=== PATIENT | female | born 1975 | race Two or more races ===

== ENCOUNTER 2016-07-29 14:28 | Emergency (ER) | payer OTHER ==
--- NOTE | 2016-07-29 20:07 | ED ---
yair Mederos Timothy, scribed for Rodger Starr MD on 07/29/16 at 1919 . Upper Extremity Pain - HPI Summary HPI Summary: Sally Torres is a 40 yo female presenting to [facility] with left hand numbness and 10/10 pain radiating up her left arm since 07/26/16. She states she also has right great toe pain from a fall a few weeks ago. She states she is very cold, and per triage has good cap refill and strong pulses. Her MHx includes heart murmur, palpitations, migraine, COPD, asthma, tuberculosis, GERD , irritable bowel, tubal ligation, kidney stones, RA, depression, anxiety, suicide attempt, tobacco use. - History of Current Complaint Chief Complaint: EDGeneral Stated Complaint: LT ARM & RT FOOT PAIN Time Seen by Provider: 07/29/16 19:23 Hx Obtained From: Patient Hx Last Menstrual Period: 10/12/14 Mechanism Of Injury: Unknown Onset/Duration: Started Days Ago, Still Present Timing: Constant Severity Initially: Moderate Severity Currently: Moderate Pain Location: Arm, Hand Associated Signs & Symptoms: Positive: Numbness/Tingling - Allergies/Home Medications Allergies/Adverse Reactions: Allergies Allergy/AdvReac Type Severity Reaction Status Date / Time Latex Allergy Mild Rash Verified 02/13/16 07:49 Dust Mite Extract Allergy Runny Nose Verified 02/13/16 07:49 Molds & Smuts Allergy Runny Nose Verified 02/13/16 07:49 MILK Allergy VOMIT Uncoded 02/13/16 07:49 NUTS Allergy VOMIT Uncoded 02/13/16 07:49 PMH/Surg Hx/FS Hx/Imm Hx Endocrine/Hematology History: Denies: Hx Anticoagulant Therapy, Other Endocrine/Hematological Disorders Cardiovascular History: Reports: Other Cardiovascular Problems/Disorders - MURMUR Respiratory History: Reports: Hx Asthma - CONTROL WITH INHALER, Hx Chronic Obstructive Pulmonary Disease (COPD), Other Respiratory Problems/Disorders - STATES SHE IS AN EXCESSIVE SMOKER Denies: Hx Cystic Fibrosis, Hx Lung Cancer, Hx Pleural Effusion, Hx Pneumonia , Hx Pulmonary Edema, Hx Pulmonary Embolism, Hx Seasonal Allergies, Hx Sleep Apnea GI History: Reports: Hx Gastroesophageal Reflux Disease, Hx Irritable Bowel, Other GI Disorders - OCCASIONAL NAUSEA AND VOMITING History: Reports: Hx Kidney Stones - PRESENT OCT 2014 Denies: Other Problems/Disorders Musculoskeletal History: Reports: Hx Arthritis - Arthritis/Osteoarthritis, Hx Rheumatoid Arthritis, Hx Tendonitis - BILATERAL FEET AND HANDS Denies: Other Musculoskeletal History Sensory History: Reports: Hx Contacts or Glasses - GLASSES Denies: Hx Hearing Aid, Other Sensory Impairments Opthamlomology History: Reports: Hx Contacts or Glasses - GLASSES Denies: Other Sensory Impairments Neurological History: Reports: Hx Headaches, Hx Migraine - OCCASIONAL Denies: Other Neuro Impairments/Disorders Psychiatric History: Reports: Hx Anxiety - CONTROL WITH MEDS, Hx Depression - CONTROL WITH MEDS, Hx Inpatient Treatment, Hx Community Mental Health Tx, Hx Suicide Attempt Denies: Hx Attention Deficit Hyperactivity Disorder, Hx Eating Disorder, Hx Panic Disorder, Hx Post Traumatic Stress Disorder, Hx Schizophrenia, Hx Bipolar Disorder, Hx of Violent Episodes Against Others, Other Psychiatric Issues/ Disorders - Surgical History Surgery Procedure, Year, and Place: 2001 WISDOM TEETH EXTRACTION, [facility] [place]. 2008 LAPAROSCOPIC BILATERAL TUBAL LIGATION, [facility] [place] Hx Anesthesia Reactions: No Infectious Disease History: Reports: Hx Tuberculosis - per previous records Denies: Hx Clostridium Difficile, Hx Hepatitis, Hx Human Immunodeficiency Virus (HIV), Hx of Known/Suspected MRSA, Hx Shingles, Hx Known/Suspected VRE, Hx Known/Suspected VRSA, History Other Infectious Disease, Traveled Outside the [place] in Last 30 Days - Family History Known Family History: Positive: Other - psychotic disorder, alcohol abuse Family History: Depression and EtOH Dependence - Social History Alcohol Use: None Substance Use Type: Reports: Marijuana Substance Use Comment - Amount & Last Used: LAST TIME 02/06/2016 Hx Tobacco Use: Yes Smoking Status (MU): Heavy Every Day Tobacco Smoker Type: Cigarettes Amount Used/How Often: 2 1/2 PPD Length of Time of Smoking/Using Tobacco: 26 YEARS Have You Smoked in the Last Year: Yes Review of Systems Constitutional: Negative Eyes: Negative ENT: Negative Cardiovascular: Negative Respiratory: Negative Gastrointestinal: Negative Genitourinary: Negative Musculoskeletal: Other - left hand pain radiating up left arm, right great toe pain Skin: Negative Positive: Numbness - left hand Psychological: Normal All Other Systems Reviewed And Are Negative: Yes Physical Exam Triage Information Reviewed: Yes Vital Signs On Initial Exam: Initial Vitals Temp Pulse BP Pulse Ox 99.1 F 127 118/76 100 07/29/16 14:30 07/29/16 14:30 07/29/16 14:30 07/29/16 14:30 Vital Signs Reviewed: Yes Appearance: Positive: Well-Appearing, No Pain Distress - anxious Skin: Positive: Warm, Skin Color Reflects Adequate Perfusion Head/Face: Positive: Normal Head/Face Inspection Eyes: Positive: RYAN ENT: Positive: Hearing grossly normal Neck: Positive: Supple Respiratory/Lung Sounds: Positive: Breath Sounds Present Cardiovascular: Positive: RRR Abdomen Description: Positive: Nontender, Soft Bowel Sounds: Positive: Present Musculoskeletal: Positive: Strength/ROM Intact Neurological: Positive: Sensory/Motor Intact, Alert, Oriented to Person Place, Time, Normal Gait Psychiatric: Positive: Anxious Diagnostics - Vital Signs Vital Signs Temp Pulse BP Pulse Ox 07/29/16 18:33 98.2 F 127 127/68 95 07/29/16 17:18 126 140/75 96 07/29/16 14:30 99.1 F 127 118/76 100 - Laboratory Result Diagrams: 07/29/16 20:10 07/29/16 20:10 Lab Statement: Any lab studies that have been ordered have been reviewed, and results considered in the medical decision making process. Re-Evaluation - Re-Evaluation First Eval Change: Improved - pt reassured, results d/w pt Course/Dx - Course Assessment/Plan: Sally Torres is a 40 yo female presenting to [facility] with left hand numbness and 10/10 pain radiating up her left arm. After clinical examination and review of her lab studies, she will be discharged home with paresthesia with appropriate instructions. - Diagnoses Provider Diagnoses: Arm paresthesia, left Discharge - Discharge Plan Condition: Stable Disposition: HOME Patient Education Materials: Paresthesia (ED) Referrals: Ron Cotton MD [Primary Care Provider] - 2 Days Additional Instructions: Please follow up with your primary care physician regarding your visit to the emergency department today. Return to the emergency department with any new or recurring symptoms. The documentation as recorded by the yair galo Timothy accurately reflects the service I personally performed and the decisions made by , Rodger Starr MD.
[2016-07-29 20:24] LABS: Hematocrit 39 % (35-47); Hemoglobin 12.9 g/dl (12.0-16.0); Mean Corpuscular HGB Conc 33 g/dl (31-36); Mean Corpuscular Hemoglobin 31 pg (27-31); Mean Corpuscular Volume 93 fL (80-97); Mean Platelet Volume 8 um3 (7.4-10.4); Red Blood Count 4.15 10^6/ul (4.0-5.4); Red Cell Distribution Width 15 % (10.5-15); White Blood Count 10.4 10^3/ul (3.5-10.8)
[2016-07-29 20:39] LABS: Albumin 3.8 g/dL (3.2-5.2); BUN/Creatinine Ratio 8.3 (8-20); Calcium 8.9 mg/dL (8.6-10.3); EGFR Non-African American 63.7 (>60); Globulin 2.6 g/dL (2-4); Magnesium 2.1 mg/dL (1.9-2.7); Potassium 3.8 mmol/L (3.5-5.0); Total Bilirubin 0.3 mg/dL (0.2-1.0); Total Protein 6.4 g/dL (6.4-8.9)
[2016-07-29 21:14] VITALS: BP 110/73
== END 2016-07-29 21:12 | disposition home or self-care (01) ==
LOC: ED 14:28
DX: R20.9 Unspecified disturbances of skin sensation (principal); F32.9 Major depressive disorder, single episode, unspecified; F41.9 Anxiety disorder, unspecified; J45.909 Unspecified asthma, uncomplicated; F17.210 Nicotine dependence, cigarettes, uncomplicated; J44.9 Chronic obstructive pulmonary disease, unspecified
CPT/HCPCS: 36415; 80053; 83735; 85025; 99283

== ENCOUNTER 2016-08-22 14:39 | Emergency (ER) | payer OTHER ==
[2016-08-22 14:52] VITALS: BP 117/75
--- NOTE | 2016-08-22 15:15 | UC ---
Ear Complaint HPI - History of Current Complaint Chief Complaint: UCEar Stated Complaint: EAR PAIN Time Seen by Provider: 08/22/16 14:54 Hx Obtained From: Patient Hx Last Menstrual Period: NOW (STATES NOT HAVING A "NORMAL" PERIOD NOW) Onset/Duration: Sudden Onset - started 3 days ago after touching ear with cigarette ashes on her finger. Severity Initially: Mild Severity Currently: Moderate Alleviating Factors: Nothing Related History: Seasonal Allergies - Allergies/Home Medications Allergies/Adverse Reactions: Allergies Allergy/AdvReac Type Severity Reaction Status Date / Time Latex Allergy Mild Rash Verified 08/22/16 14:56 Dust Mite Extract Allergy Runny Nose Verified 08/22/16 14:56 Eggs or Egg-derived Products Allergy Nausea And Verified 08/22/16 14:56 Vomiting Molds & Smuts Allergy Runny Nose Verified 08/22/16 14:56 MILK Allergy VOMIT Uncoded 08/22/16 14:56 NUTS Allergy VOMIT Uncoded 08/22/16 14:56 Home Medications: Home Medications Bisacodyl [Ducodyl] 1 tab PO DAILY 08/22/16 [History Confirmed 08/22/16] Mometasone/Formoter 100/5 MDI* [Dulera 100/5 MDI*] 1 puff INH BID 08/22/16 [ History Confirmed 08/22/16] PMH/Surg Hx/FS Hx/Imm Hx Previously Healthy: Yes Psychological History: Schizophrenia Other History Of: Negative For: Anticoagulant Therapy - Surgical History Surgical History: Yes Surgery Procedure, Year, and Place: 2001 WISDOM TEETH EXTRACTION, [facility] [place]. 2009 LAPAROSCOPIC BILATERAL TUBAL LIGATION, [facility] [place]. HERNIA REPAIR - Family History Known Family History: Positive: Other - psychotic disorder, alcohol abuse Family History: Depression and EtOH Dependence - Social History Occupation: Disabled Lives: With Family Alcohol Use: None Substance Use Type: Marijuana Substance Use Comment - Amount & Last Used: LAST TIME 02/06/2016 Smoking Status (MU): Current Every Day Smoker Type: Cigarettes Amount Used/How Often: 2 1/2 PPD Length of Time of Smoking/Using Tobacco: 26 YEARS Have You Smoked in the Last Year: Yes Household Exposure Type: Cigarettes Cessation Counseling: Patient Advised to Stop - Immunization History Most Recent Influenza Vaccination: 02/03/2013 Most Recent Tetanus Shot: 2007 Most Recent Pneumonia Vaccination: none Review of Systems Constitutional: Negative ENT: Ear Ache Respiratory: Negative Cardiovascular: Negative Neurological: Negative Psychological: Negative All Other Systems Reviewed And Are Negative: Yes Physical Exam Triage Information Reviewed: Yes Appearance: Well-Appearing, No Pain Distress, Well-Nourished Vital Signs: Initial Vital Signs Temp 98.2 F 08/22/16 14:45 Pulse 132 08/22/16 14:45 Resp 18 08/22/16 14:45 BP 117/75 08/22/16 14:45 Pulse Ox 96 08/22/16 14:45 Vital Signs Reviewed: Yes ENT: Positive: Hearing grossly normal, Pharynx normal, TM dull - R side, canal clear, no redness or swelling, C/O pain when speculum touches canal. Negative: Nasal drainage Respiratory Exam: Normal Cardiovascular Exam: Normal Neurological: Positive: Alert Psychological Exam: Normal Skin Exam: Normal Ear Complaint Course/Dx - Differential Dx/Diagnosis Differential Diagnosis/HQI/PQRI: Cerumen Impaction, Foreign Body, Otitis Externa , Otitis Media, URI Provider Diagnoses: otalgia Discharge - Discharge Plan Condition: Good Disposition: HOME Prescriptions: Neomyc/Polym/HC 1% OTIC SUSP* [Cortisporin Otic Susp 1%*] 4 drop RIGHT EAR TID # 1 btl Patient Education Materials: Earache (ED) Referrals: Ron Cotton MD [Primary Care Provider] - 2 Days (if no better) Additional Instructions: keep ears clean and dry use drops as prescribed and report worsening
== END 2016-08-22 15:24 | disposition home or self-care (01) ==
LOC: UCEAST 14:39
DX: H92.01 Otalgia, right ear (principal); F20.9 Schizophrenia, unspecified; F17.210 Nicotine dependence, cigarettes, uncomplicated
CPT/HCPCS: 99212; G0463

== ENCOUNTER 2016-10-16 08:27 | Day surgery (SDC) | payer OTHER ==
--- NOTE | 2016-10-08 19:55 | HP ---
PREOPERATIVE HISTORY AND PHYSICAL: DATE OF ADMISSION/SURGERY: 10/16/16 [facility] DATE OF OFFICE VISIT/ENCOUNTER: 10/08/16 ATTENDING SURGEON: Magdalena Dominguez MD * (DICTATED BY RADAMES CANNON) PROCEDURE: Left elbow ulnar nerve decompression. CHIEF COMPLAINT: Left arm ulnar nerve distribution numbness and tingling. HISTORY OF PRESENT ILLNESS: This is a 40-year-old female with schizoaffective disorder and chronic pain. She has had symptoms of numbness and tingling in the ulnar nerve distribution of her left upper extremity for several months now. A nerve conduction study revealed that she does have an ulnar neuropathy at the elbow. She is interested in pursuing surgical intervention for this problem and has consented to proceed with the left ulnar nerve decompression at the elbow. She is followed for chronic pain for Dr. Buckley. She takes approximately four 5 mg oxycodone tablets per day and is also on cyclobenzaprine along with several other medications. PAST MEDICAL HISTORY: 1. Schizoaffective disorder. 2. Mild asthma. 3. Chronic pain syndrome for which she is followed by Dr. Buckley. 4. Genital herpes. PAST SURGICAL HISTORY: 1. Tubal ligation. 2. [place] teeth extraction. 3. Umbilical hernia repair. CURRENT MEDICATIONS: 1. Advair HFA 230/21 mcg/ACT 2 puffs b.i.d. 2. Bisacodyl EC 5 mg 1 to 2 tablets twice a day p.r.n. 3. Calcium carbonate, vitamin D 600-400 mg b.i.d. 4. Colace 100 mg 1 tab daily. 5. Cyclobenzaprine HCl 10 mg three times a day p.r.n. spasm. 6. Dulera 100/5 mcg/ACT 2 puffs b.i.d. 7. Effexor 150 mg 1 tab daily. 8. Fleet Enema p.r.n. 9. Fluticasone propionate 50 mg/ACT 2 sprays each nostril daily. 10. Gabapentin 400 mg 1 tab t.i.d. 11. Ibuprofen 200 mg 2 tabs q.4 hours p.r.n. 12. Lysine 500 mg 1.5 tabs daily. 13. Magnesium citrate 1.745 g/30 mL p.r.n. 14. Metamucil 1 tablespoon daily. 15. Montelukast sodium 10 mg daily. 16. Mucinex 20 mL up to 4 times a day p.r.n. 17. Nicotine Polacrilex 4 mg chew 1 piece every 2 to 3 hours p.r.n. 18. Oxybutynin chloride ER 15 mg daily. 19. Oxycodone HCl 5 mg 4 tabs daily as needed. 20. ProAir HFA 108 (90 base) mcg/ACT 2 puffs q.4 hours p.r.n. 21. Promethazine HCl 12.5 mg 1 tablet q.8 hours p.r.n. nausea. 22. Risperidone 3 mg 2 tabs t.i.d. 23. Saphris 5 mg 1 daily. 24. Spiriva HandiHaler 18 mcg inhaled 1 inhalation q. evening. 25. Tab-A-Shasta daily. 26. Valtrex 500 mg daily. 25. Vitamin C 500 mg daily. ALLERGIES: No known drug allergies. FAMILY MEDICAL HISTORY: Noncontributory. SOCIAL HISTORY: The patient is not currently working, she lives at home with her . She does have 5 children, but informs my she is not in custody of them. She is a current smoker, she smokes up to 2-1/2 packs per day and has done so since age 14. She smokes marijuana on a regular basis. She drinks alcohol on rare occasions. REVIEW OF SYSTEMS: General: Negative for fevers, chills, or night sweats. No known anesthesia problems. HEENT: Negative for headache, lightheadedness, or syncopal episodes. Integumentary: Negative for abrasions, lesions, or open wounds. Cardiothoracic: Negative for hypertension, chest pain, palpitations, or edema. Pulmonary: Positive for shortness of breath on exertion. Negative for chronic cough or COPD. GI: Positive for occasional nausea and occasional constipation. Negative for GERD. : Negative for nocturia, urinary frequency , urgency, history of UTIs, or kidney problems. Musculoskeletal: Positive for current complaint. Neurological: Negative for history of seizure, stroke, or epilepsy. Endocrine: Negative for diabetes or thyroid issues. Hematologic: Negative for easy bruising, anemia, excessive bleeding, or history of DVT. Infectious Disease: Negative for history of MRSA, hepatitis C, or HIV. PHYSICAL EXAMINATION GENERAL: Well-developed, well-nourished, 40-year-old female, in no acute distress. VITAL SIGNS: Height 5 feet 5 inches, weight 152 pounds, blood pressure 108/72, pulse rate 66. HEENT: Normocephalic, atraumatic. Pupils are equal, round, and reactive to light and accommodation. Extraocular movements are intact. NECK: Supple. No palpable lymph nodes. Throat is clear. PULMONARY: Lungs are clear to auscultation bilaterally. No wheezes, rales, or rhonchi. CARDIOVASCULAR: Regular rate and rhythm. S1, S2. No murmurs, rubs, or gallops. No edema. ABDOMEN: Positive bowel sounds, soft, nontender. NEUROLOGICAL: Alert and oriented x3. Cranial nerves II through XII are intact. MUSCULOSKELETAL: On exam of her left upper extremity, there is no visible swelling or deformity. She has tenderness to palpation over the cubital tunnel and a positive Tinel's sign over the ulnar nerve. She has decreased sensation in the pinky of her left hand and weakness with finger abduction and adduction. Otherwise, sensation is intact to her hand. IMAGING STUDIES: EMG/nerve conduction study shows left ulnar neuropathy at the elbow. IMPRESSION: Left ulnar neuropathy at the elbow. PLAN: The patient is scheduled to undergo a left elbow ulnar nerve decompression with Dr. Dominguez on 10/16/16. She will return to the office 10 to 14 days postop for followup and suture removal. Currently, she has pain medications as prescribed by Dr. Buckley. Dr. Buckley was contacted and should Sally need additional pain medications perioperatively, those will be prescribed at that time by Dr. Dominguez or RADAMES Cannon. RADAMES CANNON [id number]/[facility] #: [id number] [facility] CENTERKevan
[~2016-10-16 08:27] MED LIST: Buffered Lidocaine 0.9% SYRIN* 5 ML/SYR SYRINGE INTRADERM ONE
[2016-10-16] MEDS ORDERED: fentaNYL* 50 MCG/ML 2 ML VIAL (100 MCG VIAL) IV PRN (09:15)
[2016-10-16] MEDS ORDERED: Ondansetron INJ* 2 MG/ML VIAL IV PRN (09:15)
[2016-10-16] MEDS ORDERED: Acetaminophen TAB* 325 MG PO PRN (09:15)
[2016-10-16] MEDS ORDERED: DiMENhydriNATE IV* 50 MG/ML VIAL IV PUSH PRN (09:15)
[2016-10-16] MEDS ORDERED: ceFAZolin 2 GM PREMIX (*) 50 ML IVPB ONE (09:20)
[2016-10-16] MEDS ORDERED: Midazolam* 1 MG/ML 2 ML VIAL (2 MG) ONE (10:00)
[2016-10-16] MEDS ORDERED: fentaNYL* 50 MCG/ML 2 ML VIAL (100 MCG VIAL) ONE (10:00)
[2016-10-16] MEDS ORDERED: Lidocaine 1% INJ* 10 MG/ML 30 ML SDV ONE (10:09)
[2016-10-16] MEDS ORDERED: Bupivacaine 0.5% SDV PF* 30 ML VIAL ONE (10:20)
[2016-10-16] MEDS ORDERED: Dexamethasone IV* 4 MG/ML 1 ML (4 MG) ONE (10:32)
[2016-10-16] MEDS ORDERED: Ketorolac INJ* 30 MG/ML 1 ML VIAL ONE (10:32)
[2016-10-16] MEDS ORDERED: Ondansetron INJ* 2 MG/ML VIAL ONE (10:32)
[2016-10-16] MEDS ORDERED: Lidocaine 2% PF * 5 ML VIAL ONE (10:32)
[2016-10-16] MEDS ORDERED: Propofol* 10 MG/ML 20 ML BTL IV PUSH ONE (10:32)
[2016-10-16] MEDS ORDERED: oxyCODONE ORAL.SOLN* 5 MG/5 ML UDC ONE (11:53)
[2016-10-16 11:59] VITALS: BP 109/77
--- NOTE | 2016-10-17 01:48 | OP ---
DATE OF OPERATION: 10/16/16 [facility] DATE OF : 71 SURGEON: Magdalena Dominguez MD [employer] REPAIRER: RADAMES Cannon ANESTHESIOLOGIST: Dr. Nicole ANESTHESIA: General. PRE-OP DIAGNOSIS: Ulnar nerve compression at the left elbow. POST-OP DIAGNOSIS: Ulnar nerve compression at the left elbow. OPERATIVE PROCEDURE: Ulnar nerve decompression at the left elbow. INDICATIONS: Sally is a 40-year-old female with numbness and tingling in the ulnar nerve distribution of her left hand. Nerve conduction study shows an ulnar nerve compression at the left elbow. She presents for ulnar nerve decompression. ESTIMATED BLOOD LOSS: Zero. TOURNIQUET TIME: 25 minutes. DESCRIPTION OF PROCEDURE: The patient was brought to the operating room, was given a general anesthetic and placed in the supine position on the operating room table with a tourniquet around her left upper arm. The skin of her left upper extremity was prepped and draped in the usual sterile fashion. The upper extremity was exsanguinated and the tourniquet elevated to 250 mmHg. A curvilinear incision was made, centered between the medial epicondyle and the tip of the olecranon process, dissected sharply and bluntly down to the ulnar nerve proximal to the elbow. There was a crossing sensory branch and this was preserved. The ulnar nerve was carefully dissected out proximally and distally for several centimeters from the elbow joint. There was an anconeus epitrochlearis muscle that was divided that was compressing the nerve. The medial intermuscular septum was then divided as the edge of it was very sharp. The wound was irrigated. Subcutaneous tissue was closed with 3-0 Polysorb and the skin with skin dale. The wound was dressed with Xeroform, 4x4's, Webril , and an Haresh wrap. The patient tolerated the procedure well and was brought to the recovery room in good condition. [id number]/[place] #: [id number] [facility] HOSPITALKevan
== END 2016-10-16 12:24 | disposition home or self-care (01) ==
LOC: OREAST 08:27
PROVIDERS: ATTEND Orthopaedic Surgery
DX: G56.22 Lesion of ulnar nerve, left upper limb (principal); J45.909 Unspecified asthma, uncomplicated; A60.00 Herpesviral infection of urogenital system, unspecified; G89.4 Chronic pain syndrome; F25.9 Schizoaffective disorder, unspecified; F17.210 Nicotine dependence, cigarettes, uncomplicated
CPT/HCPCS: A9270-GY; J0690; J1100; J1885; J2001; J2250; J2405; J2704; J3010

== ENCOUNTER 2016-11-28 08:33 | Emergency (ER) | payer OTHER ==
[2016-11-28] MEDS ORDERED: guaiFENesin LIQ* 100 MG/5 ML UDC PO ONE (08:47)
[2016-11-28 09:20] LABS: Hematocrit 37 % (35-47); Hemoglobin 12.8 g/dl (12.0-16.0); Mean Corpuscular HGB Conc 35 g/dl (31-36); Mean Corpuscular Hemoglobin 32 pg (27-31); Mean Corpuscular Volume 93 fL (80-97); Mean Platelet Volume 8 um3 (7.4-10.4); Red Cell Distribution Width 14 % (10.5-15); White Blood Count 7.3 10^3/ul (3.5-10.8)
--- NOTE | 2016-11-28 09:24 | RAD ---
INDICATION: Cough. Short of breath COMPARISON: August 01, 2014 TECHNIQUE: PA and lateral dual-energy views were obtained. FINDINGS: Bones/Soft Tissues: There are no acute bony findings. Cardiomediastinal: The cardiomediastinal silhouette is normal. Lungs: There is a small left basilar infiltrate.. Pleura: There are no pleural effusions. Other: None IMPRESSION: SMALL LEFT BASILAR INFILTRATE.
[2016-11-28] MEDS ORDERED: Levofloxacin 750 MG IVPREMIX(* 750 MG/150 ML BAG IVPB ONE (09:30)
[2016-11-28 09:31] LABS: BUN/Creatinine Ratio 7.7 (8-20); C Reactive Protein 4.07 mg/L (< 5.00); Calcium 9.1 mg/dL (8.6-10.3); EGFR African American 104.2 (>60); Globulin 2.6 g/dL (2-4); Potassium 4.2 mmol/L (3.5-5.0); Total Bilirubin 0.3 mg/dL (0.2-1.0); Total Protein 6.6 g/dL (6.4-8.9)
[2016-11-28 11:41] VITALS: BP 128/70
--- NOTE | 2016-12-09 07:40 | ED ---
Domitila Mederos Edward, scribed for Ron Cuellar MD on 11/28/16 at 0849 . Respiratory - HPI Summary HPI Summary: 40 y/o female presents to the ED c/o chest pressure and a cough lasting 2 days. The cough is productive. The symptoms are aggravated when the pt talks too much. Pt states she thinks she has "PNA after kissing her in the ICU". Associated sx: CP and SOB. LNMP couple of days ago. - History of Current Complaint Chief Complaint: EDUpperRespComplaint Stated Complaint: CHEST CONGESTION/LT LUNG PRESSURE Time Seen by Provider: 11/28/16 08:44 Hx Obtained From: Patient Onset/Duration: Lasting Days, Still Present Pain Intensity: 8 Character: Cough (Productive) Aggravating Factor(s): Other - Talking Associated Signs and Symptoms: SOB, Chest Pain - Allergy/Home Medications Allergies/Adverse Reactions: Allergies Allergy/AdvReac Type Severity Reaction Status Date / Time Latex Allergy Mild Rash Verified 11/28/16 08:41 Dust Mite Extract Allergy Runny Nose Verified 11/28/16 08:41 Eggs or Egg-derived Products Allergy Nausea And Verified 11/28/16 08:41 Vomiting Molds & Smuts Allergy Runny Nose Verified 11/28/16 08:41 MILK Allergy VOMIT Uncoded 11/28/16 08:41 NUTS Allergy VOMIT Uncoded 11/28/16 08:41 PMH/Surg Hx/FS Hx/Imm Hx Previously Healthy: No Endocrine/Hematology History: Reports: Hx Anemia - past Denies: Hx Anticoagulant Therapy, Other Endocrine/Hematological Disorders Cardiovascular History: Reports: Other Cardiovascular Problems/Disorders - MURMUR Denies: Hx Valvular Heart Disease Respiratory History: Reports: Hx Asthma - CONTROL WITH INHALER, Hx Chronic Obstructive Pulmonary Disease (COPD), Hx Sleep Apnea - possible, Other Respiratory Problems/Disorders - STATES SHE IS AN EXCESSIVE SMOKER Denies: Hx Cystic Fibrosis, Hx Lung Cancer, Hx Pleural Effusion, Hx Pneumonia , Hx Pulmonary Edema, Hx Pulmonary Embolism, Hx Seasonal Allergies GI History: Reports: Hx Gastroesophageal Reflux Disease, Hx Irritable Bowel, Hx Ulcer - in the past Denies: Other GI Disorders History: Reports: Hx Kidney Stones - PRESENT OCT 2014 Denies: Other Problems/Disorders Musculoskeletal History: Reports: Hx Arthritis - Arthritis/Osteoarthritis, Hx Rheumatoid Arthritis, Hx Bursitis, Hx Tendonitis - BILATERAL FEET AND HANDS Denies: Other Musculoskeletal History Sensory History: Reports: Hx Contacts or Glasses - GLASSES Denies: Hx Hearing Aid, Other Sensory Impairments Opthamlomology History: Reports: Hx Contacts or Glasses - GLASSES Denies: Other Sensory Impairments Neurological History: Reports: Hx Headaches, Hx Migraine - OCCASIONAL, Other Neuro Impairments/Disorders - genital herpes Psychiatric History: Reports: Hx Anxiety - CONTROL WITH MEDS, Hx Depression - CONTROL WITH MEDS, Hx Inpatient Treatment, Hx Community Mental Health Tx, Hx Suicide Attempt Denies: Hx Attention Deficit Hyperactivity Disorder, Hx Eating Disorder, Hx Panic Disorder, Hx Post Traumatic Stress Disorder, Hx Schizophrenia, Hx Bipolar Disorder, Hx of Violent Episodes Against Others, Other Psychiatric Issues/ Disorders - Surgical History Surgery Procedure, Year, and Place: [place] [facility] [place] LAPAROSCOPIC TUBAL LIGATION. HERNIA REPAIR Hx Anesthesia Reactions: No Infectious Disease History: No Infectious Disease History: Reports: Hx Tuberculosis - per previous records, History Other Infectious Disease - GENITAL HERPES Denies: Hx Clostridium Difficile, Hx Hepatitis, Hx Human Immunodeficiency Virus (HIV), Hx of Known/Suspected MRSA, Hx Shingles, Hx Known/Suspected VRE, Hx Known/Suspected VRSA, Traveled Outside the [place] in Last 30 Days - Family History Known Family History: Positive: Other - psychotic disorder, alcohol abuse Family History: Depression and EtOH Dependence - Social History Alcohol Use: None Hx Substance Use: Yes Substance Use Type: Reports: Marijuana Substance Use Comment - Amount & Last Used: LAST TIME 10/08/16 Hx Tobacco Use: Yes Smoking Status (MU): Current Every Day Smoker Type: Cigarettes Amount Used/How Often: 2 1/2 PPD Length of Time of Smoking/Using Tobacco: 26 YEARS Have You Smoked in the Last Year: Yes Review of Systems Constitutional: Negative Eyes: Negative ENT: Negative Positive: Chest Pain Positive: Shortness Of Breath, Cough, Other - chest pressure Gastrointestinal: Negative Genitourinary: Negative Musculoskeletal: Negative Skin: Negative Neurological: Negative Psychological: Normal All Other Systems Reviewed And Are Negative: Yes Physical Exam - Summary Physical Exam Summary: VITAL SIGNS: Reviewed. GENERAL: Patient is a well-developed and nourished (MALE OR FEMALE) who is lying comfortable in the stretcher. Patient is not in any acute respiratory distress. HEAD AND FACE: No signs of trauma. No ecchymosis, hematomas or skull depressions. No sinus tenderness. EYES: PERRLA, EOMI x 2, No injected conjunctiva, no nystagmus. EARS: Hearing grossly intact. Ear canals and tympanic membranes are within normal limits. MOUTH: Oropharynx within normal limits. NECK: Supple, trachea is midline, no adenopathy, no JVD, no carotid bruit, no c- spine tenderness, neck with full ROM. CHEST: Symmetric, no tenderness at palpation LUNGS: Crackles in the left lower lung. CVS: Regular rate and rhythm, S1 and S2 present, no murmurs or gallops appreciated. ABDOMEN: Soft, non-tender. No signs of distention. No rebound no guarding, and no masses palpated. Bowel sounds are normal. EXTREMITIES: FROM in all major joints, no edema, no cyanosis or clubbing. NEURO: Alert and oriented x 3. No acute neurological deficits. Speech is normal and follows commands. SKIN: Dry and warm Triage Information Reviewed: Yes Vital Signs On Initial Exam: Initial Vitals Temp Pulse Resp BP Pulse Ox 97.2 F 101 16 131/79 96 11/28/16 08:37 11/28/16 08:37 11/28/16 08:37 11/28/16 08:37 11/28/16 08:37 Vital Signs Reviewed: Yes Diagnostics - Vital Signs Vital Signs Temp Pulse Resp BP Pulse Ox 11/28/16 08:37 97.2 F 101 16 131/79 96 - Laboratory Lab Results: Lab Results 11/28/16 11/28/16 11/28/16 Range/Units 09:05 09:05 09:05 WBC 7.3 (3.5-10.8) 10^3/ul RBC 4.00 (4.0-5.4) 10^6/ul Hgb 12.8 (12.0-16.0) g/dl Hct 37 (35-47) % MCV 93 (80-97) fL MCH 32 H (27-31) pg MCHC 35 (31-36) g/dl RDW 14 (10.5-15) % Plt Count 239 (150-450) 10^3/ul MPV 8 (7.4-10.4) um3 Neut % (Auto) 67.0 (38-83) % Lymph % (Auto) 25.3 (25-47) % Iroquois % (Auto) 5.8 (1-9) % Eos % (Auto) 1.4 (0-6) % Baso % (Auto) 0.5 (0-2) % Absolute Neuts (auto) 4.9 (1.5-7.7) 10^3/ul Absolute Lymphs (auto) 1.8 (1.0-4.8) 10^3/ul Absolute Monos (auto) 0.4 (0-0.8) 10^3/ul Absolute Eos (auto) 0.1 (0-0.6) 10^3/ul Absolute Basos (auto) 0 (0-0.2) 10^3/ul Absolute Nucleated RBC 0 10^3/ul Nucleated RBC % 0 Sodium 137 (133-145) mmol/L Potassium 4.2 (3.5-5.0) mmol/L Chloride 107 (101-111) mmol/L Carbon Dioxide 24 (22-32) mmol/L Anion Gap 6 (2-11) mmol/L BUN 6 (6-24) mg/dL Creatinine 0.78 (0.51-0.95) mg/dL Est GFR ( Amer) 104.2 (>60) Est GFR (Non-Af Amer) 81.0 (>60) BUN/Creatinine Ratio 7.7 L (8-20) Glucose 78 (70-100) mg/dL Calcium 9.1 (8.6-10.3) mg/dL Total Bilirubin 0.30 (0.2-1.0) mg/dL AST 24 (13-39) U/L ALT 19 (7-52) U/L Alkaline Phosphatase 48 (34-104) U/L C-Reactive Protein 4.07 (< 5.00) mg/L B-Natriuretic Peptide 14 ( - 100) pg/mL Total Protein 6.6 (6.4-8.9) g/dL Albumin 4.0 (3.2-5.2) g/dL Globulin 2.6 (2-4) g/dL Albumin/Globulin Ratio 1.5 (1-3) Influenza A (Rapid) (Negative) Influenza B (Rapid) (Negative) 11/28/16 Range/Units 09:12 WBC (3.5-10.8) 10^3/ul RBC (4.0-5.4) 10^6/ul Hgb (12.0-16.0) g/dl Hct (35-47) % MCV (80-97) fL MCH (27-31) pg MCHC (31-36) g/dl RDW (10.5-15) % Plt Count (150-450) 10^3/ul MPV (7.4-10.4) um3 Neut % (Auto) (38-83) % Lymph % (Auto) (25-47) % [place]roquois % (Auto) (1-9) % Eos % (Auto) (0-6) % Baso % (Auto) (0-2) % Absolute Neuts (auto) (1.5-7.7) 10^3/ul Absolute Lymphs (auto) (1.0-4.8) 10^3/ul Absolute Monos (auto) (0-0.8) 10^3/ul Absolute Eos (auto) (0-0.6) 10^3/ul Absolute Basos (auto) (0-0.2) 10^3/ul Absolute Nucleated RBC 10^3/ul Nucleated RBC % Sodium (133-145) mmol/L Potassium (3.5-5.0) mmol/L Chloride (101-111) mmol/L Carbon Dioxide (22-32) mmol/L Anion Gap (2-11) mmol/L BUN (6-24) mg/dL Creatinine (0.51-0.95) mg/dL Est GFR ( Amer) (>60) Est GFR (Non-Af Amer) (>60) BUN/Creatinine Ratio (8-20) Glucose (70-100) mg/dL Calcium (8.6-10.3) mg/dL Total Bilirubin (0.2-1.0) mg/dL AST (13-39) U/L ALT (7-52) U/L Alkaline Phosphatase (34-104) U/L C-Reactive Protein (< 5.00) mg/L B-Natriuretic Peptide ( - 100) pg/mL Total Protein (6.4-8.9) g/dL Albumin (3.2-5.2) g/dL Globulin (2-4) g/dL Albumin/Globulin Ratio (1-3) Influenza A (Rapid) Negative (Negative) Influenza B (Rapid) Negative (Negative) Result Diagrams: 11/28/16 09:05 11/28/16 09:05 Lab Statement: Any lab studies that have been ordered have been reviewed, and results considered in the medical decision making process. - Radiology CXR Xray Interpretation: Positive (See Comments) Radiology Interpretation Completed By: Radiologist - EKG 1 EKG Rhythm: Sinus Rhythm - 91 BPM EKG Interpretation: 08:52 - No ST elevation. Normal axis Disposition - Course Assessment/Plan: 40 y/o female presents to the ED c/o chest pressure and a cough lasting 2 days. The cough is productive. The symptoms are aggravated when the pt talks too much. Pt states she thinks she has "PNA after kissing her in the ICU". Associated sx: CP and SOB. LNMP couple of days ago. EKG shows 08:52 - Sinus rhythm @ [address] elevation. Normal axis. CXR SHOWS SMALL LEFT BASILAR INFILTRATE. Test results w/o significant abnormalities, influenza A and B negative. CXR shows small L basilar infiltrate. In the ED course the pt was given IV fluids and Levaquin for the PNA. After the medications the pt is feeling better. The pt will be d/c home with f/u with PCP. The pt is hemodynamically stable and A&Ox3. - Differential Dx - Cardiopulmonary Differential Diagnoses - Cardiopulmonary: Bronchitis, Chest Wall Pain, Laryngitis - Diagnoses Provider Diagnoses: Pneumonia Discharge - Discharge Plan Condition: Stable Disposition: HOME Prescriptions: Levofloxacin TAB* [Levaquin TAB*] 750 mg PO DAILY #6 tab Patient Education Materials: Pneumonia (ED) Referrals: Ron Cotton MD [Primary Care Provider] - 3 Days (PLEASE f/u in 2-3 days) The documentation as recorded by the Domitila galo Edward accurately reflects the service I personally performed and the decisions made by , Ron Cuellar MD.
== END 2016-11-28 11:39 | disposition home or self-care (01) ==
LOC: ED 08:33
DX: J18.9 Pneumonia, unspecified organism (principal)
CPT/HCPCS: 36415; 71020; 80053; 83880; 85025; 86140; 87502; 93005; 99282; A9270-GY

== ENCOUNTER 2016-12-12 13:58 | Emergency (ER) | payer OTHER ==
[2016-12-12 15:07] VITALS: BP 129/81
--- NOTE | 2016-12-12 15:30 | UC ---
FLU HPI - HPI Summary HPI Summary: 40 Y/O female presents with flu like symptoms for approximately one week. C/O fever, chills, nausea, and sore throat that have improved over the last week. Denies vomiting, cough, nasal congestion, or dyspnea. PMH and medications reviewed at this visit. - History of Current Complaint Chief Complaint: UCRespiratory Stated Complaint: FLU SYMPTOMS Time Seen by Provider: 12/12/16 15:18 Hx Obtained From: Patient Hx Last Menstrual Period: 11/18/16 ?: No Onset/Duration: Gradual Onset, Lasting Days Severity Currently: Moderate Severity Initially: Mild Pain Intensity: 2 Pain Scale Used: 0-10 Numeric Associated Signs & Symptoms: Positive: Fever, Myalgia Related Hx: Smoking - Allergy/Home Medications Allergies/Adverse Reactions: Allergies Allergy/AdvReac Type Severity Reaction Status Date / Time Latex Allergy Mild Rash Verified 12/12/16 15:07 Dust Mite Extract Allergy Runny Nose Verified 12/12/16 15:07 Eggs or Egg-derived Products Allergy Nausea And Verified 12/12/16 15:07 Vomiting Molds & Smuts Allergy Runny Nose Verified 12/12/16 15:07 MILK Allergy VOMIT Uncoded 12/12/16 15:07 NUTS Allergy VOMIT Uncoded 12/12/16 15:07 PMH/Surg Hx/FS Hx/Imm Hx Previously Healthy: Yes Respiratory History: Asthma Psychological History: Bipolar Disorder Other History Of: Negative For: Anticoagulant Therapy - Surgical History Surgical History: Yes Surgery Procedure, Year, and Place: 2001 WISDOM TEETH EXTRACTION, [facility]. 2009 LAPAROSCOPIC TUBAL LIGATION. HERNIA REPAIR - Family History Known Family History: Positive: Other - psychotic disorder, alcohol abuse Family History: Depression and EtOH Dependence - Social History Alcohol Use: None Substance Use Type: Marijuana Substance Use Comment - Amount & Last Used: LAST TIME 10/08/16 Smoking Status (MU): Current Every Day Smoker Type: Cigarettes Amount Used/How Often: 2 1/2 PPD Length of Time of Smoking/Using Tobacco: 26 YEARS Have You Smoked in the Last Year: Yes Household Exposure Type: Cigarettes - Immunization History Most Recent Influenza Vaccination: 02/03/2013 Most Recent Tetanus Shot: 2007 Most Recent Pneumonia Vaccination: none Review of Systems Constitutional: Fever, Chills Skin: Negative Eyes: Negative ENT: Negative Respiratory: Negative Cardiovascular: Negative Gastrointestinal: Negative Genitourinary: Negative Motor: Negative Neurovascular: Negative Musculoskeletal: Negative Neurological: Negative Psychological: Negative Is Patient Immunocompromised?: No All Other Systems Reviewed And Are Negative: Yes Physical Exam Triage Information Reviewed: Yes Appearance: Well-Appearing Vital Signs: Initial Vital Signs Temp 98.6 F 12/12/16 15:03 Pulse 117 12/12/16 15:03 Resp 20 12/12/16 15:03 BP 129/81 12/12/16 15:03 Pulse Ox 100 12/12/16 15:03 Vital Signs Reviewed: Yes Eye Exam: Normal ENT: Positive: Pharyngeal erythema Dental Exam: Normal Neck exam: Normal Neck: Positive: Supple, Nontender, No Lymphadenopathy Respiratory Exam: Normal Respiratory: Positive: Normal breath sounds Cardiovascular Exam: Normal Cardiovascular: Positive: RRR Abdominal Exam: Normal Abdomen Description: Positive: Nontender Bowel Sounds: Positive: Present Musculoskeletal Exam: Normal Musculoskeletal: Positive: Strength Intact Neurological Exam: Normal Neurological: Positive: Alert Psychological Exam: Normal Skin Exam: Normal Flu Course/Dx - Differential Dx/Diagnosis Differential Diagnosis/HQI/PQRI: Influenza, Upper Respiratory Infection Provider Diagnoses: Viral illness Discharge - Discharge Plan Condition: Stable Disposition: HOME Patient Education Materials: Viral Syndrome (ED) Additional Instructions: Your flu and strep tests were negative. You most likely have a viral illness that will improve over the next week. Drink plenty of fluids, avoid smoking. Follow up with your primary medical provider or return to Urgent Care if symptoms do not improve.
== END 2016-12-12 15:50 | disposition home or self-care (01) ==
LOC: UCEAST 13:58
DX: B34.9 Viral infection, unspecified (principal); F17.210 Nicotine dependence, cigarettes, uncomplicated; Z91.012 Allergy to eggs; Z91.040 Latex allergy status; Z91.011 Allergy to milk products; Z91.018 Allergy to other foods; Z91.048 Other nonmedicinal substance allergy status
CPT/HCPCS: 87502; 87651; 99212; G0463

== ENCOUNTER 2017-03-22 09:45 | Day surgery (SDC) | payer OTHER ==
[~2017-03-22 09:45] MED LIST changes: +DiMENhydriNATE IV* 50 MG/ML VIAL IV PUSH PRN; +Famotidine IV* 10 MG/ML 2 ML (20 mg) IV ONE; +Morphine INJ* 2 MG/ML 1 ML CARPUJECT IV PRN; +Naloxone* 0.4 MG/ML 1 ML VIAL IV PRN; +PROCHLORPERAZINE INJ 5 MG/ML 2 ML VIAL IV PRN; +Scopolamine 1.5 mg* PATCH TRANSDERM PRN; +fentaNYL* 50 MCG/ML 2 ML VIAL (100 MCG VIAL) IV PRN; +oxyCODONE/Acetamin 5/325 MG* TAB PO PRN
[2017-03-22] MEDS ORDERED: Clindamycin 900 MG IVPREMIX(* 900 MG/50 ML SDV IV ONE (09:55)
[2017-03-22] MEDS ORDERED: Famotidine IV* 10 MG/ML 2 ML (20 mg) ONE (09:55)
[2017-03-22] MEDS ORDERED: Buffered Lidocaine 0.9% SYRIN* 5 ML/SYR SYRINGE ONE (09:55)
[2017-03-22] MEDS ORDERED: Dexamethasone IV* 4 MG/ML 1 ML (4 MG) ONE ×2 (10:51)
[2017-03-22] MEDS ORDERED: fentaNYL* 50 MCG/ML 2 ML VIAL (100 MCG VIAL) ONE (11:10)
[2017-03-22] MEDS ORDERED: Midazolam* 1 MG/ML 10 ML VIAL (10 MG) ONE (11:11)
[2017-03-22] MEDS ORDERED: KETAMINE HCL* 50 MG/ML 10 ML VIAL ONE (11:11)
[2017-03-22] MEDS ORDERED: Bupivacaine 0.5% SDV PF* 10-30ML VIAL ONE (12:12)
[2017-03-22] MEDS ORDERED: Lidocaine 2% PF* 10 ML AMP ONE (12:30)
[2017-03-22] MEDS ORDERED: Ketorolac INJ* 30 MG/ML 1 ML VIAL ONE (13:01)
[2017-03-22] MEDS ORDERED: Lidocaine 2% PF * 5 ML VIAL ONE (13:01)
[2017-03-22] MEDS ORDERED: Propofol* 10 MG/ML 20 ML BTL IV PUSH ONE (13:01)
[2017-03-22] MEDS ORDERED: oxyCODONE TAB* 5 MG TAB ONE (14:43)
[2017-03-22 14:56] VITALS: BP 109/78
--- NOTE | 2017-03-22 20:37 | RAD ---
CPT II Codes: 6045F INDICATION: left foot bunion repair. Fluoroscopic services provided for referring physician. There is fusion of the first metatarsophalangeal joint. 4 spot images were obtained. IMPRESSION: Fusion of the first metatarsophalangeal joint. Fluoroscopic services provided for referring physician.
--- NOTE | 2017-03-23 11:32 | OP ---
DATE OF OPERATION: 01/20/18 - [facility] DATE OF : 71 ATTENDING SURGEON: Kwasi Del Rosario MD REGRINDER OPERATOR: Malathi Garsia PA-C. ANESTHESIOLOGIST: Rodger Morse MD ANESTHESIA: Monitored anesthesia care. PRE-OP DIAGNOSIS: Left hallus valgus. POST-OP DIAGNOSIS: Left hallus valgus. OPERATIVE PROCEDURE: Modified Valerio bunion repair, left forefoot. DESCRIPTION OF PROCEDURE: The patient was taken to the operating room where a longitudinal incision was made in the dorsal 1st webspace. We incised down through the subcutaneous tissue to allow visualization of the adductor tendon, which was reflected away from the lateral border of the lateral sesamoid. We also performed a capsulotomy longitudinally between the metatarsal and the sesamoid. We then made a straight medial incision over the medial eminence. Dorsal plantar flap was raised to allow protection of the dorsal medial cutaneous nerve. Transverse capsulotomy was made at the level of the joint and extended in an L- shape fashion over the dorsum. We used a microsagittal saw to remove the medial eminence. We then removed redundant capsule from the medial side, repaired the capsulotomy with interrupted 0-Vicryl sutures, which held the toe in a nicely corrected position, was verified with a C-arm. We then closed the subcu tissue with 3-0 Vicryl, 4-0 nylon, and a compression dressing applied. [id number]/CPS #: [id number] MTDD
[2017-03-25] MEDS ORDERED: Scopolamine PATCH Remove* 1 NOTE MISC PATCH OFF ONE (05:58)
== END 2017-03-22 15:05 | disposition home or self-care (01) ==
LOC: OR 09:45
PROVIDERS: ATTEND Orthopaedic Surgery
DX: M20.12 Hallux valgus (acquired), left foot (principal); F17.210 Nicotine dependence, cigarettes, uncomplicated; K58.9 Irritable bowel syndrome, unspecified; F25.9 Schizoaffective disorder, unspecified
CPT/HCPCS: 76000; A9270-GY; J1100; J1885; J2001; J2250; J2704; J3010

== ENCOUNTER → 2017-11-17 19:23 | Emergency (ER) | payer OTHER ==
[~2017-11-17 19:23] MED LIST changes: -Buffered Lidocaine 0.9% SYRIN* 5 ML/SYR SYRINGE INTRADERM ONE; -DiMENhydriNATE IV* 50 MG/ML VIAL IV PUSH PRN; -Famotidine IV* 10 MG/ML 2 ML (20 mg) IV ONE; +Ketorolac INJ* 60 MG/2 ML VIAL IM ONE; -Morphine INJ* 2 MG/ML 1 ML CARPUJECT IV PRN; -Naloxone* 0.4 MG/ML 1 ML VIAL IV PRN; -PROCHLORPERAZINE INJ 5 MG/ML 2 ML VIAL IV PRN; -Scopolamine 1.5 mg* PATCH TRANSDERM PRN; -fentaNYL* 50 MCG/ML 2 ML VIAL (100 MCG VIAL) IV PRN; -oxyCODONE/Acetamin 5/325 MG* TAB PO PRN
[2017-11-17 22:11] VITALS: BP 100/60
--- NOTE | 2017-11-18 00:17 | ED ---
Complex/Multi-Sys Presentation - HPI Summary HPI Summary: The pt is a 41 y.o female presenting to [facility] accompanied by with a chief compalint of ear pressure in her both ears. She reports no foreign obtrusion in her ears. The pt also reports coughing, and congestion. Pt denies fever. Pt also denies any allergies. Her period is reported to be irregular and she infrequently urinates. Symptoms aggravated by nothing and alleviated by nothing. She denies PMHx of DM and hypertension. She states she was diagnosed with Schizoaffective disorder. Pain was described to be in the lower abd to pelvic region where she reports contractions. - History Of Current Complaint Chief Complaint: EDGeneral Time Seen by Provider: 11/17/17 21:36 Hx Obtained From: Patient Onset/Duration: Still Present Timing: Constant Aggravating Factor(s): nothing Alleviating Factor(s): nothing Associated Signs And Symptoms: Positive: Other - Coughing, ear pressure, congestion, infrequent urination, cramping and contractions at the lower abd/ pelvic region.. Negative: Fever - Allergies/Home Medications Allergies/Adverse Reactions: Allergies Allergy/AdvReac Type Severity Reaction Status Date / Time Egg Derived Allergy Nausea And Verified 11/17/17 19:30 Vomiting latex Allergy Rash Verified 11/17/17 19:30 mold Allergy Runny Nose Verified 11/17/17 19:30 dust Allergy Runny Nose Uncoded 11/17/17 19:30 MILK Allergy VOMIT Uncoded 11/17/17 19:30 NUTS Allergy VOMIT Uncoded 11/17/17 19:30 PMH/Surg Hx/FS Hx/Imm Hx Endocrine/Hematology History: Reports: Hx Anemia - past Denies: Hx Anticoagulant Therapy, Other Endocrine/Hematological Disorders Cardiovascular History: Reports: Other Cardiovascular Problems/Disorders - MURMUR Denies: Hx Valvular Heart Disease Respiratory History: Reports: Hx Asthma - CONTROL WITH INHALER, Hx Chronic Obstructive Pulmonary Disease (COPD), Hx Sleep Apnea - possible, Other Respiratory Problems/Disorders - STATES SHE IS AN EXCESSIVE SMOKER Denies: Hx Cystic Fibrosis, Hx Lung Cancer, Hx Pleural Effusion, Hx Pneumonia , Hx Pulmonary Edema, Hx Pulmonary Embolism, Hx Seasonal Allergies GI History: Reports: Hx Gastroesophageal Reflux Disease, Hx Irritable Bowel, Hx Ulcer - in the past Denies: Other GI Disorders History: Reports: Hx Kidney Stones - OCT 2014 Denies: Other Problems/Disorders Musculoskeletal History: Reports: Hx Arthritis - Arthritis/Osteoarthritis, Hx Rheumatoid Arthritis, Hx Bursitis, Hx Tendonitis - BILATERAL FEET AND HANDS, Other Musculoskeletal History - fibromyalgia Sensory History: Reports: Hx Contacts or Glasses - GLASSES Denies: Hx Hearing Aid, Other Sensory Impairments Opthamlomology History: Reports: Hx Contacts or Glasses - GLASSES Denies: Other Sensory Impairments Neurological History: Reports: Hx Headaches, Hx Migraine - OCCASIONAL, Hx Nerve Disease - fibromyalgia, Other Neuro Impairments/Disorders - genital herpes, schizaffective disorder in remission, bipolar Psychiatric History: Reports: Hx Anxiety - CONTROL WITH MEDS, Hx Depression - CONTROL WITH MEDS, Hx Inpatient Treatment, Hx Community Mental Health Tx, Hx Suicide Attempt Denies: Hx Attention Deficit Hyperactivity Disorder, Hx Eating Disorder, Hx Panic Disorder, Hx Post Traumatic Stress Disorder, Hx Schizophrenia, Hx Bipolar Disorder, Hx of Violent Episodes Against Others, Other Psychiatric Issues/ Disorders - Surgical History Surgery Procedure, Year, and Place: 2001 WISDOM TEETH EXTRACTION, [facility] 2008 LAPAROSCOPIC TUBAL LIGATION. HERNIA REPAIR. LEFT ARM SURGERY [facility] Hx Anesthesia Reactions: No Infectious Disease History: No Infectious Disease History: Reports: Hx Tuberculosis - per previous records, History Other Infectious Disease - GENITAL HERPES Denies: Hx Clostridium Difficile, Hx Hepatitis, Hx Human Immunodeficiency Virus (HIV), Hx of Known/Suspected MRSA, Hx Shingles, Hx Known/Suspected VRE, Hx Known/Suspected VRSA, Traveled Outside the [place] in Last 30 Days - Family History Known Family History: Positive: Other - psychotic disorder, alcohol abuse Family History: Depression and EtOH Dependence - Social History Alcohol Use: None Hx Substance Use: Yes Substance Use Type: Reports: Marijuana, Prescribed Substance Use Comment - Amount & Last Used: infrequent Hx Tobacco Use: Yes Smoking Status (MU): Heavy Every Day Tobacco Smoker Type: Cigarettes Amount Used/How Often: 2 PPD Length of Time of Smoking/Using Tobacco: 26 YEARS Have You Smoked in the Last Year: Yes Review of Systems Negative: Fever ENT: Other - Pressure in ears (bilateral) Respiratory: Other - coughing and congestion Positive: Abdominal Pain - lower abd pain (Cramping and contractions) Genitourinary: Other - infrequent urination Positive: other - pelvic region pain (cramping and contraction) Musculoskeletal: Other Skin: Negative Neurological: Negative Psychological: Normal All Other Systems Reviewed And Are Negative: Yes Physical Exam - Summary Physical Exam Summary: Appearance: Bizarre Affect, Smells of marijuana smoke Skin: warm, dry, reflects adequate perfusion Head/face: normal Eyes: EOMI, RYAN ENT: mucous membranes moist, Both ears are normal, Mild nasal discharge Neck: supple, non-tender Respiratory: CTA, diminished breath sounds Cardiovascular: RRR, pulses symmetrical Abdomen: non-tender, soft Bowel Sounds: present Musculoskeletal: normal, strength/ROM intact Neuro: normal, sensory motor intact, A&Ox3 Triage Information Reviewed: Yes Vital Signs On Initial Exam: Initial Vitals Temp Pulse Resp BP Pulse Ox 99.5 F 97 18 108/55 97 11/17/17 19:25 11/17/17 19:25 11/17/17 19:25 11/17/17 19:25 11/17/17 19:25 Vital Signs Reviewed: Yes Diagnostics - Vital Signs Vital Signs Temp Pulse Resp BP Pulse Ox 11/17/17 22:10 98 F 85 16 100/60 95 11/17/17 19:25 99.5 F 97 18 108/55 97 - Laboratory Lab Statement: Any lab studies that have been ordered have been reviewed, and results considered in the medical decision making process. Complex Multi-Symp Course/Dx Course Of Treatment: Patient with history of schizoaffective disorder and multiple vague complaints. She has minor URI symptoms which we'll treat. She also is a heavy smoker and likely some aspect of COPD. As such will place on antibiotic as well. Follow up primary care physician. - Diagnoses Differential Diagnoses/HQI/PQRI: Other - URI, bronchitis, COPD, exacerbation of irritable bowel Provider Diagnoses: COPD exacerbation, Schizoaffective disorder, Upper respiratory infection, Irritable bowel syndrome Discharge - Sign-Out/Discharge Documenting (check all that apply): Patient Departure - Discharged home - Discharge Plan Condition: Stable Disposition: HOME Prescriptions: Albuterol 2.5MG/3ML (0.083%)* [Ventolin 2.5 MG/3 ML NEB.LUIS CARLOS*] 2.5 mg INH Q4H PRN #1 box PRN Reason: Shortness Of Breath Albuterol HFA INHALER* [Ventolin HFA Inhaler*] 1 puff INH Q4H PRN #1 mdi PRN Reason: Shortness Of Breath Azithromycin TAB* [Zithromax TAB (Z-FRANKLIN) 250 mg #6 tabs] 2 tab PO .TODAY, THEN 1 DAILY #1 franklin guaiFENesin [Guaifenesin ER] 600 mg PO BID #10 tab.er.12h predniSONE TAB* [Deltasone TAB*] 50 mg PO DAILY #2 tab Patient Education Materials: Upper Respiratory Infection (ED), COPD (Chronic Obstructive Pulmonary Disease) (ED) Referrals: Ron Cotton MD [Primary Care Provider] - Additional Instructions: Return with fever, difficulty breathing, worse, new symptoms or other concerns. Follow up with her family doctor tomorrow. - Billing Disposition and Condition Condition: STABLE Disposition: Home - Attestation Statements Document Initiated by Scribe: Yes Documenting Scribe: Lionel Reese Provider For Whom Katia is Documenting (Include Credential): Dr. Cast Scribe Attestation: Lionel Mederos, scribed for Dr. Cast on 11/18/17 at 0146. Scribe Documentation Reviewed: Yes Provider Attestation: The documentation as recorded by the Lionel galo accurately reflects the service I personally performed and the decisions made by Dr. Serene vanegas
== END | disposition home or self-care (01) ==
LOC: ED 19:23
DX: J44.1 Chronic obstructive pulmonary disease with (acute) exacerbation (principal); J06.9 Acute upper respiratory infection, unspecified; K58.9 Irritable bowel syndrome, unspecified; E11.9 Type 2 diabetes mellitus without complications; I10 Essential (primary) hypertension; F25.9 Schizoaffective disorder, unspecified; F17.210 Nicotine dependence, cigarettes, uncomplicated; Z79.899 Other long term (current) drug therapy
CPT/HCPCS: 96372; 99282; J1885

== ENCOUNTER 2018-01-14 18:09 | Emergency (ER) | payer OTHER ==
[2018-01-14] MEDS ORDERED: Acetaminophen TAB* 325 MG PO ONE (19:45)
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
[2018-01-14 21:58] VITALS: BP 142/87
== END 2018-01-14 21:57 | disposition home or self-care (01) ==
LOC: ED 18:09
DX: S40.011A Contusion of right shoulder, initial encounter (principal); Y04.2XXA Assault by strike against or bumped into by another person, initial encounter; Y07.9 Unspecified perpetrator of maltreatment and neglect; Y92.019 Unspecified place in single-family (private) house as the place of occurrence of the external cause; R51 Headache; F17.210 Nicotine dependence, cigarettes, uncomplicated
CPT/HCPCS: 70450; 99282; A9270-GY

== ENCOUNTER 2018-02-10 13:49 | Emergency (ER) | payer OTHER ==
[2018-02-10 14:02] VITALS: BP 121/72
--- NOTE | 2018-02-10 14:06 | UC ---
Throat Pain/Nasal Krystian HPI - HPI Summary HPI Summary: Started w/ tightening of throat for the past week. swallowing food makes it worse. denies pain. nothing makes it better. +smoker. - History of Current Complaint Chief Complaint: UCRespiratory Stated Complaint: SORE THROAT Time Seen by Provider: 02/10/18 13:54 Hx Obtained From: Patient Hx Last Menstrual Period: current ?: No Onset/Duration: Gradual Onset Severity: Mild Pain Intensity: 0 Associated Signs & Symptoms: Positive: Dysphagia. Negative: Drooling, Hoarseness, Fever - Allergies/Home Medications Allergies/Adverse Reactions: Allergies Allergy/AdvReac Type Severity Reaction Status Date / Time Egg Derived Allergy Nausea And Verified 02/10/18 14:02 Vomiting latex Allergy Rash Verified 02/10/18 14:02 mold Allergy Runny Nose Verified 02/10/18 14:02 dust Allergy Runny Nose Uncoded 02/10/18 14:02 MILK Allergy VOMIT Uncoded 02/10/18 14:02 NUTS Allergy VOMIT Uncoded 02/10/18 14:02 Home Medications: Home Medications Lysine 1,500 mg PO DAILY 02/10/18 [History Confirmed 02/10/18] PMH/Surg Hx/FS Hx/Imm Hx Respiratory History: Asthma Psychological History: Other Other History Of: Negative For: Anticoagulant Therapy - Surgical History Surgical History: Yes Surgery Procedure, Year, and Place: [place] [facility] [place] LAPAROSCOPIC TUBAL LIGATION. HERNIA REPAIR. [place] [facility] [place] - Family History Known Family History: Positive: Other - psychotic disorder, alcohol abuse Family History: Depression and EtOH Dependence - Social History Alcohol Use: Rare Substance Use Type: Marijuana Substance Use Comment - Amount & Last Used: infrequent Smoking Status (MU): Heavy Every Day Tobacco Smoker Type: Cigarettes Amount Used/How Often: 2-3 PPD Length of Time of Smoking/Using Tobacco: 26 YEARS Have You Smoked in the Last Year: Yes Household Exposure Type: Cigarettes - Immunization History Most Recent Influenza Vaccination: 02/03/2013 Most Recent Tetanus Shot: 2007 Most Recent Pneumonia Vaccination: none Review of Systems All Other Systems Reviewed And Are Negative: Yes Constitutional: Positive: Negative ENT: Positive: Other - swelling of face/lips. Negative: Dental Pain Respiratory: Positive: Negative Gastrointestinal: Positive: Negative Neurological: Positive: Negative Physical Exam Triage Information Reviewed: Yes Appearance: Well-Appearing Vital Signs: Initial Vital Signs Temp 99.3 F 02/10/18 13:54 Pulse 95 02/10/18 13:54 Resp 14 02/10/18 13:54 BP 121/72 02/10/18 13:54 Pulse Ox 98 02/10/18 13:54 Vital Signs Reviewed: Yes ENT: Positive: Pharyngeal erythema Dental Exam: Other - No swelling of face/mouth Neck: Positive: Supple, Nontender, No Lymphadenopathy. Negative: Nuchal Rigidity Respiratory Exam: Normal Cardiovascular Exam: Normal Psychological: Positive: Other: - Strange behavior Throat Pain/Nasal Course/Dx - Course Assessment/Plan: Ongoing dysphagia for the past week, not assoc. w/ pain. Difficulty swallowing; no signs of anaphylaxis. Afebrile, good vitals. Rapid strep neg. Recommended further outpt. eval as pt may need imaging/scope at some point. ? globus. - Differential Dx/Diagnosis Differential Diagnosis/HQI/PQRI: Pharyngitis, Other Provider Diagnosis: Dysphagia Discharge - Sign-Out/Discharge Documenting (check all that apply): Patient Departure All imaging exams completed and their final reports reviewed: No Studies - Discharge Plan Condition: Good Disposition: HOME Patient Education Materials: Dysphagia (ED) Referrals: No Primary Care Phys,NOPCP [Primary Care Provider] - [facility] [Outside] Additional Instructions: Please follow up with a primary care provider for further evaluation. - Billing Disposition and Condition Condition: GOOD Disposition: Home
== END 2018-02-10 14:50 | disposition home or self-care (01) ==
LOC: UCEAST 13:49
DX: R13.10 Dysphagia, unspecified (principal); F17.210 Nicotine dependence, cigarettes, uncomplicated
CPT/HCPCS: 87651; 99212; G0463

== ENCOUNTER 2018-02-21 11:31 | Inpatient (IN) | payer OTHER ==
[2018-02-21] MEDS ORDERED: Nicotine Inhaler* 10 MG AMP INH PRN (12:03)
[2018-02-21] MEDS ORDERED: OLANzapine TAB*ODT* 5 MG PO ONE (12:05)
[2018-02-21] MEDS ORDERED: Mouth Piece, Nicotine* 1 EACH CARTRIDGE INH PRN (12:15)
[2018-02-21 12:30] LABS: ABS Basophils 0 10^3/ul (0-0.2); ABS Eosinophils 0.1 10^3/ul (0-0.6); ABS Lymphocytes 2.5 10^3/ul (1.0-4.8); ABS Monocytes 0.5 10^3/ul (0-0.8); ABS Neutrophils 3.5 10^3/ul (1.5-7.7); ABS Nucleated RBC 0 10^3/ul; Hematocrit 37 % (35-47); Hemoglobin 12.4 g/dl (12.0-16.0); Lymphocyte % 37.9 %; Mean Corpuscular HGB Conc 33 g/dl (31-36); Mean Corpuscular Hemoglobin 29 pg (27-31); Mean Corpuscular Volume 88 fL (80-97); Mean Platelet Volume 8.1 fL (7.4-10.4); Nucleated Red Blood Cells % 0.1; Platelet Count 295 10^3/ul (150-450); Red Blood Count 4.24 10^6/ul (4.00-5.40); Red Cell Distribution Width 15 % (10.5-15); White Blood Count 6.7 10^3/ul (3.5-10.8)
[2018-02-21 12:48] LABS: ALT 10 U/L (7-52); AST 15 U/L (13-39); Albumin/Globulin Ratio 1.6 (1-3); Alkaline Phosphatase 55 U/L (34-104); Anion Gap 8 mmol/L (2-11); BUN/Creatinine Ratio 6.9 (8-20); Blood Urea Nitrogen 5 mg/dL (6-24); CO2 Carbon Dioxide 23 mmol/L (22-32); Calcium 9.4 mg/dL (8.6-10.3); Chloride 105 mmol/L (101-111); Globulin 2.5 g/dL (2-4); Glucose 115 mg/dL (70-100); Potassium 3.7 mmol/L (3.5-5.0); Sodium 136 mmol/L (135-145); Total Protein 6.5 g/dL (6.4-8.9)
[2018-02-21 12:56] LABS: HCG Pregnancy < 0.60 mIU/mL
[2018-02-21 12:59] LABS: Acetaminophen < 15 mcg/mL; Alcohol < 10 mg/dL (<10); Salicylate < 2.50 mg/dL (<30)
[2018-02-21 13:14] LABS: TSH (Thyroid Stimulating Horm) 1.58 mcIU/mL (0.34-5.60)
[2018-02-21 14:57] LABS: Urine Appearance Cloudy; Urine Bacteria Absent (Absent); Urine Bilirubin Negative (Negative); Urine Blood Negative (Negative); Urine Color Straw; Urine Glucose Negative (Negative); Urine Ketones Negative (Negative); Urine Nitrite Negative (Negative); Urine Protein Negative (Negative); Urine Red Blood Cell Trace(0-2/hpf) (Absent); Urine Specific Gravity 1.003 (1.010-1.030); Urine Urobilinogen Negative (Negative); Urine White Blood Cell 1+(6-10/hpf) (Absent)
[2018-02-21 15:08] LABS: Barbiturates Urine Screen None Detected (None Detect); Benzodiazepine Urine Screen None Detected (None Detect); Urine Cannabinoids Screen None Detected (None Detect)
--- NOTE | 2018-02-21 15:31 | ED ---
Psychiatric Complaint - HPI Summary HPI Summary: The patient is a 42 y/o F presenting to [facility] with a chief complaint of ovarian pain in the suprapubic region for the last twelve days. She states she has been having visual and auditory hallucinations of her turning into the devil. She has been from her for a few months, but sees him at the alf occasionally. She also has SI with a plan of "stabbing her heart out" because she doesn't want to be here anymore. She currently lives in a alf, and she does not take any medications. Current smoker and user of marijuana and LSD. - History Of Current Complaint Chief Complaint: [facility]ental[facility] Time Seen by Provider: 02/21/18 11:54 Hx Obtained From: Patient Hx Last Menstrual Period: current Onset/Duration: Lasting Days - twelve, Still Present Timing: Days Severity Initially: Moderate Severity Currently: Moderate Character: Manic Aggravating Factor(s): Other - seeing her Alleviating Factor(s): Nothing Associated Signs And Symptoms: Positive: Hallucinating - visual and auditory hallucinations of as elisa Has Suicidal: Reports: Thoughts, With A Plan - "stabbing her heart out" - Allergies/Home Medications Allergies/Adverse Reactions: Allergies Allergy/AdvReac Type Severity Reaction Status Date / Time Egg Derived Allergy Nausea And Verified 02/10/18 14:02 Vomiting latex Allergy Rash Verified 02/10/18 14:02 mold Allergy Runny Nose Verified 02/10/18 14:02 dust Allergy Runny Nose Uncoded 02/10/18 14:02 MILK Allergy VOMIT Uncoded 02/10/18 14:02 NUTS Allergy VOMIT Uncoded 02/10/18 14:02 PMH/Surg Hx/FS Hx/Imm Hx Endocrine/Hematology History: Reports: Hx Anemia - past Denies: Hx Anticoagulant Therapy, Other Endocrine/Hematological Disorders Cardiovascular History: Reports: Other Cardiovascular Problems/Disorders - MURMUR Denies: Hx Valvular Heart Disease Respiratory History: Reports: Hx Asthma - CONTROL WITH INHALER, Hx Chronic Obstructive Pulmonary Disease (COPD), Hx Sleep Apnea - possible, Other Respiratory Problems/Disorders - STATES SHE IS AN EXCESSIVE SMOKER Denies: Hx Cystic Fibrosis, Hx Lung Cancer, Hx Pleural Effusion, Hx Pneumonia , Hx Pulmonary Edema, Hx Pulmonary Embolism, Hx Seasonal Allergies GI History: Reports: Hx Gastroesophageal Reflux Disease, Hx Irritable Bowel, Hx Ulcer - in the past Denies: Other GI Disorders History: Reports: Hx Kidney Stones - OCT 2014 Denies: Other Problems/Disorders Musculoskeletal History: Reports: Hx Arthritis - Arthritis/Osteoarthritis, Hx Rheumatoid Arthritis, Hx Bursitis, Hx Tendonitis - BILATERAL FEET AND HANDS, Other Musculoskeletal History - fibromyalgia Sensory History: Reports: Hx Contacts or Glasses - GLASSES Denies: Hx Hearing Aid, Other Sensory Impairments Opthamlomology History: Reports: Hx Contacts or Glasses - GLASSES Denies: Other Sensory Impairments Neurological History: Reports: Hx Headaches, Hx Migraine - OCCASIONAL, Hx Nerve Disease - fibromyalgia, Other Neuro Impairments/Disorders - genital herpes, schizaffective disorder in remission, bipolar Psychiatric History: Reports: Hx Anxiety - CONTROL WITH MEDS, Hx Depression - CONTROL WITH MEDS, Hx Inpatient Treatment, Hx [facility], Hx Suicide Attempt Denies: Hx Attention Deficit Hyperactivity Disorder, Hx Eating Disorder, Hx Panic Disorder, Hx Post Traumatic Stress Disorder, Hx Schizophrenia, Hx Bipolar Disorder, Hx of Violent Episodes Against Others, Other Psychiatric Issues/ Disorders - Surgical History Surgery Procedure, Year, and Place: 2001 WISDOM TEETH EXTRACTION, [facility]. 2008 LAPAROSCOPIC TUBAL LIGATION. HERNIA REPAIR. LEFT ARM SURGERY [facility]. L foot surgery Hx Anesthesia Reactions: No Infectious Disease History: No Infectious Disease History: Reports: Hx Tuberculosis - per previous records, History Other Infectious Disease - GENITAL HERPES Denies: Hx Clostridium Difficile, Hx Hepatitis, Hx Human Immunodeficiency Virus (HIV), Hx of Known/Suspected MRSA, Hx Shingles, Hx Known/Suspected VRE, Hx Known/Suspected VRSA, Traveled Outside the [place] in Last 30 Days - Family History Known Family History: Positive: Other - psychotic disorder, alcohol abuse Family History: Depression and EtOH Dependence - Social History Alcohol Use: Rare Hx Substance Use: Yes Substance Use Type: Reports: Marijuana Substance Use Comment - Amount & Last Used: LSD also Hx Tobacco Use: Yes Smoking Status (MU): Heavy Every Day Tobacco Smoker Type: Cigarettes Amount Used/How Often: 2-3 PPD Length of Time of Smoking/Using Tobacco: 26 YEARS Have You Smoked in the Last Year: Yes Review of Systems Positive: other - pain in ovarian region Positive: Other - visual and auditory hallucinations, SI All Other Systems Reviewed And Are Negative: Yes Physical Exam - Summary Physical Exam Summary: Appearance: Well-appearing, Well-nourished, lying in bed comfortable Skin: Warm, dry, no obvious rash Eyes: sclera anicteric, no conjunctival pallor ENT: mucous membranes moist Neck: deferred Respiratory: No signs of respiratory distress Cardiovascular: Appears well perfused, pulses are nml Abdomen: deferred Musculoskeletal: Moving all 4 extremities without obvious discomfort Neurological: Awake and alert, mentation is normal, speech is fluent and appropriate Psychiatric: tangential thinking, preoccupied with ovaries, paranoid in respect to her and complains of auditory and visual turning into devil Triage Information Reviewed: Yes Vital Signs On Initial Exam: Initial Vitals Temp Pulse Resp BP Pulse Ox 98.6 F 114 20 118/73 98 02/21/18 11:42 02/21/18 11:42 02/21/18 11:42 02/21/18 11:42 02/21/18 11:42 Vital Signs Reviewed: Yes Diagnostics - Vital Signs Vital Signs Temp Pulse Resp BP Pulse Ox 02/21/18 11:42 98.6 F 114 20 118/73 98 - Laboratory Lab Results: Lab Results 02/21/18 02/21/18 02/21/18 Range/Units 12:19 12:19 14:37 WBC 6.7 (3.5-10.8) 10^3/ul RBC 4.24 (4.00-5.40) 10^6/ul Hgb 12.4 (12.0-16.0) g/dl Hct 37 (35-47) % MCV 88 (80-97) fL MCH 29 (27-31) pg MCHC 33 (31-36) g/dl RDW 15 (10.5-15) % Plt Count 295 (150-450) 10^3/ul MPV 8.1 (7.4-10.4) fL Neut % (Auto) 52.4 % Lymph % (Auto) 37.9 % Eddy % (Auto) 8.1 % Eos % (Auto) 1.0 % Baso % (Auto) 0.6 % Absolute Neuts (auto) 3.5 (1.5-7.7) 10^3/ul Absolute Lymphs (auto) 2.5 (1.0-4.8) 10^3/ul Absolute Monos (auto) 0.5 (0-0.8) 10^3/ul Absolute Eos (auto) 0.1 (0-0.6) 10^3/ul Absolute Basos (auto) 0 (0-0.2) 10^3/ul Absolute Nucleated RBC 0 10^3/ul Nucleated RBC % 0.1 Sodium 136 (135-145) mmol/L Potassium 3.7 (3.5-5.0) mmol/L Chloride 105 (101-111) mmol/L Carbon Dioxide 23 (22-32) mmol/L Anion Gap 8 (2-11) mmol/L BUN 5 L (6-24) mg/dL Creatinine 0.72 (0.51-0.95) mg/dL Est GFR ( Amer) 106.5 (>60) Est GFR (Non-Af Amer) 88.0 (>60) BUN/Creatinine Ratio 6.9 L (8-20) Glucose 115 H (70-100) mg/dL Calcium 9.4 (8.6-10.3) mg/dL Total Bilirubin 0.30 (0.2-1.0) mg/dL AST 15 (13-39) U/L ALT 10 (7-52) U/L Alkaline Phosphatase 55 (34-104) U/L Total Protein 6.5 (6.4-8.9) g/dL Albumin 4.0 (3.2-5.2) g/dL Globulin 2.5 (2-4) g/dL Albumin/Globulin Ratio 1.6 (1-3) TSH 1.58 (0.34-5.60) mcIU/mL Beta HCG, Quant < 0.60 mIU/mL Urine Color Straw Urine Appearance Cloudy Urine pH 6.0 (5-9) Ur Specific [place] 1.003 L (1.010-1.030) Urine Protein Negative (Negative) Urine Ketones Negative (Negative) Urine Blood Negative (Negative) Urine Nitrate Negative (Negative) Urine Bilirubin Negative (Negative) Urine Urobilinogen Negative (Negative) Ur Leukocyte Esterase 3+ A (Negative) Urine WBC (Auto) 1+(6-10/hpf) A (Absent) Urine RBC (Auto) Trace(0-2/hpf) (Absent) Ur Squamous Epith Cells Present A (Absent) Urine Bacteria Absent (Absent) Urine Glucose Negative (Negative) Salicylates < 2.50 (<30) mg/dL Urine Opiates Screen (None Detect) Acetaminophen < 15 mcg/mL Ur Barbiturates Screen (None Detect) Ur Phencyclidine Scrn (None Detect) Ur Amphetamines Screen (None Detect) U Benzodiazepines Scrn (None Detect) Urine Cocaine Screen (None Detect) U Cannabinoids Screen (None Detect) Serum Alcohol < 10 (<10) mg/dL 02/21/18 Range/Units 14:37 WBC (3.5-10.8) 10^3/ul RBC (4.00-5.40) 10^6/ul Hgb (12.0-16.0) g/dl Hct (35-47) % MCV (80-97) fL MCH (27-31) pg MCHC (31-36) g/dl RDW (10.5-15) % Plt Count (150-450) 10^3/ul MPV (7.4-10.4) fL Neut % (Auto) % Lymph % (Auto) % Eddy % (Auto) % Eos % (Auto) % Baso % (Auto) % Absolute Neuts (auto) (1.5-7.7) 10^3/ul Absolute Lymphs (auto) (1.0-4.8) 10^3/ul Absolute Monos (auto) (0-0.8) 10^3/ul Absolute Eos (auto) (0-0.6) 10^3/ul Absolute Basos (auto) (0-0.2) 10^3/ul Absolute Nucleated RBC 10^3/ul Nucleated RBC % Sodium (135-145) mmol/L Potassium (3.5-5.0) mmol/L Chloride (101-111) mmol/L Carbon Dioxide (22-32) mmol/L Anion Gap (2-11) mmol/L BUN (6-24) mg/dL Creatinine (0.51-0.95) mg/dL Est GFR ( Amer) (>60) Est GFR (Non-Af Amer) (>60) BUN/Creatinine Ratio (8-20) Glucose (70-100) mg/dL Calcium (8.6-10.3) mg/dL Total Bilirubin (0.2-1.0) mg/dL AST (13-39) U/L ALT (7-52) U/L Alkaline Phosphatase (34-104) U/L Total Protein (6.4-8.9) g/dL Albumin (3.2-5.2) g/dL Globulin (2-4) g/dL Albumin/Globulin Ratio (1-3) TSH (0.34-5.60) mcIU/mL Beta HCG, Quant mIU/mL Urine Color Urine Appearance Urine pH (5-9) Ur Specific [place] (1.010-1.030) Urine Protein (Negative) Urine Ketones (Negative) Urine Blood (Negative) Urine Nitrate (Negative) Urine Bilirubin (Negative) Urine Urobilinogen (Negative) Ur Leukocyte Esterase (Negative) Urine WBC (Auto) (Absent) Urine RBC (Auto) (Absent) Ur Squamous Epith Cells (Absent) Urine Bacteria (Absent) Urine Glucose (Negative) Salicylates (<30) mg/dL Urine Opiates Screen None detected (None Detect) Acetaminophen mcg/mL Ur Barbiturates Screen None detected (None Detect) Ur Phencyclidine Scrn None detected (None Detect) Ur Amphetamines Screen None detected (None Detect) U Benzodiazepines Scrn None detected (None Detect) Urine Cocaine Screen None detected (None Detect) U Cannabinoids Screen None detected (None Detect) Serum Alcohol (<10) mg/dL Result Diagrams: 02/21/18 12:19 02/21/18 12:19 Lab Statement: Any lab studies that have been ordered have been reviewed, and results considered in the medical decision making process. Course/Dx - Course Course Of Treatment: he patient is a 42 y/o F presenting to [facility] with a chief complaint of ovarian pain in the suprapubic region for the last twelve days. She states she has been having visual and auditory hallucinations of her turning into the devil. She also has SI with a plan of "stabbing her heart out" because she doesn't want to be here anymore. She currently lives in a alf, and she does not take any medications. Current smoker and user of marijuana and LSD. Upon physical exam, the patient has tangential thinking, preoccupied with ovaries, paranoid in respect to her and complains of auditory and visual turning into devil. Blood work and UA are negative. Per Micheline Solis, mental health quiller operator, the patient is admitted to [facility] for further care by Dr. Malone with dx of psychosis. She voluntarily agrees with this plan and understands the need for admission. - Differential Dx/Clinical Impression Provider Diagnosis: Psychosis - Physician Notifications Discussed Care Of Patient With: Micheline Solis - mental health quiller operator Time Discussed With Above Provider: 15:15 Instructed by Provider To: Other - Mental health evaluation by Micheline Solis reveals that the patient may be accepted for admission under the care of Dr. Malone. Discharge - Sign-Out/Discharge Documenting (check all that apply): Patient Departure - Patient will be admitted to [facility] for futher care by Dr. Malone. - Discharge Plan Condition: Stable Disposition: ADMITTED TO [facility] Referrals: No Primary Care Phys,NOPCP [Primary Care Provider] - - Billing Disposition and Condition Condition: STABLE Disposition: Admitted to [facility] - Attestation Statements Document Initiated by Katia: Yes Documenting Scribe: Damaris Vivas Provider For Whom Katia is Documenting (Include Credential): Dr. Diaz Sanchez MD Scribe Attestation: Damaris Mederos scribed for Dr. Diaz Sanchez MD on 02/21/18 at 1540. Scribe Documentation Reviewed: Yes Provider Attestation: The documentation as recorded by the Damaris galo accurately reflects the service I personally performed and the decisions made by me, Dr. Diaz Sanchez MD Status of [place] Document: Viewed
[2018-02-21] MEDS ORDERED: Al Hydrox/Mg Hydrox/Simet LIQ* 30 ML UDC PO PRN (16:10)
[2018-02-21] MEDS: risperiDONE TAB* 1 MG PO SCH (20:46)
[2018-02-22] MEDS ORDERED: Vitamin THERAPEUTIC TAB ONE (06:35)
[2018-02-22 07:12] LABS: HDL Cholesterol 51.7 mg/dL
[2018-02-22] MEDS: risperiDONE TAB* 1 MG PO SCH ×2 (09:05→20:46)
[2018-02-22] MEDS: Acetaminophen TAB* 325 MG PO PRN ×3 (09:05→19:41)
[2018-02-22] MEDS: Vitamin THERAPEUTIC TAB PO SCH (09:05)
[2018-02-22] MEDS: Nicotine Inhaler* 10 MG AMP INH PRN ×3 (09:07→19:45)
[2018-02-22] MEDS: Nicotine GUM* 2 MG PO PRN ×3 (09:07→22:45)
[2018-02-22] MEDS: Mouth Piece, Nicotine* 1 EACH CARTRIDGE INH SCH ×3 (17:43→22:00)
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
[2018-02-23] MEDS: risperiDONE TAB* 1 MG PO SCH ×2 (08:27→20:59)
[2018-02-23] MEDS: Vitamin THERAPEUTIC TAB PO SCH (08:27)
[2018-02-23] MEDS: Nicotine GUM* 2 MG PO PRN ×4 (08:29→23:05)
[2018-02-23] MEDS: Nicotine Inhaler* 10 MG AMP INH PRN ×5 (08:29→23:05)
[2018-02-23] MEDS: Acetaminophen TAB* 325 MG PO PRN (09:09)
[2018-02-23] MEDS ORDERED: risperiDONE TAB* 1 MG PO ONE (10:34)
[2018-02-23] MEDS ORDERED: oxyCODONE/Acetamin 5/325 MG* TAB PO ONE (10:34)
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
[2018-02-23] MEDS: Cetirizine* 10 MG TAB PO SCH (10:54)
[2018-02-23] MEDS ORDERED: Benzocaine/Menthol LOZ* 1 LOZENGE MT PRN (12:30)
[2018-02-23] MEDS: GuaiFENesin DM* 5 ML UDC PO PRN (18:05)
[2018-02-23] MEDS: Mouth Piece, Nicotine* 1 EACH CARTRIDGE INH SCH (21:03)
[2018-02-24] MEDS: Vitamin THERAPEUTIC TAB PO SCH (08:06)
[2018-02-24] MEDS: risperiDONE TAB* 1 MG PO SCH (08:06)
[2018-02-24] MEDS: Cetirizine* 10 MG TAB PO SCH (08:06)
[2018-02-24] MEDS: Nicotine GUM* 2 MG PO PRN ×3 (09:03→17:54)
[2018-02-24] MEDS ORDERED: Ibuprofen TAB* 600 MG PO PRN (10:06)
[2018-02-24] MEDS ORDERED: Paliperidone SUSTENNA* 234 MG/1.5 ML IM ONE (10:15)
[2018-02-24] MEDS: Nicotine Inhaler* 10 MG AMP INH PRN ×3 (10:40→17:54)
[2018-02-24] MEDS: oxyCODONE/Acetamin 5/325 MG* TAB PO PRN ×2 (10:40→20:52)
[2018-02-24] MEDS: GuaiFENesin DM* 5 ML UDC PO PRN (10:43)
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
[2018-02-24] MEDS: Ondansetron TAB* 4 MG PO PRN (16:49)
[2018-02-24] MEDS: Docusate CAP* 100 MG PO SCH (20:52)
[2018-02-25] MEDS: oxyCODONE/Acetamin 5/325 MG* TAB PO PRN ×2 (07:15→16:55)
[2018-02-25] MEDS: Vitamin THERAPEUTIC TAB PO SCH (08:37)
[2018-02-25] MEDS: Cetirizine* 10 MG TAB PO SCH (08:37)
[2018-02-25] MEDS: Docusate CAP* 100 MG PO SCH ×2 (08:37→23:00)
[2018-02-25] MEDS: Nicotine Inhaler* 10 MG AMP INH PRN ×2 (08:41→13:02)
[2018-02-25] MEDS: Nicotine GUM* 2 MG PO PRN ×5 (08:41→23:09)
--- NOTE | 2018-02-25 12:07 | PN ---
Subjective - Subjective Date of Service: 02/25/18 Service Type: 22150 Hosp care 25 min moderate complexity Subjective: patient submitted 72-hour notice yesterday afternoon. Today, patient reports feeling "alright" with the exception of Left side and abdominal pain. She has been vomiting post meals. She agreed to x-ray which noted non-obstructive gas and large amount of stool in colon. Patient agrees to remain in hospital for stabilization and rescinded 72-hour notice. She continues to voice hallucinations. Objective - Appearance Appearance: Well Developed/Nourished Dysmorphic Features: No Hygiene: Normal Grooming: Disheveled - Behavior Psychomotor Activities: Normal Exhibits Abnormal Movement: No - Attitude and Relatedness Attitude and Relatedness: Psychotically Related Eye Contact: Good - Speech Quality: Unpressured Latencies: Short Quantity: Copious - Mood Patient's Decription of Mood: "alright" - Affect Observed Affect: Expansive Affect Consistent with: Euphoria - Thought Process Patient's Thought Process: Loose Associations, Circumstantial, Over Inclusive Thought Content: Yes Paranoid Ideation, No Passive Wish, No Suicidal Planning, No Homicidal Ideation - Sensorium Experiencing Hallucinations: Yes Type of Hallucinations: Visual: Yes, Auditory: Yes, Command: No - Level of Consciousness Level of Consciousness: Alert Orientation: Yes Intact, Yes Orientated to Time, Yes Orientated to Place, Yes Orientated to Person - Impulse Control Impulse Control: Poor - Insight and Judgement Insight and Judgement: Impaired - Group Participation Particating in Group Activities: No - Medication Management Medication Management Adherence: Yes Assessment - Assessment Merits Inpatient Hospitalization: For Immediate Safety, For Stabilization, Consolidate Improvements Inpatient DSM-V Dx: F25.9 Clinical Impression: 42yo female with known history of schizoaffective d/o and multiple psychiatric hospitalizations who [facility] ED from homeless senior living with c/o visual hallucinations and paranoid ideation. She merits hospitalization for immediate safety and stabilization. MHU: Problem List - Patient Problems (1) Psychosis Current Visit: Yes Status: Acute Priority: High Comment: start MELENDEZ invega sustenna- first booster given 02/24; second booster ordered for 02/28 Plan - Plan Treatment Plan: Name: RANDOLPH SON Birthdate: 1975 [id number] continue acute intensive psychiatric treatment. abd xray obtained. increase stool regimen, utilize prn zofran for nausea. give second booster of invega on 02/28/18. Continued Medication Management: Start Medication Medications: Current Medications Acetaminophen (Tylenol Tab*) 650 mg PO Q4H PRN PRN Reason: PAIN or TEMP > 101 F Last Admin: 02/23/18 09:09 Dose: 650 mg Al Hydrox/Mg Hydrox/Simethicone (Maalox Plus*) 30 ml PO Q4H PRN PRN Reason: INDIGESTION Last Admin: 02/23/18 18:07 Dose: 30 ml Albuterol (Ventolin Hfa Inhaler*) 2 puff INH Q6H PRN PRN Reason: SOB/WHEEZING Cetirizine HCl (Zyrtec*) 10 mg PO DAILY [facility]; Protocol Last Admin: 02/25/18 08:37 Dose: 10 mg Device (Nicotine Mouth Piece*) 1 each INH .CARTRIDGE [facility] Last Admin: 02/23/18 21:03 Dose: 1 each Docusate Sodium (Colace Cap*) 100 mg PO BID [facility] Last Admin: 02/25/18 08:37 Dose: 100 mg Guaifenesin/Dextromethorphan (Robitussin Dm*) 10 ml PO Q6H PRN PRN Reason: COUGH Last Admin: 02/24/18 10:43 Dose: 10 ml Ibuprofen (Motrin Tab*) 600 mg PO Q6H PRN PRN Reason: PAIN Mometasone Furoate/Formoterol Fumar (Dulera 100/5 Mdi*) 1 puff INH DAILY [facility] Montelukast Sodium (Singulair Tab*) 10 mg PO DAILY [facility] Multivitamins (Theragran Tab*) 1 tab PO DAILY [facility] Last Admin: 02/25/18 08:37 Dose: 1 tab Nicotine (Nicotine Inhaler*) 10 mg INH Q2H PRN PRN Reason: CRAVING Last Admin: 02/25/18 08:41 Dose: 10 mg Nicotine Polacrilex (Nicotine Gum*) 2 mg PO Q2H PRN PRN Reason: CRAVING Last Admin: 02/25/18 08:41 Dose: 2 mg Ondansetron HCl (Zofran Tab*) 4 mg PO Q6H PRN PRN Reason: NAUSEA Last Admin: 02/24/18 16:49 Dose: 4 mg Oxybutynin Chloride (Ditropan Xl Tab*) 15 mg PO DAILY [facility] Oxycodone/Acetaminophen (Percocet 5/325 Tab*) 1 tab PO Q8H PRN PRN Reason: PAIN Last Admin: 02/25/18 07:15 Dose: 1 tab Throat Lozenges (Chloraseptic Mona*) 1 mona MT Q2H PRN PRN Reason: SORE THROAT Valacyclovir HCl (Valtrex 1 Gm(*)) 1 gm PO DAILY [facility]; Protocol - Discharge Plan Discharge Plan: Inpatient Hospitalization Outpatient Program: [facility]
[2018-02-25] MEDS: Polyethylene Glycol 3350* 17 GM PACKET PO SCH (12:56)
[2018-02-25] MEDS: ValACYclovir (*) 1 GM TAB PO SCH (12:57)
[2018-02-25] MEDS: Mometasone/Formoter 100/5 MDI INH SCH (12:58)
[2018-02-25] MEDS: Montelukast Sodium TAB* 10 MG PO SCH (12:59)
[2018-02-25] MEDS: Oxybutynin XL TAB* 5 MG PO SCH (12:59)
[2018-02-25] MEDS ORDERED: Mouth Piece, Nicotine* 1 EACH CARTRIDGE ONE (13:03)
[2018-02-25] MEDS: Ondansetron TAB* 4 MG PO PRN ×2 (16:59→22:58)
[2018-02-25] MEDS: Albuterol HFA INHALER* 8 gm MDI INH PRN (21:29)
[2018-02-26] MEDS: GuaiFENesin DM* 5 ML UDC PO PRN ×3 (00:51→16:57)
[2018-02-26] MEDS: Montelukast Sodium TAB* 10 MG PO SCH (08:10)
[2018-02-26] MEDS: Docusate CAP* 100 MG PO SCH ×2 (08:10→21:34)
[2018-02-26] MEDS: Cetirizine* 10 MG TAB PO SCH (08:11)
[2018-02-26] MEDS: ValACYclovir (*) 1 GM TAB PO SCH (08:11)
[2018-02-26] MEDS: Oxybutynin XL TAB* 5 MG PO SCH (08:11)
[2018-02-26] MEDS: Vitamin THERAPEUTIC TAB PO SCH (08:12)
[2018-02-26] MEDS: oxyCODONE/Acetamin 5/325 MG* TAB PO PRN ×2 (08:13→16:58)
[2018-02-26] MEDS: Mometasone/Formoter 100/5 MDI INH SCH (08:17)
[2018-02-26] MEDS: Albuterol HFA INHALER* 8 gm MDI INH PRN (08:18)
[2018-02-26] MEDS: Polyethylene Glycol 3350* 17 GM PACKET PO SCH (08:19)
[2018-02-26] MEDS: Ondansetron TAB* 4 MG PO PRN ×2 (08:20→15:02)
[2018-02-26] MEDS: Nicotine GUM* 2 MG PO PRN ×3 (08:59→18:16)
[2018-02-26] MEDS: Nicotine Inhaler* 10 MG AMP INH PRN ×2 (14:36→18:16)
--- NOTE | 2018-02-26 18:04 | PN ---
Subjective - Subjective Date of Service: 02/26/18 Service Type: [id number] Hosp care 15 min low complexity Subjective: Sally appears to be calmer today but still mildly somatic with her OBGYM complaints. Thoughts are better organized and denies hallucinations, SI or HI. Objective - Appearance Appearance: Thin Framed Dysmorphic Features: No Hygiene: Normal Grooming: Fairly Well Kept - Behavior Psychomotor Activities: Normal Exhibits Abnormal Movement: No - Attitude and Relatedness Attitude and Relatedness: Appropriate Eye Contact: Fair - Speech Quality: Unpressured Latencies: Normal Quantity: Appropriate - Mood Patient's Decription of Mood: "Fine" - Affect Observed Affect: Constricted Affect Consistent with: Dysphoria - Thought Process Patient's Thought Process: Coherent, Goal Directed Thought Content: No Passive Wish, No Suicidal Planning, No Homicidal Ideation, No Paranoid Ideation - Sensorium Experiencing Hallucinations: No, Sensorium is Clear Type of Hallucinations: Visual: No, Auditory: No, Command: No - Level of Consciousness Level of Consciousness: Alert Orientation: Yes Intact, Yes Orientated to Time, Yes Orientated to Place, Yes Orientated to Person - Impulse Control Impulse Control: Tenuous - Insight and Judgement Insight and Judgement: Poor - Group Participation Particating in Group Activities: No - Medication Management Medication Management Adherence: Yes Assessment - Assessment Merits Inpatient Hospitalization: For Stabilization, Consolidate Improvements, For Discharge Planning Inpatient DSM-V Dx: F25.9 Clinical Impression: 42yo female with known history of schizoaffective d/o and multiple psychiatric hospitalizations who [facility]/o visual hallucinations and paranoid ideation. She merits hospitalization for immediate safety and stabilization. Plan - Plan Treatment Plan: Name: SALLY SON Birthdate: 1975 [id number] continue acute intensive psychiatric treatment. abd xray obtained. increase stool regimen, utilize prn zofran for nausea. give second booster of invega on 02/28/18. Continued Medication Management: Continue Outpt Medication Medications: Current Medications Acetaminophen (Tylenol Tab*) 650 mg PO Q4H PRN PRN Reason: PAIN or TEMP > 101 F Last Admin: 02/23/18 09:09 Dose: 650 mg Al Hydrox/Mg Hydrox/Simethicone (Maalox Plus*) 30 ml PO Q4H PRN PRN Reason: INDIGESTION Last Admin: 02/23/18 18:07 Dose: 30 ml Albuterol (Ventolin Hfa Inhaler*) 2 puff INH Q6H PRN PRN Reason: SOB/WHEEZING Last Admin: 02/26/18 08:18 Dose: 2 puff Cetirizine HCl (Zyrtec*) 10 mg PO DAILY [facility]; Protocol Last Admin: 02/26/18 08:11 Dose: 10 mg Device (Nicotine Mouth Piece*) 1 each INH .CARTRIDGE [facility] Last Admin: 02/23/18 21:03 Dose: 1 each Docusate Sodium (Colace Cap*) 100 mg PO BID [facility] Last Admin: 02/26/18 08:10 Dose: 100 mg Guaifenesin/Dextromethorphan (Robitussin Dm*) 10 ml PO Q6H PRN PRN Reason: COUGH Last Admin: 02/26/18 16:57 Dose: 10 ml Ibuprofen (Motrin Tab*) 600 mg PO Q6H PRN PRN Reason: PAIN Mometasone Furoate/Formoterol Fumar (Dulera 100/5 Mdi*) 1 puff INH DAILY [facility] Last Admin: 02/26/18 08:17 Dose: 1 puff Montelukast Sodium (Singulair Tab*) 10 mg PO DAILY [facility] Last Admin: 02/26/18 08:10 Dose: 10 mg Multivitamins (Theragran Tab*) 1 tab PO DAILY [facility] Last Admin: 02/26/18 08:12 Dose: 1 tab Nicotine (Nicotine Inhaler*) 10 mg INH Q2H PRN PRN Reason: CRAVING Last Admin: 02/26/18 14:36 Dose: 10 mg Nicotine Polacrilex (Nicotine Gum*) 2 mg PO Q2H PRN PRN Reason: CRAVING Last Admin: 02/26/18 14:37 Dose: 2 mg Ondansetron HCl (Zofran Tab*) 4 mg PO Q6H PRN PRN Reason: NAUSEA Last Admin: 02/26/18 15:02 Dose: 4 mg Oxybutynin Chloride (Ditropan Xl Tab*) 15 mg PO DAILY [facility] Last Admin: 02/26/18 08:11 Dose: 15 mg Oxycodone/Acetaminophen (Percocet 5/325 Tab*) 1 tab PO Q8H PRN PRN Reason: PAIN Last Admin: 02/26/18 16:58 Dose: 1 tab Paliperidone Palmitate (Invega Sustenna*) 156 mg IM ONCE ONE Stop: 02/28/18 09:01 Polyethylene Glycol/Electrolytes (Miralax*) 17 gm PO DAILY [facility] Last Admin: 02/26/18 08:19 Dose: 17 gm Throat Lozenges (Chloraseptic Mona*) 1 mona MT Q2H PRN PRN Reason: SORE THROAT Last Admin: 02/26/18 00:32 Dose: 1 mona Valacyclovir HCl (Valtrex 1 Gm(*)) 1 gm PO DAILY [facility]; Protocol Last Admin: 02/26/18 08:11 Dose: 1 gm - Discharge Plan Discharge Plan: Outpatient Follow Up Outpatient Program: [facility]
[2018-02-27] MEDS: oxyCODONE/Acetamin 5/325 MG* TAB PO PRN ×2 (08:37→16:55)
[2018-02-27] MEDS: Nicotine Inhaler* 10 MG AMP INH PRN ×4 (08:38→21:20)
[2018-02-27] MEDS: ValACYclovir (*) 1 GM TAB PO SCH (08:39)
[2018-02-27] MEDS: Docusate CAP* 100 MG PO SCH ×2 (08:39→21:20)
[2018-02-27] MEDS: Cetirizine* 10 MG TAB PO SCH (08:39)
[2018-02-27] MEDS: Vitamin THERAPEUTIC TAB PO SCH (08:40)
[2018-02-27] MEDS: Montelukast Sodium TAB* 10 MG PO SCH (08:40)
[2018-02-27] MEDS: Oxybutynin XL TAB* 5 MG PO SCH (08:40)
[2018-02-27] MEDS: Mometasone/Formoter 100/5 MDI INH SCH (08:42)
[2018-02-27] MEDS: Albuterol HFA INHALER* 8 gm MDI INH PRN (08:43)
[2018-02-27] MEDS: GuaiFENesin DM* 5 ML UDC PO PRN ×2 (08:44→18:57)
[2018-02-27] MEDS: Polyethylene Glycol 3350* 17 GM PACKET PO SCH (08:46)
[2018-02-27] MEDS: Ondansetron TAB* 4 MG PO PRN (11:20)
[2018-02-27] MEDS: Nicotine GUM* 2 MG PO PRN ×3 (12:38→21:20)
[2018-02-28] MEDS: oxyCODONE/Acetamin 5/325 MG* TAB PO PRN ×2 (07:30→15:46)
[2018-02-28] MEDS: Mometasone/Formoter 100/5 MDI INH SCH (08:32)
[2018-02-28] MEDS: Docusate CAP* 100 MG PO SCH ×3 (08:32→21:35)
[2018-02-28] MEDS: Cetirizine* 10 MG TAB PO SCH (08:32)
[2018-02-28] MEDS: Montelukast Sodium TAB* 10 MG PO SCH (08:33)
[2018-02-28] MEDS: Oxybutynin XL TAB* 5 MG PO SCH (08:33)
[2018-02-28] MEDS: Polyethylene Glycol 3350* 17 GM PACKET PO SCH (08:33)
[2018-02-28] MEDS: Vitamin THERAPEUTIC TAB PO SCH (08:34)
[2018-02-28] MEDS: ValACYclovir (*) 1 GM TAB PO SCH (08:35)
[2018-02-28] MEDS: Ondansetron TAB* 4 MG PO PRN (08:39)
[2018-02-28] MEDS ORDERED: Paliperidone SUSTENNA* 156 MG/1 ML IM ONE (09:00)
[2018-02-28] MEDS: Nicotine GUM* 2 MG PO PRN ×4 (09:40→18:09)
[2018-02-28] MEDS: Acetaminophen TAB* 325 MG PO PRN ×2 (10:24→14:31)
--- NOTE | 2018-02-28 12:43 | PN ---
Subjective - Subjective Date of Service: 02/28/18 Service Type: 42110 Hosp care 15 min low complexity Subjective: The patient is seen in Holiday coverage for NPP, Nereida Haskisn. Sally is improved and requesting discharge. She is taking medications as directed and denies untoward effects. Today she is somewhat perseverative on the topic of pelvic pain, saying repeatedly "It's in the deepest recesses of my reproductive areas...the percocet is too far apart at 8 hours!" She denies SI or HI. Objective - Appearance Appearance: Well Developed/Nourished Dysmorphic Features: No Hygiene: Normal Grooming: Fairly Well Kept - Behavior Psychomotor Activities: Normal Exhibits Abnormal Movement: No - Attitude and Relatedness Attitude and Relatedness: Cooperative Eye Contact: Fair - Speech Quality: Unpressured Latencies: Normal Quantity: Appropriate - Mood Patient's Decription of Mood: "Okay" - Affect Observed Affect: Fair Affect Consistent with: Euthymia - Thought Process Patient's Thought Process: Impoverished Thought Content: No Passive Wish, No Suicidal Planning, No Homicidal Ideation, No Paranoid Ideation - Sensorium Experiencing Hallucinations: No, Sensorium is Clear Type of Hallucinations: Visual: No, Auditory: No, Command: No - Level of Consciousness Level of Consciousness: Alert Orientation: Yes Intact, Yes Orientated to Time, Yes Orientated to Place, Yes Orientated to Person - Impulse Control Impulse Control: Tenuous - Insight and Judgement Insight and Judgement: Fair - Group Participation Particating in Group Activities: Yes - Medication Management Medication Management Adherence: Yes Assessment - Assessment Merits Inpatient Hospitalization: Consolidate Improvements, Pending Safe DC Plan Inpatient DSM-V Dx: F25.9 Clinical Impression: 42yo female with known history of schizoaffective d/o and multiple psychiatric hospitalizations who presented to ED from homeless group home with c/o visual hallucinations and paranoid ideation. She merits hospitalization for immediate safety and stabilization. Plan - Plan Treatment Plan: Name: SALLY SON Birthdate: 1975 [id number] continue acute intensive psychiatric treatment. abd xray obtained. increase stool regimen, utilize prn zofran for nausea. give second booster of invega on 02/28/18. Continued Medication Management: Different Medication Medications: Current Medications Acetaminophen (Tylenol Tab*) 650 mg PO Q4H PRN PRN Reason: PAIN or TEMP > 101 F Last Admin: 02/28/18 10:24 Dose: 650 mg Al Hydrox/Mg Hydrox/Simethicone (Maalox Plus*) 30 ml PO Q4H PRN PRN Reason: INDIGESTION Last Admin: 02/23/18 18:07 Dose: 30 ml Albuterol (Ventolin Hfa Inhaler*) 2 puff INH Q6H PRN PRN Reason: SOB/WHEEZING Last Admin: 02/27/18 08:43 Dose: 2 puff Cetirizine HCl (Zyrtec*) 10 mg PO DAILY [facility]; Protocol Last Admin: 02/28/18 08:32 Dose: 10 mg Device (Nicotine Mouth Piece*) 1 each INH .CARTRIDGE [facility] Last Admin: 02/23/18 21:03 Dose: 1 each Docusate Sodium (Colace Cap*) 100 mg PO BID [facility] Last Admin: 02/28/18 08:32 Dose: 100 mg Guaifenesin/Dextromethorphan (Robitussin Dm*) 10 ml PO Q6H PRN PRN Reason: COUGH Last Admin: 02/27/18 18:57 Dose: 10 ml Ibuprofen (Motrin Tab*) 600 mg PO Q6H PRN PRN Reason: PAIN Mometasone Furoate/Formoterol Fumar (Dulera 100/5 Mdi*) 1 puff INH DAILY [facility] Last Admin: 02/28/18 08:32 Dose: 1 puff Montelukast Sodium (Singulair Tab*) 10 mg PO DAILY [facility] Last Admin: 02/28/18 08:33 Dose: 10 mg Multivitamins (Theragran Tab*) 1 tab PO DAILY [facility] Last Admin: 02/28/18 08:34 Dose: 1 tab Nicotine (Nicotine Inhaler*) 10 mg INH Q2H PRN PRN Reason: CRAVING Last Admin: 02/27/18 21:20 Dose: 10 mg Nicotine Polacrilex (Nicotine Gum*) 2 mg PO Q2H PRN PRN Reason: CRAVING Last Admin: 02/28/18 09:40 Dose: 2 mg Ondansetron HCl (Zofran Tab*) 4 mg PO Q6H PRN PRN Reason: NAUSEA Last Admin: 02/28/18 08:39 Dose: 4 mg Oxybutynin Chloride (Ditropan Xl Tab*) 15 mg PO DAILY [facility] Last Admin: 02/28/18 08:33 Dose: 15 mg Oxycodone/Acetaminophen (Percocet 5/325 Tab*) 1 tab PO Q8H PRN PRN Reason: PAIN Last Admin: 02/28/18 07:30 Dose: 1 tab Polyethylene Glycol/Electrolytes (Miralax*) 17 gm PO DAILY [facility] Last Admin: 02/28/18 08:33 Dose: 17 gm Throat Lozenges (Chloraseptic Mona*) 1 mona MT Q2H PRN PRN Reason: SORE THROAT Last Admin: 02/26/18 00:32 Dose: 1 mona Valacyclovir HCl (Valtrex 1 Gm(*)) 1 gm PO DAILY [facility]; Protocol Last Admin: 02/28/18 08:35 Dose: 1 gm - Discharge Plan Discharge Plan: Inpatient Hospitalization
[2018-02-28] MEDS: Nicotine Inhaler* 10 MG AMP INH PRN ×3 (13:35→18:08)
[2018-02-28] MEDS: Albuterol HFA INHALER* 8 gm MDI INH PRN (13:36)
[2018-02-28] MEDS: GuaiFENesin DM* 5 ML UDC PO PRN (13:36)
[2018-02-28] MEDS ORDERED: Magnesium CITRATE* 300 ML BTL PO PRN (18:56)
[2018-02-28] MEDS ORDERED: Sodium Phosphate ADULT ENEMA* 118 ml bottle PR PRN (18:57)
[2018-03-01] MEDS: Montelukast Sodium TAB* 10 MG PO SCH (07:50)
[2018-03-01] MEDS: ValACYclovir (*) 1 GM TAB PO SCH (07:50)
[2018-03-01] MEDS: Vitamin THERAPEUTIC TAB PO SCH (07:51)
[2018-03-01] MEDS: Cetirizine* 10 MG TAB PO SCH (07:51)
[2018-03-01] MEDS: Oxybutynin XL TAB* 5 MG PO SCH (07:52)
[2018-03-01] MEDS: GuaiFENesin DM* 5 ML UDC PO PRN (07:52)
[2018-03-01] MEDS: Docusate CAP* 100 MG PO SCH (07:52)
[2018-03-01] MEDS: Polyethylene Glycol 3350* 17 GM PACKET PO SCH (07:53)
[2018-03-01] MEDS: Albuterol HFA INHALER* 8 gm MDI INH PRN (07:53)
[2018-03-01] MEDS: Mometasone/Formoter 100/5 MDI INH SCH (07:53)
[2018-03-01] MEDS: oxyCODONE/Acetamin 5/325 MG* TAB PO PRN (08:53)
[2018-03-01] MEDS: Nicotine Inhaler* 10 MG AMP INH PRN (08:54)
[2018-03-01] MEDS: Nicotine GUM* 2 MG PO PRN (08:55)
[2018-03-01 10:01] VITALS: BP 114/66
--- NOTE | 2018-03-02 21:11 | DS ---
CC: [facility] * DISCHARGE SUMMARY: DATE OF ADMISSION: 02/21/18 DATE OF DISCHARGE: 03/01/18 SUPERVISING PSYCHIATRIST: Dr. Demarco Kerr.* (DICTATED BY MURALI HUERTAS NP) DISCHARGE DIAGNOSIS: 1. Schizoaffective disorder. CONDITION AT THE TIME OF DISCHARGE: Improved. The patient is euthymic and in behavioral control. She does not have pressured speech. She is forward thinking and expresses desire to be discharged. She states she wants to return the skilled nursing. Social Work has verified that this is an available option. The patient denies auditory or visual hallucinations. She has a fixed delusion in regards to fear of her ovaries exploding. She is less verbal about this at this time. She has been medication compliant and received two booster injections of Invega Sustenna, last one being on 02/28/18. She is due for monthly Invega Sustenna on 03/28/18. She has been safe on all checks and slept well at night. MENTAL STATUS EXAM: Sally is a 42-year-old female, petite, thinly framed with a large abdomen. She is adequately groomed and wearing multiple layers of clothing including gifted winter hat and gloves. She is alert and oriented x3. Eye contact is good. Speech is regular rate and rhythm, loud volume at times , but redirectable. Concentration is good. Thought process is coherent and goal directed. Thought content is negative for suicidal ideations or urges for self- harm or passive wish. She denies auditory or visual hallucinations. Insight and judgement are fair. Fund of knowledge is adequate. INSTRUCTIONS GIVEN TO PATIENT: A. Medications: As stated above, the patient received Invega Sustenna second booster on 02/28/19. She was given a prescription for Dulcolax 1 tab p.o. q.a.m. due to chronic constipation. She can resume the following medications: 1. Albuterol inhaler two puffs inhaled q.6 hours p.r.n. 2. Cetirizine 10 mg p.o. daily. 3. Dulera 1 puff inhaled daily. 4. Singulair 10 mg p.o. daily. 5. Oxybutynin XL 15 mg p.o. daily. 6. Valacyclovir 1 g p.o. daily. B. Diet: Regular. C. Activity: Ambulation as tolerated. Tobacco cessation was declined by the patient. There are no pending labs or diagnostic studies. D. Followup care: The patient was given information regarding [facility] physician referral to establish primary care. She will follow up at [facility] on 03/03/[address] Ordonez and Jaime Garcia E. Substance use followup is not applicable. HOSPITAL COURSE - PART A: Reason for admission: The patient presented to the Emergency Department due to pain in lower abdomen. She was noted to be agitated , restless, and psychotically related. Due to known history of schizophrenia and likely nonadherence to medications, she was admitted to Behavioral Services Unit on voluntary status. HOSPITAL COURSE - PART B: Psychiatric treatment rendered: The patient was admitted to the Adult Behavioral Services on voluntary status. She was started on risperidone and this was titrated. She tolerated this well. The patient reported she had been adherent to medications. This senior underwriter phoned her outpatient pharmacy and identified current medications. She had not been picking up risperidone consistently and had refills for asthma medications waiting to be picked up. The patient agreed to paliperidone MELENDEZ. She was given the first initial injection on February 24 and the second booster on February 28. Over the course of the admission, she was circumstantial about pain in her reproductive system. She was noted to eat very quickly and vomit afterwards. She reported constipation. We obtained an abdominal x-ray which showed nonobstructive gas pattern and large amount of stool. We resumed bowel regimen of Colace and MiraLAX. The patient stated that she started to have small bowel movements. She asked for Dulcolax and this was given as requested. Despite loud and agitated presentation, she was safe on all checks. The patient was noted to stabilize quickly after Invega Sustenna injection. She is noted to speak with improved volume and less pressured speech. She was less circumstantial about pain and interactions with her estranged . Given the patient's history of chronic psychotic disorder and poor adherence to outpatient treatment, she remains at chronic risk for harm to self and others. At this time, however, the acute risk seems lessened. Due to legal status, she was deemed appropriate for outpatient care. MURALI HUERTAS, BARREL RIFLER HOOK [id number]/[facility] #: [id number] [place]
== END 2018-03-01 11:07 | disposition home or self-care (01) | DRG 750 ==
LOC: ED 11:31 → BSU 14:43
PROVIDERS: ADMIT Psychiatry & Neurology Psychiatry; ATTEND Psychiatry & Neurology Psychiatry
DX: F25.9 Schizoaffective disorder, unspecified (principal); J45.909 Unspecified asthma, uncomplicated; M19.90 Unspecified osteoarthritis, unspecified site; F12.11 Cannabis abuse, in remission; F16.11 Hallucinogen abuse, in remission; Z86.11 Personal history of tuberculosis; Z79.899 Other long term (current) drug therapy
CPT/HCPCS: 36415; 74018; 80053; 80061; 80307; 80320; 80329; 81003; 81015; 83036; 84443; 84702; 85025; 86703; 87086; 99222; 99231; 99232; 99238; 99284; A9270-GY; G0480; J2426

== ENCOUNTER 2018-03-07 13:11 | Inpatient (IN) | payer OTHER ==
[2018-03-07] MEDS ORDERED: Nicotine Inhaler* 10 MG AMP INH PRN (13:20)
[2018-03-07] MEDS ORDERED: Haloperidol INJ IV/IM* 5 MG/ML AMP IM ONE (13:20)
[2018-03-07] MEDS ORDERED: ALPRAZolam TAB* 0.5 MG PO ONE (13:21)
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
[2018-03-07] MEDS ORDERED: Mouth Piece, Nicotine* 1 EACH CARTRIDGE ONE (13:34)
[2018-03-07 13:49] LABS: ABS Basophils 0 10^3/ul (0-0.2); ABS Eosinophils 0.1 10^3/ul (0-0.6); ABS Monocytes 0.4 10^3/ul (0-0.8); ABS Neutrophils 7.1 10^3/ul (1.5-7.7); ABS Nucleated RBC 0 10^3/ul; Eosinophil % 0.6 %; Hematocrit 37 % (35-47); Lymphocyte % 20.5 %; Mean Corpuscular HGB Conc 33 g/dl (31-36); Mean Corpuscular Hemoglobin 29 pg (27-31); Mean Corpuscular Volume 88 fL (80-97); Mean Platelet Volume 7.6 fL (7.4-10.4); Nucleated Red Blood Cells % 0; Platelet Count 349 10^3/ul (150-450); Red Blood Count 4.16 10^6/ul (4.00-5.40); Red Cell Distribution Width 16 % (10.5-15); White Blood Count 9.6 10^3/ul (3.5-10.8)
[2018-03-07 14:16] LABS: ALT 14 U/L (7-52); AST 18 U/L (13-39); Albumin 3.9 g/dL (3.2-5.2); Albumin/Globulin Ratio 1.3 (1-3); Alkaline Phosphatase 59 U/L (34-104); Anion Gap 7 mmol/L (2-11); BUN/Creatinine Ratio 9.4 (8-20); Blood Urea Nitrogen 6 mg/dL (6-24); CO2 Carbon Dioxide 26 mmol/L (22-32); Calcium 8.6 mg/dL (8.6-10.3); Chloride 106 mmol/L (101-111); EGFR Non-African American 100.8 (>60); Glucose 87 mg/dL (70-100); Potassium 3.7 mmol/L (3.5-5.0); Sodium 139 mmol/L (135-145); Total Protein 6.9 g/dL (6.4-8.9)
[2018-03-07 14:36] LABS: TSH (Thyroid Stimulating Horm) 1.11 mcIU/mL (0.34-5.60)
[2018-03-07 14:37] LABS: Acetaminophen < 15 mcg/mL; Alcohol < 10 mg/dL (<10); Salicylate < 2.50 mg/dL (<30)
[2018-03-08] MEDS: Vitamin THERAPEUTIC TAB PO SCH (10:51)
[2018-03-08] MEDS ORDERED: LoraTADine TAB(NF) 10 MG TAB (AUTOSUB to CETIRIZINE) PO SCH (12:00)
[2018-03-08] MEDS: Mometasone/Formoter 200/5 MDI INH SCH ×2 (13:03→20:32)
[2018-03-08] MEDS: Cetirizine* 10 MG TAB PO SCH (13:03)
[2018-03-08] MEDS: ValACYclovir (*) 1 GM TAB PO SCH ×2 (13:03→20:32)
[2018-03-08] MEDS: Nicotine PATCH 21 MG/24 HR* PATCH TRANSDERM SCH (13:04)
[2018-03-08] MEDS: Bisacodyl EC TAB* 5 MG PO PRN (13:04)
[2018-03-08] MEDS: Oxybutynin XL TAB* 5 MG PO SCH (13:04)
--- NOTE | 2018-03-08 13:59 | HP ---
HISTORY AND PHYSICAL: DATE OF ADMISSION: 03/07/18 SUPERVISING PSYCHIATRIST: Dr. Demarco Kerr.* (DICTATED BY MURALI HUERTAS NP) JUSTIFICATION FOR ADMISSION: The patient presented to the emergency department from the homeless halfway via 9.45. She continues to voice paranoid delusions of her stalking her, chasing her, and being Satan. She is circumstantial about abdominal pain and "reproductive parts." The patient merits hospitalization for immediate safety and stabilization and she is unable to care for herself. CHIEF COMPLAINT: "My is chasing me and he is Satan, not the real Satan , but you know." HISTORY OF PRESENT ILLNESS: Sally is a 42-year-old mixed-race female with a history of numerous psychiatric hospitalizations. She was last hospitalized from 02/21/18 to 03/01/18. During that hospitalization, she was given 2 initial boosters of Invega Sustenna. The patient has extensive history of schizophrenia and multiple psychiatric hospitalizations including [facility]. Due to the patient's voluntary status during last hospitalization, she submitted a 72-hour notice and we did not have justifiable reason to hospitalize her against her will. We discharged her to the local halfway where she has been staying for the past few months since from her . Today, the patient is circumstantial about her reproductive system. She reports she is currently menstruating. She is hypersexual in topic, loud, with pressured speech. She continues to endorse delusions of seeing her as Satan wherever she is. PAST PSYCHIATRIC HISTORY: As stated earlier, the patient has had multiple psychiatric hospitalizations here beginning in 2011. At one point, she was transferred to [facility] for longer term care. She has been a client of [facility] for many years and is a patient of Dr. Ordonez and Jaime Canela, I believe. SUBSTANCE USE HISTORY: She has a history of chronic marijuana use. There is a history that she may have abused opioids and LSD in the past. The patient denies current substance use. We are awaiting a urine drug screen. PAST MEDICAL HISTORY: Significant for diagnoses of asthma, tuberculosis, and arthritis. MEDICATIONS: In the past, she has been treated with: 1. Depakote. 2. Olanzapine. 3. Saphris. 4. Risperidone. She is currently being treated with Invega Sustenna. ALLERGIES: No known drug allergies. FAMILY PSYCHIATRIC HISTORY: Not well known. There is an indication that her mother had a mental health disorder and her father had substance use disorder. PERSONAL AND SOCIAL HISTORY: Sally is tenuously housed in the halfway for the past 2 to 3 months. She left her after living with him almost 20 years. She was born and raised in [place], [place], by her mother. She has multiple siblings, but is estranged. The patient is , but . She has 5 children all of whom have been removed by CPS mostly due to her residing with her who is a level 3 sex offender. The patient is on disability. She smokes at least 1 pack cigarettes per day. Denies current substance use. REVIEW OF SYSTEMS: Constitutional: Negative. No fevers, chills, or fatigue. ENT: Negative. Cardiovascular: Negative. Denies chest pain or palpitations. Respiratory: Positive for cough. Denies shortness of breath. Genitourinary: Positive for pain and menses. Musculoskeletal: Negative. Neurological: Negative. PHYSICAL EXAMINATION GENERAL APPEARANCE: Well appearing and well nourished. VITAL SIGNS: T 98.2, P 68, respiration rate 16, O2 saturation 100%, BP 134/79. HEENT: Head and Face: Normal head and face, on inspection. Eyes: Positive EOMI. PERRL. Conjunctivae clear. NECK: Supple. Full ROM. Trachea midline. RESPIRATORY: Breath sounds present. Expiratory wheezes noted. CARDIOVASCULAR: Heart RRR. Pulses are symmetrical in both upper and lower extremities. ABDOMEN: Inspection reveals obese, soft, nontender abdomen. No masses, organomegaly, or rebound tenderness. Active bowel sounds in all 4 quadrants. No pulsation, bruit, or flank pain noted. MUSCULOSKELETAL: Normal strength. ROM intact. NEUROLOGICAL: Normal sensory and motor intact. Alert and oriented x3, with normal gait. Cranial nerves II through XII grossly intact. Cerebellar function intact. SKIN: Warm and dry and color reflects adequate perfusion. LABORATORY DATA: CBC is grossly unremarkable. CMP within normal limits. TSH normal at 1.11. Toxicology negative for salicylates, acetaminophen, or alcohol. We are awaiting urinalysis and urine drug screen. MENTAL STATUS EXAM: Sally is a short-statured, thin-framed, but healthy- appearing female, wearing multiple layers of clothing including paper scrubs. She is alert and oriented x3. The patient's mood is expansive. Speech is loud and pressured. She is illogical, circumstantial, and tangential at this time. She reports of hearing voices and seeing her and Satan all over the place. She endorses paranoid ideation. The patient has expressed passive wish and suicidal statements. She denies HI or . Insight and judgment are impaired. DIAGNOSES: 1. Schizophrenia. 2. Tobacco use disorder. ASSESSMENT: Sally is a 42-year-old mentally disabled female with a history of multiple psychiatric hospitalizations here and in [facility] facilities. She was readmitted yesterday after being discharged 1 week prior due to disorganized, bizarre behavior in the community and statements of suicidal ideation. PLAN: The patient is admitted to adult behavioral services on involuntary status. Her code status is full. She is placed on 15-minute checks for her safety. We will resume known outpatient medications. I will consider a hospitalist consult due to asthma and complaints of constipation. We started the conversation with the patient regarding ACT team and she is considering this at this time, although she is likely too disorganized to make a competent decision. The patient will be encouraged to participate in supportive milieu, individual sessions with staff, and psychoeducational groups. We may consider referral to [facility] for longer term stabilization. MURALI HUERTAS NP [id number]/[facility] #: [id number] NE
[2018-03-08] MEDS: Nicotine Inhaler* 10 MG AMP INH PRN ×2 (18:36→21:55)
[2018-03-08] MEDS: Mouth Piece, Nicotine* 1 EACH CARTRIDGE INH SCH (18:36)
[2018-03-08] MEDS: Nicotine GUM* 2 MG PO PRN ×3 (18:38→22:48)
[2018-03-08] MEDS: Albuterol HFA INHALER* 8 gm MDI INH PRN (19:14)
[2018-03-08] MEDS: Nicotine Patch Removal NOTE FOLLOW UP SCH (20:39)
[2018-03-08] MEDS: guaiFENesin LIQ* 100 MG/5 ML UDC PO PRN (21:13)
--- NOTE | 2018-03-09 00:50 | CONS ---
HOSPITAL MEDICINE CONSULTATION REPORT: DATE OF CONSULT: 03/08/18 PROVIDER: Janna Johnson NP ATTENDING PHYSICIAN: Nereida Haskins NP CONSULTING PHYSICIAN: Dr. Estephania Presley (dictated by Janna Johnson NP) REASON FOR CONSULT: Wheezing. HISTORY OF PRESENT ILLNESS: Ms. Maurisio Torres is a 42-year-old female who presented initially to the emergency room from the homeless half-way at 9:45 due to continued voice paranoia and delusions of her stalking, chasing her, and being Satan. She is circumstantial about abdominal pain and reproductive parts. The patient required hospitalization for immediate safety and stabilization as she is unable to care for herself. Patient had a recent admission from 02/21/18 to 03/01/18. Patient has psychiatric past medical history significant for schizophrenia. The patient reports that she also has asthma, arthritis, chronic back, ankle and leg pain, fibromyalgia. Today, we were asked to consult on the patient due to wheezing. The patient currently denies any wheezing. She does report a cough. She denies any other complaints, but continues to have complaints of reproductive pain and abnormal bleeding. She denies any shortness of breath, fever, chills, nausea, vomiting, or diarrhea. Denies any chest pain, fever, or chills. Due to the report of wheezing, we were asked to see and evaluate the patient in consultation. PAST MEDICAL HISTORY: Significant for asthma, history of tuberculosis and arthritis, and schizophrenia and multiple psychiatric admissions. PAST SURGICAL HISTORY: 1. Tubal ligation. 2. Appendectomy. MEDICATIONS: Home medications: 1. Valtrex 1 g p.o. daily. 2. Ditropan 15 mg p.o. daily. 3. Singular 10 mg p.o. daily. 4. Dulera 100/5 one puff daily. 5. Zyrtec 10 mg p.o. daily. 6. Dulcolax 5 mg p.o. q.a.m. 7. Albuterol inhaler 2 puffs q.6 hours as needed for shortness of breath. 8. Acetaminophen 1000 mg p.o. q.6 hours as needed for pain. ALLERGIES: To EGGS, LATEX, MILK-CONTAINING PRODUCTS, MOLD, and NUTS. FAMILY HISTORY: Mother had a history of stroke, father with a history of pacemaker. Mother with a history of diabetes and grandmother with a history of unknown type cancer. SOCIAL HISTORY: She is a smoker of half a pack a day. She denies any alcohol use. She does report occasional marijuana use. Code status: She is a full code. REVIEW OF SYSTEMS: The patient denies any fever, chills, unintended weight loss. She denies any complaints of chest pain or edema. She does report a cough. She denies any shortness of breath. She denies any nausea, vomiting, or abdominal pain. Denies any urinary frequency or urgency. She denies any focal weakness or sensory loss. Denies any visual complaints. She does report bilateral lower leg, ankle, feet, and knee pain, it is chronic, unchanged. Skin : She denies any rashes, lesions, or open sores. PHYSICAL EXAM: Vital Signs: Temperature was 98.2, heart rate 108, respirations 16, O2 saturation 96%, blood pressure 107/76. General: Ms. Maurisio Torres is alert, talkative, stated-aged female sitting on the bed in her room. She does not appear to be in any acute distress. HEENT: Head is atraumatic, normocephalic. Eyes: EOMs are intact. Sclerae are anicteric, not pale. Oral mucosa appears to be moist. She does have some rhinorrhea. Neck is supple. Lungs are clear to auscultation bilaterally. There are no wheezes, rales, or rhonchi. Cardiac: S1, S2. Regular rate and rhythm. Abdomen is soft and nontender. Bowel sounds are present x4. Extremities: She is able to move all 4 extremities with 5/5 strength. Neurologic: She is awake, alert, and oriented x3. She does have flight of ideas and loses train of thought easily. She does seem to be paranoid about her reproductive parts. Skin is intact. DIAGNOSTIC STUDIES/LAB DATA: WBCs on 03/07/18 were 19.6, RBCs 4.16, hemoglobin 12.0, hematocrit was 37, platelet count was 349. Chemistries: Sodium 139, potassium 3.7, chloride 106, carbon dioxide was 26, anion gap was 7, BUN was 6, creatinine 0.64, TSH was 1.11, salicylates were less than 2.50, acetaminophen less than 15, serum alcohol was less than 10. IMPRESSION AND PLAN: Ms. Maurisio Torres is a 42-year-old female that was admitted to the mental health unit for safety and stabilization of her current psychiatric illnesses. At this time, the patient does have a moist cough, but she does not have any fever or wheezing. Our recommendations are as follows: 1. Asthma: I would continue on Dulera and albuterol inhalers as previously prescribed. She can have Robitussin cough medicine as needed for her cough. She does not appear to be acutely ill with any bacterial infection. I do not feel she needs antibiotics at this time. Her lungs are clear to auscultation bilaterally. I would not change her current treatment for her asthma. 2. Psychiatric problems: I would continue medications as prescribed by Psychiatry with no changes. 3. DVT prophylaxis per Psychiatry. 4. Code status: She is a full code. Thank you for this consultation and allowing us to help co-manage her care during her hospitalization. At this time , I would continue with current inhaler treatment and she does not need any further medications adjustments from medical standpoint. We will sign off on this case. If you should need us for further assistance and management of her asthma, please do not hesitate to contact us. TIME SPENT: Time spent on this consultation was 45 minutes, more than half that time was spent with the patient at the bedside reviewing events of today, performing physical exam, and reviewing my plan of care. I have discussed this with my attending, Dr. Estephania Presley, and she is in agreement with my plan. JANNA JOHNSON, ELLE [id number]/[facility] #: [id number] NE
[2018-03-09 08:15] LABS: HDL Cholesterol 46.6 mg/dL
[2018-03-09] MEDS: ValACYclovir (*) 1 GM TAB PO SCH ×2 (08:38→21:36)
[2018-03-09] MEDS: Nicotine Inhaler* 10 MG AMP INH PRN ×7 (08:38→22:08)
[2018-03-09] MEDS: Nicotine GUM* 2 MG PO PRN ×6 (08:38→19:49)
[2018-03-09] MEDS: Cetirizine* 10 MG TAB PO SCH (08:38)
[2018-03-09] MEDS: Vitamin THERAPEUTIC TAB PO SCH (08:38)
[2018-03-09] MEDS: Mometasone/Formoter 200/5 MDI INH SCH ×2 (08:39→20:51)
[2018-03-09] MEDS: guaiFENesin LIQ* 100 MG/5 ML UDC PO PRN ×2 (08:39→17:33)
[2018-03-09] MEDS: Oxybutynin XL TAB* 5 MG PO SCH (08:40)
[2018-03-09] MEDS: Albuterol HFA INHALER* 8 gm MDI INH PRN ×2 (08:43→17:33)
[2018-03-09] MEDS: Nicotine PATCH 21 MG/24 HR* PATCH TRANSDERM SCH (08:43)
[2018-03-09] MEDS: Mouth Piece, Nicotine* 1 EACH CARTRIDGE INH SCH (08:47)
[2018-03-09] MEDS: Bisacodyl EC TAB* 5 MG PO PRN (08:47)
--- NOTE | 2018-03-09 11:38 | PN ---
Subjective - Subjective Date of Service: 03/09/18 Service Type: 56281 Hosp care 15 min low complexity Objective - Appearance Appearance: Well Developed/Nourished Dysmorphic Features: No Hygiene: Normal Grooming: Disheveled - Behavior Psychomotor Activities: Normal Exhibits Abnormal Movement: No - Attitude and Relatedness Attitude and Relatedness: Psychotically Related Eye Contact: Good - Speech Quality: Pressured Quantity: Copious - loud - Mood Patient's Decription of Mood: "i'm in pain" - Affect Observed Affect: Expansive Affect Consistent with: Euphoria - Thought Process Patient's Thought Process: Disorganized, Loose Associations Thought Content: Yes Paranoid Ideation, No Passive Wish, No Suicidal Planning, No Homicidal Ideation - Sensorium Experiencing Hallucinations: No, Sensorium is Clear - Level of Consciousness Level of Consciousness: Alert Orientation: Yes Intact, Yes Orientated to Time, Yes Orientated to Place, Yes Orientated to Person - Impulse Control Impulse Control: Poor - Insight and Judgement Insight and Judgement: Impaired - Group Participation Particating in Group Activities: No - Medication Management Medication Management Adherence: Yes Assessment - Assessment Merits Inpatient Hospitalization: For Immediate Safety, For Stabilization Inpatient DSM-V Dx: F20.0 Clinical Impression: 42yo female with known history of schizophrenia who presented to ED via 9.45 from [facility]. She was discharged from [facility] on 03/01/18 after being given second booster dose of invega sustenna IM. She continues to present as paranoid and delusional. She is unable to care for herself and merits hospitalization for immediate safety and stabilization. Plan - Plan Treatment Plan: Name: RANDOLPH SON Birthdate: 1975 [id number] continue acute intensive psychiatric treatment. may decrease to q30min observation. add oral coverage of paliperidone. consider adjunct with mood stabilizer if patient consents. add tramadol prn for pain. utilize warm packs, as well. refer to ACT team Continued Medication Management: Start Medication Medications: Current Medications Acetaminophen (Tylenol Tab*) 650 mg PO Q4H PRN PRN Reason: PAIN or TEMP > 101 F Al Hydrox/Mg Hydrox/Simethicone (Maalox Plus*) 30 ml PO Q4H PRN PRN Reason: INDIGESTION Albuterol (Ventolin Hfa Inhaler*) 2 puff INH Q6H PRN PRN Reason: SOB/WHEEZING Last Admin: 03/09/18 08:43 Dose: 2 puff Bisacodyl (Dulcolax Ec Tab*) 10 mg PO DAILY PRN PRN Reason: CONSTIPATION Last Admin: 03/09/18 08:47 Dose: 10 mg Cetirizine HCl (Zyrtec*) 10 mg PO DAILY [facility]; Protocol Last Admin: 03/09/18 08:38 Dose: 10 mg Device (Nicotine Mouth Piece*) 1 each INH .CARTRIDGE [facility] Last Admin: 03/09/18 08:47 Dose: 1 each Guaifenesin (Robitussin*) 10 ml PO Q6H PRN PRN Reason: COUGH Last Admin: 03/09/18 08:39 Dose: 10 ml Ibuprofen (Motrin Tab*) 600 mg PO Q6H PRN PRN Reason: PAIN Mometasone Furoate/Formoterol Fumar (Dulera 200/5 Mdi*) 2 puff INH BID [facility] Last Admin: 03/09/18 08:39 Dose: 2 puff Multivitamins (Theragran Tab*) 1 tab PO DAILY [facility] Last Admin: 03/09/18 08:38 Dose: 1 tab Nicotine (Nicotine Inhaler*) 10 mg INH Q2H PRN PRN Reason: CRAVING Last Admin: 03/09/18 08:38 Dose: 10 mg Nicotine (Nicotine Patch 21 Mg/24 Hr*) 1 patch TRANSDERM DAILY [facility] Last Admin: 03/09/18 08:43 Dose: Not Given Nicotine Polacrilex (Nicotine Gum*) 2 mg PO Q2H PRN PRN Reason: CRAVING Last Admin: 03/09/18 11:24 Dose: 2 mg Oxybutynin Chloride (Ditropan Xl Tab*) 15 mg PO DAILY [facility] Last Admin: 03/09/18 08:40 Dose: 15 mg Pharmacy Profile Note (Nicotine Patch Removal Note*) 1 note FOLLOW UP 2100 [facility] Last Admin: 03/08/18 20:39 Dose: Not Given Valacyclovir HCl (Valtrex 1 Gm(*)) 1 gm PO BID [facility]; Protocol Last Admin: 03/09/18 08:38 Dose: 1 gm - Discharge Plan Discharge Plan: Inpatient Hospitalization
[2018-03-09] MEDS: Acetaminophen TAB* 325 MG PO PRN ×2 (13:34→22:08)
[2018-03-09] MEDS: traMADol TAB* 50 MG PO PRN (17:38)
[2018-03-09] MEDS: Paliperidone ER TAB* 3 MG TAB.ER PO SCH (21:34)
[2018-03-09] MEDS: Benzocaine/Menthol LOZ* 1 LOZENGE MT PRN (21:43)
[2018-03-09] MEDS: Nicotine Patch Removal NOTE FOLLOW UP SCH (21:43)
[2018-03-10] MEDS: Vitamin THERAPEUTIC TAB PO SCH (09:26)
[2018-03-10] MEDS: Cetirizine* 10 MG TAB PO SCH (09:26)
[2018-03-10] MEDS: guaiFENesin LIQ* 100 MG/5 ML UDC PO PRN (09:27)
[2018-03-10] MEDS: Nicotine PATCH 21 MG/24 HR* PATCH TRANSDERM SCH (09:28)
[2018-03-10] MEDS: Mometasone/Formoter 200/5 MDI INH SCH ×2 (09:28→22:00)
[2018-03-10] MEDS: Albuterol HFA INHALER* 8 gm MDI INH PRN ×2 (09:28→15:00)
[2018-03-10] MEDS: ValACYclovir (*) 1 GM TAB PO SCH ×2 (09:30→21:58)
[2018-03-10] MEDS: Oxybutynin XL TAB* 5 MG PO SCH (09:30)
[2018-03-10] MEDS: Nicotine Inhaler* 10 MG AMP INH PRN ×4 (09:31→22:22)
[2018-03-10] MEDS: Nicotine GUM* 2 MG PO PRN ×2 (09:31→12:36)
[2018-03-10] MEDS: Bisacodyl EC TAB* 5 MG PO PRN (09:56)
[2018-03-10] MEDS: Mouth Piece, Nicotine* 1 EACH CARTRIDGE INH SCH (12:36)
--- NOTE | 2018-03-10 13:37 | PN ---
Subjective - Subjective Date of Service: 03/10/18 Service Type: 08962 Hosp care 15 min low complexity Subjective: Patient was loud and disruptive to milieu last evening while ranting about persistent delusions. She endorsed suicidal ideation and hallucinations, as well. She is compliant with medications and sleeping well at night. Today, she continues to reports various pains in hands and feet. She attributes this to a myriad of reasons and is her topic of conversation tangential from there. Objective - Appearance Appearance: Well Developed/Nourished Dysmorphic Features: Yes Hygiene: Normal Grooming: Disheveled - Behavior Psychomotor Activities: Normal Exhibits Abnormal Movement: No - Attitude and Relatedness Attitude and Relatedness: Psychotically Related Eye Contact: Good - Speech Quality: Pressured Latencies: Normal Quantity: Copious - Mood Patient's Decription of Mood: "Good" - Affect Observed Affect: Expansive Affect Consistent with: Euphoria - Thought Process Patient's Thought Process: Tangential Thought Content: Yes Passive Wish, Yes Paranoid Ideation, No Suicidal Planning, No Homicidal Ideation - Sensorium Experiencing Hallucinations: Yes Type of Hallucinations: Visual: Yes, Auditory: Yes, Command: No - Level of Consciousness Level of Consciousness: Alert Orientation: Yes Intact, Yes Orientated to Time, Yes Orientated to Place, Yes Orientated to Person - Impulse Control Impulse Control: Poor - Insight and Judgement Insight and Judgement: Impaired - Group Participation Particating in Group Activities: No - Medication Management Medication Management Adherence: Yes Assessment - Assessment Merits Inpatient Hospitalization: For Immediate Safety, For Stabilization Inpatient DSM-V Dx: F20.0 Clinical Impression: 42yo female with known history of schizophrenia who presented to ED via 9.45 from [facility]. She was discharged from [facility] on 03/01/18 after being given second booster dose of invega sustenna IM. She continues to present as paranoid and delusional. She is unable to care for herself and merits hospitalization for immediate safety and stabilization. Plan - Plan Treatment Plan: Name: RANDOLPH SON Birthdate: 1975 [id number] continue acute intensive psychiatric treatment. convert to 2PC status. continue oral coverage of paliperidone. consider adjunct with mood stabilizer if patient consents. add benztropine as patient may be experiencing akathesia refer to [facility]. Continued Medication Management: Start Medication Medications: Current Medications Acetaminophen (Tylenol Tab*) 650 mg PO Q4H PRN PRN Reason: PAIN or TEMP > 101 F Last Admin: 03/09/18 22:08 Dose: 650 mg Al Hydrox/Mg Hydrox/Simethicone (Maalox Plus*) 30 ml PO Q4H PRN PRN Reason: INDIGESTION Albuterol (Ventolin Hfa Inhaler*) 2 puff INH Q6H PRN PRN Reason: SOB/WHEEZING Last Admin: 03/10/18 09:28 Dose: 2 puff Albuterol (Ventolin 2.5 Mg/3 Ml Neb.Alicia*) 2.5 mg INH Q4H PRN PRN Reason: SOB/WHEEZING Bisacodyl (Dulcolax Ec Tab*) 10 mg PO DAILY PRN PRN Reason: CONSTIPATION Last Admin: 03/10/18 09:56 Dose: 10 mg Cetirizine HCl (Zyrtec*) 10 mg PO DAILY [facility]; Protocol Last Admin: 03/10/18 09:26 Dose: 10 mg Device (Nicotine Mouth Piece*) 1 each INH .CARTRIDGE [facility] Last Admin: 03/10/18 12:36 Dose: 1 each Guaifenesin (Robitussin*) 10 ml PO Q6H PRN PRN Reason: COUGH Last Admin: 03/10/18 09:27 Dose: 10 ml Ibuprofen (Motrin Tab*) 600 mg PO Q6H PRN PRN Reason: PAIN Mometasone Furoate/Formoterol Fumar (Dulera 200/5 Mdi*) 2 puff INH BID [facility] Last Admin: 03/10/18 09:28 Dose: 2 puff Multi-Ingredient Mouthwash/Gargle (Magic Mouth Was-Eddi/Maal/Lido*) 5 ml SWISH SPIT Q6H PRN PRN Reason: MOUTH SORES Multivitamins (Theragran Tab*) 1 tab PO DAILY [facility] Last Admin: 03/10/18 09:26 Dose: 1 tab Nicotine (Nicotine Inhaler*) 10 mg INH Q2H PRN PRN Reason: CRAVING Last Admin: 03/10/18 12:36 Dose: 10 mg Nicotine (Nicotine Patch 21 Mg/24 Hr*) 1 patch TRANSDERM DAILY [facility] Last Admin: 03/10/18 09:28 Dose: Not Given Nicotine Polacrilex (Nicotine Gum*) 2 mg PO Q2H PRN PRN Reason: CRAVING Last Admin: 03/10/18 12:36 Dose: 2 mg Oxybutynin Chloride (Ditropan Xl Tab*) 15 mg PO DAILY [facility] Last Admin: 03/10/18 09:30 Dose: 15 mg Paliperidone (Invega Er Tab*) 3 mg PO BEDTIME [facility] Last Admin: 03/09/18 21:34 Dose: 3 mg Pharmacy Profile Note (Nicotine Patch Removal Note*) 1 note FOLLOW UP 2100 [facility] Last Admin: 03/09/18 21:43 Dose: Not Given Throat Lozenges (Chloraseptic Mona*) 1 mona MT Q6H PRN PRN Reason: COUGH Last Admin: 03/09/18 21:43 Dose: 1 mona Tramadol HCl (Ultram*) 50 mg PO Q12H PRN PRN Reason: PAIN Last Admin: 03/09/18 17:38 Dose: 50 mg Valacyclovir HCl (Valtrex 1 Gm(*)) 1 gm PO BID [facility]; Protocol Last Admin: 03/10/18 09:30 Dose: 1 gm - Discharge Plan Discharge Plan: Consider Longer Term Tx
[2018-03-10] MEDS: Benztropine TAB* 1 MG PO SCH ×2 (14:28→21:56)
[2018-03-10] MEDS: Benzocaine/Menthol LOZ* 1 LOZENGE MT PRN ×2 (15:29→22:22)
[2018-03-10] MEDS: Paliperidone ER TAB* 3 MG TAB.ER PO SCH (21:58)
[2018-03-10] MEDS: Nicotine Patch Removal NOTE FOLLOW UP SCH (22:06)
[2018-03-10] MEDS: traMADol TAB* 50 MG PO PRN (23:58)
[2018-03-11] MEDS: Albuterol HFA INHALER* 8 gm MDI INH PRN ×3 (00:52→21:03)
[2018-03-11] MEDS: Nicotine Inhaler* 10 MG AMP INH PRN ×5 (00:58→21:43)
[2018-03-11] MEDS: Acetaminophen TAB* 325 MG PO PRN (08:03)
[2018-03-11] MEDS: Ibuprofen TAB* 600 MG PO PRN (08:03)
[2018-03-11] MEDS: ValACYclovir (*) 1 GM TAB PO SCH ×2 (08:03→20:55)
[2018-03-11] MEDS: Cetirizine* 10 MG TAB PO SCH (08:04)
[2018-03-11] MEDS: Benztropine TAB* 1 MG PO SCH ×2 (08:04→20:54)
[2018-03-11] MEDS: Oxybutynin XL TAB* 5 MG PO SCH (08:05)
[2018-03-11] MEDS: Vitamin THERAPEUTIC TAB PO SCH (08:05)
[2018-03-11] MEDS: Mometasone/Formoter 200/5 MDI INH SCH ×2 (08:06→20:58)
[2018-03-11] MEDS: guaiFENesin LIQ* 100 MG/5 ML UDC PO PRN ×2 (08:07→21:03)
[2018-03-11] MEDS: Nicotine PATCH 21 MG/24 HR* PATCH TRANSDERM SCH (08:10)
[2018-03-11] MEDS: Nicotine GUM* 2 MG PO PRN ×5 (09:38→21:44)
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
[2018-03-11] MEDS: oxyCODONE/Acetamin 5/325 MG* TAB PO PRN (16:26)
[2018-03-11] MEDS: Paliperidone ER TAB* 3 MG TAB.ER PO SCH (20:55)
[2018-03-11] MEDS: Benzocaine/Menthol LOZ* 1 LOZENGE MT PRN (21:06)
[2018-03-11] MEDS: Nicotine Patch Removal NOTE FOLLOW UP SCH (21:46)
[2018-03-12] MEDS: Albuterol HFA INHALER* 8 gm MDI INH PRN ×2 (02:10→12:57)
[2018-03-12] MEDS: diPHENhydraMINE PO* 50 MG PO PRN (02:20)
[2018-03-12] MEDS: LORazepam TAB(*) 1 MG PO PRN ×2 (02:20→23:56)
[2018-03-12] MEDS: Nicotine GUM* 2 MG PO PRN ×4 (02:55→22:49)
[2018-03-12] MEDS: Nicotine Inhaler* 10 MG AMP INH PRN ×5 (02:55→22:49)
[2018-03-12] MEDS: Mometasone/Formoter 200/5 MDI INH SCH ×2 (12:57→21:09)
[2018-03-12] MEDS: Benztropine TAB* 1 MG PO SCH ×2 (12:58→21:09)
[2018-03-12] MEDS: ValACYclovir (*) 1 GM TAB PO SCH ×2 (12:58→21:09)
[2018-03-12] MEDS: Cetirizine* 10 MG TAB PO SCH (12:59)
[2018-03-12] MEDS: Vitamin THERAPEUTIC TAB PO SCH (12:59)
[2018-03-12] MEDS: Oxybutynin XL TAB* 5 MG PO SCH (12:59)
[2018-03-12] MEDS: guaiFENesin LIQ* 100 MG/5 ML UDC PO PRN ×2 (13:00→18:40)
[2018-03-12] MEDS: Bisacodyl EC TAB* 5 MG PO PRN (13:04)
[2018-03-12] MEDS: Nicotine PATCH 21 MG/24 HR* PATCH TRANSDERM SCH (13:08)
[2018-03-12] MEDS: oxyCODONE/Acetamin 5/325 MG* TAB PO PRN ×3 (14:07→22:43)
[2018-03-12] MEDS: Benzocaine/Menthol LOZ* 1 LOZENGE MT PRN (14:07)
--- NOTE | 2018-03-12 14:28 | PN ---
Subjective - Subjective Date of Service: 03/12/18 Service Type: [id number] Hosp care 15 min low complexity Subjective: Sally is seen in weekend coverage for NPP, Nereida Haskins. The patient is reporting to me that the reason for her rapid rehospitalization this month was due to visual hallucinations of "seeing all sorts of shit." She denies VH at this time and uses this as a justification for [facility]. "I want to fill out my SPOE packet and get an apartment. On second thought, I'm very social. I'd rather be around people, like at the [facility]." She denies SI or HI. Objective - Appearance Appearance: Obese Dysmorphic Features: No Hygiene: Normal Grooming: Disheveled - Behavior Psychomotor Activities: Normal Exhibits Abnormal Movement: No - Attitude and Relatedness Attitude and Relatedness: Child Like Eye Contact: Fair - Speech Quality: Unpressured Latencies: Normal Quantity: Appropriate - Mood Patient's Decription of Mood: "Fine" - Affect Observed Affect: Unvariable Affect Consistent with: Euthymia - Thought Process Patient's Thought Process: Disorganized Thought Content: Yes Paranoid Ideation, No Passive Wish, No Suicidal Planning, No Homicidal Ideation - Sensorium Experiencing Hallucinations: Yes Type of Hallucinations: Visual: Yes, Auditory: Yes, Command: No - Level of Consciousness Level of Consciousness: Alert Orientation: Yes Intact, Yes Orientated to Time, Yes Orientated to Place, Yes Orientated to Person - Impulse Control Impulse Control: Poor - Insight and Judgement Insight and Judgement: Impaired - Group Participation Particating in Group Activities: No - Medication Management Medication Management Adherence: Yes Assessment - Assessment Merits Inpatient Hospitalization: For Immediate Safety, For Stabilization Inpatient DSM-V Dx: F20.0 Clinical Impression: 42yo female with known history of schizophrenia who presented to ED via 9.45 from [facility]. She was discharged from [facility] on 03/01/18 after being given second booster dose of invega sustenna IM. She continues to present as paranoid and delusional. She is unable to care for herself and merits hospitalization for immediate safety and stabilization. Plan - Plan Treatment Plan: Name: SALLY SON Birthdate: 1975 [id number] continue acute intensive psychiatric treatment. convert to 2PC status. continue oral coverage of paliperidone. add benztropine as patient may be experiencing akathesia pending referral to [facility]. Continued Medication Management: Continue Outpt Medication Medications: Current Medications Acetaminophen (Tylenol Tab*) 650 mg PO Q4H PRN PRN Reason: PAIN or TEMP > 101 F Last Admin: 03/11/18 08:03 Dose: 650 mg Al Hydrox/Mg Hydrox/Simethicone (Maalox Plus*) 30 ml PO Q4H PRN PRN Reason: INDIGESTION Albuterol (Ventolin Hfa Inhaler*) 2 puff INH Q6H PRN PRN Reason: SOB/WHEEZING Last Admin: 03/12/18 12:57 Dose: 2 puff Albuterol (Ventolin 2.5 Mg/3 Ml Neb.Alicia*) 2.5 mg INH Q4H PRN PRN Reason: SOB/WHEEZING Benztropine Mesylate (Cogentin Tab*) 0.5 mg PO BID [facility] Last Admin: 03/12/18 12:58 Dose: 0.5 mg Bisacodyl (Dulcolax Ec Tab*) 10 mg PO DAILY PRN PRN Reason: CONSTIPATION Last Admin: 03/12/18 13:04 Dose: 10 mg Cetirizine HCl (Zyrtec*) 10 mg PO DAILY [facility]; Protocol Last Admin: 03/12/18 12:59 Dose: 10 mg Device (Nicotine Mouth Piece*) 1 each INH .CARTRIDGE [facility] Last Admin: 03/10/18 12:36 Dose: 1 each Diphenhydramine HCl (Benadryl Po*) 50 mg PO Q6H PRN PRN Reason: ANXIETY Last Admin: 03/12/18 02:20 Dose: 50 mg Guaifenesin (Robitussin*) 10 ml PO Q6H PRN PRN Reason: COUGH Last Admin: 03/12/18 13:00 Dose: 10 ml Ibuprofen (Motrin Tab*) 600 mg PO Q6H PRN PRN Reason: PAIN Last Admin: 03/11/18 08:03 Dose: 600 mg Lorazepam (Ativan Tab(*)) 1 mg PO Q6H PRN PRN Reason: Anxiety/agitation Last Admin: 03/12/18 02:20 Dose: 1 mg Mometasone Furoate/Formoterol Fumar (Dulera 200/5 Mdi*) 2 puff INH BID [facility] Last Admin: 03/12/18 12:57 Dose: 2 puff Multi-Ingredient Mouthwash/Gargle (Magic Mouth Was-Eddi/Maal/Lido*) 5 ml SWISH SPIT Q6H PRN PRN Reason: MOUTH SORES Multivitamins (Theragran Tab*) 1 tab PO DAILY [facility] Last Admin: 03/12/18 12:59 Dose: 1 tab Nicotine (Nicotine Inhaler*) 10 mg INH Q2H PRN PRN Reason: CRAVING Last Admin: 03/12/18 13:03 Dose: 10 mg Nicotine (Nicotine Patch 21 Mg/24 Hr*) 1 patch TRANSDERM DAILY [facility] Last Admin: 03/12/18 13:08 Dose: Not Given Nicotine Polacrilex (Nicotine Gum*) 2 mg PO Q2H PRN PRN Reason: CRAVING Last Admin: 03/12/18 13:03 Dose: 2 mg Oxybutynin Chloride (Ditropan Xl Tab*) 15 mg PO DAILY [facility] Last Admin: 03/12/18 12:59 Dose: 15 mg Oxycodone/Acetaminophen (Percocet 5/325 Tab*) 2 tab PO Q8H PRN PRN Reason: PAIN Last Admin: 03/12/18 14:07 Dose: 2 tab Paliperidone (Invega Er Tab*) 3 mg PO BEDTIME [facility] Last Admin: 03/11/18 20:55 Dose: 3 mg Pharmacy Profile Note (Nicotine Patch Removal Note*) 1 note FOLLOW UP 2100 [facility] Last Admin: 03/11/18 21:46 Dose: Not Given Throat Lozenges (Chloraseptic Dwight*) 1 dwight MT Q6H PRN PRN Reason: COUGH Last Admin: 03/12/18 14:07 Dose: 1 dwight Valacyclovir HCl (Valtrex 1 Gm(*)) 1 gm PO BID [facility]; Protocol Last Admin: 03/12/18 12:58 Dose: 1 gm - Discharge Plan Discharge Plan: Consider Longer Term Tx
[2018-03-12] MEDS: Magic Mouth Was-BEN/MAAL/LIDO SWISH SPIT PRN (18:42)
[2018-03-12] MEDS: Paliperidone ER TAB* 3 MG TAB.ER PO SCH (21:09)
[2018-03-12] MEDS: Nicotine Patch Removal NOTE FOLLOW UP SCH (21:11)
[2018-03-13] MEDS: Nicotine GUM* 2 MG PO PRN ×5 (02:00→20:41)
[2018-03-13] MEDS: Nicotine Inhaler* 10 MG AMP INH PRN ×5 (02:00→20:16)
[2018-03-13] MEDS: Benztropine TAB* 1 MG PO SCH ×2 (08:49→20:14)
[2018-03-13] MEDS: Cetirizine* 10 MG TAB PO SCH (08:49)
[2018-03-13] MEDS: Vitamin THERAPEUTIC TAB PO SCH (08:49)
[2018-03-13] MEDS: Nicotine PATCH 21 MG/24 HR* PATCH TRANSDERM SCH (08:50)
[2018-03-13] MEDS: Mometasone/Formoter 200/5 MDI INH SCH ×2 (08:50→20:51)
[2018-03-13] MEDS: ValACYclovir (*) 1 GM TAB PO SCH ×2 (08:51→20:14)
[2018-03-13] MEDS: Oxybutynin XL TAB* 5 MG PO SCH (08:51)
[2018-03-13] MEDS: Albuterol HFA INHALER* 8 gm MDI INH PRN ×2 (08:52→14:08)
[2018-03-13] MEDS: guaiFENesin LIQ* 100 MG/5 ML UDC PO PRN (08:52)
[2018-03-13] MEDS: Bisacodyl EC TAB* 5 MG PO PRN (08:58)
[2018-03-13] MEDS: oxyCODONE/Acetamin 5/325 MG* TAB PO PRN ×2 (08:59→17:34)
[2018-03-13] MEDS: Benzocaine/Menthol LOZ* 1 LOZENGE MT PRN (14:10)
[2018-03-13] MEDS: LORazepam TAB(*) 1 MG PO PRN (18:41)
[2018-03-13] MEDS: Paliperidone ER TAB* 3 MG TAB.ER PO SCH (20:14)
[2018-03-14] MEDS: Nicotine Patch Removal NOTE FOLLOW UP SCH (00:45)
[2018-03-14] MEDS: Mometasone/Formoter 200/5 MDI INH SCH ×2 (09:26→20:25)
[2018-03-14] MEDS: Nicotine PATCH 21 MG/24 HR* PATCH TRANSDERM SCH (09:26)
[2018-03-14] MEDS: guaiFENesin LIQ* 100 MG/5 ML UDC PO PRN ×2 (09:27→19:08)
[2018-03-14] MEDS: Albuterol HFA INHALER* 8 gm MDI INH PRN ×3 (09:28→20:38)
[2018-03-14] MEDS: Nicotine Inhaler* 10 MG AMP INH PRN ×5 (09:32→22:02)
[2018-03-14] MEDS: oxyCODONE/Acetamin 5/325 MG* TAB PO PRN ×2 (09:33→22:00)
[2018-03-14] MEDS: Vitamin THERAPEUTIC TAB PO SCH (09:34)
[2018-03-14] MEDS: Cetirizine* 10 MG TAB PO SCH (09:36)
[2018-03-14] MEDS: ValACYclovir (*) 1 GM TAB PO SCH ×2 (09:36→20:25)
[2018-03-14] MEDS: Benztropine TAB* 1 MG PO SCH ×2 (09:38→20:25)
[2018-03-14] MEDS: Oxybutynin XL TAB* 5 MG PO SCH (09:38)
[2018-03-14] MEDS: Mouth Piece, Nicotine* 1 EACH CARTRIDGE INH SCH ×2 (10:01→19:09)
[2018-03-14] MEDS ORDERED: Mouth Piece, Nicotine* 1 EACH CARTRIDGE ONE (10:01)
[2018-03-14] MEDS: Nicotine GUM* 2 MG PO PRN ×6 (10:02→22:34)
[2018-03-14] MEDS: LORazepam TAB(*) 1 MG PO PRN (11:02)
[2018-03-14] MEDS: Acetaminophen TAB* 325 MG PO PRN (13:25)
--- NOTE | 2018-03-14 13:47 | PN ---
Subjective - Subjective Date of Service: 03/14/18 Service Type: 05539 Hosp care 25 min moderate complexity Subjective: Sally is present in milieu but does not initiate conversation with others. She is noted to talk to herself and respond to internal stimuli. She inconsistently denies hallucinations. She is sexually preoccupied and reports needing to masturbate with vibrator in order to treat menopause symptoms. She continues to ask for more pain medication. Objective - Appearance Appearance: Well Developed/Nourished Dysmorphic Features: Yes Hygiene: Normal Grooming: Disheveled - Behavior Psychomotor Activities: Normal Exhibits Abnormal Movement: No - Attitude and Relatedness Attitude and Relatedness: Psychotically Related Eye Contact: Good - Speech Quality: Pressured Latencies: Normal Quantity: Copious - Mood Patient's Decription of Mood: "Fine" - Affect Observed Affect: Expansive Affect Consistent with: Euphoria - Thought Process Patient's Thought Process: Disorganized, Over Inclusive Thought Content: Yes Paranoid Ideation, No Passive Wish, No Suicidal Planning, No Homicidal Ideation - Sensorium Experiencing Hallucinations: Yes Type of Hallucinations: Visual: Yes, Auditory: Yes, Command: No - Level of Consciousness Level of Consciousness: Alert Orientation: Yes Intact, Yes Orientated to Time, Yes Orientated to Place, Yes Orientated to Person - Impulse Control Impulse Control: Impaired - Insight and Judgement Insight and Judgement: Impaired - Group Participation Particating in Group Activities: No - Medication Management Medication Management Adherence: Yes Assessment - Assessment Merits Inpatient Hospitalization: For Immediate Safety, For Stabilization Inpatient DSM-V Dx: F20.0 Clinical Impression: 42yo female with known history of schizophrenia who presented to ED via 9.45 from [facility]. She was discharged from [facility] on 03/01/18 after being given second booster dose of invega sustenna IM. She continues to present as paranoid and delusional. She is unable to care for herself and merits hospitalization for immediate safety and stabilization. Plan - Plan Treatment Plan: Name: SALLY SON Birthdate: 1975 [id number] continue acute intensive psychiatric treatment. convert to 2PC status. continue oral coverage of paliperidone. add ensure with meals per pt request. pending referral to [facility]. Continued Medication Management: Continue Outpt Medication Medications: Current Medications Acetaminophen (Tylenol Tab*) 650 mg PO Q4H PRN PRN Reason: PAIN or TEMP > 101 F Last Admin: 03/14/18 13:25 Dose: 650 mg Al Hydrox/Mg Hydrox/Simethicone (Maalox Plus*) 30 ml PO Q4H PRN PRN Reason: INDIGESTION Albuterol (Ventolin Hfa Inhaler*) 2 puff INH Q6H PRN PRN Reason: SOB/WHEEZING Last Admin: 03/14/18 09:28 Dose: 2 puff Albuterol (Ventolin 2.5 Mg/3 Ml Neb.Alicia*) 2.5 mg INH Q4H PRN PRN Reason: SOB/WHEEZING Benztropine Mesylate (Cogentin Tab*) 0.5 mg PO BID [facility]CLUDE 234 BEDS AT [facility] Last Admin: 03/14/18 09:38 Dose: 0.5 mg Bisacodyl (Dulcolax Ec Tab*) 10 mg PO DAILY PRN PRN Reason: CONSTIPATION Last Admin: 03/13/18 08:58 Dose: 10 mg Cetirizine HCl (Zyrtec*) 10 mg PO DAILY [facility]CLUDE 234 BEDS AT [facility]; Protocol Last Admin: 03/14/18 09:36 Dose: 10 mg Device (Nicotine Mouth Piece*) 1 each INH .CARTRIDGE COUNTS INCLUDE 234 BEDS AT THE [facility] Last Admin: 03/14/18 10:01 Dose: 1 each Diphenhydramine HCl (Benadryl Po*) 50 mg PO Q6H PRN PRN Reason: ANXIETY Last Admin: 03/12/18 02:20 Dose: 50 mg Guaifenesin (Robitussin*) 10 ml PO Q6H PRN PRN Reason: COUGH Last Admin: 03/14/18 09:27 Dose: 10 ml Ibuprofen (Motrin Tab*) 600 mg PO Q6H PRN PRN Reason: PAIN Last Admin: 03/11/18 08:03 Dose: 600 mg Lorazepam (Ativan Tab(*)) 1 mg PO Q6H PRN PRN Reason: Anxiety/agitation Last Admin: 03/14/18 11:02 Dose: 1 mg Mometasone Furoate/Formoterol Fumar (Dulera 200/5 Mdi*) 2 puff INH BID [facility] Last Admin: 03/14/18 09:26 Dose: 2 puff Multi-Ingredient Mouthwash/Gargle (Magic Mouth Was-Eddi/Maal/Lido*) 5 ml SWISH SPIT Q6H PRN PRN Reason: MOUTH SORES Last Admin: 03/12/18 18:42 Dose: 5 ml Multivitamins (Theragran Tab*) 1 tab PO DAILY [facility] INCLUDE 234 BEDS AT [facility] Last Admin: 03/14/18 09:34 Dose: 1 tab Nicotine (Nicotine Inhaler*) 10 mg INH Q2H PRN PRN Reason: CRAVING Last Admin: 03/14/18 13:23 Dose: 10 mg Nicotine Polacrilex (Nicotine Gum*) 2 mg PO Q2H PRN PRN Reason: CRAVING Last Admin: 03/14/18 13:24 Dose: 2 mg Ondansetron HCl (Zofran Tab*) 4 mg PO Q6H PRN PRN Reason: NAUSEA/VOMITING Oxybutynin Chloride (Ditropan Xl Tab*) 15 mg PO DAILY [facility] INCLUDE 234 BEDS AT [facility] Last Admin: 03/14/18 09:38 Dose: 15 mg Oxycodone/Acetaminophen (Percocet 5/325 Tab*) 2 tab PO Q8H PRN PRN Reason: PAIN Last Admin: 03/14/18 09:33 Dose: 2 tab Paliperidone (Invega Er Tab*) 3 mg PO BEDTIME [facility]S INCLUDE 234 BEDS AT [facility] Last Admin: 03/13/18 20:14 Dose: 3 mg Throat Lozenges (Chloraseptic Dwight*) 1 dwight MT Q6H PRN PRN Reason: COUGH Last Admin: 03/13/18 14:10 Dose: 1 dwight Valacyclovir HCl (Valtrex 1 Gm(*)) 1 gm PO BID [facility] INCLUDE 234 BEDS AT [facility]; Protocol Last Admin: 03/14/18 09:36 Dose: 1 gm - Discharge Plan Discharge Plan: Consider Longer Term Tx
[2018-03-14] MEDS: Benzocaine/Menthol LOZ* 1 LOZENGE MT PRN ×2 (15:29→21:17)
[2018-03-14] MEDS: Montelukast Sodium TAB* 5 MG PO SCH (17:51)
[2018-03-14] MEDS: Paliperidone ER TAB* 3 MG TAB.ER PO SCH (20:25)
[2018-03-14] MEDS: Ondansetron TAB* 4 MG PO PRN (21:47)
[2018-03-15] MEDS: Nicotine Inhaler* 10 MG AMP INH PRN ×6 (00:27→22:20)
[2018-03-15] MEDS: Nicotine GUM* 2 MG PO PRN ×5 (00:28→18:37)
[2018-03-15] MEDS: Mometasone/Formoter 200/5 MDI INH SCH ×2 (09:08→20:23)
[2018-03-15] MEDS: Albuterol HFA INHALER* 8 gm MDI INH PRN ×2 (09:08→19:36)
[2018-03-15] MEDS: oxyCODONE/Acetamin 5/325 MG* TAB PO PRN ×2 (09:11→19:32)
[2018-03-15] MEDS: Vitamin THERAPEUTIC TAB PO SCH (09:12)
[2018-03-15] MEDS: Oxybutynin XL TAB* 5 MG PO SCH (09:12)
[2018-03-15] MEDS: Cetirizine* 10 MG TAB PO SCH (09:12)
[2018-03-15] MEDS: ValACYclovir (*) 1 GM TAB PO SCH ×2 (09:12→20:21)
[2018-03-15] MEDS: Bisacodyl EC TAB* 5 MG PO PRN (09:12)
[2018-03-15] MEDS: Montelukast Sodium TAB* 5 MG PO SCH (09:13)
[2018-03-15] MEDS: Benztropine TAB* 1 MG PO SCH ×2 (09:13→20:19)
[2018-03-15] MEDS: Benzocaine/Menthol LOZ* 1 LOZENGE MT PRN ×2 (09:18→15:54)
[2018-03-15] MEDS: guaiFENesin LIQ* 100 MG/5 ML UDC PO PRN ×2 (12:54→19:34)
[2018-03-15] MEDS: Acetaminophen TAB* 325 MG PO PRN (13:31)
[2018-03-15] MEDS: Paliperidone ER TAB* 3 MG TAB.ER PO SCH (20:20)
[2018-03-16] MEDS: Cetirizine* 10 MG TAB PO SCH (08:51)
[2018-03-16] MEDS: Vitamin THERAPEUTIC TAB PO SCH (08:51)
[2018-03-16] MEDS: Benztropine TAB* 1 MG PO SCH ×2 (08:52→20:45)
[2018-03-16] MEDS: Albuterol HFA INHALER* 8 gm MDI INH PRN ×2 (08:53→20:50)
[2018-03-16] MEDS: Mometasone/Formoter 200/5 MDI INH SCH ×2 (08:53→20:49)
[2018-03-16] MEDS: ValACYclovir (*) 1 GM TAB PO SCH ×2 (08:53→20:49)
[2018-03-16] MEDS: Oxybutynin XL TAB* 5 MG PO SCH (08:54)
[2018-03-16] MEDS: Bisacodyl EC TAB* 5 MG PO PRN (08:54)
[2018-03-16] MEDS: Montelukast Sodium TAB* 5 MG PO SCH (08:55)
[2018-03-16] MEDS: guaiFENesin LIQ* 100 MG/5 ML UDC PO PRN ×2 (08:56→20:47)
[2018-03-16] MEDS: Mouth Piece, Nicotine* 1 EACH CARTRIDGE INH SCH ×2 (08:59→20:53)
[2018-03-16] MEDS: Nicotine Inhaler* 10 MG AMP INH PRN ×4 (08:59→20:53)
[2018-03-16] MEDS: Nicotine GUM* 2 MG PO PRN ×3 (08:59→20:53)
[2018-03-16] MEDS: oxyCODONE/Acetamin 5/325 MG* TAB PO PRN ×2 (11:07→20:48)
[2018-03-16] MEDS: Acetaminophen TAB* 325 MG PO PRN ×2 (14:25→21:49)
[2018-03-16] MEDS: LORazepam TAB(*) 1 MG PO PRN (15:50)
[2018-03-16] MEDS: Benzocaine/Menthol LOZ* 1 LOZENGE MT PRN (18:08)
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
[2018-03-16] MEDS: Paliperidone ER TAB* 3 MG TAB.ER PO SCH (20:44)
[2018-03-16] MEDS ORDERED: Mouth Piece, Nicotine* 1 EACH CARTRIDGE ONE (20:53)
[2018-03-17] MEDS: Montelukast Sodium TAB* 5 MG PO SCH (08:05)
[2018-03-17] MEDS: Benztropine TAB* 1 MG PO SCH ×2 (08:06→20:32)
[2018-03-17] MEDS: ValACYclovir (*) 1 GM TAB PO SCH ×2 (08:07→20:34)
[2018-03-17] MEDS: Oxybutynin XL TAB* 5 MG PO SCH (08:07)
[2018-03-17] MEDS: Vitamin THERAPEUTIC TAB PO SCH (08:08)
[2018-03-17] MEDS: Bisacodyl EC TAB* 5 MG PO PRN (08:08)
[2018-03-17] MEDS: Cetirizine* 10 MG TAB PO SCH (08:08)
[2018-03-17] MEDS: Mometasone/Formoter 200/5 MDI INH SCH ×2 (08:09→20:39)
[2018-03-17] MEDS: oxyCODONE/Acetamin 5/325 MG* TAB PO PRN ×2 (08:10→15:41)
[2018-03-17] MEDS: Albuterol HFA INHALER* 8 gm MDI INH PRN ×2 (08:10→20:36)
[2018-03-17] MEDS: Nicotine GUM* 2 MG PO PRN ×3 (09:06→20:39)
[2018-03-17] MEDS: Nicotine Inhaler* 10 MG AMP INH PRN ×5 (09:06→20:38)
[2018-03-17] MEDS: LORazepam TAB(*) 1 MG PO PRN (10:58)
[2018-03-17] MEDS: guaiFENesin LIQ* 100 MG/5 ML UDC PO PRN ×2 (10:58→20:31)
[2018-03-17] MEDS: Benzocaine/Menthol LOZ* 1 LOZENGE MT PRN ×2 (13:05→22:37)
[2018-03-17] MEDS: Acetaminophen TAB* 325 MG PO PRN ×2 (13:06→21:38)
[2018-03-17] MEDS: Paliperidone ER TAB* 3 MG TAB.ER PO SCH (20:33)
[2018-03-18] MEDS ORDERED: Mouth Piece, Nicotine* 1 EACH CARTRIDGE ONE (09:32)
[2018-03-18] MEDS: Mometasone/Formoter 200/5 MDI INH SCH ×2 (09:34→20:00)
[2018-03-18] MEDS: Albuterol HFA INHALER* 8 gm MDI INH PRN ×2 (09:34→16:18)
[2018-03-18] MEDS: guaiFENesin LIQ* 100 MG/5 ML UDC PO PRN ×2 (09:35→20:02)
[2018-03-18] MEDS: Cetirizine* 10 MG TAB PO SCH (09:36)
[2018-03-18] MEDS: Vitamin THERAPEUTIC TAB PO SCH (09:36)
[2018-03-18] MEDS: Oxybutynin XL TAB* 5 MG PO SCH (09:38)
[2018-03-18] MEDS: Montelukast Sodium TAB* 5 MG PO SCH (09:38)
[2018-03-18] MEDS: ValACYclovir (*) 1 GM TAB PO SCH ×2 (09:39→20:00)
[2018-03-18] MEDS: Nicotine Inhaler* 10 MG AMP INH PRN ×2 (09:40→18:16)
[2018-03-18] MEDS: Mouth Piece, Nicotine* 1 EACH CARTRIDGE INH SCH (09:40)
[2018-03-18] MEDS: Nicotine GUM* 2 MG PO PRN ×3 (09:41→18:16)
[2018-03-18] MEDS: Benztropine TAB* 1 MG PO SCH ×2 (09:44→20:00)
[2018-03-18] MEDS: oxyCODONE/Acetamin 5/325 MG* TAB PO PRN (11:26)
[2018-03-18 11:41] LABS: ABS Basophils 0 10^3/ul (0-0.2); ABS Eosinophils 0 10^3/ul (0-0.6); ABS Lymphocytes 1.2 10^3/ul (1.0-4.8); ABS Monocytes 0.5 10^3/ul (0-0.8); ABS Neutrophils 4.8 10^3/ul (1.5-7.7); ABS Nucleated RBC 0 10^3/ul; Eosinophil % 0.3 %; Hematocrit 34 % (35-47); Hemoglobin 10.9 g/dl (12.0-16.0); Lymphocyte % 18.8 %; Mean Corpuscular HGB Conc 32 g/dl (31-36); Mean Corpuscular Hemoglobin 29 pg (27-31); Mean Corpuscular Volume 88 fL (80-97); Mean Platelet Volume 7.8 fL (7.4-10.4); Nucleated Red Blood Cells % 0; Platelet Count 322 10^3/ul (150-450); Red Blood Count 3.81 10^6/ul (4.00-5.40); Red Cell Distribution Width 16 % (10.5-15); White Blood Count 6.6 10^3/ul (3.5-10.8)
[2018-03-18 11:58] LABS: BUN/Creatinine Ratio 24.3 (8-20); Calcium 9.2 mg/dL (8.6-10.3); EGFR African American 103.2 (>60); EGFR Non-African American 85.3 (>60); Potassium 3.8 mmol/L (3.5-5.0)
--- NOTE | 2018-03-18 12:04 | PN ---
Subjective - Subjective Date of Service: 03/18/18 Service Type: [id number] Hosp care 15 min low complexity Subjective: Patient is present in milieu, speaking loudly to no one in particular. patient states "I am not schizophrenic or delusional. my is and he should be here, not me!" She is tangential in topic of conversation. She denies abdominal pain or constipation. Objective - Appearance Appearance: Well Developed/Nourished Dysmorphic Features: No Hygiene: Normal Grooming: Disheveled - Behavior Psychomotor Activities: Normal Exhibits Abnormal Movement: No - Attitude and Relatedness Attitude and Relatedness: Psychotically Related Eye Contact: Good - Speech Quality: Pressured Latencies: Normal Quantity: Copious - Mood Patient's Decription of Mood: "Anxious" - Affect Observed Affect: Expansive Affect Consistent with: Euphoria - Thought Process Patient's Thought Process: Tangential, Filght of Ideas, Over Inclusive Thought Content: Yes Paranoid Ideation, No Passive Wish, No Suicidal Planning, No Homicidal Ideation - Sensorium Experiencing Hallucinations: Yes Type of Hallucinations: Visual: No, Auditory: No, Command: No - Level of Consciousness Level of Consciousness: Alert Orientation: Yes Intact, Yes Orientated to Time, Yes Orientated to Place, Yes Orientated to Person - Impulse Control Impulse Control: Impaired - Insight and Judgement Insight and Judgement: Impaired - Group Participation Particating in Group Activities: No - Medication Management Medication Management Adherence: Yes Assessment - Assessment Merits Inpatient Hospitalization: For Immediate Safety, For Stabilization Inpatient DSM-V Dx: F20.0 Clinical Impression: 42yo female with known history of schizophrenia who presented to ED via 9.45 from [facility]. She was discharged from [facility] on 03/01/18 after being given second booster dose of invega sustenna IM. She continues to present as paranoid and delusional. She is unable to care for herself and merits hospitalization for immediate safety and stabilization. She is accepted to [facility] and is awaiting bed availability. Plan - Plan Treatment Plan: Name: RANDOLPH SON Birthdate: 1975 [id number] continue acute intensive psychiatric treatment. convert to 2PC status. continue oral coverage of paliperidone. add folate vitamin. pending bed assignment to [facility]. Continued Medication Management: Different Medication Medications: Current Medications Acetaminophen (Tylenol Tab*) 650 mg PO Q4H PRN PRN Reason: PAIN or TEMP > 101 F Last Admin: 03/17/18 21:38 Dose: 650 mg Al Hydrox/Mg Hydrox/Simethicone (Maalox Plus*) 30 ml PO Q4H PRN PRN Reason: INDIGESTION Albuterol (Ventolin Hfa Inhaler*) 2 puff INH Q6H PRN PRN Reason: SOB/WHEEZING Last Admin: 03/18/18 09:34 Dose: 2 puff Albuterol (Ventolin 2.5 Mg/3 Ml Neb.Alicia*) 2.5 mg INH Q4H PRN PRN Reason: SOB/WHEEZING Benztropine Mesylate (Cogentin Tab*) 0.5 mg PO BID [facility] Last Admin: 03/18/18 09:44 Dose: 0.5 mg Bisacodyl (Dulcolax Ec Tab*) 10 mg PO DAILY PRN PRN Reason: CONSTIPATION Last Admin: 03/17/18 08:08 Dose: 10 mg Cetirizine HCl (Zyrtec*) 10 mg PO DAILY [facility]; Protocol Last Admin: 03/18/18 09:36 Dose: 10 mg Device (Nicotine Mouth Piece*) 1 each INH .CARTRIDGE [facility] Last Admin: 03/18/18 09:40 Dose: 1 each Diphenhydramine HCl (Benadryl Po*) 50 mg PO Q6H PRN PRN Reason: ANXIETY Last Admin: 03/12/18 02:20 Dose: 50 mg Guaifenesin (Robitussin*) 10 ml PO Q6H PRN PRN Reason: COUGH Last Admin: 03/18/18 09:35 Dose: 10 ml Ibuprofen (Motrin Tab*) 600 mg PO Q6H PRN PRN Reason: PAIN Last Admin: 03/11/18 08:03 Dose: 600 mg Lorazepam (Ativan Tab(*)) 1 mg PO Q6H PRN PRN Reason: Anxiety/agitation Last Admin: 03/17/18 10:58 Dose: 1 mg Mometasone Furoate/Formoterol Fumar (Dulera 200/5 Mdi*) 2 puff INH BID [facility] Last Admin: 03/18/18 09:34 Dose: 2 puff Montelukast Sodium (Singulair Tab*) 5 mg PO DAILY [facility] Last Admin: 03/18/18 09:38 Dose: 5 mg Multi-Ingredient Mouthwash/Gargle (Magic Mouth Was-Eddi/Maal/Lido*) 5 ml SWISH SPIT Q6H PRN PRN Reason: MOUTH SORES Last Admin: 03/12/18 18:42 Dose: 5 ml Multivitamins (Theragran Tab*) 1 tab PO DAILY [facility] Last Admin: 03/18/18 09:36 Dose: 1 tab Nicotine (Nicotine Inhaler*) 10 mg INH Q2H PRN PRN Reason: CRAVING Last Admin: 03/18/18 09:40 Dose: 10 mg Nicotine Polacrilex (Nicotine Gum*) 2 mg PO Q2H PRN PRN Reason: CRAVING Last Admin: 03/18/18 09:41 Dose: 2 mg Ondansetron HCl (Zofran Tab*) 4 mg PO Q6H PRN PRN Reason: NAUSEA/VOMITING Last Admin: 03/14/18 21:47 Dose: 4 mg Oxybutynin Chloride (Ditropan Xl Tab*) 15 mg PO DAILY [facility] Last Admin: 03/18/18 09:38 Dose: 15 mg Oxycodone/Acetaminophen (Percocet 5/325 Tab*) 2 tab PO Q8H PRN PRN Reason: PAIN Last Admin: 03/18/18 11:26 Dose: 2 tab Paliperidone (Invega Er Tab*) 3 mg PO BEDTIME [facility] Last Admin: 03/17/18 20:33 Dose: 3 mg Throat Lozenges (Chloraseptic Mona*) 1 mona MT Q6H PRN PRN Reason: COUGH Last Admin: 03/17/18 22:37 Dose: 1 mona Valacyclovir HCl (Valtrex 1 Gm(*)) 1 gm PO BID [facility]; Protocol Last Admin: 03/18/18 09:39 Dose: 1 gm - Discharge Plan Discharge Plan: Consider Longer Term Tx
[2018-03-18] MEDS: Acetaminophen TAB* 325 MG PO PRN (13:07)
[2018-03-18] MEDS: Folic Acid TAB* 1 MG PO SCH (13:07)
[2018-03-18] MEDS: LORazepam TAB(*) 1 MG PO PRN (13:09)
[2018-03-18] MEDS: Benzocaine/Menthol LOZ* 1 LOZENGE MT PRN (16:19)
[2018-03-18] MEDS: Paliperidone ER TAB* 3 MG TAB.ER PO SCH (20:00)
[2018-03-19] MEDS: Benztropine TAB* 1 MG PO SCH ×2 (09:08→21:23)
[2018-03-19] MEDS: Folic Acid TAB* 1 MG PO SCH (09:11)
[2018-03-19] MEDS: Cetirizine* 10 MG TAB PO SCH (09:11)
[2018-03-19] MEDS: Vitamin THERAPEUTIC TAB PO SCH (09:11)
[2018-03-19] MEDS: oxyCODONE/Acetamin 5/325 MG* TAB PO PRN ×2 (09:12→18:17)
[2018-03-19] MEDS: Albuterol HFA INHALER* 8 gm MDI INH PRN ×2 (09:12→16:30)
[2018-03-19] MEDS: Mometasone/Formoter 200/5 MDI INH SCH ×2 (09:12→21:24)
[2018-03-19] MEDS: Oxybutynin XL TAB* 5 MG PO SCH (09:13)
[2018-03-19] MEDS: ValACYclovir (*) 1 GM TAB PO SCH ×2 (09:14→21:24)
[2018-03-19] MEDS: Montelukast Sodium TAB* 5 MG PO SCH (09:14)
[2018-03-19] MEDS: guaiFENesin LIQ* 100 MG/5 ML UDC PO PRN ×2 (09:15→16:30)
[2018-03-19] MEDS: Bisacodyl EC TAB* 5 MG PO PRN (09:15)
[2018-03-19] MEDS: Nicotine GUM* 2 MG PO PRN ×5 (09:17→23:30)
[2018-03-19] MEDS: Nicotine Inhaler* 10 MG AMP INH PRN ×5 (09:17→23:30)
[2018-03-19] MEDS: Benzocaine/Menthol LOZ* 1 LOZENGE MT PRN ×3 (09:17→22:54)
[2018-03-19] MEDS: Magic Mouth Was-BEN/MAAL/LIDO SWISH SPIT PRN (09:17)
[2018-03-19] MEDS: LORazepam TAB(*) 1 MG PO PRN (16:35)
[2018-03-19] MEDS: Paliperidone ER TAB* 3 MG TAB.ER PO SCH (21:24)
[2018-03-20] MEDS: Cetirizine* 10 MG TAB PO SCH (09:34)
[2018-03-20] MEDS: Folic Acid TAB* 1 MG PO SCH (09:34)
[2018-03-20] MEDS: Benztropine TAB* 1 MG PO SCH ×2 (09:34→19:55)
[2018-03-20] MEDS: oxyCODONE/Acetamin 5/325 MG* TAB PO PRN ×2 (09:34→23:33)
[2018-03-20] MEDS: ValACYclovir (*) 1 GM TAB PO SCH ×2 (09:35→19:55)
[2018-03-20] MEDS: Oxybutynin XL TAB* 5 MG PO SCH (09:35)
[2018-03-20] MEDS: Montelukast Sodium TAB* 5 MG PO SCH (09:35)
[2018-03-20] MEDS: Vitamin THERAPEUTIC TAB PO SCH (09:35)
[2018-03-20] MEDS: Albuterol HFA INHALER* 8 gm MDI INH PRN ×2 (09:37→19:53)
[2018-03-20] MEDS: Nicotine Inhaler* 10 MG AMP INH PRN ×4 (09:37→22:12)
[2018-03-20] MEDS: Mometasone/Formoter 200/5 MDI INH SCH ×2 (09:37→19:51)
[2018-03-20] MEDS: Nicotine GUM* 2 MG PO PRN ×4 (09:37→22:14)
[2018-03-20] MEDS: Benzocaine/Menthol LOZ* 1 LOZENGE MT PRN ×2 (09:37→22:14)
[2018-03-20] MEDS: guaiFENesin LIQ* 100 MG/5 ML UDC PO PRN ×2 (13:02→19:52)
[2018-03-20] MEDS: Ibuprofen TAB* 600 MG PO PRN (13:39)
[2018-03-20] MEDS: LORazepam TAB(*) 1 MG PO PRN (13:53)
[2018-03-20] MEDS: Paliperidone ER TAB* 3 MG TAB.ER PO SCH (19:55)
[2018-03-20] MEDS: Mouth Piece, Nicotine* 1 EACH CARTRIDGE INH SCH (22:12)
[2018-03-21] MEDS: oxyCODONE/Acetamin 5/325 MG* TAB PO PRN ×2 (08:58→18:27)
[2018-03-21] MEDS: Montelukast Sodium TAB* 5 MG PO SCH (08:59)
[2018-03-21] MEDS: ValACYclovir (*) 1 GM TAB PO SCH ×2 (09:00→21:12)
[2018-03-21] MEDS: Oxybutynin XL TAB* 5 MG PO SCH (09:00)
[2018-03-21] MEDS: Bisacodyl EC TAB* 5 MG PO PRN (09:01)
[2018-03-21] MEDS: Folic Acid TAB* 1 MG PO SCH (09:01)
[2018-03-21] MEDS: Vitamin THERAPEUTIC TAB PO SCH (09:01)
[2018-03-21] MEDS: Cetirizine* 10 MG TAB PO SCH (09:01)
[2018-03-21] MEDS: Benztropine TAB* 1 MG PO SCH ×2 (09:02→21:12)
[2018-03-21] MEDS: guaiFENesin LIQ* 100 MG/5 ML UDC PO PRN ×2 (09:03→21:18)
[2018-03-21] MEDS: Mometasone/Formoter 200/5 MDI INH SCH ×2 (09:03→21:14)
[2018-03-21] MEDS: Albuterol HFA INHALER* 8 gm MDI INH PRN ×2 (09:04→21:18)
[2018-03-21] MEDS: Benzocaine/Menthol LOZ* 1 LOZENGE MT PRN ×2 (09:13→21:18)
[2018-03-21] MEDS: Nicotine Inhaler* 10 MG AMP INH PRN ×5 (09:13→23:55)
[2018-03-21] MEDS: Nicotine GUM* 2 MG PO PRN ×3 (09:13→23:55)
[2018-03-21] MEDS: Acetaminophen TAB* 325 MG PO PRN (12:09)
--- NOTE | 2018-03-21 14:09 | PN ---
Subjective - Subjective Date of Service: 03/21/18 Service Type: 11412 Hosp care 15 min low complexity Subjective: Patient was seen for Nereida Haskins NP. Patient was seen eating in the common room with peers. She reported that she has pain in her uterus and that she has 15 points in her body to feel pain. Patient changes subject and begins talking about how her will not believe her about not taking pain medications. She denied side effect to medications. She reported that this place is worse than long-term because "in long-term at least they give you a vibrator." She denied suicidal ideation intent or plan. She denied homicidal ideation intent or plan. Objective - Appearance Appearance: Well Developed/Nourished Dysmorphic Features: No Hygiene: Mal-odorous Grooming: Disheveled - Behavior Psychomotor Activities: Normal Exhibits Abnormal Movement: No - Attitude and Relatedness Attitude and Relatedness: Superficially Cooperative Eye Contact: Fair - Speech Quality: Pressured Latencies: Short Quantity: Copious - Mood Patient's Decription of Mood: "Fine" - Affect Observed Affect: Labile Affect Consistent with: Dysphoria - Thought Process Patient's Thought Process: Disorganized Thought Content: No Passive Wish, No Suicidal Planning, No Homicidal Ideation, No Paranoid Ideation - Sensorium Experiencing Hallucinations: No, Sensorium is Clear Type of Hallucinations: Visual: No, Auditory: No, Command: No - Level of Consciousness Level of Consciousness: Alert Orientation: Yes Intact, Yes Orientated to Time, Yes Orientated to Place, Yes Orientated to Person - Impulse Control Impulse Control: Impaired - Insight and Judgement Insight and Judgement: Poor - Group Participation Particating in Group Activities: No - Medication Management Medication Management Adherence: Yes Assessment - Assessment Merits Inpatient Hospitalization: For Immediate Safety Inpatient DSM-V Dx: F20.0 Clinical Impression: 42yo female with known history of schizophrenia who presented to ED via 9[facility]45 from [facility]. She was discharged from [facility] on 03/01/18 after being given second booster dose of invega sustenna IM. She continues to present as paranoid and delusional. She is unable to care for herself and merits hospitalization for immediate safety and stabilization. Disposition includes being transferred to [facility] once a bed is made available. Plan - Plan Treatment Plan: Name: RANDOLPH SON Birthdate: 1975 [id number] Continue inpatient psychiatric treatment for immediate safety. Continue current scheduled medications of cogentin, zyrtec, montelukast , oxybutynin, oxycodone, paliperidone and valacyclovir Disposition to [facility] once bed is made available. Continued Medication Management: Continue Outpt Medication Medications: Current Medications Acetaminophen (Tylenol Tab*) 650 mg PO Q4H PRN PRN Reason: PAIN or TEMP > 101 F Last Admin: 03/21/18 12:09 Dose: 650 mg Al Hydrox/Mg Hydrox/Simethicone (Maalox Plus*) 30 ml PO Q4H PRN PRN Reason: INDIGESTION Albuterol (Ventolin Hfa Inhaler*) 2 puff INH Q6H PRN PRN Reason: SOB/WHEEZING Last Admin: 03/21/18 09:04 Dose: 2 puff Albuterol (Ventolin 2.5 Mg/3 Ml Neb.Alicia*) 2.5 mg INH Q4H PRN PRN Reason: SOB/WHEEZING Benztropine Mesylate (Cogentin Tab*) 0.5 mg PO BID [facility] Last Admin: 03/21/18 09:02 Dose: 0.5 mg Bisacodyl (Dulcolax Ec Tab*) 10 mg PO DAILY PRN PRN Reason: CONSTIPATION Last Admin: 03/21/18 09:01 Dose: 10 mg Cetirizine HCl (Zyrtec*) 10 mg PO DAILY [facility]; Protocol Last Admin: 03/21/18 09:01 Dose: 10 mg Device (Nicotine Mouth Piece*) 1 each INH .CARTRIDGE [facility] Last Admin: 03/20/18 22:12 Dose: 1 each Diphenhydramine HCl (Benadryl Po*) 50 mg PO Q6H PRN PRN Reason: ANXIETY Last Admin: 03/12/18 02:20 Dose: 50 mg Folic Acid (Folvite Tab*) 1 mg PO DAILY [facility] Last Admin: 03/21/18 09:01 Dose: 1 mg Guaifenesin (Robitussin*) 10 ml PO Q6H PRN PRN Reason: COUGH Last Admin: 03/21/18 09:03 Dose: 10 ml Ibuprofen (Motrin Tab*) 600 mg PO Q6H PRN PRN Reason: PAIN Last Admin: 03/20/18 13:39 Dose: 600 mg Lorazepam (Ativan Tab(*)) 1 mg PO Q6H PRN PRN Reason: Anxiety/agitation Last Admin: 03/20/18 13:53 Dose: 1 mg Mometasone Furoate/Formoterol Fumar (Dulera 200/5 Mdi*) 2 puff INH BID [facility] Last Admin: 03/21/18 09:03 Dose: 2 puff Montelukast Sodium (Singulair Tab*) 5 mg PO DAILY [facility] Last Admin: 03/21/18 08:59 Dose: 5 mg Multi-Ingredient Mouthwash/Gargle (Magic Mouth Was-Eddi/Maal/Lido*) 5 ml SWISH SPIT Q6H PRN PRN Reason: MOUTH SORES Last Admin: 03/19/18 09:17 Dose: 5 ml Multivitamins (Theragran Tab*) 1 tab PO DAILY [facility] Last Admin: 03/21/18 09:01 Dose: 1 tab Nicotine (Nicotine Inhaler*) 10 mg INH Q2H PRN PRN Reason: CRAVING Last Admin: 03/21/18 09:13 Dose: 10 mg Nicotine Polacrilex (Nicotine Gum*) 2 mg PO Q2H PRN PRN Reason: CRAVING Last Admin: 03/21/18 09:13 Dose: 2 mg Ondansetron HCl (Zofran Tab*) 4 mg PO Q6H PRN PRN Reason: NAUSEA/VOMITING Last Admin: 03/14/18 21:47 Dose: 4 mg Oxybutynin Chloride (Ditropan Xl Tab*) 15 mg PO DAILY [facility] Last Admin: 03/21/18 09:00 Dose: 15 mg Oxycodone/Acetaminophen (Percocet 5/325 Tab*) 2 tab PO Q8H PRN PRN Reason: PAIN Last Admin: 03/21/18 08:58 Dose: 2 tab Paliperidone (Invega Er Tab*) 3 mg PO BEDTIME [facility] Last Admin: 03/20/18 19:55 Dose: 3 mg Throat Lozenges (Chloraseptic Dwight*) 1 dwight MT Q6H PRN PRN Reason: COUGH Last Admin: 03/21/18 09:13 Dose: 1 dwight Valacyclovir HCl (Valtrex 1 Gm(*)) 1 gm PO BID [facility]; Protocol Last Admin: 03/21/18 09:00 Dose: 1 gm - Discharge Plan Discharge Plan: Inpatient Hospitalization
[2018-03-21] MEDS: Al Hydrox/Mg Hydrox/Simet LIQ* 30 ML UDC PO PRN (14:28)
[2018-03-21] MEDS: Paliperidone ER TAB* 3 MG TAB.ER PO SCH (21:12)
[2018-03-21] MEDS: LORazepam TAB(*) 1 MG PO PRN (23:55)
[2018-03-22] MEDS: Ibuprofen TAB* 600 MG PO PRN ×2 (00:29→18:00)
[2018-03-22] MEDS: oxyCODONE/Acetamin 5/325 MG* TAB PO PRN ×3 (01:22→23:36)
[2018-03-22] MEDS: Vitamin THERAPEUTIC TAB PO SCH (10:25)
[2018-03-22] MEDS: Benztropine TAB* 1 MG PO SCH ×2 (10:25→20:30)
[2018-03-22] MEDS: Nicotine GUM* 2 MG PO PRN ×6 (10:26→22:36)
[2018-03-22] MEDS: Cetirizine* 10 MG TAB PO SCH (10:26)
[2018-03-22] MEDS: Folic Acid TAB* 1 MG PO SCH (10:26)
[2018-03-22] MEDS: Nicotine Inhaler* 10 MG AMP INH PRN ×6 (10:27→22:36)
[2018-03-22] MEDS: Oxybutynin XL TAB* 5 MG PO SCH (10:27)
[2018-03-22] MEDS: Albuterol HFA INHALER* 8 gm MDI INH PRN ×2 (10:28→20:29)
[2018-03-22] MEDS: guaiFENesin LIQ* 100 MG/5 ML UDC PO PRN ×2 (10:28→18:05)
[2018-03-22] MEDS: Mometasone/Formoter 200/5 MDI INH SCH ×2 (10:28→20:29)
[2018-03-22] MEDS: Montelukast Sodium TAB* 5 MG PO SCH (10:28)
[2018-03-22] MEDS: ValACYclovir (*) 1 GM TAB PO SCH ×2 (10:29→20:28)
[2018-03-22] MEDS: LORazepam TAB(*) 1 MG PO PRN (11:38)
[2018-03-22] MEDS: Mouth Piece, Nicotine* 1 EACH CARTRIDGE INH SCH ×2 (11:51→15:31)
[2018-03-22] MEDS: Ondansetron TAB* 4 MG PO PRN (12:54)
[2018-03-22] MEDS: Benzocaine/Menthol LOZ* 1 LOZENGE MT PRN (18:05)
[2018-03-22] MEDS: Paliperidone ER TAB* 3 MG TAB.ER PO SCH (20:28)
[2018-03-22] MEDS: Al Hydrox/Mg Hydrox/Simet LIQ* 30 ML UDC PO PRN (20:33)
[2018-03-22] MEDS: Acetaminophen TAB* 325 MG PO PRN (22:39)
[2018-03-23] MEDS: Nicotine GUM* 2 MG PO PRN ×4 (00:48→20:56)
[2018-03-23] MEDS: Nicotine Inhaler* 10 MG AMP INH PRN ×4 (00:48→20:51)
[2018-03-23] MEDS: diPHENhydraMINE PO* 50 MG PO PRN (01:46)
[2018-03-23] MEDS: Oxybutynin XL TAB* 5 MG PO SCH (08:45)
[2018-03-23] MEDS: Mometasone/Formoter 200/5 MDI INH SCH ×2 (08:45→20:44)
[2018-03-23] MEDS: Albuterol HFA INHALER* 8 gm MDI INH PRN ×3 (08:46→20:47)
[2018-03-23] MEDS: Benztropine TAB* 1 MG PO SCH ×2 (08:48→20:45)
[2018-03-23] MEDS: Folic Acid TAB* 1 MG PO SCH (08:48)
[2018-03-23] MEDS: Cetirizine* 10 MG TAB PO SCH (08:49)
[2018-03-23] MEDS: ValACYclovir (*) 1 GM TAB PO SCH ×2 (08:49→20:45)
[2018-03-23] MEDS: Vitamin THERAPEUTIC TAB PO SCH (08:49)
[2018-03-23] MEDS: Montelukast Sodium TAB* 5 MG PO SCH (08:52)
[2018-03-23] MEDS: Albuterol 2.5 MG/3 ML NEB.SOL* (0.083%) INH PRN (08:54)
[2018-03-23] MEDS: Benzocaine/Menthol LOZ* 1 LOZENGE MT PRN ×2 (08:54→16:47)
[2018-03-23] MEDS: oxyCODONE/Acetamin 5/325 MG* TAB PO PRN ×2 (10:28→19:11)
--- NOTE | 2018-03-23 13:07 | PN ---
Subjective - Subjective Date of Service: 03/23/18 Service Type: [id number] Hosp care 25 min moderate complexity Subjective: patient reports seeing "eyes" on the floor then retracts and states she has not seen hallucinations since beginning of admission. She reports frustration about referral to [facility]. She state she is "starting to get ill" from being hospitalized. She denies being treated with clozapine in the past and is agreeable to trial. Topic of conversation is tangential from there. patient endorses AH and [facility]. She describes vague voices and seeing shadows of her under her pillow. Objective - Appearance Appearance: Well Developed/Nourished Dysmorphic Features: Yes Hygiene: Normal Grooming: Disheveled - Behavior Psychomotor Activities: Normal Exhibits Abnormal Movement: No - Attitude and Relatedness Attitude and Relatedness: Psychotically Related Eye Contact: Good - Speech Quality: Pressured Latencies: Normal Quantity: Copious - Mood Patient's Decription of Mood: "Sad" - Affect Observed Affect: Expansive Affect Consistent with: Euphoria - Thought Process Patient's Thought Process: Tangential, Over Inclusive Thought Content: Yes Passive Wish, Yes Paranoid Ideation, No Suicidal Planning, No Homicidal Ideation - Sensorium Experiencing Hallucinations: Yes Type of Hallucinations: Visual: Yes, Auditory: Yes, Command: No - Level of Consciousness Level of Consciousness: Alert Orientation: Yes Intact, Yes Orientated to Time, Yes Orientated to Place, Yes Orientated to Person - Impulse Control Impulse Control: Poor - Insight and Judgement Insight and Judgement: Impaired - Group Participation Particating in Group Activities: No - Medication Management Medication Management Adherence: Yes Assessment - Assessment Merits Inpatient Hospitalization: For Immediate Safety, For Stabilization Inpatient DSM-V Dx: F20.0 Clinical Impression: 42yo female with known history of schizophrenia who presented to ED via 9.45 from [facility]. She was discharged from [facility] on 03[facility]18 after being given second booster dose of invega sustenna IM. She continues to present as paranoid and delusional. She is unable to care for herself and merits hospitalization for immediate safety and stabilization. She is accepted to [facility] and is awaiting bed availability. Plan - Plan Treatment Plan: Name: RANDOLPH SON Birthdate: 1975 [id number] continue acute intensive psychiatric treatment. convert to C status. DC oral paliperidone. start clozapine 25mg qhs. pending bed assignment to [facility]. Continued Medication Management: Different Medication Medications: Current Medications Acetaminophen (Tylenol Tab*) 650 mg PO Q4H PRN PRN Reason: PAIN or TEMP > 101 F Last Admin: 03/22/18 22:39 Dose: 650 mg Al Hydrox/Mg Hydrox/Simethicone (Maalox Plus*) 30 ml PO Q4H PRN PRN Reason: INDIGESTION Last Admin: 03/22/18 20:33 Dose: 30 ml Albuterol (Ventolin Hfa Inhaler*) 2 puff INH Q6H PRN PRN Reason: SOB/WHEEZING Last Admin: 03/23/18 08:46 Dose: 2 puff Albuterol (Ventolin 2.5 Mg/3 Ml Neb.Alicia*) 2.5 mg INH Q4H PRN PRN Reason: SOB/WHEEZING Last Admin: 03/23/18 08:54 Dose: 2.5 mg Benztropine Mesylate (Cogentin Tab*) 0.5 mg PO BID [facility] Last Admin: 03/23/18 08:48 Dose: 0.5 mg Bisacodyl (Dulcolax Ec Tab*) 10 mg PO DAILY PRN PRN Reason: CONSTIPATION Last Admin: 03/21/18 09:01 Dose: 10 mg Cetirizine HCl (Zyrtec*) 10 mg PO DAILY [facility]; Protocol Last Admin: 03/23/18 08:49 Dose: 10 mg Device (Nicotine Mouth Piece*) 1 each INH .CARTRIDGE [facility] Last Admin: 03/22/18 15:31 Dose: 1 each Diphenhydramine HCl (Benadryl Po*) 50 mg PO Q6H PRN PRN Reason: ANXIETY Last Admin: 03/23/18 01:46 Dose: 50 mg Folic Acid (Folvite Tab*) 1 mg PO DAILY [facility] Last Admin: 03/23/18 08:48 Dose: 1 mg Guaifenesin (Robitussin*) 10 ml PO Q6H PRN PRN Reason: COUGH Last Admin: 03/22/18 18:05 Dose: 10 ml Ibuprofen (Motrin Tab*) 600 mg PO Q6H PRN PRN Reason: PAIN Last Admin: 03/22/18 18:00 Dose: 600 mg Lorazepam (Ativan Tab(*)) 1 mg PO Q6H PRN PRN Reason: Anxiety/agitation Last Admin: 03/22/18 11:38 Dose: 1 mg Mometasone Furoate/Formoterol Fumar (Dulera 200/5 Mdi*) 2 puff INH BID [facility] Last Admin: 03/23/18 08:45 Dose: 2 puff Montelukast Sodium (Singulair Tab*) 5 mg PO DAILY [facility] Last Admin: 03/23/18 08:52 Dose: 5 mg Multi-Ingredient Mouthwash/Gargle (Magic Mouth Was-Eddi/Maal/Lido*) 5 ml SWISH SPIT Q6H PRN PRN Reason: MOUTH SORES Last Admin: 03/19/18 09:17 Dose: 5 ml Multivitamins (Theragran Tab*) 1 tab PO DAILY [facility] Last Admin: 03/23/18 08:49 Dose: 1 tab Nicotine (Nicotine Inhaler*) 10 mg INH Q2H PRN PRN Reason: CRAVING Last Admin: 03/23/18 08:49 Dose: 10 mg Nicotine Polacrilex (Nicotine Gum*) 2 mg PO Q2H PRN PRN Reason: CRAVING Last Admin: 03/23/18 08:49 Dose: 2 mg Ondansetron HCl (Zofran Tab*) 4 mg PO Q6H PRN PRN Reason: NAUSEA/VOMITING Last Admin: 03/22/18 12:54 Dose: 4 mg Oxybutynin Chloride (Ditropan Xl Tab*) 15 mg PO DAILY [facility] Last Admin: 03/23/18 08:45 Dose: 15 mg Oxycodone/Acetaminophen (Percocet 5/325 Tab*) 2 tab PO Q8H PRN PRN Reason: PAIN Last Admin: 03/23/18 10:28 Dose: 2 tab Throat Lozenges (Chloraseptic Mona*) 1 mona MT Q6H PRN PRN Reason: COUGH Last Admin: 03/23/18 08:54 Dose: 1 mona Valacyclovir HCl (Valtrex 1 Gm(*)) 1 gm PO BID [facility]; Protocol Last Admin: 03/23/18 08:49 Dose: 1 gm clozapine 25mg qhs - Discharge Plan Discharge Plan: Consider Longer Term Tx
[2018-03-23] MEDS: Acetaminophen TAB* 325 MG PO PRN (14:07)
[2018-03-23] MEDS: guaiFENesin LIQ* 100 MG/5 ML UDC PO PRN (16:45)
[2018-03-23] MEDS: CloZAPine TAB* 25 MG TAB PO SCH (20:44)
[2018-03-23] MEDS: Paliperidone ER TAB* 3 MG TAB.ER PO SCH (20:45)
[2018-03-24] MEDS: Benztropine TAB* 1 MG PO SCH ×2 (10:32→20:13)
[2018-03-24] MEDS: Vitamin THERAPEUTIC TAB PO SCH (10:33)
[2018-03-24] MEDS: oxyCODONE/Acetamin 5/325 MG* TAB PO PRN (10:33)
[2018-03-24] MEDS: Folic Acid TAB* 1 MG PO SCH (10:33)
[2018-03-24] MEDS: Cetirizine* 10 MG TAB PO SCH (10:33)
[2018-03-24] MEDS: Bisacodyl EC TAB* 5 MG PO PRN ×2 (10:34→20:14)
[2018-03-24] MEDS: ValACYclovir (*) 1 GM TAB PO SCH ×2 (10:35→20:12)
[2018-03-24] MEDS: Nicotine GUM* 2 MG PO PRN ×3 (10:35→18:10)
[2018-03-24] MEDS: Nicotine Inhaler* 10 MG AMP INH PRN ×3 (10:35→18:09)
[2018-03-24] MEDS: Montelukast Sodium TAB* 5 MG PO SCH (10:36)
[2018-03-24] MEDS: Albuterol HFA INHALER* 8 gm MDI INH PRN ×2 (10:36→18:09)
[2018-03-24] MEDS: Mometasone/Formoter 200/5 MDI INH SCH ×2 (10:36→20:12)
[2018-03-24] MEDS: Benzocaine/Menthol LOZ* 1 LOZENGE MT PRN ×2 (10:42→18:10)
[2018-03-24] MEDS: Albuterol 2.5 MG/3 ML NEB.SOL* (0.083%) INH PRN (10:43)
[2018-03-24] MEDS: Oxybutynin XL TAB* 5 MG PO SCH (10:43)
[2018-03-24] MEDS: LORazepam TAB(*) 0.5 MG PO PRN (12:22)
[2018-03-24] MEDS: guaiFENesin LIQ* 100 MG/5 ML UDC PO PRN (18:10)
[2018-03-24] MEDS: Paliperidone ER TAB* 3 MG TAB.ER PO SCH (20:12)
[2018-03-24] MEDS: CloZAPine TAB* 25 MG TAB PO SCH (20:12)
[2018-03-25] MEDS: Folic Acid TAB* 1 MG PO SCH (08:57)
[2018-03-25] MEDS: Vitamin THERAPEUTIC TAB PO SCH (08:57)
[2018-03-25] MEDS: Benztropine TAB* 1 MG PO SCH ×2 (08:57→20:33)
[2018-03-25] MEDS: Cetirizine* 10 MG TAB PO SCH (08:58)
[2018-03-25] MEDS: Albuterol HFA INHALER* 8 gm MDI INH PRN ×2 (08:58→18:16)
[2018-03-25] MEDS: Montelukast Sodium TAB* 5 MG PO SCH (08:58)
[2018-03-25] MEDS: guaiFENesin LIQ* 100 MG/5 ML UDC PO PRN ×2 (08:59→20:35)
[2018-03-25] MEDS: Mometasone/Formoter 200/5 MDI INH SCH ×2 (08:59→20:33)
[2018-03-25] MEDS: ValACYclovir (*) 1 GM TAB PO SCH ×2 (09:00→20:34)
[2018-03-25] MEDS: Oxybutynin XL TAB* 5 MG PO SCH (09:00)
[2018-03-25] MEDS: Nicotine Inhaler* 10 MG AMP INH PRN ×6 (09:01→23:50)
[2018-03-25] MEDS: Nicotine GUM* 2 MG PO PRN ×5 (09:01→21:48)
[2018-03-25] MEDS: Mouth Piece, Nicotine* 1 EACH CARTRIDGE INH SCH (09:03)
[2018-03-25] MEDS: oxyCODONE/Acetamin 5/325 MG* TAB PO PRN ×2 (09:25→18:15)
[2018-03-25] MEDS: Benzocaine/Menthol LOZ* 1 LOZENGE MT PRN (13:21)
[2018-03-25] MEDS: Ibuprofen TAB* 600 MG PO PRN (13:23)
--- NOTE | 2018-03-25 15:40 | PN ---
Subjective - Subjective Date of Service: 03/25/18 Service Type: [id number] Hosp care 15 min low complexity Subjective: Patient is euthymic with bright affect. She interacts in a silly manner, at times. She inquires about transfer to [facility] and is agreeable. She states she does not want anyone to do a vaginal exam while there, as she had one through Dr Gibson in the last year. Objective - Appearance Appearance: Obese Dysmorphic Features: No Hygiene: Normal Grooming: Well Kept - Behavior Psychomotor Activities: Normal Exhibits Abnormal Movement: No - Attitude and Relatedness Attitude and Relatedness: Psychotically Related Eye Contact: Good - Speech Quality: Pressured Latencies: Normal Quantity: Copious - Mood Patient's Decription of Mood: "Good" - Affect Observed Affect: Expansive Affect Consistent with: Euphoria - Thought Process Patient's Thought Process: Disorganized Thought Content: Yes Paranoid Ideation, No Passive Wish, No Suicidal Planning, No Homicidal Ideation - Sensorium Experiencing Hallucinations: Yes Type of Hallucinations: Visual: Yes, Auditory: Yes, Command: No - Level of Consciousness Level of Consciousness: Alert Orientation: Yes Intact, Yes Orientated to Time, Yes Orientated to Place, Yes Orientated to Person - Impulse Control Impulse Control: Impaired - Insight and Judgement Insight and Judgement: Impaired - Group Participation Particating in Group Activities: No - Medication Management Medication Management Adherence: Yes Assessment - Assessment Merits Inpatient Hospitalization: For Immediate Safety, For Stabilization Inpatient DSM-V Dx: F20.0 Clinical Impression: 42yo female with known history of schizophrenia who presented to ED via 9.45 from [facility]. She was discharged from [facility] on 03/01/18 after being given second booster dose of invega sustenna IM. She continues to present as paranoid and delusional. She is unable to care for herself and merits hospitalization for immediate safety and stabilization. She is accepted to [facility] and is awaiting bed availability. Plan - Plan Treatment Plan: Name: RANDOLPH SON Birthdate: 1975 [id number] continue acute intensive psychiatric treatment. convert to 2PC status. continue titration of clozapine. pending bed assignment to [facility]. Continued Medication Management: Different Medication Medications: Current Medications Acetaminophen (Tylenol Tab*) 650 mg PO Q4H PRN PRN Reason: PAIN or TEMP > 101 F Last Admin: 03/23/18 14:07 Dose: 650 mg Al Hydrox/Mg Hydrox/Simethicone (Maalox Plus*) 30 ml PO Q4H PRN PRN Reason: INDIGESTION Last Admin: 03/22/18 20:33 Dose: 30 ml Albuterol (Ventolin Hfa Inhaler*) 2 puff INH Q6H PRN PRN Reason: SOB/WHEEZING Last Admin: 03/25/18 08:58 Dose: 2 puff Albuterol (Ventolin 2.5 Mg/3 Ml Neb.Alicia*) 2.5 mg INH Q4H PRN PRN Reason: SOB/WHEEZING Last Admin: 03/24/18 10:43 Dose: 2.5 mg Benztropine Mesylate (Cogentin Tab*) 0.5 mg PO BID [facility] Last Admin: 03/25/18 08:57 Dose: 0.5 mg Bisacodyl (Dulcolax Ec Tab*) 10 mg PO DAILY PRN PRN Reason: CONSTIPATION Last Admin: 03/24/18 20:14 Dose: 10 mg Cetirizine HCl (Zyrtec*) 10 mg PO DAILY [facility]; Protocol Last Admin: 03/25/18 08:58 Dose: 10 mg Clozapine (Clozapine Tab*) 50 mg PO BEDTIME [facility] Stop: 03/26/18 23:00 Clozapine (Clozapine Tab*) 75 mg PO BEDTIME [facility] Device (Nicotine Mouth Piece*) 1 each INH .CARTRIDGE [facility] Last Admin: 03/25/18 09:03 Dose: 1 each Diphenhydramine HCl (Benadryl Po*) 50 mg PO Q6H PRN PRN Reason: ANXIETY Last Admin: 03/23/18 01:46 Dose: 50 mg Folic Acid (Folvite Tab*) 1 mg PO DAILY [facility] Last Admin: 03/25/18 08:57 Dose: 1 mg Guaifenesin (Robitussin*) 10 ml PO Q6H PRN PRN Reason: COUGH Last Admin: 03/25/18 08:59 Dose: 10 ml Ibuprofen (Motrin Tab*) 600 mg PO Q6H PRN PRN Reason: PAIN Last Admin: 03/25/18 13:23 Dose: 600 mg Lorazepam (Ativan Tab(*)) 1 mg PO Q6H PRN PRN Reason: Anxiety/agitation Last Admin: 03/24/18 12:22 Dose: 1 mg Mometasone Furoate/Formoterol Fumar (Dulera 200/5 Mdi*) 2 puff INH BID [facility] Last Admin: 03/25/18 08:59 Dose: 2 puff Montelukast Sodium (Singulair Tab*) 5 mg PO DAILY [facility] Last Admin: 03/25/18 08:58 Dose: 5 mg Multi-Ingredient Mouthwash/Gargle (Magic Mouth Was-Eddi/Maal/Lido*) 5 ml SWISH SPIT Q6H PRN PRN Reason: MOUTH SORES Last Admin: 03/19/18 09:17 Dose: 5 ml Multivitamins (Theragran Tab*) 1 tab PO DAILY [facility] Last Admin: 03/25/18 08:57 Dose: 1 tab Nicotine (Nicotine Inhaler*) 10 mg INH Q2H PRN PRN Reason: CRAVING Last Admin: 03/25/18 13:21 Dose: 10 mg Nicotine Polacrilex (Nicotine Gum*) 2 mg PO Q2H PRN PRN Reason: CRAVING Last Admin: 03/25/18 13:21 Dose: 2 mg Ondansetron HCl (Zofran Tab*) 4 mg PO Q6H PRN PRN Reason: NAUSEA/VOMITING Last Admin: 03/22/18 12:54 Dose: 4 mg Oxybutynin Chloride (Ditropan Xl Tab*) 15 mg PO DAILY [facility] Last Admin: 03/25/18 09:00 Dose: 15 mg Oxycodone/Acetaminophen (Percocet 5/325 Tab*) 2 tab PO Q8H PRN PRN Reason: PAIN Last Admin: 03/25/18 09:25 Dose: 2 tab Throat Lozenges (Chloraseptic Mona*) 1 mona MT Q6H PRN PRN Reason: COUGH Last Admin: 03/25/18 13:21 Dose: 1 mona Valacyclovir HCl (Valtrex 1 Gm(*)) 1 gm PO BID [facility]; Protocol Last Admin: 03/25/18 09:00 Dose: 1 gm - Discharge Plan Discharge Plan: Consider Longer Term Tx
[2018-03-25] MEDS: CloZAPine TAB* 25 MG TAB PO SCH (20:33)
[2018-03-25] MEDS ORDERED: CloZAPine TAB* 100 MG TAB PO SCH (21:00)
[2018-03-26 08:20] LABS: ABS Basophils 0 10^3/ul (0-0.2); ABS Eosinophils 0.1 10^3/ul (0-0.6); ABS Lymphocytes 2.2 10^3/ul (1.0-4.8); ABS Monocytes 0.6 10^3/ul (0-0.8); ABS Neutrophils 3.1 10^3/ul (1.5-7.7); ABS Nucleated RBC 0 10^3/ul; Eosinophil % 1.1 %; Hematocrit 33 % (35-47); Hemoglobin 10.9 g/dl (12.0-16.0); Lymphocyte % 36.3 %; Mean Corpuscular HGB Conc 33 g/dl (31-36); Mean Corpuscular Hemoglobin 29 pg (27-31); Mean Corpuscular Volume 87 fL (80-97); Mean Platelet Volume 7.4 fL (7.4-10.4); Nucleated Red Blood Cells % 0.1; Platelet Count 326 10^3/ul (150-450); Red Blood Count 3.79 10^6/ul (4.00-5.40); Red Cell Distribution Width 16 % (10.5-15); White Blood Count 6.1 10^3/ul (3.5-10.8)
[2018-03-26] MEDS: Benztropine TAB* 1 MG PO SCH ×2 (10:18→20:25)
[2018-03-26] MEDS: Oxybutynin XL TAB* 5 MG PO SCH (10:18)
[2018-03-26] MEDS: Cetirizine* 10 MG TAB PO SCH (10:19)
[2018-03-26] MEDS: Folic Acid TAB* 1 MG PO SCH (10:19)
[2018-03-26] MEDS: Vitamin THERAPEUTIC TAB PO SCH (10:19)
[2018-03-26] MEDS: ValACYclovir (*) 1 GM TAB PO SCH ×2 (10:20→20:24)
[2018-03-26] MEDS: Albuterol HFA INHALER* 8 gm MDI INH PRN (10:21)
[2018-03-26] MEDS: Mometasone/Formoter 200/5 MDI INH SCH ×2 (10:21→20:26)
[2018-03-26] MEDS: Montelukast Sodium TAB* 5 MG PO SCH (10:22)
[2018-03-26] MEDS: guaiFENesin LIQ* 100 MG/5 ML UDC PO PRN ×2 (10:23→16:44)
[2018-03-26] MEDS: Nicotine Inhaler* 10 MG AMP INH PRN ×5 (10:25→22:52)
[2018-03-26] MEDS: Nicotine GUM* 2 MG PO PRN ×5 (10:26→22:52)
[2018-03-26] MEDS: oxyCODONE/Acetamin 5/325 MG* TAB PO PRN ×2 (12:03→22:02)
[2018-03-26] MEDS: Al Hydrox/Mg Hydrox/Simet LIQ* 30 ML UDC PO PRN (12:44)
[2018-03-26] MEDS: Acetaminophen TAB* 325 MG PO PRN (14:42)
[2018-03-26] MEDS: Ibuprofen TAB* 600 MG PO PRN (15:48)
[2018-03-26] MEDS: Magic Mouth Was-BEN/MAAL/LIDO SWISH SPIT PRN (16:45)
[2018-03-26] MEDS: Benzocaine/Menthol LOZ* 1 LOZENGE MT PRN (18:33)
[2018-03-26] MEDS: CloZAPine TAB* 25 MG TAB PO SCH ×3 (20:24→20:33)
[2018-03-27] MEDS: Mometasone/Formoter 200/5 MDI INH SCH ×2 (11:01→20:39)
[2018-03-27] MEDS: Albuterol HFA INHALER* 8 gm MDI INH PRN ×2 (11:01→20:40)
[2018-03-27] MEDS: Oxybutynin XL TAB* 5 MG PO SCH (11:02)
[2018-03-27] MEDS: Ondansetron TAB* 4 MG PO PRN (11:03)
[2018-03-27] MEDS: Folic Acid TAB* 1 MG PO SCH (11:03)
[2018-03-27] MEDS: Benztropine TAB* 1 MG PO SCH ×2 (11:03→20:40)
[2018-03-27] MEDS: ValACYclovir (*) 1 GM TAB PO SCH ×2 (11:03→20:40)
[2018-03-27] MEDS: Vitamin THERAPEUTIC TAB PO SCH (11:03)
[2018-03-27] MEDS: Cetirizine* 10 MG TAB PO SCH (11:03)
[2018-03-27] MEDS: Montelukast Sodium TAB* 5 MG PO SCH (11:05)
[2018-03-27] MEDS: Nicotine Inhaler* 10 MG AMP INH PRN ×4 (11:06→23:18)
[2018-03-27] MEDS: Nicotine GUM* 2 MG PO PRN ×5 (11:06→23:18)
[2018-03-27] MEDS: oxyCODONE/Acetamin 5/325 MG* TAB PO PRN ×2 (11:24→23:17)
[2018-03-27] MEDS: Ibuprofen TAB* 600 MG PO PRN (13:43)
[2018-03-27] MEDS: guaiFENesin LIQ* 100 MG/5 ML UDC PO PRN ×2 (15:58→20:54)
[2018-03-27] MEDS: Benzocaine/Menthol LOZ* 1 LOZENGE MT PRN (15:58)
[2018-03-27] MEDS: Mouth Piece, Nicotine* 1 EACH CARTRIDGE INH SCH (16:06)
[2018-03-27] MEDS: CloZAPine TAB* 100 MG TAB PO SCH (20:40)
[2018-03-27] MEDS: Bisacodyl EC TAB* 5 MG PO PRN (20:45)
[2018-03-28] MEDS: Benztropine TAB* 1 MG PO SCH ×2 (11:39→20:21)
[2018-03-28] MEDS: Cetirizine* 10 MG TAB PO SCH (11:40)
[2018-03-28] MEDS: Folic Acid TAB* 1 MG PO SCH (11:41)
[2018-03-28] MEDS: Vitamin THERAPEUTIC TAB PO SCH (11:41)
[2018-03-28] MEDS: Oxybutynin XL TAB* 5 MG PO SCH (11:42)
[2018-03-28] MEDS: Montelukast Sodium TAB* 5 MG PO SCH (11:42)
[2018-03-28] MEDS: Mometasone/Formoter 200/5 MDI INH SCH ×2 (11:43→20:20)
[2018-03-28] MEDS: ValACYclovir (*) 1 GM TAB PO SCH ×2 (11:43→20:21)
[2018-03-28] MEDS: Nicotine GUM* 2 MG PO PRN ×5 (12:10→22:38)
[2018-03-28] MEDS: Nicotine Inhaler* 10 MG AMP INH PRN ×5 (12:10→22:38)
[2018-03-28] MEDS: LORazepam TAB(*) 0.5 MG PO PRN ×2 (12:50→20:25)
[2018-03-28] MEDS: oxyCODONE/Acetamin 5/325 MG* TAB PO PRN ×2 (13:09→21:17)
[2018-03-28] MEDS: Bisacodyl EC TAB* 5 MG PO PRN (15:06)
--- NOTE | 2018-03-28 15:12 | PN ---
Subjective - Subjective Date of Service: 03/28/18 Service Type: [id number] Hosp care 15 min low complexity Subjective: patient presents as irritable, quickly de-escalated by presence and therapeutic listening. Patient shows poor insight into mental illness diagnoses. She continues to be circumstantial about reproductive system and her estranged . She requests to be able to remain on nicotine replacement after transfer to [facility]. Objective - Appearance Appearance: Well Developed/Nourished Dysmorphic Features: No Hygiene: Normal Grooming: Fairly Well Kept - Behavior Psychomotor Activities: Normal Exhibits Abnormal Movement: No - Attitude and Relatedness Attitude and Relatedness: Irritable Eye Contact: Good - Speech Quality: Pressured Latencies: Normal Quantity: Copious - Mood Patient's Decription of Mood: "Upset" - Affect Observed Affect: Expansive Affect Consistent with: Euphoria - Thought Process Patient's Thought Process: Loose Associations, Circumstantial, Over Inclusive Thought Content: Yes Paranoid Ideation, No Passive Wish, No Suicidal Planning, No Homicidal Ideation - Sensorium Experiencing Hallucinations: Yes Type of Hallucinations: Visual: Yes, Auditory: Yes, Command: No - Level of Consciousness Level of Consciousness: Alert Orientation: Yes Intact, Yes Orientated to Time, Yes Orientated to Place, Yes Orientated to Person - Impulse Control Impulse Control: Poor - Insight and Judgement Insight and Judgement: Impaired - Group Participation Particating in Group Activities: No - Medication Management Medication Management Adherence: Yes Assessment - Assessment Merits Inpatient Hospitalization: For Immediate Safety, For Stabilization Inpatient DSM-V Dx: F20.0 Clinical Impression: 42yo female with known history of schizophrenia who presented to ED via 9.45 from [facility]. She was discharged from [facility] on 03/01/18 after being given second booster dose of invega sustenna IM. She continues to present as paranoid and delusional. She is unable to care for herself and merits hospitalization for immediate safety and stabilization. She is accepted to [facility] and is awaiting bed availability. Plan - Plan Treatment Plan: Name: RANDOLPH SON Birthdate: 1975 [id number] continue acute intensive psychiatric treatment. convert to 2PC status. continue titration of clozapine. pending bed assignment to [facility]. Continued Medication Management: Different Medication Medications: Current Medications Acetaminophen (Tylenol Tab*) 650 mg PO Q4H PRN PRN Reason: PAIN or TEMP > 101 F Last Admin: 03/26/18 14:42 Dose: 650 mg Al Hydrox/Mg Hydrox/Simethicone (Maalox Plus*) 30 ml PO Q4H PRN PRN Reason: INDIGESTION Last Admin: 03/26/18 12:44 Dose: 30 ml Albuterol (Ventolin Hfa Inhaler*) 2 puff INH Q6H PRN PRN Reason: SOB/WHEEZING Last Admin: 03/27/18 20:40 Dose: 2 puff Albuterol (Ventolin 2.5 Mg/3 Ml Neb.Alicia*) 2.5 mg INH Q4H PRN PRN Reason: SOB/WHEEZING Last Admin: 03/24/18 10:43 Dose: 2.5 mg Benztropine Mesylate (Cogentin Tab*) 0.5 mg PO BID [facility] Last Admin: 03/28/18 11:39 Dose: 0.5 mg Bisacodyl (Dulcolax Ec Tab*) 10 mg PO DAILY PRN PRN Reason: CONSTIPATION Last Admin: 03/28/18 15:06 Dose: 10 mg Cetirizine HCl (Zyrtec*) 10 mg PO DAILY [facility]; Protocol Last Admin: 03/28/18 11:40 Dose: 10 mg Clozapine (Clozapine Tab*) 75 mg PO BEDTIME [facility] Last Admin: 03/27/18 20:40 Dose: 75 mg Device (Nicotine Mouth Piece*) 1 each INH .CARTRIDGE [facility] Last Admin: 03/27/18 16:06 Dose: 1 each Diphenhydramine HCl (Benadryl Po*) 50 mg PO Q6H PRN PRN Reason: ANXIETY Last Admin: 03/23/18 01:46 Dose: 50 mg Folic Acid (Folvite Tab*) 1 mg PO DAILY [facility] Last Admin: 03/28/18 11:41 Dose: 1 mg Guaifenesin (Robitussin*) 10 ml PO Q6H PRN PRN Reason: COUGH Last Admin: 03/27/18 20:54 Dose: 10 ml Ibuprofen (Motrin Tab*) 600 mg PO Q6H PRN PRN Reason: PAIN Last Admin: 03/27/18 13:43 Dose: 600 mg Lorazepam (Ativan Tab(*)) 1 mg PO Q6H PRN PRN Reason: Anxiety/agitation Last Admin: 03/28/18 12:50 Dose: 1 mg Mometasone Furoate/Formoterol Fumar (Dulera 200/5 Mdi*) 2 puff INH BID [facility] Last Admin: 03/28/18 11:43 Dose: 2 puff Montelukast Sodium (Singulair Tab*) 5 mg PO DAILY [facility] Last Admin: 03/28/18 11:42 Dose: 5 mg Multi-Ingredient Mouthwash/Gargle (Magic Mouth Was-Eddi/Maal/Lido*) 5 ml SWISH SPIT Q6H PRN PRN Reason: MOUTH SORES Last Admin: 03/26/18 16:45 Dose: 5 ml Multivitamins (Theragran Tab*) 1 tab PO DAILY [facility] Last Admin: 03/28/18 11:41 Dose: 1 tab Nicotine (Nicotine Inhaler*) 10 mg INH Q2H PRN PRN Reason: CRAVING Last Admin: 03/28/18 15:08 Dose: 10 mg Nicotine Polacrilex (Nicotine Gum*) 2 mg PO Q2H PRN PRN Reason: CRAVING Last Admin: 03/28/18 15:08 Dose: 2 mg Ondansetron HCl (Zofran Tab*) 4 mg PO Q6H PRN PRN Reason: NAUSEA/VOMITING Last Admin: 03/27/18 11:03 Dose: 4 mg Oxybutynin Chloride (Ditropan Xl Tab*) 15 mg PO DAILY [facility] Last Admin: 03/28/18 11:42 Dose: 15 mg Oxycodone/Acetaminophen (Percocet 5/325 Tab*) 2 tab PO Q8H PRN PRN Reason: PAIN Last Admin: 03/28/18 13:09 Dose: 2 tab Throat Lozenges (Chloraseptic Mona*) 1 mona MT Q6H PRN PRN Reason: COUGH Last Admin: 03/27/18 15:58 Dose: 1 mona Valacyclovir HCl (Valtrex 1 Gm(*)) 1 gm PO BID [facility]; Protocol Last Admin: 03/28/18 11:43 Dose: 1 gm - Discharge Plan Discharge Plan: Consider Longer Term Tx
[2018-03-28] MEDS: Ondansetron TAB* 4 MG PO PRN (16:47)
[2018-03-28] MEDS: Ibuprofen TAB* 600 MG PO PRN ×2 (16:47→23:11)
[2018-03-28] MEDS: Docusate CAP* 100 MG PO PRN (16:47)
[2018-03-28] MEDS: Acetaminophen TAB* 325 MG PO PRN (18:34)
[2018-03-28] MEDS: Benzocaine/Menthol LOZ* 1 LOZENGE MT PRN (18:36)
[2018-03-28] MEDS: Albuterol HFA INHALER* 8 gm MDI INH PRN (18:36)
[2018-03-28] MEDS: guaiFENesin LIQ* 100 MG/5 ML UDC PO PRN (18:36)
[2018-03-28] MEDS: CloZAPine TAB* 100 MG TAB PO SCH (20:22)
[2018-03-29] MEDS: Oxybutynin XL TAB* 5 MG PO SCH (09:29)
[2018-03-29] MEDS: Vitamin THERAPEUTIC TAB PO SCH (09:29)
[2018-03-29] MEDS: Docusate CAP* 100 MG PO PRN ×2 (09:29→19:56)
[2018-03-29] MEDS: Benztropine TAB* 1 MG PO SCH ×2 (09:29→20:33)
[2018-03-29] MEDS: Folic Acid TAB* 1 MG PO SCH (09:30)
[2018-03-29] MEDS: Nicotine Inhaler* 10 MG AMP INH PRN ×6 (09:30→22:48)
[2018-03-29] MEDS: oxyCODONE/Acetamin 5/325 MG* TAB PO PRN ×2 (09:30→18:35)
[2018-03-29] MEDS: Nicotine GUM* 2 MG PO PRN ×6 (09:30→22:49)
[2018-03-29] MEDS: Cetirizine* 10 MG TAB PO SCH (09:30)
[2018-03-29] MEDS: Bisacodyl EC TAB* 5 MG PO PRN (09:30)
[2018-03-29] MEDS: ValACYclovir (*) 1 GM TAB PO SCH ×2 (09:31→20:35)
[2018-03-29] MEDS: Montelukast Sodium TAB* 5 MG PO SCH (09:31)
[2018-03-29] MEDS: Mometasone/Formoter 200/5 MDI INH SCH ×2 (09:31→20:43)
[2018-03-29] MEDS: guaiFENesin LIQ* 100 MG/5 ML UDC PO PRN ×2 (09:34→20:39)
[2018-03-29] MEDS: LORazepam TAB(*) 0.5 MG PO PRN (11:52)
[2018-03-29] MEDS: Ibuprofen TAB* 600 MG PO PRN ×2 (11:52→19:52)
[2018-03-29] MEDS: Acetaminophen TAB* 325 MG PO PRN ×2 (16:02→22:29)
[2018-03-29] MEDS: Benzocaine/Menthol LOZ* 1 LOZENGE MT PRN (16:03)
[2018-03-29] MEDS: Ondansetron TAB* 4 MG PO PRN (19:53)
[2018-03-29] MEDS: CloZAPine TAB* 100 MG TAB PO SCH (20:34)
[2018-03-29] MEDS: Albuterol HFA INHALER* 8 gm MDI INH PRN (20:40)
[2018-03-30] MEDS: Nicotine Inhaler* 10 MG AMP INH PRN ×3 (09:22→16:16)
[2018-03-30] MEDS: guaiFENesin LIQ* 100 MG/5 ML UDC PO PRN ×2 (09:23→20:47)
[2018-03-30] MEDS: Mometasone/Formoter 200/5 MDI INH SCH ×2 (09:23→20:45)
[2018-03-30] MEDS: Cetirizine* 10 MG TAB PO SCH (09:24)
[2018-03-30] MEDS: Folic Acid TAB* 1 MG PO SCH (09:24)
[2018-03-30] MEDS: Albuterol HFA INHALER* 8 gm MDI INH PRN ×2 (09:24→16:56)
[2018-03-30] MEDS: ValACYclovir (*) 1 GM TAB PO SCH ×2 (09:24→20:49)
[2018-03-30] MEDS: Nicotine GUM* 2 MG PO PRN ×3 (09:24→20:49)
[2018-03-30] MEDS: Oxybutynin XL TAB* 5 MG PO SCH (09:24)
[2018-03-30] MEDS: Vitamin THERAPEUTIC TAB PO SCH (09:25)
[2018-03-30] MEDS: oxyCODONE/Acetamin 5/325 MG* TAB PO PRN ×2 (09:25→21:16)
[2018-03-30] MEDS: Benztropine TAB* 1 MG PO SCH ×2 (09:25→20:48)
[2018-03-30] MEDS: Montelukast Sodium TAB* 5 MG PO SCH (09:25)
[2018-03-30] MEDS: Docusate CAP* 100 MG PO PRN (09:36)
[2018-03-30] MEDS: Benzocaine/Menthol LOZ* 1 LOZENGE MT PRN (09:36)
[2018-03-30] MEDS: Bisacodyl EC TAB* 5 MG PO PRN (09:36)
[2018-03-30] MEDS: Ibuprofen TAB* 600 MG PO PRN (14:08)
[2018-03-30] MEDS: CloZAPine TAB* 100 MG TAB PO SCH (20:48)
[2018-03-31] MEDS: guaiFENesin LIQ* 100 MG/5 ML UDC PO PRN (09:03)
[2018-03-31] MEDS: Mometasone/Formoter 200/5 MDI INH SCH ×2 (09:04→20:35)
[2018-03-31] MEDS: Albuterol HFA INHALER* 8 gm MDI INH PRN ×3 (09:04→20:38)
[2018-03-31] MEDS: Benztropine TAB* 1 MG PO SCH (09:05)
[2018-03-31] MEDS: Nicotine Inhaler* 10 MG AMP INH PRN ×4 (09:05→19:46)
[2018-03-31] MEDS: Nicotine GUM* 2 MG PO PRN ×4 (09:05→19:46)
[2018-03-31] MEDS: oxyCODONE/Acetamin 5/325 MG* TAB PO PRN ×2 (09:06→19:42)
[2018-03-31] MEDS: ValACYclovir (*) 1 GM TAB PO SCH ×2 (09:06→20:35)
[2018-03-31] MEDS: Vitamin THERAPEUTIC TAB PO SCH (09:07)
[2018-03-31] MEDS: Folic Acid TAB* 1 MG PO SCH (09:07)
[2018-03-31] MEDS: Oxybutynin XL TAB* 5 MG PO SCH (09:07)
[2018-03-31] MEDS: Cetirizine* 10 MG TAB PO SCH (09:07)
[2018-03-31] MEDS: Montelukast Sodium TAB* 5 MG PO SCH (09:08)
[2018-03-31] MEDS: Benzocaine/Menthol LOZ* 1 LOZENGE MT PRN (10:29)
[2018-03-31] MEDS: Ibuprofen TAB* 600 MG PO PRN (10:29)
[2018-03-31] MEDS: Acetaminophen TAB* 325 MG PO PRN (12:58)
[2018-03-31] MEDS ORDERED: clonazePAM TAB(*) 1 MG PO PRN (13:18)
--- NOTE | 2018-03-31 13:26 | PN ---
Subjective - Subjective Date of Service: 03/31/18 Service Type: [id number] Hosp care 15 min low complexity Subjective: Patient sits in milieu responding to internal stimuli. Speech is louder and more pressured. She is due for monthly Invega Sustenna; however resources are limited. Will continue coverage with oral paliperidone, along with titration of clozapine. Objective - Appearance Appearance: Obese Dysmorphic Features: No Hygiene: Normal Grooming: Fairly Well Kept - Behavior Psychomotor Activities: Normal Exhibits Abnormal Movement: No - Attitude and Relatedness Attitude and Relatedness: Psychotically Related Eye Contact: Good - Speech Quality: Pressured Latencies: Normal Quantity: Copious - Mood Patient's Decription of Mood: "Terrible" - Affect Observed Affect: Expansive Affect Consistent with: Euphoria - Thought Process Patient's Thought Process: Disorganized, Over Inclusive Thought Content: Yes Paranoid Ideation, No Passive Wish, No Suicidal Planning, No Homicidal Ideation - Sensorium Experiencing Hallucinations: Yes Type of Hallucinations: Visual: Yes, Auditory: Yes, Command: No - Level of Consciousness Level of Consciousness: Alert Orientation: Yes Intact, Yes Orientated to Time, Yes Orientated to Place, Yes Orientated to Person - Impulse Control Impulse Control: Poor - Insight and Judgement Insight and Judgement: Impaired - Group Participation Particating in Group Activities: No - Medication Management Medication Management Adherence: Yes Assessment - Assessment Merits Inpatient Hospitalization: For Immediate Safety, For Stabilization, For Ongoing Evaluation Inpatient DSM-V Dx: F20.0 Clinical Impression: 42yo female with known history of schizophrenia who presented to ED via 9.45 from [facility]. She was discharged from [facility] on 03/01/18 after being given second booster dose of invega sustenna IM. She continues to present as paranoid and delusional. She is unable to care for herself and merits hospitalization for immediate safety and stabilization. She is accepted to [facility] and is awaiting bed availability. Plan - Plan Treatment Plan: Name: RANDOLPH SON Birthdate: 1975 [id number] continue acute intensive psychiatric treatment. continue titration of clozapine. start oral coverage of paliperidone due to unavailability of sustenna. add clonazepam prn for anxiety/agitation. DC benztropine. pending bed assignment to [facility]. obtain weekly CBC due to clozapine treatment. Medications: Current Medications Acetaminophen (Tylenol Tab*) 650 mg PO Q4H PRN PRN Reason: PAIN or TEMP > 101 F Last Admin: 03/31/18 12:58 Dose: 650 mg Al Hydrox/Mg Hydrox/Simethicone (Maalox Plus*) 30 ml PO Q4H PRN PRN Reason: INDIGESTION Last Admin: 03/26/18 12:44 Dose: 30 ml Albuterol (Ventolin Hfa Inhaler*) 2 puff INH Q6H PRN PRN Reason: SOB/WHEEZING Last Admin: 03/31/18 09:04 Dose: 2 puff Albuterol (Ventolin 2.5 Mg/3 Ml Neb.Alicia*) 2.5 mg INH Q4H PRN PRN Reason: SOB/WHEEZING Last Admin: 03/24/18 10:43 Dose: 2.5 mg Benztropine Mesylate (Cogentin Tab*) 0.5 mg PO BID [facility] Last Admin: 03/31/18 09:05 Dose: 0.5 mg Bisacodyl (Dulcolax Ec Tab*) 10 mg PO DAILY PRN PRN Reason: CONSTIPATION Last Admin: 03/30/18 09:36 Dose: 10 mg Cetirizine HCl (Zyrtec*) 10 mg PO DAILY [facility]; Protocol Last Admin: 03/31/18 09:07 Dose: 10 mg Clozapine (Clozapine Tab*) 125 mg PO BEDTIME [facility] Device (Nicotine Mouth Piece*) 1 each INH .CARTRIDGE [facility] Last Admin: 03/27/18 16:06 Dose: 1 each Diphenhydramine HCl (Benadryl Po*) 50 mg PO Q6H PRN PRN Reason: ANXIETY Last Admin: 03/23/18 01:46 Dose: 50 mg Docusate Sodium (Colace Cap*) 100 mg PO BID PRN PRN Reason: CONSTIPATION Last Admin: 03/30/18 09:36 Dose: 100 mg Folic Acid (Folvite Tab*) 1 mg PO DAILY [facility] Last Admin: 03/31/18 09:07 Dose: 1 mg Guaifenesin (Robitussin*) 10 ml PO Q6H PRN PRN Reason: COUGH Last Admin: 03/31/18 09:03 Dose: 10 ml Ibuprofen (Motrin Tab*) 600 mg PO Q6H PRN PRN Reason: PAIN Last Admin: 03/31/18 10:29 Dose: 600 mg Lorazepam (Ativan Tab(*)) 1 mg PO Q6H PRN PRN Reason: Anxiety/agitation Last Admin: 03/29/18 11:52 Dose: 1 mg Mometasone Furoate/Formoterol Fumar (Dulera 200/5 Mdi*) 2 puff INH BID [facility] Last Admin: 03/31/18 09:04 Dose: 2 puff Montelukast Sodium (Singulair Tab*) 5 mg PO DAILY [facility] Last Admin: 03/31/18 09:08 Dose: 5 mg Multi-Ingredient Mouthwash/Gargle (Magic Mouth Was-Eddi/Maal/Lido*) 5 ml SWISH SPIT Q6H PRN PRN Reason: MOUTH SORES Last Admin: 03/26/18 16:45 Dose: 5 ml Multivitamins (Theragran Tab*) 1 tab PO DAILY [facility] Last Admin: 03/31/18 09:07 Dose: 1 tab Nicotine (Nicotine Inhaler*) 10 mg INH Q2H PRN PRN Reason: CRAVING Last Admin: 03/31/18 09:05 Dose: 10 mg Nicotine Polacrilex (Nicotine Gum*) 2 mg PO Q2H PRN PRN Reason: CRAVING Last Admin: 03/31/18 09:05 Dose: 2 mg Ondansetron HCl (Zofran Tab*) 4 mg PO Q6H PRN PRN Reason: NAUSEA/VOMITING Last Admin: 03/29/18 19:53 Dose: 4 mg Oxybutynin Chloride (Ditropan Xl Tab*) 15 mg PO DAILY [facility] Last Admin: 03/31/18 09:07 Dose: 15 mg Oxycodone/Acetaminophen (Percocet 5/325 Tab*) 2 tab PO Q8H PRN PRN Reason: PAIN Last Admin: 03/31/18 09:06 Dose: 2 tab Paliperidone (Invega Er Tab*) 9 mg PO BEDTIME [facility] Throat Lozenges (Chloraseptic Mona*) 1 mona MT Q6H PRN PRN Reason: COUGH Last Admin: 03/31/18 10:29 Dose: 1 mona Valacyclovir HCl (Valtrex 1 Gm(*)) 1 gm PO BID [facility]; Protocol Last Admin: 03/31/18 09:06 Dose: 1 gm - Discharge Plan Discharge Plan: Consider Longer Term Tx
[2018-03-31] MEDS: Magic Mouth Was-BEN/MAAL/LIDO SWISH SPIT PRN (19:43)
[2018-03-31] MEDS: CloZAPine TAB* 25 MG TAB PO SCH (20:34)
[2018-03-31] MEDS: Paliperidone ER TAB* 9 MG TAB.ER PO SCH (20:35)
[2018-03-31] MEDS: Bisacodyl EC TAB* 5 MG PO PRN (21:06)
[2018-03-31] MEDS: Docusate CAP* 100 MG PO PRN (21:07)
[2018-04-01 07:42] LABS: ABS Basophils 0 10^3/ul (0-0.2); ABS Eosinophils 0 10^3/ul (0-0.6); ABS Lymphocytes 2.1 10^3/ul (1.0-4.8); ABS Monocytes 0.6 10^3/ul (0-0.8); ABS Neutrophils 3.8 10^3/ul (1.5-7.7); ABS Nucleated RBC 0 10^3/ul; Eosinophil % 0.7 %; Hematocrit 34 % (35-47); Hemoglobin 11.2 g/dl (12.0-16.0); Lymphocyte % 32.2 %; Mean Corpuscular HGB Conc 33 g/dl (31-36); Mean Corpuscular Hemoglobin 29 pg (27-31); Mean Corpuscular Volume 88 fL (80-97); Mean Platelet Volume 7.5 fL (7.4-10.4); Nucleated Red Blood Cells % 0; Platelet Count 338 10^3/ul (150-450); Red Blood Count 3.86 10^6/ul (4.00-5.40); Red Cell Distribution Width 16 % (10.5-15); White Blood Count 6.6 10^3/ul (3.5-10.8)
[2018-04-01] MEDS: guaiFENesin LIQ* 100 MG/5 ML UDC PO PRN ×2 (10:18→18:34)
[2018-04-01] MEDS: Mometasone/Formoter 200/5 MDI INH SCH ×2 (10:19→20:14)
[2018-04-01] MEDS: Albuterol HFA INHALER* 8 gm MDI INH PRN ×2 (10:19→16:01)
[2018-04-01] MEDS: Vitamin THERAPEUTIC TAB PO SCH (10:20)
[2018-04-01] MEDS: Folic Acid TAB* 1 MG PO SCH (10:20)
[2018-04-01] MEDS: Cetirizine* 10 MG TAB PO SCH (10:20)
[2018-04-01] MEDS: ValACYclovir (*) 1 GM TAB PO SCH ×2 (10:20→20:11)
[2018-04-01] MEDS: Docusate CAP* 100 MG PO PRN (10:20)
[2018-04-01] MEDS: Oxybutynin XL TAB* 5 MG PO SCH (10:21)
[2018-04-01] MEDS: Nicotine GUM* 2 MG PO PRN ×4 (10:22→18:32)
[2018-04-01] MEDS: Montelukast Sodium TAB* 5 MG PO SCH (10:22)
[2018-04-01] MEDS: Nicotine Inhaler* 10 MG AMP INH PRN ×4 (10:22→18:32)
[2018-04-01] MEDS: oxyCODONE/Acetamin 5/325 MG* TAB PO PRN ×2 (10:25→17:57)
[2018-04-01] MEDS: Benzocaine/Menthol LOZ* 1 LOZENGE MT PRN ×2 (10:27→18:36)
[2018-04-01] MEDS: Ibuprofen TAB* 600 MG PO PRN ×2 (13:16→20:11)
[2018-04-01] MEDS: Mouth Piece, Nicotine* 1 EACH CARTRIDGE INH SCH (13:16)
[2018-04-01] MEDS: LORazepam TAB(*) 0.5 MG PO PRN (13:17)
--- NOTE | 2018-04-01 16:28 | PN ---
Subjective - Subjective Date of Service: 04/01/18 Service Type: [id number] Hosp care 15 min low complexity Subjective: Patient is irritable and reports frustration with not being told she is too loud. She is receptive to therapeutic suggestions. From there, the conversation is tangential with typical topics for Sally: pain in reproductive parts, persecutory delusions r/t being to a sex offender and fear of needing hysterectomy. She denies AH/VH and identifies this is an improvement since starting "new medicine" [clozapine]. Objective - Appearance Appearance: Well Developed/Nourished Dysmorphic Features: No Hygiene: Normal Grooming: Fairly Well Kept - Behavior Psychomotor Activities: Normal Exhibits Abnormal Movement: No - Attitude and Relatedness Attitude and Relatedness: Psychotically Related Eye Contact: Good - Speech Quality: Pressured Latencies: Normal Quantity: Copious - Mood Patient's Decription of Mood: "Terrible" - Affect Observed Affect: Expansive Affect Consistent with: Euphoria - Thought Process Patient's Thought Process: Disorganized, Circumstantial, Over Inclusive Thought Content: Yes Paranoid Ideation, No Passive Wish, No Suicidal Planning, No Homicidal Ideation - Sensorium Experiencing Hallucinations: No, Sensorium is Clear Type of Hallucinations: Visual: No, Auditory: No, Command: No - Level of Consciousness Level of Consciousness: Alert Orientation: Yes Intact, Yes Orientated to Time, Yes Orientated to Place, Yes Orientated to Person - Impulse Control Impulse Control: Poor - Insight and Judgement Insight and Judgement: Impaired - Group Participation Particating in Group Activities: No - Medication Management Medication Management Adherence: Yes Assessment - Assessment Inpatient DSM-V Dx: F20.0 Clinical Impression: 42yo female with known history of schizophrenia who presented to ED via 9.45 from [facility]. She was discharged from [facility] on 03/01/18 after being given second booster dose of invega sustenna IM. She continues to present as paranoid and delusional. She is unable to care for herself and merits hospitalization for immediate safety and stabilization. She is accepted to [facility] and is awaiting bed availability. Plan - Plan Treatment Plan: Name: SALLY SON Birthdate: 1975 [id number] continue acute intensive psychiatric treatment. continue titration of clozapine, oral coverage of paliperidone due to unavailability of sustenna. continue clonazepam prn for anxiety/agitation. pending bed assignment to [facility]. obtain weekly CBC due to clozapine treatment. Medications: Current Medications Al Hydrox/Mg Hydrox/Simethicone (Maalox Plus*) 30 ml PO Q4H PRN PRN Reason: INDIGESTION Last Admin: 03/26/18 12:44 Dose: 30 ml Albuterol (Ventolin Hfa Inhaler*) 2 puff INH Q6H PRN PRN Reason: SOB/WHEEZING Last Admin: 04/01/18 16:01 Dose: 2 puff Albuterol (Ventolin 2.5 Mg/3 Ml Neb.Alicia*) 2.5 mg INH Q4H PRN PRN Reason: SOB/WHEEZING Last Admin: 03/24/18 10:43 Dose: 2.5 mg Bisacodyl (Dulcolax Ec Tab*) 10 mg PO DAILY PRN PRN Reason: CONSTIPATION Last Admin: 03/31/18 21:06 Dose: 10 mg Cetirizine HCl (Zyrtec*) 10 mg PO DAILY [facility]; Protocol Last Admin: 04/01/18 10:20 Dose: 10 mg Clonazepam (Klonopin Tab(*)) 1 mg PO Q8H PRN PRN Reason: anxiety/agitation Clozapine (Clozapine Tab*) 125 mg PO BEDTIME [facility] Last Admin: 03/31/18 20:34 Dose: 125 mg Device (Nicotine Mouth Piece*) 1 each INH .CARTRIDGE [facility] Last Admin: 04/01/18 13:16 Dose: 1 each Diphenhydramine HCl (Benadryl Po*) 50 mg PO Q6H PRN PRN Reason: ANXIETY Last Admin: 03/23/18 01:46 Dose: 50 mg Docusate Sodium (Colace Cap*) 100 mg PO BID PRN PRN Reason: CONSTIPATION Last Admin: 04/01/18 10:20 Dose: 100 mg Folic Acid (Folvite Tab*) 1 mg PO DAILY [facility] Last Admin: 04/01/18 10:20 Dose: 1 mg Guaifenesin (Robitussin*) 10 ml PO Q6H PRN PRN Reason: COUGH Last Admin: 04/01/18 10:18 Dose: 10 ml Ibuprofen (Motrin Tab*) 600 mg PO Q6H PRN PRN Reason: PAIN Last Admin: 04/01/18 13:16 Dose: 600 mg Lorazepam (Ativan Tab(*)) 1 mg PO Q6H PRN PRN Reason: Anxiety/agitation Last Admin: 04/01/18 13:17 Dose: 1 mg Mometasone Furoate/Formoterol Fumar (Dulera 200/5 Mdi*) 2 puff INH BID [facility] Last Admin: 04/01/18 10:19 Dose: 2 puff Montelukast Sodium (Singulair Tab*) 5 mg PO DAILY [facility] Last Admin: 04/01/18 10:22 Dose: 5 mg Multi-Ingredient Mouthwash/Gargle (Magic Mouth Was-Eddi/Maal/Lido*) 5 ml SWISH SPIT Q6H PRN PRN Reason: MOUTH SORES Last Admin: 03/31/18 19:43 Dose: 5 ml Multivitamins (Theragran Tab*) 1 tab PO DAILY [facility] Last Admin: 04/01/18 10:20 Dose: 1 tab Nicotine (Nicotine Inhaler*) 10 mg INH Q2H PRN PRN Reason: CRAVING Last Admin: 04/01/18 16:04 Dose: 10 mg Nicotine Polacrilex (Nicotine Gum*) 2 mg PO Q2H PRN PRN Reason: CRAVING Last Admin: 04/01/18 16:04 Dose: 2 mg Ondansetron HCl (Zofran Tab*) 4 mg PO Q6H PRN PRN Reason: NAUSEA/VOMITING Last Admin: 03/29/18 19:53 Dose: 4 mg Oxybutynin Chloride (Ditropan Xl Tab*) 15 mg PO DAILY [facility] Last Admin: 04/01/18 10:21 Dose: 15 mg Oxycodone/Acetaminophen (Percocet 5/325 Tab*) 1 tab PO Q4H PRN PRN Reason: PAIN Paliperidone (Invega Er Tab*) 9 mg PO BEDTIME [facility] Last Admin: 03/31/18 20:35 Dose: 9 mg Throat Lozenges (Chloraseptic Dwight*) 1 dwight MT Q6H PRN PRN Reason: COUGH Last Admin: 04/01/18 10:27 Dose: 1 dwight Valacyclovir HCl (Valtrex 1 Gm(*)) 1 gm PO BID [facility]; Protocol Last Admin: 04/01/18 10:20 Dose: 1 gm - Discharge Plan Discharge Plan: Consider Longer Term Tx
[2018-04-01] MEDS: CloZAPine TAB* 25 MG TAB PO SCH (20:11)
[2018-04-01] MEDS: Paliperidone ER TAB* 9 MG TAB.ER PO SCH (20:12)
[2018-04-02] MEDS: ValACYclovir (*) 1 GM TAB PO SCH (08:39)
[2018-04-02] MEDS: Oxybutynin XL TAB* 5 MG PO SCH (08:39)
[2018-04-02] MEDS: Folic Acid TAB* 1 MG PO SCH (08:39)
[2018-04-02] MEDS: Docusate CAP* 100 MG PO PRN (08:39)
[2018-04-02] MEDS: Cetirizine* 10 MG TAB PO SCH (08:39)
[2018-04-02] MEDS: oxyCODONE/Acetamin 5/325 MG* TAB PO PRN ×2 (08:39→13:43)
[2018-04-02] MEDS: Vitamin THERAPEUTIC TAB PO SCH (08:39)
[2018-04-02] MEDS: Mometasone/Formoter 200/5 MDI INH SCH (08:40)
[2018-04-02] MEDS: Nicotine GUM* 2 MG PO PRN ×4 (08:40→16:10)
[2018-04-02] MEDS: guaiFENesin LIQ* 100 MG/5 ML UDC PO PRN ×2 (08:40→17:40)
[2018-04-02] MEDS: Benzocaine/Menthol LOZ* 1 LOZENGE MT PRN ×2 (08:40→17:40)
[2018-04-02] MEDS: Montelukast Sodium TAB* 5 MG PO SCH (08:40)
[2018-04-02] MEDS: Nicotine Inhaler* 10 MG AMP INH PRN ×4 (08:40→16:09)
[2018-04-02] MEDS: Bisacodyl EC TAB* 5 MG PO PRN (09:07)
[2018-04-02] MEDS: Albuterol HFA INHALER* 8 gm MDI INH PRN ×2 (09:07→17:37)
[2018-04-02] MEDS: Al Hydrox/Mg Hydrox/Simet LIQ* 30 ML UDC PO PRN (16:32)
[2018-04-02] MEDS: Ibuprofen TAB* 600 MG PO PRN (16:52)
[2018-04-03] MEDS: CloZAPine TAB* 25 MG TAB PO SCH ×2 (02:00→20:18)
[2018-04-03] MEDS: Mometasone/Formoter 200/5 MDI INH SCH ×3 (02:00→20:15)
[2018-04-03] MEDS: ValACYclovir (*) 1 GM TAB PO SCH ×3 (02:00→20:19)
[2018-04-03] MEDS: Paliperidone ER TAB* 9 MG TAB.ER PO SCH ×2 (02:00→20:19)
[2018-04-03] MEDS: oxyCODONE/Acetamin 5/325 MG* TAB PO PRN ×3 (08:04→19:30)
[2018-04-03] MEDS: Folic Acid TAB* 1 MG PO SCH (08:07)
[2018-04-03] MEDS: Vitamin THERAPEUTIC TAB PO SCH (08:07)
[2018-04-03] MEDS: Cetirizine* 10 MG TAB PO SCH (08:07)
[2018-04-03] MEDS: Docusate CAP* 100 MG PO PRN (08:07)
[2018-04-03] MEDS: Albuterol HFA INHALER* 8 gm MDI INH PRN ×2 (08:09→20:16)
[2018-04-03] MEDS: guaiFENesin LIQ* 100 MG/5 ML UDC PO PRN ×2 (08:10→20:17)
[2018-04-03] MEDS: Montelukast Sodium TAB* 5 MG PO SCH (08:11)
[2018-04-03] MEDS: Bisacodyl EC TAB* 5 MG PO PRN (08:11)
[2018-04-03] MEDS: Oxybutynin XL TAB* 5 MG PO SCH (08:13)
[2018-04-03] MEDS: Nicotine Inhaler* 10 MG AMP INH PRN ×6 (09:19→22:04)
[2018-04-03] MEDS: Nicotine GUM* 2 MG PO PRN ×6 (09:19→22:04)
[2018-04-03] MEDS: Ibuprofen TAB* 600 MG PO PRN ×2 (12:42→17:33)
[2018-04-03] MEDS: Benzocaine/Menthol LOZ* 1 LOZENGE MT PRN (22:05)
[2018-04-04] MEDS: Folic Acid TAB* 1 MG PO SCH (08:32)
[2018-04-04] MEDS: Vitamin THERAPEUTIC TAB PO SCH (08:32)
[2018-04-04] MEDS: Cetirizine* 10 MG TAB PO SCH (08:32)
[2018-04-04] MEDS: Bisacodyl EC TAB* 5 MG PO PRN (08:32)
[2018-04-04] MEDS: guaiFENesin LIQ* 100 MG/5 ML UDC PO PRN ×2 (08:33→15:45)
[2018-04-04] MEDS: Mometasone/Formoter 200/5 MDI INH SCH ×2 (08:33→20:12)
[2018-04-04] MEDS: Montelukast Sodium TAB* 5 MG PO SCH (08:34)
[2018-04-04] MEDS: Albuterol HFA INHALER* 8 gm MDI INH PRN ×2 (08:34→20:16)
[2018-04-04] MEDS: Oxybutynin XL TAB* 5 MG PO SCH (08:35)
[2018-04-04] MEDS: Nicotine Inhaler* 10 MG AMP INH PRN ×6 (08:36→21:11)
[2018-04-04] MEDS: ValACYclovir (*) 1 GM TAB PO SCH ×2 (08:36→20:12)
[2018-04-04] MEDS: Nicotine GUM* 2 MG PO PRN ×5 (08:36→21:11)
[2018-04-04] MEDS: Benzocaine/Menthol LOZ* 1 LOZENGE MT PRN ×2 (09:09→15:45)
[2018-04-04] MEDS: Ondansetron TAB* 4 MG PO PRN (09:50)
[2018-04-04] MEDS: Al Hydrox/Mg Hydrox/Simet LIQ* 30 ML UDC PO PRN ×2 (10:15→14:20)
[2018-04-04] MEDS: oxyCODONE/Acetamin 5/325 MG* TAB PO PRN ×3 (10:15→21:43)
--- NOTE | 2018-04-04 11:54 | PN ---
Subjective - Subjective Date of Service: 04/04/18 Service Type: 03376 Hosp care 15 min low complexity Subjective: Patient inquires about cancellation of state referral. She states that multiple staff and outpatient providers have told her she is better and does not need to go to [facility]. Patient states that every time she has been to [facility], they tell her that [facility] should not have referred her. We discuss need for continued hospitalization due to clozapine and weekly blood tests. Objective - Appearance Appearance: Well Developed/Nourished Dysmorphic Features: No Hygiene: Normal Grooming: Fairly Well Kept - Behavior Psychomotor Activities: Normal Exhibits Abnormal Movement: No - Attitude and Relatedness Attitude and Relatedness: Psychotically Related Eye Contact: Good - Speech Quality: Pressured Latencies: Normal Quantity: Appropriate - Mood Patient's Decription of Mood: "Good" - Affect Observed Affect: Expansive Affect Consistent with: Euphoria - Thought Process Patient's Thought Process: Disorganized, Over Inclusive Thought Content: Yes Paranoid Ideation, No Passive Wish, No Suicidal Planning, No Homicidal Ideation - Sensorium Experiencing Hallucinations: No, Sensorium is Clear - denies Type of Hallucinations: Visual: No, Auditory: No, Command: No - Level of Consciousness Level of Consciousness: Alert Orientation: Yes Intact, Yes Orientated to Time, Yes Orientated to Place, Yes Orientated to Person - Impulse Control Impulse Control: Poor - Insight and Judgement Insight and Judgement: Impaired - Group Participation Particating in Group Activities: No - Medication Management Medication Management Adherence: Yes Assessment - Assessment Merits Inpatient Hospitalization: For Immediate Safety, For Stabilization Inpatient DSM-V Dx: F20.0 Clinical Impression: 42yo female with known history of schizophrenia who presented to ED via 9.45 from [facility]. She was discharged from [facility] on 03/01/18 after being given second booster dose of invega sustenna IM. She continues to present as paranoid and delusional. She is unable to care for herself and merits hospitalization for immediate safety and stabilization. She is accepted to [facility] and is awaiting bed availability. Plan - Plan Treatment Plan: Name: RANDOLPH SON Birthdate: 1975 [id number] continue acute intensive psychiatric treatment. continue titration of clozapine, oral coverage of paliperidone due to unavailability of sustenna. continue clonazepam prn for anxiety/agitation. [facility]. obtain weekly CBC due to clozapine treatment. Continued Medication Management: Different Medication Medications: Current Medications Al Hydrox/Mg Hydrox/Simethicone (Maalox Plus*) 30 ml PO Q4H PRN PRN Reason: INDIGESTION Last Admin: 04/04/18 10:15 Dose: 30 ml Albuterol (Ventolin Hfa Inhaler*) 2 puff INH Q6H PRN PRN Reason: SOB/WHEEZING Last Admin: 04/04/18 08:34 Dose: 2 puff Albuterol (Ventolin 2.5 Mg/3 Ml Neb.Alicia*) 2.5 mg INH Q4H PRN PRN Reason: SOB/WHEEZING Last Admin: 03/24/18 10:43 Dose: 2.5 mg Bisacodyl (Dulcolax Ec Tab*) 10 mg PO DAILY PRN PRN Reason: CONSTIPATION Last Admin: 04/04/18 08:32 Dose: 10 mg Cetirizine HCl (Zyrtec*) 10 mg PO DAILY [facility]; Protocol Last Admin: 04/04/18 08:32 Dose: 10 mg Clonazepam (Klonopin Tab(*)) 1 mg PO Q8H PRN PRN Reason: anxiety/agitation Device (Nicotine Mouth Piece*) 1 each INH .CARTRIDGE [facility]ON Last Admin: 04/01/18 13:16 Dose: 1 each Diphenhydramine HCl (Benadryl Po*) 50 mg PO Q6H PRN PRN Reason: ANXIETY Last Admin: 03/23/18 01:46 Dose: 50 mg Docusate Sodium (Colace Cap*) 100 mg PO BID PRN PRN Reason: CONSTIPATION Last Admin: 04/03/18 08:07 Dose: 100 mg Folic Acid (Folvite Tab*) 1 mg PO DAILY [facility] Last Admin: 04/04/18 08:32 Dose: 1 mg Guaifenesin (Robitussin*) 10 ml PO Q6H PRN PRN Reason: COUGH Last Admin: 04/04/18 08:33 Dose: 10 ml Ibuprofen (Motrin Tab*) 600 mg PO Q6H PRN PRN Reason: PAIN Last Admin: 04/03/18 17:33 Dose: 600 mg Lorazepam (Ativan Tab(*)) 1 mg PO Q6H PRN PRN Reason: Anxiety/agitation Last Admin: 04/01/18 13:17 Dose: 1 mg Mometasone Furoate/Formoterol Fumar (Dulera 200/5 Mdi*) 2 puff INH BID [facility] Last Admin: 04/04/18 08:33 Dose: 2 puff Montelukast Sodium (Singulair Tab*) 5 mg PO DAILY [facility] Last Admin: 04/04/18 08:34 Dose: 5 mg Multi-Ingredient Mouthwash/Gargle (Magic Mouth Was-Eddi/Maal/Lido*) 5 ml SWISH SPIT Q6H PRN PRN Reason: MOUTH SORES Last Admin: 03/31/18 19:43 Dose: 5 ml Multivitamins (Theragran Tab*) 1 tab PO DAILY [facility] Last Admin: 04/04/18 08:32 Dose: 1 tab Nicotine (Nicotine Inhaler*) 10 mg INH Q2H PRN PRN Reason: CRAVING Last Admin: 04/04/18 11:14 Dose: 10 mg Nicotine Polacrilex (Nicotine Gum*) 2 mg PO Q2H PRN PRN Reason: CRAVING Last Admin: 04/04/18 11:14 Dose: 2 mg Ondansetron HCl (Zofran Tab*) 4 mg PO Q6H PRN PRN Reason: NAUSEA/VOMITING Last Admin: 04/04/18 09:50 Dose: 4 mg Oxybutynin Chloride (Ditropan Xl Tab*) 15 mg PO DAILY [facility] Last Admin: 04/04/18 08:35 Dose: 15 mg Oxycodone/Acetaminophen (Percocet 5/325 Tab*) 1 tab PO Q4H PRN PRN Reason: PAIN Last Admin: 04/04/18 10:15 Dose: 1 tab Paliperidone (Invega Er Tab*) 9 mg PO BEDTIME [facility] Last Admin: 04/03/18 20:19 Dose: 9 mg Throat Lozenges (Chloraseptic Mona*) 1 mona MT Q6H PRN PRN Reason: COUGH Last Admin: 04/04/18 09:09 Dose: 1 mona Valacyclovir HCl (Valtrex 1 Gm(*)) 1 gm PO BID [facility]; Protocol Last Admin: 04/04/18 08:36 Dose: 1 gm - Discharge Plan Discharge Plan: Consider Longer Term Tx
[2018-04-04] MEDS: Ibuprofen TAB* 600 MG PO PRN (20:11)
[2018-04-04] MEDS: Paliperidone ER TAB* 9 MG TAB.ER PO SCH (20:12)
[2018-04-04] MEDS ORDERED: CloZAPine TAB* 25 MG TAB PO SCH (21:00)
[2018-04-04] MEDS ORDERED: CloZAPine TAB* 100 MG TAB PO SCH (21:00)
[2018-04-05] MEDS: Nicotine GUM* 2 MG PO PRN ×5 (09:00→20:25)
[2018-04-05] MEDS: Nicotine Inhaler* 10 MG AMP INH PRN ×5 (09:01→20:25)
[2018-04-05] MEDS: guaiFENesin LIQ* 100 MG/5 ML UDC PO PRN ×3 (09:01→20:23)
[2018-04-05] MEDS: Albuterol HFA INHALER* 8 gm MDI INH PRN ×2 (09:02→15:20)
[2018-04-05] MEDS: Oxybutynin XL TAB* 5 MG PO SCH (09:02)
[2018-04-05] MEDS: Mometasone/Formoter 200/5 MDI INH SCH ×2 (09:02→20:06)
[2018-04-05] MEDS: ValACYclovir (*) 1 GM TAB PO SCH ×2 (09:03→20:06)
[2018-04-05] MEDS: Benzocaine/Menthol LOZ* 1 LOZENGE MT PRN ×3 (09:03→20:25)
[2018-04-05] MEDS: Folic Acid TAB* 1 MG PO SCH (09:03)
[2018-04-05] MEDS: Cetirizine* 10 MG TAB PO SCH (09:04)
[2018-04-05] MEDS: Montelukast Sodium TAB* 5 MG PO SCH (09:04)
[2018-04-05] MEDS: Bisacodyl EC TAB* 5 MG PO PRN (09:04)
[2018-04-05] MEDS: Vitamin THERAPEUTIC TAB PO SCH (09:04)
[2018-04-05] MEDS: oxyCODONE/Acetamin 5/325 MG* TAB PO PRN ×3 (09:06→20:09)
[2018-04-05] MEDS: Docusate CAP* 100 MG PO PRN (09:07)
[2018-04-05] MEDS: Ibuprofen TAB* 600 MG PO PRN (11:06)
[2018-04-05] MEDS: Paliperidone ER TAB* 9 MG TAB.ER PO SCH (20:06)
[2018-04-05] MEDS: CloZAPine TAB* 100 MG TAB PO SCH (20:07)
--- NOTE | 2018-04-06 09:58 | PN ---
Subjective - Subjective Date of Service: 04/06/18 Service Type: 90486 Hosp care 15 min low complexity Subjective: Patient c/o feeling sedated during the day. She participated in one group and apologized for being "graphic" after discussing her ovaries bursting. She attempts to minimize symptoms then later reports seeing "eyes all over, just like everyone else does." Objective - Appearance Appearance: Obese Dysmorphic Features: No Hygiene: Normal Grooming: Well Kept - Behavior Psychomotor Activities: Normal Exhibits Abnormal Movement: No - Attitude and Relatedness Attitude and Relatedness: Psychotically Related Eye Contact: Good - Speech Quality: Unpressured Latencies: Normal Quantity: Appropriate - Mood Patient's Decription of Mood: "Okay" - Affect Observed Affect: Unvariable Affect Consistent with: Euthymia - Thought Process Patient's Thought Process: Disorganized, Loose Associations Thought Content: Yes Paranoid Ideation, No Passive Wish, No Suicidal Planning, No Homicidal Ideation - Sensorium Experiencing Hallucinations: Yes Type of Hallucinations: Visual: Yes, Auditory: Yes, Command: No - Level of Consciousness Level of Consciousness: Alert Orientation: Yes Intact, Yes Orientated to Time, Yes Orientated to Place, Yes Orientated to Person - Impulse Control Impulse Control: Poor - Insight and Judgement Insight and Judgement: Impaired - Group Participation Particating in Group Activities: Yes - Medication Management Medication Management Adherence: Yes Assessment - Assessment Merits Inpatient Hospitalization: For Immediate Safety, For Stabilization Inpatient DSM-V Dx: F20.0 Clinical Impression: 42yo female with known history of schizophrenia who presented to ED via 9.45 from [facility]. She was discharged from [facility] on 03/01/18 after being given second booster dose of invega sustenna IM. She continues to present as paranoid and delusional. She is unable to care for herself and merits hospitalization for immediate safety and stabilization. She is accepted to [facility] and is awaiting bed availability. Plan - Plan Treatment Plan: Name: RANDOLPH SON Birthdate: 1975 [id number] continue acute intensive psychiatric treatment. continue titration of clozapine, oral coverage of paliperidone due to unavailability of sustenna. continue clonazepam prn for anxiety/agitation. pending bed assignment to [facility]. obtain weekly CBC due to clozapine treatment. Medications: Current Medications Al Hydrox/Mg Hydrox/Simethicone (Maalox Plus*) 30 ml PO Q4H PRN PRN Reason: INDIGESTION Last Admin: 04/04/18 14:20 Dose: 30 ml Albuterol (Ventolin Hfa Inhaler*) 2 puff INH Q6H PRN PRN Reason: SOB/WHEEZING Last Admin: 04/05/18 15:20 Dose: 2 puff Albuterol (Ventolin 2.5 Mg/3 Ml Neb.Alicia*) 2.5 mg INH Q4H PRN PRN Reason: SOB/WHEEZING Last Admin: 03/24/18 10:43 Dose: 2.5 mg Bisacodyl (Dulcolax Ec Tab*) 10 mg PO DAILY PRN PRN Reason: CONSTIPATION Last Admin: 04/05/18 09:04 Dose: 10 mg Cetirizine HCl (Zyrtec*) 10 mg PO DAILY [facility]; Protocol Last Admin: 04/05/18 09:04 Dose: 10 mg Clonazepam (Klonopin Tab(*)) 1 mg PO Q8H PRN PRN Reason: anxiety/agitation Last Admin: 04/05/18 11:40 Dose: 1 mg Clozapine (Clozapine Tab*) 200 mg PO BEDTIME [facility] Last Admin: 04/05/18 20:07 Dose: 200 mg Device (Nicotine Mouth Piece*) 1 each INH .CARTRIDGE SHANNON Last Admin: 04/01/18 13:16 Dose: 1 each Diphenhydramine HCl (Benadryl Po*) 50 mg PO Q6H PRN PRN Reason: ANXIETY Last Admin: 03/23/18 01:46 Dose: 50 mg Docusate Sodium (Colace Cap*) 100 mg PO BID PRN PRN Reason: CONSTIPATION Last Admin: 04/05/18 09:07 Dose: 100 mg Folic Acid (Folvite Tab*) 1 mg PO DAILY [facility] Last Admin: 04/05/18 09:03 Dose: 1 mg Guaifenesin (Robitussin*) 10 ml PO Q6H PRN PRN Reason: COUGH Last Admin: 04/05/18 20:23 Dose: 10 ml Ibuprofen (Motrin Tab*) 600 mg PO Q6H PRN PRN Reason: PAIN Last Admin: 04/05/18 11:06 Dose: 600 mg Lorazepam (Ativan Tab(*)) 1 mg PO Q6H PRN PRN Reason: Anxiety/agitation Last Admin: 04/01/18 13:17 Dose: 1 mg Mometasone Furoate/Formoterol Fumar (Dulera 200/5 Mdi*) 2 puff INH BID [facility] Last Admin: 04/05/18 20:06 Dose: 2 puff Montelukast Sodium (Singulair Tab*) 5 mg PO DAILY [facility] Last Admin: 04/05/18 09:04 Dose: 5 mg Multi-Ingredient Mouthwash/Gargle (Magic Mouth Was-Eddi/Maal/Lido*) 5 ml SWISH SPIT Q6H PRN PRN Reason: MOUTH SORES Last Admin: 03/31/18 19:43 Dose: 5 ml Multivitamins (Theragran Tab*) 1 tab PO DAILY [facility] Last Admin: 04/05/18 09:04 Dose: 1 tab Nicotine (Nicotine Inhaler*) 10 mg INH Q2H PRN PRN Reason: CRAVING Last Admin: 04/05/18 20:25 Dose: 10 mg Nicotine Polacrilex (Nicotine Gum*) 2 mg PO Q2H PRN PRN Reason: CRAVING Last Admin: 04/05/18 20:25 Dose: 2 mg Ondansetron HCl (Zofran Tab*) 4 mg PO Q6H PRN PRN Reason: NAUSEA/VOMITING Last Admin: 04/04/18 09:50 Dose: 4 mg Oxybutynin Chloride (Ditropan Xl Tab*) 15 mg PO DAILY [facility] Last Admin: 04/05/18 09:02 Dose: 15 mg Oxycodone/Acetaminophen (Percocet 5/325 Tab*) 1 tab PO Q4H PRN PRN Reason: PAIN Last Admin: 04/05/18 20:09 Dose: 1 tab Paliperidone (Invega Er Tab*) 9 mg PO BEDTIME [facility] Last Admin: 04/05/18 20:06 Dose: 9 mg Throat Lozenges (Chloraseptic Mona*) 1 mona MT Q6H PRN PRN Reason: COUGH Last Admin: 04/05/18 20:25 Dose: 1 mona Valacyclovir HCl (Valtrex 1 Gm(*)) 1 gm PO BID [facility]; Protocol Last Admin: 04/05/18 20:06 Dose: 1 gm - Discharge Plan Discharge Plan: Inpatient Hospitalization
[2018-04-06] MEDS: Nicotine Inhaler* 10 MG AMP INH PRN ×4 (11:39→18:58)
[2018-04-06] MEDS: Albuterol HFA INHALER* 8 gm MDI INH PRN ×2 (11:39→16:55)
[2018-04-06] MEDS: Mometasone/Formoter 200/5 MDI INH SCH ×2 (11:40→20:12)
[2018-04-06] MEDS: Montelukast Sodium TAB* 5 MG PO SCH (11:41)
[2018-04-06] MEDS: Vitamin THERAPEUTIC TAB PO SCH (11:41)
[2018-04-06] MEDS: Oxybutynin XL TAB* 5 MG PO SCH (11:42)
[2018-04-06] MEDS: Bisacodyl EC TAB* 5 MG PO PRN (11:42)
[2018-04-06] MEDS: ValACYclovir (*) 1 GM TAB PO SCH ×2 (11:43→20:12)
[2018-04-06] MEDS: Cetirizine* 10 MG TAB PO SCH (11:44)
[2018-04-06] MEDS: Folic Acid TAB* 1 MG PO SCH (11:44)
[2018-04-06] MEDS: guaiFENesin LIQ* 100 MG/5 ML UDC PO PRN (11:45)
[2018-04-06] MEDS: Benzocaine/Menthol LOZ* 1 LOZENGE MT PRN (11:46)
[2018-04-06] MEDS: Nicotine GUM* 2 MG PO PRN ×4 (11:46→18:58)
[2018-04-06] MEDS: oxyCODONE/Acetamin 5/325 MG* TAB PO PRN ×2 (12:42→16:57)
[2018-04-06] MEDS: Docusate CAP* 100 MG PO PRN (14:08)
[2018-04-06] MEDS: Ondansetron TAB* 4 MG PO PRN (14:34)
[2018-04-06] MEDS: Ibuprofen TAB* 600 MG PO PRN (15:18)
--- NOTE | 2018-04-06 16:03 | PN ---
MHU: Group Therapy Note - Service Type Service Type: [id number] Group Psychotherapy - Medication Education Group: Patient joined group late, remained in behavioral control. Patient noted to be circumstantial about substances that were not particularly on topic.
[2018-04-06] MEDS: CloZAPine TAB* 100 MG TAB PO SCH (20:11)
[2018-04-06] MEDS: Paliperidone ER TAB* 9 MG TAB.ER PO SCH (20:12)
[2018-04-07] MEDS: Al Hydrox/Mg Hydrox/Simet LIQ* 30 ML UDC PO PRN (05:03)
[2018-04-07] MEDS: Vitamin THERAPEUTIC TAB PO SCH (09:32)
[2018-04-07] MEDS: Oxybutynin XL TAB* 5 MG PO SCH (09:32)
[2018-04-07] MEDS: Folic Acid TAB* 1 MG PO SCH (09:32)
[2018-04-07] MEDS: Cetirizine* 10 MG TAB PO SCH (09:32)
[2018-04-07] MEDS: ValACYclovir (*) 1 GM TAB PO SCH ×2 (09:33→20:10)
[2018-04-07] MEDS: Mometasone/Formoter 200/5 MDI INH SCH ×2 (09:33→20:04)
[2018-04-07] MEDS: Albuterol HFA INHALER* 8 gm MDI INH PRN ×2 (09:33→20:03)
[2018-04-07] MEDS: Montelukast Sodium TAB* 5 MG PO SCH (09:33)
[2018-04-07] MEDS: Mouth Piece, Nicotine* 1 EACH CARTRIDGE INH SCH (09:36)
[2018-04-07] MEDS: Nicotine Inhaler* 10 MG AMP INH PRN ×5 (09:36→20:33)
[2018-04-07] MEDS: Benzocaine/Menthol LOZ* 1 LOZENGE MT PRN ×2 (10:06→20:33)
[2018-04-07] MEDS: oxyCODONE/Acetamin 5/325 MG* TAB PO PRN ×3 (10:06→21:06)
[2018-04-07] MEDS: Nicotine GUM* 2 MG PO PRN ×5 (10:06→20:33)
[2018-04-07] MEDS: Docusate CAP* 100 MG PO PRN (10:51)
[2018-04-07] MEDS: guaiFENesin LIQ* 100 MG/5 ML UDC PO PRN ×2 (11:11→20:02)
[2018-04-07] MEDS: Bisacodyl EC TAB* 5 MG PO PRN ×2 (11:58→20:08)
[2018-04-07] MEDS: Paliperidone ER TAB* 9 MG TAB.ER PO SCH (20:06)
[2018-04-07] MEDS ORDERED: CloZAPine TAB* 25 MG TAB PO SCH (21:00)
[2018-04-07] MEDS ORDERED: CloZAPine TAB* 100 MG TAB PO SCH (21:00)
[2018-04-08 07:17] LABS: ABS Basophils 0 10^3/ul (0-0.2); ABS Eosinophils 0 10^3/ul (0-0.6); ABS Lymphocytes 1.2 10^3/ul (1.0-4.8); ABS Monocytes 0.5 10^3/ul (0-0.8); ABS Neutrophils 1.8 10^3/ul (1.5-7.7); ABS Nucleated RBC 0 10^3/ul; Hematocrit 35 % (35-47); Hemoglobin 11.5 g/dl (12.0-16.0); Mean Corpuscular HGB Conc 33 g/dl (31-36); Mean Corpuscular Hemoglobin 29 pg (27-31); Mean Corpuscular Volume 88 fL (80-97); Mean Platelet Volume 7.9 fL (7.4-10.4); Nucleated Red Blood Cells % 0; Platelet Count 258 10^3/ul (150-450); Red Blood Count 3.97 10^6/ul (4.00-5.40); Red Cell Distribution Width 17 % (10.5-15); White Blood Count 3.6 10^3/ul (3.5-10.8)
[2018-04-08 08:34] VITALS: BP 114/80
[2018-04-08] MEDS: oxyCODONE/Acetamin 5/325 MG* TAB PO PRN (08:36)
[2018-04-08] MEDS: Vitamin THERAPEUTIC TAB PO SCH (08:37)
[2018-04-08] MEDS: Cetirizine* 10 MG TAB PO SCH (08:37)
[2018-04-08] MEDS: Folic Acid TAB* 1 MG PO SCH (08:37)
[2018-04-08] MEDS: Albuterol HFA INHALER* 8 gm MDI INH PRN (08:38)
[2018-04-08] MEDS: Oxybutynin XL TAB* 5 MG PO SCH (08:39)
[2018-04-08] MEDS: guaiFENesin LIQ* 100 MG/5 ML UDC PO PRN (08:39)
[2018-04-08] MEDS: Mometasone/Formoter 200/5 MDI INH SCH (08:39)
[2018-04-08] MEDS: Montelukast Sodium TAB* 5 MG PO SCH (08:40)
[2018-04-08] MEDS: ValACYclovir (*) 1 GM TAB PO SCH (08:40)
[2018-04-08] MEDS: Docusate CAP* 100 MG PO PRN (08:41)
[2018-04-08] MEDS: Nicotine GUM* 2 MG PO PRN (08:43)
--- NOTE | 2018-04-08 20:57 | DS ---
CC: [facility], Tra Norton and Dr. Ordonez; [facility], Dr. Milner * DISCHARGE SUMMARY: DATE OF ADMISSION: 03/07/18 DATE OF DISCHARGE: 04/08/18 SUPERVISING PSYCHIATRIST: Dr. Demarco Kerr.* (DICTATED BY MURALI HUERTAS NP) DIAGNOSES: 1. Schizophrenia. 2. Tobacco use disorder. CONDITION AT THE TIME OF DISCHARGE: Guarded. The patient continues to exhibit poor insight in regards to psychotic symptoms. She is attempting to mask symptoms and denies need for longer-term treatment; however, she has given clearance and agreed to referral to [facility] for longer- term stabilization. She is in the midst of her first clozapine trial and has been titrated to 225 mg daily. Her most recent CBC was completed this morning with an ANC of 1800. This is slightly lower than last week at 3800. The patient complains of pains in hands and feet and ovaries. She has a well- documented history of somatic delusions. MENTAL STATUS EXAM: Sally is a short-statured, female, who appears stated age. She is well-groomed and wears multiple layers of clothing. ADLs are completed. She has an obese abdomen, but is otherwise petite. The patient is alert and oriented x3. Mood is expansive. Speech is articulate, loud, and pressured at times. The patient is circumstantial with improved thought process since admission. She reports visual hallucinations of seeing eyes and endorses paranoid ideation. She has expressed passive wish and suicidal statement. She denies active SI. She denies HI or . Insight and judgment are impaired. INSTRUCTIONS GIVEN TO PATIENT: A. Medications: 1. Maalox 30 mL p.o. q.4 hours p.r.n. indigestion. 2. Albuterol nebulizer 2.5/3 mL inhaled q.4 hours p.r.n. wheezing. 3. Albuterol inhaler 2 puffs inhaled q.6 hours p.r.n. SOB, wheezing. 4. Benzocaine menthol lozenges 1 p.o. q.6 hours p.r.n. sore throat. 5. Dulcolax EC 10 mg p.o. daily. 6. Cetirizine 10 mg p.o. daily. 7. Clonazepam 1 mg p.o. q.8 hours p.r.n. anxiety. 8. Clozapine 225 mg at bedtime. 9. Diphenhydramine 50 mg p.o. q.6 hours p.r.n. insomnia. 10. Docusate 100 mg p.o. b.i.d. 11. Folic acid 1 mg p.o. daily. 12. Guaifenesin 10 mL p.o. q.6 hours p.r.n. cough. 13. Ibuprofen 600 mg p.o. q.6 hours p.r.n. pain. 14. Lorazepam 0.5 mg p.o. q.6 hours p.r.n. anxiety. 15. Dulera 200/5 two puffs inhaled b.i.d. 16. Singulair 5 mg p.o. daily. 17. Nicotine gum p.r.n. craving. 18. Nicotine inhaler p.r.n. craving. 19. Ondansetron 4 mg p.o. q.6 hours p.r.n. nausea. 20. Ditropan XL 15 mg p.o. daily. 21. Percocet 5/325 one p.o. q.4 hours p.r.n. pain. 22. Paliperidone 9 mg p.o. q.h.s. 23. Valacyclovir 1 g p.o. b.i.d. 24. Multivitamin daily. B. Diet: Regular. C. Activity: Ambulation as tolerated. Tobacco cessation information and nicotine replacement was provided to the patient. Pending labs: Weekly CBC. D. Followup care: The patient was referred to [facility] for longer-term stabilization. E. Substance use followup is not applicable at this time. HOSPITAL COURSE: Part-A: Reason for admission: The [facility] She continued to voice paranoid delusions of her stalking her, chasing her, and being Satan. She presented approximately 1 week after being discharged. HPI: Sally is a 42-year-old female with a history of numerous psychiatric hospitalizations. She was last hospitalized from 02/21/18 to . During the hospitalization, she was given 2 initial boosters of Invega Sustenna. The patient has an extensive history of schizophrenia and multiple psychiatric hospitalizations including state hospitalization. Due to the patient's voluntary status during previous admission, she submitted a 72-hour notice and we did not have justifiable reason to hospitalize her against her will. [facility] the past few months since from her . On presentation, she was hypersexual in topic, loud with pressured speech. She continued to endorse delusions of seeing her as Satan wherever she is. HOSPITAL COURSE: Part-B: Psychiatric treatment rendered: The patient was admitted to adult behavioral services unit on involuntary status. Her code status was full. She was placed on 15-minute checks for her safety. The patient did not participate in groups, she was present in milieu, and often responded to internal stimuli. She was medication compliant and also frequently seeking more medications especially for pain. As stated above, the patient has a well-documented history of somatic delusions. Due to poor adherence to outpatient psychiatric treatment and very much impaired insight and judgment, the patient was referred [facility] for [facility]. She was accepted by [facility] and while awaiting bed availability, she consented to start clozapine treatment. This was titrated up to 225 mg. When the patient was due for Invega Sustenna, the injection was not available at this facility, so we resumed oral coverage at 9 mg q.h.s. Over the past 2 weeks, the patient has shown some improvement in that she is less intrusive and redirectable. She continues to have impaired insight in regards to diagnosis of schizophrenia. The patient has been calm and in behavioral control. Social Work coordinated with outpatient care management and identified the patient has been enrolled in [facility]. The patient reports desire to return to [facility] in the hopes of being part of [facility] and in the other community agencies that are deemed appropriate. On day of transfer, there was question about her history of tuberculosis. We obtained a chest x-ray that was unremarkable. This com writer spoke with Dionna Cochran at [facility], who reviewed [facility] records and available hospital records. There is no record of any referrals or followup testing for tuberculosis. She looked at various aliases, as Sally has gone by many. MURALI HUERTAS, ASSISTANT GUEST SERVICES MANAGER [id number]/[facility] #: [id number] NE
== END 2018-04-08 09:35 | disposition short-term general hospital (02) | DRG 750 ==
LOC: ED 13:11 → BSU 21:05
PROVIDERS: ADMIT Psychiatry & Neurology Psychiatry; ATTEND Psychiatry & Neurology Psychiatry
PROC: GZHZZZZ Group Psychotherapy (ICD-10-PCS; principal; 2018-03-07)
DX: F20.0 Paranoid schizophrenia (principal); R45.851 Suicidal ideations; M79.642 Pain in left hand; M79.641 Pain in right hand; N94.89 Other specified conditions associated with female genital organs and menstrual cycle; M19.90 Unspecified osteoarthritis, unspecified site; F17.210 Nicotine dependence, cigarettes, uncomplicated; J44.9 Chronic obstructive pulmonary disease, unspecified; G47.30 Sleep apnea, unspecified; K21.9 Gastro-esophageal reflux disease without esophagitis; K58.9 Irritable bowel syndrome, unspecified; M06.9 Rheumatoid arthritis, unspecified; G43.909 Migraine, unspecified, not intractable, without status migrainosus; F32.9 Major depressive disorder, single episode, unspecified; F41.9 Anxiety disorder, unspecified; F43.10 Post-traumatic stress disorder, unspecified; E66.9 Obesity, unspecified; G89.29 Other chronic pain; M79.7 Fibromyalgia; Z90.89 Acquired absence of other organs; Z82.3 Family history of stroke; Z87.442 Personal history of urinary calculi; Z98.51 Tubal ligation status; Z86.11 Personal history of tuberculosis; Z59.0 Homelessness; Z81.8 Family history of other mental and behavioral disorders; Z91.012 Allergy to eggs; Z81.4 Family history of other substance abuse and dependence; Z83.3 Family history of diabetes mellitus; Z80.9 Family history of malignant neoplasm, unspecified; Z68.28 Body mass index [BMI] 28.0-28.9, adult
CPT/HCPCS: 36415; 71046; 80048; 80053; 80061; 80320; 80329; 83036; 84443; 85025; 90853; 99222; 99231; 99232; 99233; 99238; 99283; A9270-GY; G0480; J1630

== ENCOUNTER 2019-04-27 14:16 | Emergency (ER) | payer OTHER ==
[2019-04-27 15:29] LABS: ABS Lymphocytes 1.4 10^3/ul (1.0-4.8); ABS Monocytes 0.8 10^3/ul (0-0.8); Eosinophil % 0.2 %; Hematocrit 34 % (35-47); Hemoglobin 11.6 g/dL (12.0-16.0); Lymphocyte % 12.9 %; Mean Corpuscular HGB Conc 34 g/dL (31-36); Mean Corpuscular Hemoglobin 29 pg (27-31); Mean Corpuscular Volume 87 fL (80-97); Mean Platelet Volume 8.5 fL (7.4-10.4); Platelet Count 280 10^3/uL (150-450); Red Blood Count 3.97 10^6 /uL (3.70-4.87); Red Cell Distribution Width 16 % (10-15); White Blood Count 10.5 10^3/uL (3.5-10.8)
[2019-04-27 15:32] LABS: Urine Appearance Cloudy; Urine Bilirubin Negative (Negative); Urine Blood 3+ (Negative); Urine Color Yellow; Urine Glucose Negative (Negative); Urine Ketones Trace (Negative); Urine Nitrite Negative (Negative); Urine Protein Negative (Negative); Urine Urobilinogen Negative (Negative)
[2019-04-27 15:36] LABS: Urine Bacteria Absent (Absent); Urine Red Blood Cell 3+(>10/hpf) (Absent); Urine Squamous Epithelial Cell Present (Absent); Urine White Blood Cell 1+(6-10/hpf) (Absent)
[2019-04-27 15:46] LABS: Urine Benzodiazepine Screen None Detected (None Detect); Urine Opiates Screen None Detected (None Detect)
[2019-04-27 15:46] LABS: ALT 17 U/L (7-52); AST 21 U/L (13-39); Albumin 4.2 g/dL (3.2-5.2); Albumin/Globulin Ratio 1.5 (1-3); Alkaline Phosphatase 48 U/L (34-104); Anion Gap 11 mmol/L (2-11); BUN/Creatinine Ratio 9.4 (8-20); Blood Urea Nitrogen 6 mg/dL (6-24); CO2 Carbon Dioxide 25 mmol/L (22-32); Calcium 9.5 mg/dL (8.6-10.3); Chloride 102 mmol/L (101-111); EGFR African American 121.4 (>60); EGFR Non-African American 100.3 (>60); Globulin 2.8 g/dL (2-4); Glucose 119 mg/dL (70-100); Potassium 3.2 mmol/L (3.5-5.0); Sodium 138 mmol/L (135-145)
[2019-04-27 15:52] LABS: HCG Pregnancy < 0.60 mIU/mL
[2019-04-27 15:53] LABS: Acetaminophen < 15 mcg/mL; Alcohol, S < 10 mg/dL (<10); Salicylate < 2.50 mg/dL (<30)
[2019-04-27 16:07] LABS: TSH (Thyroid Stimulating Horm) 1.09 mcIU/mL (0.34-5.60)
[2019-04-27] MEDS ORDERED: clonazePAM 1 mg TAB(*) PO ONE ×2 (21:35)
[2019-04-27] MEDS ORDERED: Nicotine GUM 4MG FRUIT FLAVOR PO ONE (21:49)
[2019-04-27] MEDS ORDERED: Nicotine GUM 4MG FRUIT FLAVOR PO PRN (21:49)
[2019-05-17 15:57] VITALS: BP 122/67
== END 2019-04-28 06:11 | disposition home or self-care (01) ==
LOC: ED 14:16 → UNDOADMIN 05-17 15:51 → BSU 05-17 15:51

== ENCOUNTER 2019-05-17 12:21 | Inpatient (IN) | payer MEDICAID, OTHER ==
--- NOTE | 2019-05-17 12:29 | ED ---
Altered Mental Status - HPI Summary HPI Summary: 43 year old F with hx schizophrenia brought in voluntarily by ambulance from [facility] for [facility]. Upon arrival to [facility], patient is refusing to give her name and acting bizarrely. She states she has ear pain then abdominal pain then no pain. LEVEL 5 CAVEAT: HPI is limited d/t altered mental status. - History Of Current Complaint Stated Complaint: AMS Time Seen by Provider: 05/17/19 12:25 Hx Obtained From: Patient - Allergies/Home Medications Home Medications: Home Medications NK [No Home Medications Reported] 05/17/19 [History Confirmed 05/17/19] PMH/Surg Hx/FS Hx/Imm Hx Sensory History: Denies: Hx Deafness EENT History: Denies: Hx Deafness Psychiatric History: Reports: Hx Anxiety, Hx Eating Disorder, Hx Depression, Hx Post Traumatic Stress Disorder, Hx Schizophrenia, Hx Bipolar Disorder, Hx of Violent Episodes Against Others, Other Psychiatric Issues/Disorders - psychotic disorder, delusions, hallucinations Denies: Hx Suicide Attempt - Surgical History Surgery Procedure, Year, and Place: LEVEL 5 CAVEAT: Surgical hx is limited d/t altered mental status - Family History Family History: bipolar. depression. schizophrenia. psychosis. substance abuse - Social History Alcohol Use: None Hx Substance Use: Yes Substance Use Type: Reports: Excessive Caffeine, Marijuana Hx Tobacco Use: No Smoking Status (MU): Never Smoked Tobacco Review of Systems Negative: Fever Neurological/Mental Status: Other - altered mental status All Other Systems Reviewed And Are Negative: Yes Physical Exam - Summary Physical Exam Summary: Constitutional: Well-developed, Well-nourished, Alert. (-) Distressed Skin: Warm, Dry HENT: Normocephalic; Atraumatic Eyes: Conjunctiva normal Neck: Musculoskeletal ROM normal neck. (-) JVD, (-) Stridor, (-) Nuchal rigidity Cardio: Rhythm regular, rate normal, Heart sounds normal; Intact distal pulses; Radial pulses are 2+ and symmetric. Pulmonary/Chest wall: Effort normal. (-) Respiratory distress, (-) Wheezes, (-) Rales Abd: Soft, (-) tenderness, (-) Distension, (-) Guarding, (-) Rebound Musculoskeletal: (-) Edema Neuro: Alert, oriented to person, moving all extremities Psych: She has bizarre behavior and tangential speech Triage Information Reviewed: Yes Vital Signs Reviewed: Yes Procedures - Sedation Patient Received Moderate/Deep Sedation with Procedure: No Diagnostics - Laboratory Result Diagrams: 05/17/19 12:52 05/17/19 12:52 Lab Statement: Any lab studies that have been ordered have been reviewed, and results considered in the medical decision making process. Altered Mental Statu Course/Dx - Course Course Of Treatment: Patient presenting for mental health clearance. Patient has no active medical conditions warrantly further w/u, vital signs are stable. On exam abd soft, denies pain when asked again. Labs w/o e/o infection. Patient placed in mental health gown and placed on observation. We'll obtain mental health evaluation. - Diagnoses Provider Diagnoses: Schizophrenia - Provider Notifications Discussed Care Of Patient With: eDmarco Kerr Time Discussed With Above Provider: 14:56 Instructed by Provider To: Other - Psychiatric facilities maintenance manager reviewed case with Dr. Kerr. Patient will be admitted. Discharge ED - Sign-Out/Discharge Documenting (check all that apply): Patient Departure - Discharge Plan Condition: Stable Disposition: ADMITTED TO [facility] Referrals: No Primary Care Phys,NOPCP [Primary Care Provider] - - Billing Disposition and Condition Condition: STABLE Disposition: Admitted to [facility] - Attestation Statements Document Initiated by Scribe: Yes Documenting Scribe: Jenny Hooper Provider For Whom Katia is Documenting (Include Credential): Abhishek Echavarria MD Scribe Attestation: Jenny Mederos, scribed for Abhishek Echavarria MD on 05/17/19 at 1534. Scribe Documentation Reviewed: Yes Provider Attestation: The documentation as recorded by the scribJenny caballero accurately reflects the service I personally performed and the decisions made by me, Abhishek Echavarria MD Status of Scribe Document: Viewed
[2019-05-17 13:07] LABS: ABS Lymphocytes 1.5 10^3/ul (2.5-16.5); ABS Monocytes 0.5 10^3/ul (0-0.8); ABS Neutrophils 4.2 10^3/ul (1.0-9.0); Eosinophil % 0.3 %; Hematocrit 34 % (32-45); Hemoglobin 11.2 g/dL (9.4-13.0); Lymphocyte % 23.9 %; Mean Corpuscular HGB Conc 33 g/dL (28-36); Mean Corpuscular Hemoglobin 29 pg (27-34); Mean Corpuscular Volume 87 fL (84-106); Mean Platelet Volume 8.3 fL (7.4-10.4); Nucleated Red Blood Cells % 0.1; Platelet Count 264 10^3/uL (150-450); Red Blood Count 3.94 10^6 /uL (3.32-4.80); Red Cell Distribution Width 16 % (10-15); White Blood Count 6.3 10^3/uL (5.0-19.5)
[2019-05-17 13:24] LABS: ALT 10 U/L (7-52); AST 15 U/L (13-39); Albumin 3.9 g/dL (3.2-5.2); Albumin/Globulin Ratio 1.4 (1-3); Alkaline Phosphatase 40 U/L (34-104); Anion Gap 6 mmol/L (2-11); BUN/Creatinine Ratio 12.1 (8-20); Blood Urea Nitrogen 7 mg/dL (6-24); CO2 Carbon Dioxide 25 mmol/L (22-32); Calcium 9.2 mg/dL (8.6-10.3); Chloride 109 mmol/L (101-111); EGFR Non-African American 112.4 (>60); Globulin 2.7 g/dL (2-4); Glucose 86 mg/dL (70-100); Potassium 3.2 mmol/L (3.5-5.0); Sodium 140 mmol/L (135-145); Total Protein 6.6 g/dL (6.4-8.9)
[2019-05-17 13:32] LABS: HCG Pregnancy < 0.60 mIU/mL
[2019-05-17 13:58] LABS: Acetaminophen < 15 mcg/mL; Alcohol 41 mg/dL (<10); Salicylate < 2.50 mg/dL (<30)
[2019-05-17 14:12] LABS: TSH (Thyroid Stimulating Horm) 1.16 mcIU/mL (0.34-5.60)
[2019-05-17 15:10] LABS: Urine Appearance Clear; Urine Bilirubin Negative (Negative); Urine Blood Negative (Negative); Urine Color Straw; Urine Glucose Negative (Negative); Urine Ketones Negative (Negative); Urine Nitrite Negative (Negative); Urine Protein Negative (Negative); Urine Specific Gravity 1.004 (1.010-1.030); Urine Urobilinogen Negative (Negative)
[2019-05-17 15:21] LABS: Urine Benzodiazepine Screen None Detected (None Detect); Urine Opiates Screen None Detected (None Detect)
[2019-05-17] MEDS ORDERED: Al Hydrox/Mg Hydrox/Simet LIQ* 30 ML UDC PO PRN (15:52)
[2019-05-17] MEDS: Acetaminophen TAB* 325 MG PO PRN ×2 (17:37→23:17)
[2019-05-17] MEDS: Paliperidone ER TAB* 9 MG TAB.ER PO SCH (17:38)
[2019-05-17] MEDS: chlorproMAZINE TAB* 100 MG PO PRN (19:30)
[2019-05-17] MEDS: LORazepam TAB(*) 1 MG PO PRN (23:14)
[2019-05-18] MEDS: Paliperidone ER TAB* 9 MG TAB.ER PO SCH (10:20)
[2019-05-18] MEDS: Nicotine* 4MG (FRUIT FLAVOR) GUM PO PRN ×4 (10:20→21:59)
[2019-05-18] MEDS: Nicotine PATCH 21 MG/24 HR* PATCH TRANSDERM SCH (10:20)
[2019-05-18] MEDS: Acetaminophen TAB* 325 MG PO PRN ×2 (15:12→19:43)
--- NOTE | 2019-05-18 16:43 | HP ---
DATE OF ADMISSION: 05/17/2019. PROVIDER: Tanya Benjamin NP in Psychiatry. SUPERVISING PSYCHIATRIST: Dr. Demarco Kerr * (dictated by Tanya Benjamin NP ). JUSTIFICATION FOR ADMISSION: The patient is in need of 24 hour supervision and care secondary to gross disorganization. CHIEF COMPLAINT: "I've been seeing stuff and hearing stuff. Voices that...other people must be hearing stuff too." HISTORY OF PRESENT ILLNESS: The patient is a 43-year-old, tenuously , female with a history of schizophrenia who arrives brought in by ambulance and is here on a 9.39 status after decompensating for about two weeks at the [facility]. Sally is met in the milieu. She is drinking coffee and frequently spilling it on her papers and wiping it up with Kleenex that she has already used to wipe her mouth. She is disorganized. It is hard to get information out of her. What we can get together is a melange of information about her who she talks about being away from for 11 months and then jumps back in time to say that she was together with him again for two weeks, but that is not true. She has been apart from him for 11 months. She states that at some point in time she has had an order of protection against him. She states she has her own room at the [facility] which she enjoys. She does rattle off some complaints about people not cleaning her room for her. It is unclear to me what expectation a person can have at the [facility] for having her room cleaned. She states she thinks she has arthritis, a nerve condition, manic depression, some kind of delusional disorder, fibromyalgia, and Raynaud's disease. She states that she uses Percocet for pain. The pain is increasing. She states that people are only giving her Tylenol and ibuprofen. She states "I wouldn't have any kidney or liver left...but nothing's set in stone." She stopped taking medication about two weeks ago. She says the staff at [facility] recommended that she stop taking it because she did not need it anymore. This is clearly either bad advice or a delusion as she is very disorganized and very delusional already. Her historical delusions about her ovaries and her uterus are intact, stating that her ovaries hurt and she removed her uterus recently. She is experiencing the stressors of having a severe delusional disorder. She likes living by herself at the [facility] because she is surrounded by people, but struggles with the idea that her body is not responding properly ( she has many somatic delusions). She is also stressed out by her who she apparently does not have contact with but who is very alive in her memory. She is delusional. She is not appearing to have many manic symptoms. She is distractible, however, and she has flight of ideas. It is unclear whether she is sleeping well. She is talkative, but also shuts down the conversation after perhaps 15 minutes. PAST PSYCHIATRIC HISTORY: Sally has had many multiple psychiatric hospitalizations here at [facility] beginning in 2011. She has been transferred to [facility] for longer term care. There is a history of her going to [facility], but she is not enrolled there at this time. She states she had an appointment with Kwasi Cnaela RN for an intake, but she did not attend. Her most recent medications have included Invega 9 mg. In the past she was treated with Depakote, Zyprexa, Saphris, and Risperdal. PAST MEDICAL HISTORY: Significant for asthma, tuberculosis (two recent chest x- rays was negative), and arthritis. ALLERGIES: No known drug allergies. FAMILY PSYCHIATRIC HISTORY: Not clear. There is an indication that her mom may have had mental health problems and father had substance use problems. In the evaluation from the emergency department, she endorses many members of her family having psychiatric illness. SUBSTANCE USE HISTORY: She has a history of chronic marijuana use. There is a history that she may have abused opioids and LSD in the past. Her urine drug screen at this time was positive for alcohol at 41. She states she used alcohol as a way to dull the pain of her uterus. SOCIAL HISTORY: At this time, she lives in the [facility] on [address]. She does not live with her . Her apparently has been absent from her life for 11 months, but the timeline is hazy at best. She was born and raised in [place], [place], raised by her mother. She has many siblings, but she is not in touch with any of them at this time. She remains . She is currently from her . Her reliability is low about her marital history right now. She has five children. She does not have custody of any of them and does not have contact with them. According to her evaluation in the emergency department, she is educated through some high school. She is currently on disability due to mental illness. PHYSICAL EXAMINATION CONSTITUTIONAL: Well-developed, well-nourished, alert, no distress. SKIN: Warm and dry. VITAL SIGNS: On 05/17/2019 at 1243, temperature is 98.3, pulse 93, respirations 18, O2 sat on room air 98, blood pressure 150/90. HEENT: Normocephalic, atraumatic. Eyes: Conjunctiva normal. NECK: Musculoskeletal range of motion, normal neck. No JVD. No stridor. No nuchal rigidity. CARDIO: Rhythm regular, rate normal. Heart sounds normal. Intact distal pulses. Radial pulses are 2+ and symmetric. PULMONARY: Chest wall effort normal. No respiratory distress. No wheezes, no rales. ABDOMEN: Soft, nontender. No distention, no guarding, no rebound. MUSCULOSKELETAL: No edema. NEUROLOGIC: Alert, oriented to person. Moving all extremities. PSYCH: Bizarre behavior and tangential speech. LABORATORY DATA: Most data are within normal limits. Exceptions include RDW high at 16, absolute lymphocytes low at 1.5, potassium low at 3.2. Urine specific gravity is low at 1.004. Toxicology screen is free from drugs of abuse , with the exception of alcohol high at 41. MENTAL STATUS EXAM: Sally is a brown skinned woman who is 5 feet tall and 140 pounds. Her grooming is adequate. She sits appropriately still, calmly, and is cooperative. Her speech is a normal tone and volume. The rate is rapid and sometime garbled. She appears to be dysthymic. Her affect is restricted. Thought processes are bizarre and tangential. Thought content is positive for delusions, specifically of a somatic variety. She states she is not homicidal or suicidal, though this seems to change hour by hour. She is hearing voices. She does not indicate she is having visual hallucinations. Her insight is poor. Her judgement is poor. She is alert and oriented times four. DIAGNOSES: Schizophrenia. IMPRESSION: Sally is a 43-year-old woman who is diagnosed with schizophrenia , who comes to the hospital from [facility] half-way after deteriorating mentally for about two weeks and becoming so disorganized that she can no longer care for herself. PLAN: The patient is admitted to the Adult Behavioral Health Unit and placed on q.15 minute checks for her own safety. She is encouraged to participate in supportive milieu, individual and group therapy. Estimated length of stay is five to seven days. We will titrate medications, including Invega and monitor for mood and thought content. Discharge planning will include outpatient providers. TANYA BENJAMIN, ELLE [id number]/CPS #: [id number] NE
[2019-05-18] MEDS: LORazepam TAB(*) 1 MG PO PRN (18:43)
[2019-05-18] MEDS: chlorproMAZINE TAB* 100 MG PO PRN (18:43)
[2019-05-18] MEDS: Nicotine Patch Removal NOTE PATCH OFF SCH (22:23)
[2019-05-19] MEDS: Paliperidone ER TAB* 9 MG TAB.ER PO SCH (10:11)
[2019-05-19] MEDS: Nicotine* 4MG (FRUIT FLAVOR) GUM PO PRN ×2 (10:11→18:56)
[2019-05-19] MEDS: Nicotine PATCH 21 MG/24 HR* PATCH TRANSDERM SCH (10:11)
[2019-05-19] MEDS: Bisacodyl EC TAB* 5 MG PO SCH (10:11)
[2019-05-19] MEDS: chlorproMAZINE TAB* 100 MG PO PRN (10:13)
[2019-05-19] MEDS: traMADol TAB* 50 MG PO PRN ×2 (13:58→20:17)
[2019-05-19] MEDS: Oxybutynin XL TAB* 5 MG PO SCH (15:34)
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
[2019-05-19] MEDS: Ibuprofen TAB* 800 MG PO PRN (17:50)
[2019-05-19] MEDS: Nicotine Patch Removal NOTE PATCH OFF SCH (20:15)
[2019-05-20 08:14] LABS: HDL Cholesterol 57.5 mg/dL
[2019-05-20] MEDS: Bisacodyl EC TAB* 5 MG PO SCH (09:34)
[2019-05-20] MEDS: Paliperidone ER TAB* 9 MG TAB.ER PO SCH (09:34)
[2019-05-20] MEDS: Oxybutynin XL TAB* 5 MG PO SCH (09:34)
[2019-05-20] MEDS: traMADol TAB* 50 MG PO PRN ×2 (09:36→18:22)
[2019-05-20] MEDS: Nicotine PATCH 21 MG/24 HR* PATCH TRANSDERM SCH (09:37)
[2019-05-20] MEDS: Nicotine* 4MG (FRUIT FLAVOR) GUM PO PRN ×3 (09:55→21:56)
[2019-05-20] MEDS ORDERED: Ondansetron ODT TAB* 4 MG ONE (13:57)
--- NOTE | 2019-05-20 15:02 | PN ---
Subjective - Subjective Date of Service: 05/20/19 Subjective: Randolph complains of vague uro-genital pain that is not improved by prescribed prn analgesics. She remains grossly delusional and disorganized in her thinking , unable to hold a linear conversation, but she is calm. Staff reports earlier complaints of nausea and one witnessed episode of emesis, for which I prescribed Zofram. Objective - General Observations Appearance: Neat Appears Stated Age: Yes Stature: WNL Posture: Slumped Eye Contact: Average Behavior/Activity: WNL - Interaction Observations Attitude Towards Examiner: Confused Stated Mood: Dysphoric Affect: Restricted Speech Pattern/Tone: Clear Thought Process: Disorganized, Over Inclusive Thought Content: Preoccupation/Ruminations Hallucination Type: None Delusion Type: Somatic - Cognitive Function Orientation: A&O x 4 Level of Consciousness: Alert Cognition: WNL Estimated Intelligence: Normal Insight: Difficulty Acknowledging Presence of Psyciatric Problems Judgment Within Normal Limits: Yes Ability to Make Reasonable Decisions: Moderately Impaired - Medication Compliance Cooperative with Inpatient Medication Regimen: Yes - Group Participation Participates in Group Activities: Yes Assessment - Assessment Merits Inpatient Hospitalization: For Ongoing Evaluation, Consolidate Improvements Inpatient DSM-V Dx: F20.9 Clinical Impression: Randolph is a 43 year old woman who is diagnosed with schizophrenia who comes to the hospital after decompensating without medications for about two weeks at the [facility]. Remains psychotically-related, disorganized in her thinking but she is not suicidal or homicidal, denies A/VH or side effects from prescribed meds. Plan - Plan Treatment Plan: Name: RANDOLPH SON Birthdate: 1975 [id number] Start Invega 9 mg. Start Tylenol 975 mg, ibuprofen 800, and tramadol 50 mg. Medications: Current Medications Acetaminophen (Tylenol Tab*) 975 mg PO Q4H PRN PRN Reason: for pain; or Temp >101 F Al Hydrox/Mg Hydrox/Simethicone (Maalox Plus*) 30 ml PO Q4H PRN PRN Reason: INDIGESTION Albuterol (Ventolin Hfa Inhaler*) 2 puff INH Q2H PRN PRN Reason: SOB/WHEEZING Bisacodyl (Dulcolax Ec Tab*) 5 mg PO DAILY [facility] Last Admin: 05/20/19 09:34 Dose: 5 mg Chlorpromazine HCl (Thorazine Tab*) 100 mg PO Q6H PRN PRN Reason: AGITATION Last Admin: 05/19/19 10:13 Dose: 100 mg Ibuprofen (Motrin Tab*) 800 mg PO Q8H PRN PRN Reason: PAIN - MODERATE Last Admin: 05/19/19 17:50 Dose: 800 mg Lorazepam (Ativan Tab(*)) 1 mg PO Q6H PRN PRN Reason: ANXIETY Last Admin: 05/18/19 18:43 Dose: 1 mg Nicotine (Nicotine Patch 21 Mg/24 Hr*) 1 patch TRANSDERM DAILY [facility] Last Admin: 05/20/19 09:37 Dose: 1 patch Nicotine Polacrilex (Nicotine Gum*) 4 mg PO Q2H PRN 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
[2019-05-20] MEDS: Ibuprofen TAB* 800 MG PO PRN (16:47)
[2019-05-20] MEDS: Benzocaine/Menthol LOZ* 1 LOZENGE PO PRN (20:08)
[2019-05-20] MEDS: Nicotine Patch Removal NOTE PATCH OFF SCH (21:34)
[2019-05-21] MEDS: traMADol TAB* 50 MG PO PRN ×3 (08:56→23:50)
[2019-05-21] MEDS: Ondansetron ODT TAB* 4 MG PO PRN (08:56)
[2019-05-21] MEDS: Oxybutynin XL TAB* 5 MG PO SCH (08:57)
[2019-05-21] MEDS: Nicotine* 4MG (FRUIT FLAVOR) GUM PO PRN (08:57)
[2019-05-21] MEDS: Bisacodyl EC TAB* 5 MG PO SCH (08:57)
[2019-05-21] MEDS: Paliperidone ER TAB* 9 MG TAB.ER PO SCH (09:30)
[2019-05-21] MEDS: Nicotine PATCH 21 MG/24 HR* PATCH TRANSDERM SCH (10:35)
[2019-05-21] MEDS: chlorproMAZINE TAB* 100 MG PO PRN (13:11)
[2019-05-21] MEDS: Benzocaine/Menthol LOZ* 1 LOZENGE PO PRN (20:00)
[2019-05-21] MEDS: Ibuprofen TAB* 800 MG PO PRN (20:00)
[2019-05-21] MEDS: Nicotine Patch Removal NOTE PATCH OFF SCH (20:10)
[2019-05-21] MEDS: LORazepam TAB(*) 1 MG PO PRN (20:46)
[2019-05-21] MEDS: Acetaminophen TAB* 325 MG PO PRN (21:46)
[2019-05-22] MEDS: traMADol TAB* 50 MG PO PRN ×3 (08:05→20:28)
[2019-05-22] MEDS: Bisacodyl EC TAB* 5 MG PO SCH (08:06)
[2019-05-22] MEDS: Nicotine PATCH 21 MG/24 HR* PATCH TRANSDERM SCH (08:06)
[2019-05-22] MEDS: Oxybutynin XL TAB* 5 MG PO SCH (08:06)
[2019-05-22] MEDS: Paliperidone ER TAB* 9 MG TAB.ER PO SCH (08:06)
[2019-05-22] MEDS: Ondansetron ODT TAB* 4 MG PO PRN ×3 (08:07→20:29)
[2019-05-22] MEDS: Nicotine* 4MG (FRUIT FLAVOR) GUM PO PRN ×2 (09:15→20:32)
--- NOTE | 2019-05-22 13:36 | PN ---
Subjective - Subjective Date of Service: 05/22/19 Service Type: [id number] Hosp care 15 min low complexity Subjective: Randolph remains bizarre and talking to herself. She requested a bra that does not have underwire "because I smoke and it stabs into my lungs." (A new bra was provided.) Randolph is not interested in talking today, but her presence is easily noticed as she stands in the middle of the du or up at the nursing station with cups of tea that she tends to spill a bit. She does not seem to be improving over her admission. Objective - General Observations Appearance: Disheveled Appears Stated Age: No - older Stature: WNL Posture: WNL Eye Contact: Intermittent Behavior/Activity: Slowed, Peculiar - Interaction Observations Attitude Towards Examiner: Cooperative, Confused Stated Mood: Dysphoric Speech Pattern/Tone: Slurred, Garbled, Rambling, Quiet Volume Thought Process: Incoherent, Disorganized, Tangential, Flight of Ideas Perception: WNL Thought Content: Preoccupation/Ruminations, Paranoid Hallucination Type: Auditory Delusion Type: Denies - Cognitive Function Orientation: A&O x 4 Level of Consciousness: Awake, Alert, Appropriate Cognition: Impaired Cognition, Impaired Attention/Concentration Insight: Difficulty Acknowledging Presence of Psyciatric Problems Judgment Within Normal Limits: No Ability to Make Reasonable Decisions: Serverely Impaired - Medication Compliance Cooperative with Inpatient Medication Regimen: Yes - Group Participation Participates in Group Activities: Partial Assessment - Assessment Merits Inpatient Hospitalization: For Immediate Safety Inpatient DSM-V Dx: F20.9 Clinical Impression: Randolph is a 43 year old woman who is diagnosed with schizophrenia who comes to the hospital after decompensating without medications for about two weeks at the [facility]. Remains psychotically-related, disorganized in her thinking but she is not suicidal or homicidal, denies A/VH or side effects from prescribed meds. Plan - Plan Treatment Plan: Name: RANDOLPH SON Birthdate: 1975 [id number] Start Invega 9 mg. Start Tylenol 975 mg, ibuprofen 800, and tramadol 50 mg. Change Thorazine to Risperdal M-tabs to 1 mg. Consider increasing Invega. Continued Medication Management: Different Medication Medications: Current Medications Acetaminophen (Tylenol Tab*) 975 mg PO Q4H PRN PRN Reason: for pain; or Temp >101 F Last Admin: 05/21/19 21:46 Dose: 975 mg Al Hydrox/Mg Hydrox/Simethicone (Maalox Plus*) 30 ml PO Q4H PRN PRN Reason: INDIGESTION Albuterol (Ventolin Hfa Inhaler*) 2 puff INH Q2H PRN PRN Reason: SOB/WHEEZING Bisacodyl (Dulcolax Ec Tab*) 5 mg PO DAILY [facility] Last Admin: 05/22/19 08:06 Dose: 5 mg Ibuprofen (Motrin Tab*) 800 mg PO Q8H PRN PRN Reason: PAIN - MODERATE Last Admin: 05/21/19 20:00 Dose: 800 mg Lorazepam (Ativan Tab(*)) 1 mg PO Q6H PRN PRN Reason: ANXIETY Last Admin: 05/21/19 20:46 Dose: 1 mg Nicotine (Nicotine Patch 21 Mg/24 Hr*) 1 patch TRANSDERM DAILY [facility] Last Admin: 05/22/19 08:06 Dose: 1 patch Nicotine Polacrilex (Nicotine Gum*) 4 mg PO Q2H PRN 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 Last Admin: 05/22/19 09:15 Dose: 4 mg Ondansetron HCl (Zofran Odt Tab*) 8 mg PO Q6H PRN PRN Reason: NAUSEA Oxybutynin Chloride (Ditropan Xl Tab*) 5 mg PO DAILY [facility] Last Admin: 05/22/19 08:06 Dose: 5 mg Paliperidone (Invega Er Tab*) 9 mg PO DAILY [facility] Last Admin: 05/22/19 08:06 Dose: 9 mg Pharmacy Profile Note (Nicotine Patch Removal Note*) 1 note PATCH OFF 2099 [facility] Last Admin: 05/21/19 20:10 Dose: 1 note Risperidone (Risperdal-M Tab *) 1 mg PO Q6H PRN; Protocol PRN Reason: AGITATION Throat Lozenges (Chloraseptic Dwight*) 1 dwight PO Q2H PRN PRN Reason: SORE THROAT/COUGH Last Admin: 05/21/19 20:00 Dose: 1 dwight Tramadol HCl (Ultram*) 50 mg PO Q6H PRN PRN Reason: PAIN - MODERATE Last Admin: 05/22/19 08:05 Dose: 50 mg - Discharge Plan Discharge Plan: Outpatient Follow Up
[2019-05-22] MEDS: Ibuprofen TAB* 800 MG PO PRN (14:16)
[2019-05-22] MEDS: Acetaminophen TAB* 325 MG PO PRN (17:59)
[2019-05-22] MEDS: Albuterol HFA INHALER* 8 gm MDI INH PRN ×2 (18:18→22:56)
[2019-05-22] MEDS: Benzocaine/Menthol LOZ* 1 LOZENGE PO PRN ×2 (18:18→22:57)
[2019-05-23] MEDS: Nicotine Patch Removal NOTE PATCH OFF SCH ×2 (01:16→20:37)
[2019-05-23] MEDS: Nicotine* 4MG (FRUIT FLAVOR) GUM PO PRN ×6 (01:21→20:50)
[2019-05-23] MEDS: Acetaminophen TAB* 325 MG PO PRN ×3 (01:21→22:55)
[2019-05-23] MEDS: Benzocaine/Menthol LOZ* 1 LOZENGE PO PRN ×3 (02:31→18:03)
[2019-05-23] MEDS: traMADol TAB* 50 MG PO PRN ×3 (03:01→19:11)
[2019-05-23] MEDS: Ondansetron ODT TAB* 4 MG PO PRN ×3 (03:02→19:11)
[2019-05-23] MEDS: LORazepam TAB(*) 1 MG PO PRN ×2 (07:09→22:55)
[2019-05-23] MEDS: Nicotine PATCH 21 MG/24 HR* PATCH TRANSDERM SCH (11:25)
[2019-05-23] MEDS: Bisacodyl EC TAB* 5 MG PO SCH (11:25)
[2019-05-23] MEDS: Paliperidone ER TAB* 9 MG TAB.ER PO SCH (11:25)
[2019-05-23] MEDS: Oxybutynin XL TAB* 5 MG PO SCH (11:25)
--- NOTE | 2019-05-23 15:38 | PN ---
Subjective - Subjective Date of Service: 05/23/19 Service Type: [id number] Hosp care 15 min low complexity Subjective: Randolph makes room for me on the bench outside the nursing station. She says her pain is fine. She is drinking tea. She talks coherently for a very short time and then continues in conversation to talk about always being cold. She states that's why she can't take a shower, in addition to the showers "crawling with bacteria..." and then went on to tell me about her childhood allergy tests , catching her hand in the door, and her mother giving her silky nightgown. It was an odd interchange that ended with Randolph mumbling to herself. Objective - General Observations Appearance: Disheveled Appears Stated Age: No Stature: Thin Posture: Slumped Eye Contact: Avoidant Behavior/Activity: Slowed, Peculiar - Interaction Observations Attitude Towards Examiner: Cooperative, Confused, Mistrustful Stated Mood: Dysphoric Affect: Blunted Speech Pattern/Tone: Unclear, Slurred, Rambling Thought Process: Disorganized Perception: WNL Thought Content: Preoccupation/Ruminations Hallucination Type: Auditory Delusion Type: Persecution, Somatic - Cognitive Function Orientation: A&O x 4 Level of Consciousness: Awake, Alert Cognition: Impaired Cognition, Impaired Attention/Concentration, Impaired Ability to Abstract Estimated Intelligence: Normal Insight: Difficulty Acknowledging Presence of Psyciatric Problems Judgment Within Normal Limits: No Ability to Make Reasonable Decisions: Serverely Impaired - Medication Compliance Cooperative with Inpatient Medication Regimen: Yes - Group Participation Participates in Group Activities: No Assessment - Assessment Merits Inpatient Hospitalization: For Immediate Safety Inpatient DSM-V Dx: F20.9 Clinical Impression: Randolph is a 43 year old woman who is diagnosed with schizophrenia who comes to the hospital after decompensating without medications for about two weeks at the [facility]. Remains psychotically-related, disorganized in her thinking but she is not suicidal or homicidal, seen talking to herself in the milieu. Plan - Plan Treatment Plan: Name: RANDOLPH SON Birthdate: 1975 [id number] Start Invega 9 mg. Start Tylenol 975 mg, ibuprofen 800, and tramadol 50 mg. Change Thorazine to Risperdal M-tabs to 1 mg. Consider increasing Invega. Medications: Current Medications Acetaminophen (Tylenol Tab*) 975 mg PO Q4H PRN PRN Reason: for pain; or Temp >101 F Last Admin: 05/23/19 07:08 Dose: 975 mg Al Hydrox/Mg Hydrox/Simethicone (Maalox Plus*) 30 ml PO Q4H PRN PRN Reason: INDIGESTION Albuterol (Ventolin Hfa Inhaler*) 2 puff INH Q2H PRN PRN Reason: SOB/WHEEZING Last Admin: 05/22/19 22:56 Dose: 2 puff Bisacodyl (Dulcolax Ec Tab*) 5 mg PO DAILY [facility] Last Admin: 05/23/19 11:25 Dose: 5 mg Ibuprofen (Motrin Tab*) 800 mg PO Q8H PRN PRN Reason: PAIN - MODERATE Last Admin: 05/22/19 14:16 Dose: 800 mg Lorazepam (Ativan Tab(*)) 1 mg PO Q6H PRN PRN Reason: ANXIETY Last Admin: 05/23/19 07:09 Dose: 1 mg Nicotine (Nicotine Patch 21 Mg/24 Hr*) 1 patch TRANSDERM DAILY [facility] Last Admin: 05/23/19 11:25 Dose: 1 patch Nicotine Polacrilex (Nicotine Gum*) 4 mg PO Q2H PRN PRN Reason: [employer] Last Admin: 05/23/19 13:31 Dose: 4 mg Ondansetron HCl (Zofran Odt Tab*) 8 mg PO Q6H PRN PRN Reason: NAUSEA Last Admin: 05/23/19 13:58 Dose: 8 mg Oxybutynin Chloride (Ditropan Xl Tab*) 5 mg PO DAILY [facility] Last Admin: 05/23/19 11:25 Dose: 5 mg Paliperidone (Invega Er Tab*) 9 mg PO DAILY [facility] Last Admin: 05/23/19 11:25 Dose: 9 mg Pharmacy Profile Note (Nicotine Patch Removal Note*) 1 note PATCH OFF 2099 [facility] Last Admin: 05/23/19 01:16 Dose: 1 note Risperidone (Risperdal-M Tab *) 1 mg PO Q6H PRN; Protocol PRN Reason: AGITATION Throat Lozenges (Chloraseptic Dwight*) 1 dwight PO Q2H PRN PRN Reason: SORE THROAT/COUGH Last Admin: 05/23/19 05:21 Dose: 1 dwight Tramadol HCl (Ultram*) 50 mg PO Q6H PRN PRN Reason: PAIN - MODERATE Last Admin: 05/23/19 11:40 Dose: 50 mg
[2019-05-23] MEDS: Ibuprofen TAB* 800 MG PO PRN (17:31)
[2019-05-23] MEDS: Albuterol HFA INHALER* 8 gm MDI INH PRN (19:12)
[2019-05-23] MEDS: risperiDONE-M * 1 MG TAB.ORADIS PO PRN (19:14)
[2019-05-24] MEDS: traMADol TAB* 50 MG PO PRN ×4 (00:30→21:36)
[2019-05-24] MEDS: Nicotine PATCH 21 MG/24 HR* PATCH TRANSDERM SCH (07:27)
[2019-05-24] MEDS: Paliperidone ER TAB* 9 MG TAB.ER PO SCH (07:27)
[2019-05-24] MEDS: Bisacodyl EC TAB* 5 MG PO SCH (07:27)
[2019-05-24] MEDS: Oxybutynin XL TAB* 5 MG PO SCH (07:27)
[2019-05-24] MEDS: Nicotine* 4MG (FRUIT FLAVOR) GUM PO PRN ×3 (08:36→23:20)
[2019-05-24] MEDS: Ondansetron ODT TAB* 4 MG PO PRN (08:38)
[2019-05-24] MEDS: Ibuprofen TAB* 800 MG PO PRN ×2 (08:39→19:04)
[2019-05-24] MEDS: LORazepam TAB(*) 1 MG PO PRN ×2 (08:39→19:04)
--- NOTE | 2019-05-24 10:54 | PN ---
Subjective - Subjective Date of Service: 05/24/19 Service Type: [id number] Hosp care 15 min low complexity Subjective: Randolph has been found in the bathroom asserting that she cannot urinate, cannot talk, and that her ovaries are hurting her. She later is found in the milieu with her head down on the table. Later, she wants to make necklaces or bracelets out of beads, which was arranged for her. Randolph remains disorganized and bizarre, still seeming to be responding to internal stimuli. There may be some improvement as she is responding to other people more coherently than she was yesterday. Objective - General Observations Appearance: Disheveled, Unkempt Appears Stated Age: Yes Stature: WNL Posture: Slumped Eye Contact: Average Behavior/Activity: Peculiar - Interaction Observations Attitude Towards Examiner: Cooperative, Confused Stated Mood: Dysphoric Affect: Blunted Speech Pattern/Tone: Slurred, Rambling Thought Process: Incoherent, Disorganized Thought Content: Preoccupation/Ruminations, Obsessional Hallucination Type: Auditory, Visual Delusion Type: Erotic, Somatic - Cognitive Function Orientation: A&O x 4 Level of Consciousness: Awake, Drowsy Cognition: Impaired Cognition, Impaired Ability to Abstract Insight: Difficulty Acknowledging Presence of Psyciatric Problems Judgment Within Normal Limits: No Ability to Make Reasonable Decisions: Serverely Impaired - Medication Compliance Cooperative with Inpatient Medication Regimen: Yes - Group Participation Participates in Group Activities: No Assessment - Assessment Merits Inpatient Hospitalization: For Immediate Safety Inpatient DSM-V Dx: F20.9 Clinical Impression: Randolph is a 43 year old woman who is diagnosed with schizophrenia who comes to the hospital after decompensating without medications for about two weeks at the [facility]. Remains psychotically-related, disorganized in her thinking but she is not suicidal or homicidal, seen talking to herself in the milieu. Plan - Plan Treatment Plan: Name: RANDOLPH SON Birthdate: 1975 [id number] Start Invega 9 mg. Start Tylenol 975 mg, ibuprofen 800, and tramadol 50 mg. Change Thorazine to Risperdal M-tabs to 1 mg. Consider increasing Invega. Medications: Current Medications Acetaminophen (Tylenol Tab*) 975 mg PO Q6H PRN PRN Reason: for pain; or Temp >101 F Al Hydrox/Mg Hydrox/Simethicone (Maalox Plus*) 30 ml PO Q4H PRN PRN Reason: INDIGESTION Albuterol (Ventolin Hfa Inhaler*) 2 puff INH Q2H PRN PRN Reason: SOB/WHEEZING Last Admin: 05/23/19 19:12 Dose: 2 puff Bisacodyl (Dulcolax Ec Tab*) 5 mg PO DAILY [facility] Last Admin: 05/24/19 07:27 Dose: 5 mg Ibuprofen (Motrin Tab*) 800 mg PO Q8H PRN PRN Reason: PAIN - MODERATE Last Admin: 05/24/19 08:39 Dose: 800 mg Lorazepam (Ativan Tab(*)) 1 mg PO Q6H PRN PRN Reason: ANXIETY Last Admin: 05/24/19 08:39 Dose: 1 mg Nicotine (Nicotine Patch 21 Mg/24 Hr*) 1 patch TRANSDERM DAILY [facility] Last Admin: 05/24/19 07:27 Dose: 1 patch Nicotine Polacrilex (Nicotine Gum*) 4 mg PO 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 Last Admin: 05/24/19 08:36 Dose: 4 mg Ondansetron HCl (Zofran Odt Tab*) 8 mg PO Q6H PRN PRN Reason: NAUSEA Last Admin: 05/24/19 08:38 Dose: 8 mg Oxybutynin Chloride (Ditropan Xl Tab*) 5 mg PO DAILY [facility] Last Admin: 05/24/19 07:27 Dose: 5 mg Paliperidone (Invega Er Tab*) 9 mg PO DAILY [facility] Last Admin: 05/24/19 07:27 Dose: 9 mg Pharmacy Profile Note (Nicotine Patch Removal Note*) 1 note PATCH OFF 2099 [facility] Last Admin: 05/23/19 20:37 Dose: 1 note Risperidone (Risperdal-M Tab *) 1 mg PO Q6H PRN; Protocol PRN Reason: AGITATION Last Admin: 05/23/19 19:14 Dose: 1 mg Throat Lozenges (Chloraseptic Dwight*) 1 dwight PO Q2H PRN PRN Reason: SORE THROAT/COUGH Last Admin: 05/23/19 18:03 Dose: 1 dwight Tramadol HCl (Ultram*) 50 mg PO Q6H PRN PRN Reason: PAIN - MODERATE Last Admin: 05/24/19 07:26 Dose: 50 mg
[2019-05-24] MEDS: Benzocaine/Menthol LOZ* 1 LOZENGE PO PRN (13:24)
[2019-05-24] MEDS: Albuterol HFA INHALER* 8 gm MDI INH PRN (14:30)
[2019-05-24] MEDS: Nicotine Patch Removal NOTE PATCH OFF SCH (21:54)
[2019-05-24] MEDS: Acetaminophen TAB* 325 MG PO PRN (23:20)
[2019-05-25] MEDS: traMADol TAB* 50 MG PO PRN ×3 (04:42→21:04)
[2019-05-25] MEDS: Nicotine* 4MG (FRUIT FLAVOR) GUM PO PRN ×3 (04:44→22:15)
[2019-05-25] MEDS: Bisacodyl EC TAB* 5 MG PO SCH (09:02)
[2019-05-25] MEDS: Nicotine PATCH 21 MG/24 HR* PATCH TRANSDERM SCH (09:02)
[2019-05-25] MEDS: Oxybutynin XL TAB* 5 MG PO SCH (09:02)
[2019-05-25] MEDS: Paliperidone ER TAB* 9 MG TAB.ER PO SCH (09:02)
--- NOTE | 2019-05-25 10:36 | PN ---
Subjective - Subjective Date of Service: 05/25/19 Service Type: [id number] Hosp care 15 min low complexity Subjective: Sally is found in the milieu coughing into her collar of the fleece jacket. She states she's smoked too much. She talks for a few moments about a necklace she lost years ago and when asked if there was anything else I could do for her , she stated she would like multicolored blankets and smiled. Objective - General Observations Appearance: Disheveled Appears Stated Age: Yes Stature: WNL Posture: Slumped Eye Contact: Intense Behavior/Activity: Peculiar - Interaction Observations Attitude Towards Examiner: Cooperative, Confused Stated Mood: Dysphoric Affect: Blunted Speech Pattern/Tone: Normal Volume, Slurred, Rambling Thought Process: Incoherent, Disorganized Perception: WNL Thought Content: Preoccupation/Ruminations, Paranoid Hallucination Type: Auditory, Visual Delusion Type: Erotic, Somatic - Cognitive Function Orientation: A&O x 4 Level of Consciousness: Awake, Alert, Appropriate Cognition: Impaired Cognition, Impaired Attention/Concentration, Impaired Fund of Knowledge Insight: Difficulty Acknowledging Presence of Psyciatric Problems Judgment Within Normal Limits: No Ability to Make Reasonable Decisions: Serverely Impaired - Medication Compliance Cooperative with Inpatient Medication Regimen: Yes - Group Participation Participates in Group Activities: No Assessment - Assessment Merits Inpatient Hospitalization: For Immediate Safety Inpatient DSM-V Dx: F20.9 Clinical Impression: Sally is a 43 year old woman who is diagnosed with schizophrenia who comes to the hospital after decompensating without medications for about two weeks at the [facility]. Remains psychotically-related, disorganized in her thinking but she is not suicidal or homicidal, seen talking to herself in the milieu. Plan - Plan Treatment Plan: Name: SALLY SON Birthdate: 1975 [id number] Start Invega 9 mg. Start Tylenol 975 mg, ibuprofen 800, and tramadol 50 mg. Change Thorazine to Risperdal M-tabs to 1 mg. Consider increasing Invega. Begin Robitussin DM for cough. Encourage use of chloraseptic losenges for cough. Increase to Invega 12 mg. Medications: Current Medications Acetaminophen (Tylenol Tab*) 975 mg PO Q6H PRN PRN Reason: for pain; or Temp >101 F Last Admin: 05/24/19 23:20 Dose: 975 mg Al Hydrox/Mg Hydrox/Simethicone (Maalox Plus*) 30 ml PO Q4H PRN PRN Reason: INDIGESTION Albuterol (Ventolin Hfa Inhaler*) 2 puff INH Q2H PRN PRN Reason: SOB/WHEEZING Last Admin: 05/24/19 14:30 Dose: 2 puff Bisacodyl (Dulcolax Ec Tab*) 5 mg PO DAILY [facility] Last Admin: 05/25/19 09:02 Dose: 5 mg Guaifenesin/Dextromethorphan (Robitussin Dm 100 Mg/10 Mg In 5 Ml) 5 ml PO Q4H PRN PRN Reason: COUGH Ibuprofen (Motrin Tab*) 800 mg PO Q8H PRN PRN Reason: PAIN - MODERATE Last Admin: 05/24/19 19:04 Dose: 800 mg Lorazepam (Ativan Tab(*)) 1 mg PO Q6H PRN PRN Reason: ANXIETY Last Admin: 05/24/19 19:04 Dose: 1 mg Nicotine (Nicotine Patch 21 Mg/24 Hr*) 1 patch TRANSDERM DAILY [facility] Last Admin: 05/25/19 09:02 Dose: 1 patch Nicotine Polacrilex (Nicotine Gum*) 4 mg PO Q2H 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 Last Admin: 05/25/19 04:44 Dose: 4 mg Ondansetron HCl (Zofran Odt Tab*) 8 mg PO Q6H PRN PRN Reason: NAUSEA Last Admin: 05/24/19 08:38 Dose: 8 mg Oxybutynin Chloride (Ditropan Xl Tab*) 5 mg PO DAILY [facility] Last Admin: 05/25/19 09:02 Dose: 5 mg Paliperidone (Invega Er Tab*) 9 mg PO DAILY [facility] Last Admin: 05/25/19 09:02 Dose: 9 mg Pharmacy Profile Note (Nicotine Patch Removal Note*) 1 note PATCH OFF 2099 [facility] Last Admin: 05/24/19 21:54 Dose: Not Given Polyethylene Glycol/Electrolytes (Miralax (17 Gm Dose Jorge)) 17 gm PO 0800,2100 [facility] Risperidone (Risperdal-M Tab *) 1 mg PO Q6H PRN; Protocol PRN Reason: AGITATION Last Admin: 03/24/20 19:14 Dose: 1 mg Throat Lozenges (Chloraseptic Mona*) 1 mona PO Q2H PRN PRN Reason: SORE THROAT/COUGH Last Admin: 05/24/19 13:24 Dose: 1 mona Tramadol HCl (Ultram*) 50 mg PO Q6H PRN PRN Reason: PAIN - MODERATE Last Admin: 05/25/19 04:42 Dose: 50 mg
[2019-05-25] MEDS: GuaiFENesin DM 100 mg/10 mg in 5 ML UDC PO PRN ×2 (11:02→17:59)
[2019-05-25] MEDS: Benzocaine/Menthol LOZ* 1 LOZENGE PO PRN ×2 (11:02→21:04)
[2019-05-25] MEDS: LORazepam TAB(*) 1 MG PO PRN (13:51)
[2019-05-25] MEDS: Acetaminophen TAB* 325 MG PO PRN (17:57)
[2019-05-25] MEDS: Polyethylene Glycol 3350* 17 GM PACKET PO SCH (21:01)
[2019-05-25] MEDS: Nicotine Patch Removal NOTE PATCH OFF SCH (22:36)
[2019-05-26] MEDS: Acetaminophen TAB* 325 MG PO PRN (02:32)
[2019-05-26] MEDS: Nicotine* 4MG (FRUIT FLAVOR) GUM PO PRN ×3 (02:32→19:57)
[2019-05-26] MEDS: LORazepam TAB(*) 1 MG PO PRN (02:32)
[2019-05-26] MEDS: Nicotine PATCH 21 MG/24 HR* PATCH TRANSDERM SCH (09:10)
[2019-05-26] MEDS: traMADol TAB* 50 MG PO PRN ×2 (09:11→19:56)
[2019-05-26] MEDS: Paliperidone ER TAB* 6 MG TAB.ER PO SCH (09:11)
[2019-05-26] MEDS: Benzocaine/Menthol LOZ* 1 LOZENGE PO PRN ×3 (09:11→13:27)
[2019-05-26] MEDS: Albuterol HFA INHALER* 8 gm MDI INH PRN (09:11)
[2019-05-26] MEDS: Polyethylene Glycol 3350* 17 GM PACKET PO SCH (09:15)
[2019-05-26] MEDS: Oxybutynin XL TAB* 5 MG PO SCH (09:17)
[2019-05-26] MEDS: Bisacodyl EC TAB* 5 MG PO SCH (09:17)
[2019-05-26] MEDS: risperiDONE-M * 1 MG TAB.ORADIS PO PRN (13:27)
--- NOTE | 2019-05-26 13:34 | PN ---
Subjective - Subjective Date of Service: 05/26/19 Service Type: [id number] Hosp care 15 min low complexity Subjective: Sally remains bizarre. Her conversation is not linear and rarely returns to a topic that is linked to what the sentence started with. She discusses her ovaries, being , having laparoscopic surgery, being in pain, finding a dollar in her pocket, wondering why she can't enlarge a pocket, and something about being colorful. Sally has not improved over the days she has been here. Objective - General Observations Appearance: Disheveled Appears Stated Age: Yes Stature: WNL Posture: Slumped Eye Contact: Intermittent Behavior/Activity: Peculiar - Interaction Observations Attitude Towards Examiner: Cooperative, Confused Stated Mood: Dysphoric, Irritable Affect: Blunted Speech Pattern/Tone: Normal Volume, Slurred, Rambling Thought Process: Incoherent, Disorganized, Loose Associations Perception: WNL Thought Content: Obsessional, Paranoid Hallucination Type: Auditory Delusion Type: Denies, Erotic, Persecution, Somatic - Cognitive Function Orientation: A&O x 4 Level of Consciousness: Awake, Alert, Appropriate Cognition: Impaired Cognition, Impaired Attention/Concentration, Impaired Ability to Abstract, Impaired Fund of Knowledge Insight: Difficulty Acknowledging Presence of Psyciatric Problems Judgment Within Normal Limits: No Ability to Make Reasonable Decisions: Serverely Impaired - Medication Compliance Cooperative with Inpatient Medication Regimen: Yes - Group Participation Participates in Group Activities: Partial Assessment - Assessment Merits Inpatient Hospitalization: For Immediate Safety Inpatient DSM-V Dx: F20.9 Clinical Impression: Sally is a 43 year old woman who is diagnosed with schizophrenia who comes to the hospital after decompensating without medications for about two weeks at the [facility]. Remains psychotically-related, disorganized in her thinking but she is not suicidal or homicidal, seen talking to herself in the milieu. Plan - Plan Treatment Plan: Name: SALLY SON Birthdate: 1975 [id number] Start Invega 9 mg. Start Tylenol 975 mg, ibuprofen 800, and tramadol 50 mg. Change Thorazine to Risperdal M-tabs to 1 mg. Consider increasing Invega. Begin Robitussin DM for cough. Encourage use of chloraseptic losenges for cough. Increase to Invega 12 mg. Continue encouraging Robitussin DM and chloraseptic losenges. Encourage other PRN medications, including Risperdal M-tabs. Medications: Current Medications Acetaminophen (Tylenol Tab*) 975 mg PO Q6H PRN PRN Reason: for pain; or Temp >101 F Last Admin: 05/26/19 02:32 Dose: 975 mg Al Hydrox/Mg Hydrox/Simethicone (Maalox Plus*) 30 ml PO Q4H PRN PRN Reason: INDIGESTION Albuterol (Ventolin Hfa Inhaler*) 2 puff INH Q2H PRN PRN Reason: SOB/WHEEZING Last Admin: 05/26/19 09:11 Dose: 2 puff Bisacodyl (Dulcolax Ec Tab*) 5 mg PO DAILY [facility] Last Admin: 05/26/19 09:17 Dose: Not Given Guaifenesin/Dextromethorphan (Robitussin Dm 100 Mg/10 Mg In 5 Ml) 5 ml PO Q4H PRN PRN Reason: COUGH Last Admin: 05/25/19 17:59 Dose: 5 ml Ibuprofen (Motrin Tab*) 800 mg PO Q8H PRN PRN Reason: PAIN - MODERATE Last Admin: 05/24/19 19:04 Dose: 800 mg Lorazepam (Ativan Tab(*)) 1 mg PO Q6H PRN PRN Reason: ANXIETY Last Admin: 05/26/19 02:32 Dose: 1 mg Nicotine (Nicotine Patch 21 Mg/24 Hr*) 1 patch TRANSDERM DAILY [facility] Last Admin: 05/26/19 09:10 Dose: 1 patch Nicotine Polacrilex (Nicotine Gum*) 4 mg PO Q2H 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 Last Admin: 05/26/19 13:27 Dose: 4 mg Ondansetron HCl (Zofran Odt Tab*) 8 mg PO Q6H PRN PRN Reason: NAUSEA Last Admin: 05/24/19 08:38 Dose: 8 mg Oxybutynin Chloride (Ditropan Xl Tab*) 5 mg PO DAILY [facility] Last Admin: 05/26/19 09:17 Dose: Not Given Paliperidone (Invega Er Tab*) 12 mg PO DAILY [facility] Last Admin: 05/26/19 09:11 Dose: 12 mg Pharmacy Profile Note (Nicotine Patch Removal Note*) 1 note PATCH OFF 2100 [facility] Last Admin: 05/25/19 22:36 Dose: Not Given Polyethylene Glycol/Electrolytes (Miralax (17 Gm Dose Jorge)) 17 gm PO 0800,2100 [facility] Last Admin: 05/26/19 09:15 Dose: 17 gm Risperidone (Risperdal-M Tab *) 1 mg PO Q6H PRN; Protocol PRN Reason: AGITATION Last Admin: 05/26/19 13:27 Dose: 1 mg Throat Lozenges (Chloraseptic Mona*) 1 mona PO Q2H PRN PRN Reason: SORE THROAT/COUGH Last Admin: 05/26/19 13:27 Dose: 1 mona Tramadol HCl (Ultram*) 50 mg PO Q6H PRN PRN Reason: PAIN - MODERATE Last Admin: 05/26/19 09:11 Dose: 50 mg
[2019-05-26] MEDS: Ondansetron ODT TAB* 4 MG PO PRN (19:57)
[2019-05-27] MEDS: Polyethylene Glycol 3350* 17 GM PACKET PO SCH ×2 (00:08→08:42)
[2019-05-27] MEDS: Nicotine Patch Removal NOTE PATCH OFF SCH ×2 (00:10→22:30)
[2019-05-27] MEDS: Acetaminophen TAB* 325 MG PO PRN ×3 (00:11→22:34)
[2019-05-27] MEDS: LORazepam TAB(*) 1 MG PO PRN ×2 (03:31→18:23)
[2019-05-27] MEDS: Nicotine* 4MG (FRUIT FLAVOR) GUM PO PRN ×3 (05:25→22:34)
[2019-05-27] MEDS: traMADol TAB* 50 MG PO PRN ×3 (05:25→19:05)
[2019-05-27] MEDS: Paliperidone ER TAB* 6 MG TAB.ER PO SCH (08:42)
[2019-05-27] MEDS: Oxybutynin XL TAB* 5 MG PO SCH (08:42)
[2019-05-27] MEDS: Bisacodyl EC TAB* 5 MG PO SCH (08:43)
[2019-05-27] MEDS: Nicotine PATCH 21 MG/24 HR* PATCH TRANSDERM SCH (08:46)
[2019-05-27] MEDS: Albuterol HFA INHALER* 8 gm MDI INH PRN (10:45)
[2019-05-27] MEDS: risperiDONE-M * 1 MG TAB.ORADIS PO PRN (10:52)
[2019-05-27] MEDS: Ibuprofen TAB* 800 MG PO PRN ×2 (10:55→19:04)
--- NOTE | 2019-05-27 13:53 | PN ---
Subjective - Subjective Date of Service: 05/27/19 Service Type: [id number] Hosp care 15 min low complexity Subjective: Sally is seen in weekend coverage for NPP, Tanya Benjamin. The patient is adherent with treatment but remains disorganized with somatic delusions, bizarre , unrelatable speech and disorganized behavior. As I approach she is talking about her pain being undertreated and states something undecipherable about her ovaries. She denies side effects from her medications or suicidal ideations. Objective - General Observations Appearance: Disheveled Appears Stated Age: Yes Stature: WNL Posture: WNL Eye Contact: Average Behavior/Activity: Peculiar - Interaction Observations Attitude Towards Examiner: Cooperative Stated Mood: Dysphoric Affect: Blunted Speech Pattern/Tone: Garbled Thought Process: Disorganized Thought Content: Paranoid Thought Process: Lethality: Paranoid Ideation Hallucination Type: Auditory Delusion Type: Persecution, Somatic - Cognitive Function Orientation: A&O x 4 Level of Consciousness: Awake Cognition: WNL Estimated Intelligence: Normal Insight: WNL Judgment Within Normal Limits: No Ability to Make Reasonable Decisions: Moderately Impaired - Medication Compliance Cooperative with Inpatient Medication Regimen: Yes - Group Participation Participates in Group Activities: Partial Assessment - Assessment Merits Inpatient Hospitalization: For Immediate Safety, For Stabilization Inpatient DSM-V Dx: F20.9 Clinical Impression: Sally is a 43 year old woman who is diagnosed with schizophrenia who comes to the hospital after decompensating without medications for about two weeks at the [facility]. Remains psychotically-related, disorganized in her thinking but she is not suicidal or homicidal, seen talking to herself in the milieu. Plan - Plan Treatment Plan: Name: SALLY SON Birthdate: 1975 [id number] Start Invega 9 mg. Start Tylenol 975 mg, ibuprofen 800, and tramadol 50 mg. Change Thorazine to Risperdal M-tabs to 1 mg. Consider increasing Invega. Begin Robitussin DM for cough. Encourage use of chloraseptic losenges for cough. Increase to Invega 12 mg. Continue encouraging Robitussin DM and chloraseptic losenges. Encourage other PRN medications, including Risperdal M-tabs. Continued Medication Management: Start Medication Medications: Current Medications Acetaminophen (Tylenol Tab*) 975 mg PO Q6H PRN PRN Reason: for pain; or Temp >101 F Last Admin: 05/27/19 00:11 Dose: 975 mg Al Hydrox/Mg Hydrox/Simethicone (Maalox Plus*) 30 ml PO Q4H PRN PRN Reason: INDIGESTION Albuterol (Ventolin Hfa Inhaler*) 2 puff INH Q2H PRN PRN Reason: SOB/WHEEZING Last Admin: 05/27/19 10:45 Dose: 2 puff Bisacodyl (Dulcolax Ec Tab*) 5 mg PO DAILY [facility] Last Admin: 05/27/19 08:43 Dose: 5 mg Guaifenesin/Dextromethorphan (Robitussin Dm 100 Mg/10 Mg In 5 Ml) 5 ml PO Q4H PRN PRN Reason: COUGH Last Admin: 05/25/19 17:59 Dose: 5 ml Ibuprofen (Motrin Tab*) 800 mg PO Q8H PRN PRN Reason: PAIN - MODERATE Last Admin: 05/27/19 10:55 Dose: 800 mg Lorazepam (Ativan Tab(*)) 1 mg PO Q6H PRN PRN Reason: ANXIETY Last Admin: 05/27/19 03:31 Dose: 1 mg Nicotine (Nicotine Patch 21 Mg/24 Hr*) 1 patch TRANSDERM DAILY [facility] Last Admin: 05/27/19 08:46 Dose: 1 patch Nicotine Polacrilex (Nicotine Gum*) 4 mg PO 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 Last Admin: 05/27/19 13:01 Dose: 4 mg Ondansetron HCl (Zofran Odt Tab*) 8 mg PO Q6H PRN PRN Reason: NAUSEA Last Admin: 05/26/19 19:57 Dose: 8 mg Oxybutynin Chloride (Ditropan Xl Tab*) 5 mg PO DAILY [facility] Last Admin: 05/27/19 08:42 Dose: 5 mg Paliperidone (Invega Er Tab*) 12 mg PO DAILY [facility] Last Admin: 05/27/19 08:42 Dose: 12 mg Pharmacy Profile Note (Nicotine Patch Removal Note*) 1 note PATCH OFF 2099 [facility] Last Admin: 05/27/19 00:10 Dose: 1 note Polyethylene Glycol/Electrolytes (Miralax (17 Gm Dose Jorge)) 17 gm PO 0800,2100 [facility] Last Admin: 05/27/19 08:42 Dose: 17 gm Risperidone (Risperdal-M Tab *) 1 mg PO Q6H PRN; Protocol PRN Reason: AGITATION Last Admin: 05/27/19 10:52 Dose: 1 mg Throat Lozenges (Chloraseptic Mona*) 1 mona PO Q2H PRN PRN Reason: SORE THROAT/COUGH Last Admin: 05/26/19 13:27 Dose: 1 mona Tramadol HCl (Ultram*) 50 mg PO Q6H PRN PRN Reason: PAIN - MODERATE Last Admin: 05/27/19 13:05 Dose: 50 mg - Discharge Plan Discharge Plan: Inpatient Hospitalization
[2019-05-27] MEDS: GuaiFENesin DM 100 mg/10 mg in 5 ML UDC PO PRN (16:05)
[2019-05-27] MEDS: Benzocaine/Menthol LOZ* 1 LOZENGE PO PRN (19:02)
[2019-05-28] MEDS: Polyethylene Glycol 3350* 17 GM PACKET PO SCH ×2 (00:48→08:07)
[2019-05-28] MEDS: Bisacodyl EC TAB* 5 MG PO SCH (08:07)
[2019-05-28] MEDS: Nicotine PATCH 21 MG/24 HR* PATCH TRANSDERM SCH (08:07)
[2019-05-28] MEDS: GuaiFENesin DM 100 mg/10 mg in 5 ML UDC PO PRN (08:07)
[2019-05-28] MEDS: Paliperidone ER TAB* 6 MG TAB.ER PO SCH (08:07)
[2019-05-28] MEDS: Oxybutynin XL TAB* 5 MG PO SCH (08:07)
[2019-05-28] MEDS: Albuterol HFA INHALER* 8 gm MDI INH PRN (08:08)
[2019-05-28] MEDS: traMADol TAB* 50 MG PO PRN (09:40)
[2019-05-28] MEDS: Fluticasone NASAL SPRAY 50MCG* 16 gm SPRAY BTL BOTH NARES SCH (14:58)
--- NOTE | 2019-05-28 15:49 | HP ---
MEDICATION ADDENDUM NOW INCLUDED ON THIS REPORT HISTORY AND PHYSICAL: DATE OF ADMISSION: 05/17/19 DATE OF SERVICE: 05/28/19 ATTENDING PHYSICIAN WHILE IN THE HOSPITAL: Dr. Marisol Guo * (dictated by RADAMES Lora). INPATIENT PSYCHIATRIST: Dr. Kerr. CHIEF COMPLAINT: Cough. HISTORY OF PRESENT ILLNESS: Sally Torres is a 43-year-old female with past medical history significant for schizoaffective disorder, mild persistent asthma, and questionable history of prior TB infection versus TB exposure. The patient has been inpatient receiving therapy for delusions on the behavioral services unit since 05/18/19. During this period of time, she has been coughing the entire time per [facility] staff. On part of the patient's delusions is that she believes she has multiple various illnesses, so she does tell me that she has been coughing for months to years, but denied history of COPD or chronic bronchitis. Dr. Kerr of the psychiatry service had concerns due to her temperature being elevated to 99.9 degrees Fahrenheit today of possible need to rule out COVID-19. Due to hospital policy, she could not be in the milieu in B[facility] while awaiting results of the COVID-19 test and she is being transferred to medical service. At time of my evaluation, the patient overall has no complaints. She denies shortness of breath, chest pain, fevers, chills, or sore throat. She does mention her cough which is sometimes productive and tells me she has had nasal congestion. Additionally, she tells me that she has abdominal pain "when my ovaries come out of me when I cough." Dr. Kerr did inform the hospitalist medicine team that part of her delusion is that she believe she is and the patient did not mention this. PAST MEDICAL HISTORY: 1. Mild persistent asthma. 2. Osteoarthritis. 3. Schizoaffective disorder. 4. Questionable tuberculosis history. PAST SURGICAL HISTORY: Unobtainable. FAMILY HISTORY: Unobtainable as the patient is a poor historian. SOCIAL HISTORY: Per the psychiatry service H and P, the patient had been living in a homeless detention prior to this hospitalization. The patient denies alcohol use and drug use. She tells me she has been smoking frequent since age 14, so approximately almost 30 years. She has had brief periods of smoking cessation. She has 5 children and is from her . She is currently not employed as she is on disability due to mental illness. ALLERGIES: NAUSEA AND VOMITING TO EGGS; RASH TO LATEX; VOMITING TO MILK; RUNNY NOSE TO MOLD; VOMITING TO NUT, UNSPECIFIED. ACTIVE MEDICATIONS: 1. Tramadol 50 mg p.o. q.6 hours prn pain. 2. Chloraseptic lozenges one lozenge p.o. q.2 hours prn sore throat. 3. Risperdal 1 mg p.o. q.6 hours prn agitation. 4. MiraLax 17 gm p.o. b.i.d. 5. Invega 12 mg p.o. daily. 6. Oxybutynin 5 mg p.o. daily. 7. Zofran 8 mg p.o. q.6 hours prn nausea or vomiting. 8. Nicotine patch 21 mg per 24 hours one patch transdermally daily. 9. Ativan 1 mg p.o. q.6 hours prn agitation. 10. Ibuprofen 800 mg p.o. q.8 hours prn. 11. Robitussin DM 100 mg/10 mg in 5 ml p.o. q.4 hours prn cough. 12. Doculax 5 mg p.o. daily scheduled. 13. Maalox 30 ml p.o. q.4 hours prn indigestion. 14. Tylenol 975 mg p.o. q.6 hours prn. PHYSICAL EXAMINATION GENERAL: Middle-aged white female who appears somewhat older than stated age, lying in hospital bed, appearing comfortable, in no acute distress. VITAL SIGNS: Temperature 99.9 degrees Fahrenheit, heart rate 123, respiratory rate 18, oxygen saturation 99% on room air, blood pressure 129/76. HEENT: Eyes: PERRL. Sclerae anicteric. ENT: Mucous membranes moist. LUNGS: Clear to auscultation throughout. CARDIO: Regular rate and rhythm without murmurs, rubs, or gallops. ABDOMEN: Soft, nontender, nondistended EXTREMITIES: No clubbing, cyanosis, or edema. NEUROLOGIC: The patient is alert and oriented x3. Able to move all extremities. No tremors. PSYCH: The patient overall answers questions appropriately though is sometimes disorganized and tangential when she speaks. SKIN: Excoriations on her lower extremities, which the patient admits are self - inflicted. PERTINENT STUDIES/LAB DATA: Labs from admission on 05/17/19: White blood cell count 6.3, hemoglobin 11.2, hematocrit 34, platelet count 264, absolute lymphocytes 1.5. Sodium 140, potassium 3.2, chloride 109, carbon dioxide 25, anion gap 6, BUN 7, creatinine 0.58, glucose 86, hemoglobin A1c 5.7, calcium 9.2. LFTs unremarkable. LDL 75, HDL 57.5. Beta-HCG is negative. TSH is 1.16. Urine is unremarkable. Urine drug screen overall unremarkable, though serum alcohol was 41. Chest x-ray from today, impression: No active cardiopulmonary disease. ASSESSMENT AND PLAN: Sally Torres is a 43-year-old female with past medical history significant for prior history of either tuberculosis infection or exposure which is unclear, mild persistent asthma, schizoaffective disorder who has been inpatient on behavioral services unit for ongoing delusions. She has been treated on the [facility], but due to ongoing cough in the setting of COVID- 19 outbreak she is being ruled out for this and will be transferred to the medical floor for proper healthcare provider use of PPE while awaiting the test results. I will start Zyrtec and Flonase to see if this helps her cough as this may represent a viral upper respiratory infection. Her cough is questionably chronic and perhaps she has an underlying history of chronic obstructive pulmonary disease, which is not overtly evident on her chest x- ray and perhaps should have outpatient PFTs after discharge from [facility]. I will continue her psych medicines which include Risperdal, Invega, and p.r.n. Ativan. The patient takes tramadol for chronic pain, which I will continue. She will try a nicotine patch and she has been taking guaifenesin cough syrup, which I will continue as well. I appreciate the psychiatric team continuing to follow this patient while she is on the medical floor. At this point, I have low suspicion for COVID-19 as this cough has been going on for 10 days without any other symptoms and she has been afebrile, as a temperature of 99.9 is not a fever. If this is negative, she will return to behavioral services unit for continued psychiatric therapy. I will repeat a CBC and a BMP as she did have mild hypokalemia when she came into the hospital and should be followed to ensure resolution, though this was over 10 days ago. DVT prophylaxis: The patient will ambulate. I will order SCDs as well. Code status: The patient is full code. Regarding safety of this patient while she is on the medical floor, a one-to- one monitor is not needed, but a safety monitor will be in the hallway to ensure that she is isolated to her room while awaiting COVID results. This case has been reviewed by my attending, Dr. Marisol Guo, and she agrees with the plan of care. RADAMES LORA [id number]/[facility] #: [id number]/CPS #: [id number] [place]
[2019-05-28] MEDS: Acetaminophen TAB* 325 MG PO PRN (17:49)
[2019-05-28 19:04] LABS: Influenza A Molecular Negative (Negative); Influenza B Molecular Negative (Negative)
[2019-05-29] MEDS: Polyethylene Glycol 3350* 17 GM PACKET PO SCH ×3 (00:34→21:44)
[2019-05-29] MEDS: Nicotine Patch Removal NOTE PATCH OFF SCH ×2 (00:34→21:44)
[2019-05-29] MEDS: Acetaminophen TAB* 325 MG PO PRN ×2 (00:54→16:18)
[2019-05-29] MEDS: Nicotine* 4MG (FRUIT FLAVOR) GUM PO PRN ×3 (00:55→20:41)
[2019-05-29 07:47] LABS: ABS Lymphocytes 1.5 10^3/ul (1.0-4.8); ABS Monocytes 0.5 10^3/ul (0-0.8); ABS Neutrophils 3.2 10^3/ul (1.5-7.7); Eosinophil % 0.7 %; Hematocrit 31 % (35-47); Hemoglobin 10.8 g/dL (12.0-16.0); Lymphocyte % 28.7 %; Mean Corpuscular HGB Conc 34 g/dL (31-36); Mean Corpuscular Hemoglobin 30 pg (27-31); Mean Corpuscular Volume 86 fL (80-97); Mean Platelet Volume 8.3 fL (7.4-10.4); Platelet Count 344 10^3/uL (150-450); Red Blood Count 3.63 10^6 /uL (3.70-4.87); Red Cell Distribution Width 16 % (10-15); White Blood Count 5.3 10^3/uL (3.5-10.8)
[2019-05-29 08:07] LABS: BUN/Creatinine Ratio 22.6 (8-20); Calcium 9.4 mg/dL (8.6-10.3); EGFR Non-African American 104.1 (>60); Potassium 3.7 mmol/L (3.5-5.0)
[2019-05-29] MEDS: Paliperidone ER TAB* 6 MG TAB.ER PO SCH (08:58)
[2019-05-29] MEDS: Bisacodyl EC TAB* 5 MG PO SCH (08:58)
[2019-05-29] MEDS: Cetirizine* 10 MG TAB PO SCH (08:58)
[2019-05-29] MEDS: Nicotine PATCH 21 MG/24 HR* PATCH TRANSDERM SCH (08:59)
[2019-05-29] MEDS: Oxybutynin XL TAB* 5 MG PO SCH (08:59)
[2019-05-29] MEDS: Fluticasone NASAL SPRAY 50MCG* 16 gm SPRAY BTL BOTH NARES SCH (09:00)
--- NOTE | 2019-05-29 11:00 | PN ---
Subjective Date of Service: 05/29/19 Interval History: Patient has no new concerns, patient has unchanged cough, patient denies F/C, N/ V, abdominal pain, diarrhea, CP, SOB, dizziness, palpitations, or other pain. Patient is very tangential and is complaining of ovarian pain and that she can' t get them warm enough to stop the pain. Family History: Unchanged from Admission Social History: Unchanged from Admission Past Medical History: Unchanged from Admission Objective Active Medications: Acetaminophen (Tylenol Tab*) 975 mg PO Q6H PRN PRN Reason: for pain; or Temp >101 F Last Admin: 05/29/19 00:54 Dose: 975 mg Al Hydrox/Mg Hydrox/Simethicone (Maalox Plus*) 30 ml PO Q4H PRN PRN Reason: INDIGESTION Albuterol (Ventolin Hfa Inhaler*) 2 puff INH Q2H PRN PRN Reason: SOB/WHEEZING Last Admin: 05/28/19 08:08 Dose: 2 puff Bisacodyl (Dulcolax Ec Tab*) 5 mg PO DAILY [facility] Last Admin: 05/29/19 08:58 Dose: 5 mg Cetirizine HCl (Zyrtec*) 10 mg PO DAILY [facility] Last Admin: 05/29/19 08:58 Dose: 10 mg Fluticasone Propionate (Flonase Nasal [place] 50mcg*) 2 spray BOTH NARES DAILY [facility] Last Admin: 05/29/19 09:00 Dose: 2 spray Guaifenesin/Dextromethorphan (Robitussin Dm 100 Mg/10 Mg In 5 Ml) 5 ml PO Q4H PRN PRN Reason: COUGH Last Admin: 05/28/19 08:07 Dose: 5 ml Ibuprofen (Motrin Tab*) 800 mg PO Q8H PRN PRN Reason: PAIN - MODERATE Last Admin: 05/27/19 19:04 Dose: 800 mg Lorazepam (Ativan Tab(*)) 1 mg PO Q6H PRN PRN Reason: ANXIETY Last Admin: 05/27/19 18:23 Dose: 1 mg Nicotine (Nicotine Patch 21 Mg/24 Hr*) 1 patch TRANSDERM DAILY [facility] Last Admin: 05/29/19 08:59 Dose: 1 patch Nicotine Polacrilex (Nicotine Gum*) 4 mg PO Q2H PRN PRN Reason: RN LICENSED PRACTICAL Last Admin: 05/29/19 00:55 Dose: 4 mg Ondansetron HCl (Zofran Odt Tab*) 8 mg PO Q6H PRN PRN Reason: NAUSEA Last Admin: 05/26/19 19:57 Dose: 8 mg Oxybutynin Chloride (Ditropan Xl Tab*) 5 mg PO DAILY [facility] Last Admin: 05/29/19 08:59 Dose: 5 mg Paliperidone (Invega Er Tab*) 12 mg PO DAILY [facility] Last Admin: 05/29/19 08:58 Dose: 12 mg Pharmacy Profile Note (Nicotine Patch Removal Note*) 1 note PATCH OFF 2099 [facility] Last Admin: 05/29/19 00:34 Dose: Not Given Polyethylene Glycol/Electrolytes (Miralax (17 Gm Dose Jorge)) 17 gm PO 0800,2099 [facility] Last Admin: 05/29/19 08:58 Dose: 17 gm Risperidone (Risperdal-M Tab *) 1 mg PO Q6H PRN; Protocol PRN Reason: AGITATION Last Admin: 05/27/19 10:52 Dose: 1 mg Throat Lozenges (Chloraseptic Mona*) 1 mona PO Q2H PRN PRN Reason: SORE THROAT/COUGH Last Admin: 05/27/19 19:02 Dose: 1 mona Tramadol HCl (Ultram*) 50 mg PO Q6H PRN PRN Reason: PAIN - MODERATE Last Admin: 05/28/19 09:40 Dose: 50 mg Vital Signs - 8 hr 05/29/19 05/29/19 05/29/19 03:15 07:18 08:00 Temperature 97.8 F 97.3 F Pulse Rate 103 99 Respiratory 19 18 18 Rate Blood Pressure 124/79 132/70 (mmHg) O2 Sat by Pulse 96 98 Oximetry Oxygen Devices in Use Now: None Appearance: Patient is a 43yo female who appears stated age and is sitting in the bed in [facility]. Eyes: No Scleral Icterus, PERRLA Ears/Nose/Mouth/Throat: NL Teeth, Lips, Gums, Clear Oropharnyx, Mucous Membranes Moist Neck: NL Appearance and Movements; NL JVP, Trachea Midline Respiratory: Symmetrical Chest Expansion and Respiratory Effort, Clear to Auscultation Cardiovascular: NL Sounds; No Murmurs; No JVD, RRR, No Edema Abdominal: NL Sounds; No Tenderness; No Distention, No Hepatosplenomegaly Lymphatic: No Cervical Adenopathy Extremities: No Edema, No Clubbing, Cyanosis Skin: No Rash or Ulcers, No Nodules or Sclerosis Neurological: Alert and Oriented x 3, NL Sensation, NL Muscle Strength and Tone , - - CN II-XII intact. Result Diagrams: 05/29/19 07:04 05/29/19 07:04 Assess/Plan/Problems-Billing Assessment: Patient is a 43yo female with a PMH for Schizoaffective disorder, Asthma, admitted to to medical floor from the [facility] with concern for COVID currently being ruled out. - Patient Problems (1) Fever Current Visit: Yes Status: Acute Code(s): R50.9 - FEVER, UNSPECIFIED SNOMED Code(s): 011996195 Comment: - Minor Temperature Elevation, Concern for COVID with cough - Test sent on 05/27 - No recurrent Fevers (2) Asthma Current Visit: Yes Status: Acute Code(s): J45.909 - UNSPECIFIED ASTHMA, UNCOMPLICATED SNOMED Code(s): 367673708 Comment: - PRN Albuterol MDI - Likely cause of cough (3) Schizoaffective disorder Current Visit: No Status: Acute Code(s): F25.9 - SCHIZOAFFECTIVE DISORDER, UNSPECIFIED SNOMED Code(s): 43143200 Comment: - Continue Chronic Treatments, patient is still very delusional - Return to B[facility] after R/O COVID (4) DVT prophylaxis Current Visit: Yes Status: Acute Code(s): Z29.9 - ENCOUNTER FOR PROPHYLACTIC MEASURES, UNSPECIFIED SNOMED Code(s): 097550870 Comment: - Very Ambulatory - Low risk (5) Full code status Current Visit: Yes Status: Acute Code(s): Z78.9 - OTHER SPECIFIED HEALTH STATUS SNOMED Code(s): 385689925 Status and Disposition: Inpatient pending COVID test.
--- NOTE | 2019-05-29 13:43 | HP ---
ADDENDUM TO HISTORY AND PHYSICAL DATE OF ADMISSION: 05/17/2019. ACTIVE MEDICATIONS: 1. Tramadol 50 mg p.o. q.6 hours prn pain. 2. Chloraseptic lozenges one lozenge p.o. q.2 hours prn sore throat. 3. Risperdal 1 mg p.o. q.6 hours prn agitation. 4. MiraLax 17 gm p.o. b.i.d. 5. Invega 12 mg p.o. daily. 6. Oxybutynin 5 mg p.o. daily. 7. Zofran 8 mg p.o. q.6 hours prn nausea or vomiting. 8. Nicotine patch 21 mg per 24 hours one patch transdermally daily. 9. Ativan 1 mg p.o. q.6 hours prn agitation. 10. Ibuprofen 800 mg p.o. q.8 hours prn. 11. Robitussin DM 100 mg/10 mg in 5 ml p.o. q.4 hours prn cough. 12. Doculax 5 mg p.o. daily scheduled. 13. Maalox 30 ml p.o. q.4 hours prn indigestion. 14. Tylenol 975 mg p.o. q.6 hours prn. ALLERGIES: NAUSEA AND VOMITING TO EGGS; RASH TO LATEX; VOMITING TO MILK; RUNNY NOSE TO MOLD; VOMITING TO NUT, UNSPECIFIED. RADAMES DIXON [id number]/[facility] #: [id number] [facility]LAND HOSPITALKevan
--- NOTE | 2019-05-29 20:01 | PN ---
Subjective - Subjective Date of Service: 05/29/19 Service Type: 87153 Hosp care 15 min low complexity Subjective: Sally is currently on the fourth floor due to possible COVID-19 diagnosis. She was in an isolation room and reports about her behavior fell in the norms expected for Sally. She remains psychotic and delusional. We await results of the COVID-19 test. Assessment - Assessment Merits Inpatient Hospitalization: For Immediate Safety Inpatient DSM-V Dx: F20.9 Clinical Impression: Sally is a 43 year old woman who is diagnosed with schizophrenia who comes to the hospital after decompensating without medications for about two weeks at the [facility]. Remains psychotically-related, disorganized in her thinking but she is not suicidal or homicidal. Plan - Plan Treatment Plan: Name: SALLY SON Birthdate: 1975 [id number] Start Invega 9 mg. Start Tylenol 975 mg, ibuprofen 800, and tramadol 50 mg. Change Thorazine to Risperdal M-tabs to 1 mg. Consider increasing Invega. Begin Robitussin DM for cough. Encourage use of chloraseptic losenges for cough. Increase to Invega 12 mg. Continue encouraging Robitussin DM and chloraseptic losenges. Encourage other PRN medications, including Risperdal M-tabs. Medications: Current Medications Acetaminophen (Tylenol Tab*) 975 mg PO Q6H PRN PRN Reason: for pain; or Temp >101 F Last Admin: 05/29/19 16:18 Dose: 975 mg Al Hydrox/Mg Hydrox/Simethicone (Maalox Plus*) 30 ml PO Q4H PRN PRN Reason: INDIGESTION Albuterol (Ventolin Hfa Inhaler*) 2 puff INH Q2H PRN PRN Reason: SOB/WHEEZING Last Admin: 05/28/19 08:08 Dose: 2 puff Bisacodyl (Dulcolax Ec Tab*) 5 mg PO DAILY [facility] Last Admin: 05/29/19 08:58 Dose: 5 mg Cetirizine HCl (Zyrtec*) 10 mg PO DAILY [facility] Last Admin: 05/29/19 08:58 Dose: 10 mg Fluticasone Propionate (Flonase Nasal [place] 50mcg*) 2 spray BOTH NARES DAILY [facility] Last Admin: 05/29/19 09:00 Dose: 2 spray Guaifenesin/Dextromethorphan (Robitussin Dm 100 Mg/10 Mg In 5 Ml) 5 ml PO Q4H PRN PRN Reason: COUGH Last Admin: 05/28/19 08:07 Dose: 5 ml Ibuprofen (Motrin Tab*) 800 mg PO Q8H PRN PRN Reason: PAIN - MODERATE Last Admin: 05/27/19 19:04 Dose: 800 mg Lorazepam (Ativan Tab(*)) 1 mg PO Q6H PRN PRN Reason: ANXIETY Last Admin: 05/27/19 18:23 Dose: 1 mg Nicotine (Nicotine Patch 21 Mg/24 Hr*) 1 patch TRANSDERM DAILY [facility] Last Admin: 05/29/19 08:59 Dose: 1 patch Nicotine Polacrilex (Nicotine Gum*) 4 mg PO Q2H PRN PRN Reason: C[employer] C[facility] [employer] Last Admin: 05/29/19 16:37 Dose: 4 mg Ondansetron HCl (Zofran Odt Tab*) 8 mg PO Q6H PRN PRN Reason: NAUSEA Last Admin: 05/26/19 19:57 Dose: 8 mg Oxybutynin Chloride (Ditropan Xl Tab*) 5 mg PO DAILY [facility] Last Admin: 05/29/19 08:59 Dose: 5 mg Paliperidone (Invega Er Tab*) 12 mg PO DAILY [facility] Last Admin: 05/29/19 08:58 Dose: 12 mg Pharmacy Profile Note (Nicotine Patch Removal Note*) 1 note PATCH OFF 2099 [facility] Last Admin: 05/29/19 00:34 Dose: Not Given Polyethylene Glycol/Electrolytes (Miralax (17 Gm Dose Jorge)) 17 gm PO 08,2099 [facility] Last Admin: 05/29/19 08:58 Dose: 17 gm Risperidone (Risperdal-M Tab *) 1 mg PO Q6H PRN; Protocol PRN Reason: AGITATION Last Admin: 05/27/19 10:52 Dose: 1 mg Throat Lozenges (Chloraseptic Mona*) 1 mona PO Q2H PRN PRN Reason: SORE THROAT/COUGH Last Admin: 05/27/19 19:02 Dose: 1 mona Tramadol HCl (Ultram*) 50 mg PO Q6H PRN PRN Reason: PAIN - MODERATE Last Admin: 05/28/19 09:40 Dose: 50 mg
[2019-05-29] MEDS: risperiDONE-M * 1 MG TAB.ORADIS PO PRN (20:41)
[2019-05-30] MEDS: Acetaminophen TAB* 325 MG PO PRN ×2 (01:23→17:34)
[2019-05-30] MEDS: Ibuprofen TAB* 800 MG PO PRN (02:45)
[2019-05-30] MEDS: Nicotine* 4MG (FRUIT FLAVOR) GUM PO PRN ×5 (02:45→20:33)
[2019-05-30] MEDS: risperiDONE-M * 1 MG TAB.ORADIS PO PRN (04:58)
[2019-05-30] MEDS: LORazepam TAB(*) 1 MG PO PRN (04:58)
[2019-05-30] MEDS: Polyethylene Glycol 3350* 17 GM PACKET PO SCH ×2 (09:07→20:33)
[2019-05-30] MEDS: Fluticasone NASAL SPRAY 50MCG* 16 gm SPRAY BTL BOTH NARES SCH (09:08)
[2019-05-30] MEDS: Paliperidone ER TAB* 6 MG TAB.ER PO SCH (09:08)
[2019-05-30] MEDS: Cetirizine* 10 MG TAB PO SCH (09:08)
[2019-05-30] MEDS: Oxybutynin XL TAB* 5 MG PO SCH (09:08)
[2019-05-30] MEDS: Nicotine PATCH 21 MG/24 HR* PATCH TRANSDERM SCH ×2 (09:08→10:03)
[2019-05-30] MEDS: Bisacodyl EC TAB* 5 MG PO SCH (09:09)
[2019-05-30] MEDS: GuaiFENesin DM 100 mg/10 mg in 5 ML UDC PO PRN ×2 (11:27→17:34)
[2019-05-30] MEDS: traMADol TAB* 50 MG PO PRN ×2 (13:05→20:34)
[2019-05-30] MEDS ORDERED: Benzonatate CAP* 100 MG PO PRN (18:24)
--- NOTE | 2019-05-30 18:26 | PN ---
Subjective Date of Service: 05/30/19 Interval History: Patient is not very talkative today. Patient has an unchanged cough and right sided "ovarian pain" ROS not obtainable. Family History: Unchanged from Admission Social History: Unchanged from Admission Past Medical History: Unchanged from Admission Objective Active Medications: Acetaminophen (Tylenol Tab*) 975 mg PO Q6H PRN PRN Reason: for pain; or Temp >101 F Last Admin: 05/30/19 17:34 Dose: 975 mg Al Hydrox/Mg Hydrox/Simethicone (Maalox Plus*) 30 ml PO Q4H PRN PRN Reason: INDIGESTION Albuterol (Ventolin Hfa Inhaler*) 2 puff INH Q2H PRN PRN Reason: SOB/WHEEZING Last Admin: 05/28/19 08:08 Dose: 2 puff Benzonatate (Tessalon Cap*) 100 mg PO BID PRN PRN Reason: COUGH Bisacodyl (Dulcolax Ec Tab*) 5 mg PO DAILY [facility] Last Admin: 05/30/19 09:09 Dose: 5 mg Cetirizine HCl (Zyrtec*) 10 mg PO DAILY [facility] Last Admin: 05/30/19 09:08 Dose: 10 mg Fluticasone Propionate (Flonase Nasal [place] 50mcg*) 2 spray BOTH NARES DAILY [facility] Last Admin: 05/30/19 09:08 Dose: 2 spray Guaifenesin/Dextromethorphan (Robitussin Dm 100 Mg/10 Mg In 5 Ml) 5 ml PO Q4H PRN PRN Reason: COUGH Last Admin: 05/30/19 17:34 Dose: 5 ml Ibuprofen (Motrin Tab*) 800 mg PO Q8H PRN PRN Reason: PAIN - MODERATE Last Admin: 05/30/19 02:45 Dose: 800 mg Lorazepam (Ativan Tab(*)) 1 mg PO Q6H PRN PRN Reason: ANXIETY Last Admin: 05/30/19 04:58 Dose: 1 mg Nicotine (Nicotine Patch 21 Mg/24 Hr*) 1 patch TRANSDERM DAILY [facility] Last Admin: 05/30/19 10:03 Dose: Not Given Nicotine Polacrilex (Nicotine Gum*) 4 mg PO 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 Last Admin: 05/30/19 13:05 Dose: 4 mg Ondansetron HCl (Zofran Odt Tab*) 8 mg PO Q6H PRN PRN Reason: NAUSEA Last Admin: 05/26/19 19:57 Dose: 8 mg Oxybutynin Chloride (Ditropan Xl Tab*) 5 mg PO DAILY [facility] Last Admin: 05/30/19 09:08 Dose: 5 mg Paliperidone (Invega Er Tab*) 12 mg PO DAILY [facility] Last Admin: 05/30/19 09:08 Dose: 12 mg Pharmacy Profile Note (Nicotine Patch Removal Note*) 1 note PATCH OFF 2099 [facility] Last Admin: 05/29/19 21:44 Dose: Not Given Polyethylene Glycol/Electrolytes (Miralax (17 Gm Dose Jorge)) 17 gm PO 0800,2099 [facility] Last Admin: 05/30/19 09:07 Dose: Not Given Risperidone (Risperdal-M Tab *) 1 mg PO Q6H PRN; Protocol PRN Reason: AGITATION Last Admin: 05/30/19 04:58 Dose: 1 mg Throat Lozenges (Chloraseptic Mona*) 1 mona PO Q2H PRN PRN Reason: SORE THROAT/COUGH Last Admin: 05/27/19 19:02 Dose: 1 mona Tramadol HCl (Ultram*) 50 mg PO Q6H PRN PRN Reason: PAIN - MODERATE Last Admin: 05/30/19 13:05 Dose: 50 mg Vital Signs - 8 hr 05/30/19 05/30/19 05/30/19 11:15 13:05 15:15 Temperature 98.1 F 98.3 F Pulse Rate 110 114 Respiratory 24 16 20 Rate Blood Pressure 107/69 144/57 (mmHg) O2 Sat by Pulse 98 99 Oximetry 05/30/19 17:33 Temperature Pulse Rate Respiratory 18 Rate Blood Pressure (mmHg) O2 Sat by Pulse Oximetry Oxygen Devices in Use Now: None Appearance: Patient is a 43yo female who appears stated age and is sin the chair in [facility]. Eyes: No Scleral Icterus, PERRLA Ears/Nose/Mouth/Throat: NL Teeth, Lips, Gums, Clear Oropharnyx, Mucous Membranes Moist Neck: NL Appearance and Movements; NL JVP, Trachea Midline Respiratory: Symmetrical Chest Expansion and Respiratory Effort, Clear to Auscultation Cardiovascular: NL Sounds; No Murmurs; No JVD, RRR, No Edema Abdominal: NL Sounds; No Tenderness; No Distention, No Hepatosplenomegaly Neurological: Alert and Oriented x 3 Result Diagrams: 05/29/19 07:04 05/29/19 07:04 Assess/Plan/Problems-Billing Assessment: Patient is a 43yo female with a PMH for Schizoaffective disorder, Asthma, admitted to to medical floor from the [facility] with concern for COVID currently being ruled out. - Patient Problems (1) Fever Current Visit: Yes Status: Acute Code(s): R50.9 - FEVER, UNSPECIFIED SNOMED Code(s): 756792580 Comment: - Minor Temperature Elevation, Concern for COVID with cough - Test sent on 05/27 - No recurrent Fevers (2) Asthma Current Visit: Yes Status: Acute Code(s): J45.909 - UNSPECIFIED ASTHMA, UNCOMPLICATED SNOMED Code(s): 308338210 Comment: - PRN Albuterol MDI - Likely cause of cough - Cough suppression (3) Schizoaffective disorder Current Visit: No Status: Acute Code(s): F25.9 - SCHIZOAFFECTIVE DISORDER, UNSPECIFIED SNOMED Code(s): 38682025 Comment: - Continue Chronic Treatments, patient is still very delusional - Return to B[facility] after R/O COVID (4) DVT prophylaxis Current Visit: Yes Status: Acute Code(s): Z29.9 - ENCOUNTER FOR PROPHYLACTIC MEASURES, UNSPECIFIED SNOMED Code(s): 191980532 Comment: - Very Ambulatory - Low risk (5) Full code status Current Visit: Yes Status: Acute Code(s): Z78.9 - OTHER SPECIFIED HEALTH STATUS SNOMED Code(s): 740806548 Status and Disposition: Inpatient pending COVID test.
[2019-05-30] MEDS: Nicotine Patch Removal NOTE PATCH OFF SCH (20:34)
[2019-05-31] MEDS: traMADol TAB* 50 MG PO PRN ×2 (06:18→18:12)
[2019-05-31] MEDS: Nicotine* 4MG (FRUIT FLAVOR) GUM PO PRN (06:25)
[2019-05-31] MEDS: Bisacodyl EC TAB* 5 MG PO SCH (09:34)
[2019-05-31] MEDS: Oxybutynin XL TAB* 5 MG PO SCH (09:34)
[2019-05-31] MEDS: Cetirizine* 10 MG TAB PO SCH (09:35)
[2019-05-31] MEDS: Fluticasone NASAL SPRAY 50MCG* 16 gm SPRAY BTL BOTH NARES SCH (09:35)
[2019-05-31] MEDS: Paliperidone ER TAB* 6 MG TAB.ER PO SCH (09:36)
[2019-05-31] MEDS: Nicotine PATCH 21 MG/24 HR* PATCH TRANSDERM SCH (09:37)
[2019-05-31] MEDS: Polyethylene Glycol 3350* 17 GM PACKET PO SCH ×2 (09:37→21:01)
[2019-05-31] MEDS: Ibuprofen TAB* 800 MG PO PRN (11:11)
[2019-05-31] MEDS: Acetaminophen TAB* 325 MG PO PRN ×2 (12:45→20:59)
--- NOTE | 2019-05-31 16:08 | PN ---
Subjective - Subjective Date of Service: 05/31/19 Service Type: [id number] Hosp care 15 min low complexity Subjective: Sally is initially happy to be on the unit. She is smiling and has little to say. She remains disorganized, however. Later in the day, when masks are required to be worn, she simply grunts at me when I ask how she is. The stress of wearing a mask is clearly not to her liking. Objective - General Observations Appearance: Disheveled Appears Stated Age: Yes Stature: WNL Posture: WNL Eye Contact: Intermittent Behavior/Activity: Peculiar - Interaction Observations Attitude Towards Examiner: Cooperative Stated Mood: Irritable Affect: Blunted Speech Pattern/Tone: Normal Volume, Unclear, Slurred Thought Process: Disorganized Perception: WNL Thought Content: Preoccupation/Ruminations, Obsessional, Paranoid Hallucination Type: Auditory Delusion Type: Somatic - Cognitive Function Orientation: A&O x 4 Level of Consciousness: Awake, Alert Cognition: Impaired Cognition, Impaired Attention/Concentration, Impaired Ability to Abstract Insight: Difficulty Acknowledging Presence of Psyciatric Problems Judgment Within Normal Limits: No Ability to Make Reasonable Decisions: Serverely Impaired - Medication Compliance Cooperative with Inpatient Medication Regimen: Yes - Group Participation Participates in Group Activities: No Assessment - Assessment Merits Inpatient Hospitalization: For Immediate Safety Inpatient DSM-V Dx: F20.9 Clinical Impression: Sally is a 43 year old woman who is diagnosed with schizophrenia who comes to the hospital after decompensating without medications for about two weeks at the [facility]. Remains psychotically-related, disorganized in her thinking but she is not suicidal or homicidal. Sally left the unit for a COVID-19 quarantine until results came back. She has an undetected (negative) result. She has returned to the unit with the same disorganized thinking. Plan - Plan Treatment Plan: Name: SALLY SON Birthdate: 1975 [id number] Start Invega 9 mg. Start Tylenol 975 mg, ibuprofen 800, and tramadol 50 mg. Change Thorazine to Risperdal M-tabs to 1 mg. Consider increasing Invega. Begin Robitussin DM for cough. Encourage use of chloraseptic losenges for cough. Increase to Invega 12 mg. Continue encouraging Robitussin DM and chloraseptic losenges. Encourage other PRN medications, including Risperdal M-tabs. Send referral to [facility] as Sally has not improved. Medications: Current Medications Acetaminophen (Tylenol Tab*) 975 mg PO Q6H PRN PRN Reason: for pain; or Temp >101 F Last Admin: 05/31/19 12:45 Dose: 975 mg Al Hydrox/Mg Hydrox/Simethicone (Maalox Plus*) 30 ml PO Q4H PRN PRN Reason: INDIGESTION Albuterol (Ventolin Hfa Inhaler*) 2 puff INH Q2H PRN PRN Reason: SOB/WHEEZING Last Admin: 05/28/19 08:08 Dose: 2 puff Benzonatate (Tessalon Cap*) 100 mg PO BID PRN PRN Reason: COUGH Bisacodyl (Dulcolax Ec Tab*) 5 mg PO DAILY [facility] Last Admin: 05/31/19 09:34 Dose: 5 mg Cetirizine HCl (Zyrtec*) 10 mg PO DAILY [facility] Last Admin: 05/31/19 09:35 Dose: 10 mg Fluticasone Propionate (Flonase Nasal [place] 50mcg*) 2 spray BOTH NARES DAILY [facility] Last Admin: 05/31/19 09:35 Dose: 2 spray Guaifenesin/Dextromethorphan (Robitussin Dm 100 Mg/10 Mg In 5 Ml) 5 ml PO Q4H PRN PRN Reason: COUGH Last Admin: 05/30/19 17:34 Dose: 5 ml Ibuprofen (Motrin Tab*) 800 mg PO Q8H PRN PRN Reason: PAIN - MODERATE Last Admin: 05/31/19 11:11 Dose: 800 mg Nicotine (Nicotine Patch 21 Mg/24 Hr*) 1 patch TRANSDERM DAILY [facility] Last Admin: 05/31/19 09:37 Dose: 1 patch Nicotine Polacrilex (Nicotine Gum*) 4 mg PO 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 Last Admin: 05/31/19 06:25 Dose: 4 mg Ondansetron HCl (Zofran Odt Tab*) 8 mg PO Q6H PRN PRN Reason: NAUSEA Last Admin: 05/26/19 19:57 Dose: 8 mg Oxybutynin Chloride (Ditropan Xl Tab*) 5 mg PO DAILY [facility] Last Admin: 05/31/19 09:34 Dose: 5 mg Paliperidone (Invega Er Tab*) 12 mg PO DAILY [facility] Last Admin: 05/31/19 09:36 Dose: 12 mg Pharmacy Profile Note (Nicotine Patch Removal Note*) 1 note PATCH OFF 2099 [facility] Last Admin: 05/30/19 20:34 Dose: Not Given Polyethylene Glycol/Electrolytes (Miralax (17 Gm Dose Jorge)) 17 gm PO 0800,2100 [facility] Last Admin: 05/31/19 09:37 Dose: 17 gm Risperidone (Risperdal-M Tab *) 1 mg PO Q6H PRN; Protocol PRN Reason: AGITATION Last Admin: 05/30/19 04:58 Dose: 1 mg Throat Lozenges (Chloraseptic Mona*) 1 mona PO Q2H PRN PRN Reason: SORE THROAT/COUGH Last Admin: 05/27/19 19:02 Dose: 1 mona Tramadol HCl (Ultram*) 50 mg PO Q6H PRN PRN Reason: PAIN - MODERATE Last Admin: 05/31/19 06:18 Dose: 50 mg - Discharge Plan Discharge Plan: Consider Longer Term Tx
[2019-05-31] MEDS: Benzocaine/Menthol LOZ* 1 LOZENGE PO PRN (21:01)
[2019-05-31] MEDS: Nicotine Patch Removal NOTE PATCH OFF SCH (22:40)
[2019-06-01] MEDS: traMADol TAB* 50 MG PO PRN ×4 (00:20→22:47)
[2019-06-01] MEDS: risperiDONE-M * 1 MG TAB.ORADIS PO PRN (00:20)
[2019-06-01] MEDS: Ondansetron ODT TAB* 4 MG PO PRN ×3 (00:36→22:47)
[2019-06-01] MEDS: Nicotine* 4MG (FRUIT FLAVOR) GUM PO PRN ×7 (00:38→23:19)
[2019-06-01] MEDS: Albuterol HFA INHALER* 8 gm MDI INH PRN ×4 (01:25→22:49)
[2019-06-01] MEDS: GuaiFENesin DM 100 mg/10 mg in 5 ML UDC PO PRN ×4 (01:26→23:19)
[2019-06-01] MEDS: Acetaminophen TAB* 325 MG PO PRN ×3 (03:20→18:01)
[2019-06-01] MEDS: Ibuprofen TAB* 800 MG PO PRN ×2 (05:49→13:46)
[2019-06-01] MEDS: Polyethylene Glycol 3350* 17 GM PACKET PO SCH ×2 (07:46→22:47)
[2019-06-01] MEDS: Fluticasone NASAL SPRAY 50MCG* 16 gm SPRAY BTL BOTH NARES SCH (07:47)
[2019-06-01] MEDS: Paliperidone ER TAB* 6 MG TAB.ER PO SCH (07:48)
[2019-06-01] MEDS: Bisacodyl EC TAB* 5 MG PO SCH (07:48)
[2019-06-01] MEDS: Oxybutynin XL TAB* 5 MG PO SCH (07:48)
[2019-06-01] MEDS: Cetirizine* 10 MG TAB PO SCH (07:49)
[2019-06-01] MEDS: Nicotine PATCH 21 MG/24 HR* PATCH TRANSDERM SCH (07:49)
[2019-06-01 12:21] LABS: Urine Appearance Clear; Urine Bilirubin Negative (Negative); Urine Blood Negative (Negative); Urine Color Straw; Urine Glucose Negative (Negative); Urine Ketones Negative (Negative); Urine Nitrite Negative (Negative); Urine Protein Negative (Negative); Urine Specific Gravity 1.005 (1.010-1.030); Urine Urobilinogen Negative (Negative)
[2019-06-01] MEDS: Benzocaine/Menthol LOZ* 1 LOZENGE PO PRN ×2 (16:27→18:53)
[2019-06-01] MEDS: Nicotine Patch Removal NOTE PATCH OFF SCH (23:36)
[2019-06-02] MEDS: Benzocaine/Menthol LOZ* 1 LOZENGE PO PRN ×3 (01:03→19:03)
[2019-06-02] MEDS: Acetaminophen TAB* 325 MG PO PRN (02:46)
[2019-06-02] MEDS: Albuterol HFA INHALER* 8 gm MDI INH PRN (10:07)
[2019-06-02] MEDS: Fluticasone NASAL SPRAY 50MCG* 16 gm SPRAY BTL BOTH NARES SCH (10:08)
[2019-06-02] MEDS: Nicotine PATCH 21 MG/24 HR* PATCH TRANSDERM SCH (10:09)
[2019-06-02] MEDS: Bisacodyl EC TAB* 5 MG PO SCH (10:09)
[2019-06-02] MEDS: Cetirizine* 10 MG TAB PO SCH (10:09)
[2019-06-02] MEDS: GuaiFENesin DM 100 mg/10 mg in 5 ML UDC PO PRN (10:09)
[2019-06-02] MEDS: Oxybutynin XL TAB* 5 MG PO SCH (10:09)
[2019-06-02] MEDS: Polyethylene Glycol 3350* 17 GM PACKET PO SCH ×2 (10:09→20:37)
[2019-06-02] MEDS: Paliperidone ER TAB* 6 MG TAB.ER PO SCH (10:09)
[2019-06-02] MEDS: Nicotine* 4MG (FRUIT FLAVOR) GUM PO PRN ×3 (10:14→20:39)
[2019-06-02] MEDS: traMADol TAB* 50 MG PO PRN (15:19)
--- NOTE | 2019-06-02 17:56 | PN ---
Subjective - Subjective Date of Service: 06/02/19 Service Type: [id number] Hosp care 15 min low complexity Subjective: Sally remains disorganized and bizarre. She is not interested in going to [facility] today, but she also cannot make a case for why she should not go. Her reasoning is disorganized and she relies on the [facility] to care for her. She recommends for herself the opportunity to go to a different floor on the [facility] and seems to remark that she's "seen some things there" that she shouldn't have seen. She is unable to expound upon what. To end the conversation she states [facility] is cold and that makes her ovaries hurt. Also, she reminds me that her is a sex offender. These are recurrent, decade-long statements that she makes and has not developed insight into. Objective - General Observations Appearance: Well Groomed Appears Stated Age: Yes Posture: WNL Eye Contact: Average Behavior/Activity: Peculiar - Interaction Observations Attitude Towards Examiner: Cooperative Stated Mood: Euthymic Affect: Full Speech Pattern/Tone: Clear, Normal Volume, Rambling Thought Process: Disorganized, Loose Associations Thought Content: Preoccupation/Ruminations Hallucination Type: Denies, Auditory Delusion Type: Somatic - Cognitive Function Orientation: A&O x 4 Level of Consciousness: Awake, Alert, Appropriate Cognition: Impaired Cognition, Impaired Attention/Concentration, Impaired Ability to Abstract, Impaired Fund of Knowledge Insight: Difficulty Acknowledging Presence of Psyciatric Problems Judgment Within Normal Limits: No Ability to Make Reasonable Decisions: Serverely Impaired - Medication Compliance Cooperative with Inpatient Medication Regimen: Yes - Group Participation Participates in Group Activities: Partial Assessment - Assessment Inpatient DSM-V Dx: F20.9 Clinical Impression: Sally is a 43 year old woman who is diagnosed with schizophrenia who comes to the hospital after decompensating without medications for about two weeks at the [facility]. Remains psychotically-related, disorganized in her thinking but she is not suicidal or homicidal. Sally left the unit for a COVID-19 quarantine until results came back. She has an undetected (negative) result. She has returned to the unit with the same disorganized thinking. Plan - Plan Treatment Plan: Name: SALLY SON Birthdate: 1975 [id number] Start Invega 9 mg. Start Tylenol 975 mg, ibuprofen 800, and tramadol 50 mg. Change Thorazine to Risperdal M-tabs to 1 mg. Consider increasing Invega. Begin Robitussin DM for cough. Encourage use of chloraseptic losenges for cough. Increase to Invega 12 mg. Continue encouraging Robitussin DM and chloraseptic losenges. Encourage other PRN medications, including Risperdal M-tabs. Send referral to [facility] as Sally has not improved. Referral sent. Continue to treat with Invega 12 mg. Medications: Current Medications Acetaminophen (Tylenol Tab*) 975 mg PO Q6H PRN PRN Reason: for pain; or Temp >101 F Last Admin: 06/02/19 02:46 Dose: 975 mg Al Hydrox/Mg Hydrox/Simethicone (Maalox Plus*) 30 ml PO Q4H PRN PRN Reason: INDIGESTION Albuterol (Ventolin Hfa Inhaler*) 2 puff INH Q2H PRN PRN Reason: SOB/WHEEZING Last Admin: 06/02/19 10:07 Dose: 2 puff Benzonatate (Tessalon Cap*) 100 mg PO BID PRN PRN Reason: COUGH Bisacodyl (Dulcolax Ec Tab*) 5 mg PO DAILY [facility] Last Admin: 06/02/19 10:09 Dose: 5 mg Cetirizine HCl (Zyrtec*) 10 mg PO DAILY [facility] Last Admin: 06/02/19 10:09 Dose: 10 mg Fluticasone Propionate (Flonase Nasal [place] 50mcg*) 2 spray BOTH NARES DAILY [facility] Last Admin: 06/02/19 10:08 Dose: 2 spray Guaifenesin/Dextromethorphan (Robitussin Dm 100 Mg/10 Mg In 5 Ml) 5 ml PO Q4H PRN PRN Reason: COUGH Last Admin: 06/02/19 10:09 Dose: 5 ml Ibuprofen (Motrin Tab*) 800 mg PO Q8H PRN PRN Reason: PAIN - MODERATE Last Admin: 06/01/19 13:46 Dose: 800 mg Nicotine (Nicotine Patch 21 Mg/24 Hr*) 1 patch TRANSDERM DAILY [facility] Last Admin: 06/02/19 10:09 Dose: 1 patch Nicotine Polacrilex (Nicotine Gum*) 4 mg PO 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 Last Admin: 06/02/19 10:14 Dose: 4 mg Ondansetron HCl (Zofran Odt Tab*) 8 mg PO Q6H PRN PRN Reason: NAUSEA Last Admin: 06/01/19 22:47 Dose: 8 mg Oxybutynin Chloride (Ditropan Xl Tab*) 5 mg PO DAILY [facility] Last Admin: 06/02/19 10:09 Dose: 5 mg Paliperidone (Invega Er Tab*) 12 mg PO DAILY [facility] Last Admin: 06/02/19 10:09 Dose: 12 mg Pharmacy Profile Note (Nicotine Patch Removal Note*) 1 note PATCH OFF 2099 [facility] Last Admin: 06/01/19 23:36 Dose: 1 note Polyethylene Glycol/Electrolytes (Miralax (17 Gm Dose Jorge)) 17 gm PO 0800,2099 [facility] Last Admin: 06/02/19 10:09 Dose: 17 gm Risperidone (Risperdal-M Tab *) 1 mg PO Q6H PRN; Protocol PRN Reason: AGITATION Last Admin: 06/01/19 00:20 Dose: 1 mg Throat Lozenges (Chloraseptic Mona*) 1 mona PO Q2H PRN PRN Reason: SORE THROAT/COUGH Last Admin: 06/02/19 15:20 Dose: 1 mona Tramadol HCl (Ultram*) 50 mg PO Q6H PRN PRN Reason: PAIN - MODERATE Last Admin: 06/02/19 15:19 Dose: 50 mg - Discharge Plan Discharge Plan: Consider Longer Term Tx
[2019-06-02] MEDS: Ibuprofen TAB* 800 MG PO PRN (19:03)
[2019-06-02] MEDS: Nicotine Patch Removal NOTE PATCH OFF SCH (20:39)
[2019-06-02] MEDS: risperiDONE-M * 1 MG TAB.ORADIS PO PRN (21:52)
[2019-06-03] MEDS: Paliperidone ER TAB* 6 MG TAB.ER PO SCH (08:09)
[2019-06-03] MEDS: Oxybutynin XL TAB* 5 MG PO SCH (08:09)
[2019-06-03] MEDS: traMADol TAB* 50 MG PO PRN ×3 (08:10→20:40)
[2019-06-03] MEDS: Bisacodyl EC TAB* 5 MG PO SCH (08:10)
[2019-06-03] MEDS: Cetirizine* 10 MG TAB PO SCH (08:10)
[2019-06-03] MEDS: Fluticasone NASAL SPRAY 50MCG* 16 gm SPRAY BTL BOTH NARES SCH (08:11)
[2019-06-03] MEDS: Nicotine PATCH 21 MG/24 HR* PATCH TRANSDERM SCH (08:11)
[2019-06-03] MEDS: Polyethylene Glycol 3350* 17 GM PACKET PO SCH ×2 (08:13→20:36)
[2019-06-03] MEDS: Benzocaine/Menthol LOZ* 1 LOZENGE PO PRN ×5 (09:13→20:40)
[2019-06-03] MEDS: Acetaminophen TAB* 325 MG PO PRN (18:10)
[2019-06-03] MEDS: Nicotine* 4MG (FRUIT FLAVOR) GUM PO PRN ×2 (18:11→20:42)
[2019-06-03] MEDS: GuaiFENesin DM 100 mg/10 mg in 5 ML UDC PO PRN (20:39)
[2019-06-03] MEDS: Nicotine Patch Removal NOTE PATCH OFF SCH (20:44)
[2019-06-04] MEDS: Acetaminophen TAB* 325 MG PO PRN ×2 (00:11→08:03)
[2019-06-04] MEDS: Nicotine* 4MG (FRUIT FLAVOR) GUM PO PRN ×8 (00:12→21:56)
[2019-06-04] MEDS: Benzocaine/Menthol LOZ* 1 LOZENGE PO PRN ×7 (00:12→21:56)
[2019-06-04] MEDS: Ibuprofen TAB* 800 MG PO PRN ×2 (02:10→23:00)
[2019-06-04] MEDS: Polyethylene Glycol 3350* 17 GM PACKET PO SCH ×2 (07:59→19:54)
[2019-06-04] MEDS: Bisacodyl EC TAB* 5 MG PO SCH (08:00)
[2019-06-04] MEDS: Cetirizine* 10 MG TAB PO SCH (08:00)
[2019-06-04] MEDS: Oxybutynin XL TAB* 5 MG PO SCH (08:01)
[2019-06-04] MEDS: Paliperidone ER TAB* 6 MG TAB.ER PO SCH (08:05)
[2019-06-04] MEDS: Fluticasone NASAL SPRAY 50MCG* 16 gm SPRAY BTL BOTH NARES SCH (08:08)
[2019-06-04] MEDS: Nicotine PATCH 21 MG/24 HR* PATCH TRANSDERM SCH (08:08)
[2019-06-04] MEDS: traMADol TAB* 50 MG PO PRN ×2 (14:35→19:58)
[2019-06-04] MEDS: Ondansetron ODT TAB* 4 MG PO PRN (19:58)
[2019-06-04] MEDS: Nicotine Patch Removal NOTE PATCH OFF SCH (20:12)
[2019-06-04] MEDS: GuaiFENesin DM 100 mg/10 mg in 5 ML UDC PO PRN (23:14)
[2019-06-05] MEDS: Benzocaine/Menthol LOZ* 1 LOZENGE PO PRN ×5 (00:44→21:43)
[2019-06-05] MEDS: Nicotine* 4MG (FRUIT FLAVOR) GUM PO PRN ×5 (00:44→21:43)
[2019-06-05] MEDS: Oxybutynin XL TAB* 5 MG PO SCH (09:37)
[2019-06-05] MEDS: Paliperidone ER TAB* 6 MG TAB.ER PO SCH (09:37)
[2019-06-05] MEDS: Polyethylene Glycol 3350* 17 GM PACKET PO SCH ×2 (09:37→21:05)
[2019-06-05] MEDS: Nicotine PATCH 21 MG/24 HR* PATCH TRANSDERM SCH (09:39)
[2019-06-05] MEDS: Cetirizine* 10 MG TAB PO SCH (09:39)
[2019-06-05] MEDS: Bisacodyl EC TAB* 5 MG PO SCH (09:39)
[2019-06-05] MEDS: Fluticasone NASAL SPRAY 50MCG* 16 gm SPRAY BTL BOTH NARES SCH (09:41)
[2019-06-05] MEDS: traMADol TAB* 50 MG PO PRN ×2 (15:23→21:43)
--- NOTE | 2019-06-05 15:30 | PN ---
Subjective - Subjective Date of Service: 06/05/19 Service Type: 06017 Hosp care 15 min low complexity Subjective: Sally remains bizarre, although her affect has brightened and she seems happy. She remains disorganized, however. Even her movements around the unit are somewhat disorganized, moving from one place to another with no real purpose or plan. Objective - General Observations Appearance: Neat Appears Stated Age: Yes Stature: WNL Posture: WNL Eye Contact: Average Behavior/Activity: Peculiar - Interaction Observations Attitude Towards Examiner: Cooperative Stated Mood: Euthymic Affect: Bright Speech Pattern/Tone: Appropriate, Normal Volume, Slurred, Garbled, Rambling Thought Process: Disorganized Perception: WNL Thought Content: Preoccupation/Ruminations, Obsessional Hallucination Type: Auditory Delusion Type: Erotic, Somatic - Cognitive Function Orientation: A&O x 4 Level of Consciousness: Awake, Alert, Appropriate Cognition: Impaired Cognition, Impaired Attention/Concentration Insight: Difficulty Acknowledging Presence of Psyciatric Problems Judgment Within Normal Limits: No Ability to Make Reasonable Decisions: Serverely Impaired - Medication Compliance Cooperative with Inpatient Medication Regimen: Yes - Group Participation Participates in Group Activities: No Assessment - Assessment Merits Inpatient Hospitalization: For Immediate Safety, For Discharge Planning Inpatient DSM-V Dx: F20.9 Clinical Impression: Sally is a 43 year old woman who is diagnosed with schizophrenia who comes to the hospital after decompensating without medications for about two weeks at the [facility]. Remains psychotically-related, disorganized in her thinking but she is not suicidal or homicidal. Sally left the unit for a COVID-19 quarantine until results came back. She has an undetected (negative) result. She has returned to the unit with the same disorganized thinking. Plan - Plan Treatment Plan: Name: SALLY SON Birthdate: 1975 [id number] Start Invega 9 mg. Start Tylenol 975 mg, ibuprofen 800, and tramadol 50 mg. Change Thorazine to Risperdal M-tabs to 1 mg. Consider increasing Invega. Begin Robitussin DM for cough. Encourage use of chloraseptic losenges for cough. Increase to Invega 12 mg. Continue encouraging Robitussin DM and chloraseptic losenges. Encourage other PRN medications, including Risperdal M-tabs. Send referral to [facility] as Sally has not improved. Referral sent. Continue to treat with Invega 12 mg. Transfer to [facility] tomorrow. Medications: Current Medications Acetaminophen (Tylenol Tab*) 975 mg PO Q6H PRN PRN Reason: for pain; or Temp >101 F Last Admin: 06/04/19 08:03 Dose: 975 mg Al Hydrox/Mg Hydrox/Simethicone (Maalox Plus*) 30 ml PO Q4H PRN PRN Reason: INDIGESTION Albuterol (Ventolin Hfa Inhaler*) 2 puff INH Q2H PRN PRN Reason: SOB/WHEEZING Last Admin: 06/02/19 10:07 Dose: 2 puff Benzonatate (Tessalon Cap*) 100 mg PO BID PRN PRN Reason: COUGH Bisacodyl (Dulcolax Ec Tab*) 5 mg PO DAILY [facility] Last Admin: 06/05/19 09:39 Dose: 5 mg Cetirizine HCl (Zyrtec*) 10 mg PO DAILY [facility] Last Admin: 06/05/19 09:39 Dose: 10 mg Fluticasone Propionate (Flonase Nasal [place] 50mcg*) 2 spray BOTH NARES DAILY [facility] Last Admin: 06/05/19 09:41 Dose: 2 spray Guaifenesin/Dextromethorphan (Robitussin Dm 100 Mg/10 Mg In 5 Ml) 5 ml PO Q4H PRN PRN Reason: COUGH Last Admin: 06/04/19 23:14 Dose: 5 ml Ibuprofen (Motrin Tab*) 800 mg PO Q8H PRN PRN Reason: PAIN - MODERATE Last Admin: 06/04/19 23:00 Dose: 800 mg Nicotine (Nicotine Patch 21 Mg/24 Hr*) 1 patch TRANSDERM DAILY [facility] Last Admin: 06/05/19 09:39 Dose: 1 patch Nicotine Polacrilex (Nicotine Gum*) 4 mg PO Q2H PRN PRN Reason: COSTUMER Last Admin: 06/05/19 15:23 Dose: 4 mg Ondansetron HCl (Zofran Odt Tab*) 8 mg PO Q6H PRN PRN Reason: NAUSEA Last Admin: 06/04/19 19:58 Dose: 8 mg Oxybutynin Chloride (Ditropan Xl Tab*) 5 mg PO DAILY [facility] Last Admin: 06/05/19 09:37 Dose: 5 mg Paliperidone (Invega Er Tab*) 12 mg PO DAILY [facility] Last Admin: 06/05/19 09:37 Dose: 12 mg Pharmacy Profile Note (Nicotine Patch Removal Note*) 1 note PATCH OFF 2099 [facility] Last Admin: 06/04/19 20:12 Dose: 1 note Polyethylene Glycol/Electrolytes (Miralax (17 Gm Dose Jorge)) 17 gm PO 0800,2100 [facility] Last Admin: 06/05/19 09:37 Dose: 17 gm Risperidone (Risperdal-M Tab *) 1 mg PO Q6H PRN; Protocol PRN Reason: AGITATION Last Admin: 06/02/19 21:52 Dose: 1 mg Throat Lozenges (Chloraseptic Mona*) 1 mona PO Q2H PRN PRN Reason: SORE THROAT/COUGH Last Admin: 06/05/19 15:23 Dose: 1 mona Tramadol HCl (Ultram*) 50 mg PO Q6H PRN PRN Reason: PAIN - MODERATE Last Admin: 06/05/19 15:23 Dose: 50 mg - Discharge Plan Discharge Plan: Inpatient Hospitalization
[2019-06-05] MEDS: Nicotine Patch Removal NOTE PATCH OFF SCH (19:09)
[2019-06-06 08:48] VITALS: BP 122/67
[2019-06-06] MEDS: Polyethylene Glycol 3350* 17 GM PACKET PO SCH (08:56)
[2019-06-06] MEDS: Nicotine PATCH 21 MG/24 HR* PATCH TRANSDERM SCH (08:57)
[2019-06-06] MEDS: Nicotine* 4MG (FRUIT FLAVOR) GUM PO PRN (08:57)
[2019-06-06] MEDS: risperiDONE-M * 1 MG TAB.ORADIS PO PRN (08:57)
[2019-06-06] MEDS: Paliperidone ER TAB* 6 MG TAB.ER PO SCH (08:57)
[2019-06-06] MEDS: Oxybutynin XL TAB* 5 MG PO SCH (08:58)
[2019-06-06] MEDS: Bisacodyl EC TAB* 5 MG PO SCH (08:58)
[2019-06-06] MEDS: Cetirizine* 10 MG TAB PO SCH (08:58)
[2019-06-06] MEDS: Fluticasone NASAL SPRAY 50MCG* 16 gm SPRAY BTL BOTH NARES SCH (08:58)
[2019-06-06] MEDS: Albuterol HFA INHALER* 8 gm MDI INH PRN (08:59)
[2019-06-06] MEDS: Benzocaine/Menthol LOZ* 1 LOZENGE PO PRN (09:55)
--- NOTE | 2019-06-06 15:55 | DS ---
DISCHARGE SUMMARY: DATE OF ADMISSION: 05/17/19 DATE OF DISCHARGE: 06/06/19 PROVIDER: Tanya Benjamin NP, in Psychiatry. SUPERVISING PHYSICIAN: Dr. Kayden Pompa* (dictated by Tanya Benjamin NP, in Psychiatry). DIAGNOSIS: Schizophrenia. CONDITION AT THE TIME OF DISCHARGE: Moderately improved, psychiatrically cleared, stable. Sally did not participate in groups, but was social with peers. She is tenuously agreeable to discharge to [facility]. She did improve here psychiatrically, although not enough for the team to feel comfortable to discharge her back to the community. She tolerated the restart and increase of Invega oral. She is being transferred to [facility]. MENTAL STATUS EXAMINATION: At the time of discharge, Sally is calm, cooperative, and makes good eye contact. She is alert and oriented x4. Her grooming is adequate. Her speech pace is slow. Her thought processes are logical much of the time. She is psychotic and delusional. She denies AH, VH, SI, and HI, although she is seen to be responding to internal stimuli. Her insight and judgment are poor. She is willing and granted consent to go to the [facility] in [place]. DISCHARGE INSTRUCTIONS TO THE PATIENT: A. Medications: 1. Albuterol inhaler 2 puffs q.2 hours p.r.n. shortness of breath. 2. Benzocaine/menthol lozenges q.2 hours p.r.n. sore throat or cough. 3. Tessalon capsules 100 mg b.i.d. p.r.n. coughing. 4. Dulcolax 5 mg daily. 5. Zyrtec 10 mg daily. 6. Flonase nasal spray 50 mcg 2 sprays both nares daily. 7. Robitussin DM 100 mg/10 mg in 5 mL, 5 mL p.o. q.4 hours p.r.n. cough. 8. Ibuprofen 800 mg q.8 hours p.r.n. pain. 9. Nicotine gum 4 mg q.2 hours p.r.n. craving. 10. Zofran 8 mg q.6 hours p.r.n. nausea. 11. Ditropan XL 5 mg daily. 12. Invega ER 12 mg daily. 13. MiraLAX 17 g b.i.d. 14. Tramadol 50 mg q.6 hours p.r.n. pain. B. Diet is regular. C. Activities: As tolerated. She is a smoker, but she has declined a referral to the [employer] [facility] at this time. If she decides to access this free service in the future, she can contact the quitline toll- free at [phone]. There are no studies pending at the time of discharge. D. Followup care: She is being transferred to [facility] for further psychiatric care. E. Disposition: She is being discharged to [facility]. F. Substance abuse followup is not indicated. HOSPITAL COURSE: Part A: Chief complaint: "I've been seeing stuff and hearing stuff, voices that... other people must be hearing stuff too." The patient is a 43-year-old, tenuously , mixed raced female, with a history of schizophrenia, who arrives, brought in by ambulance and is here on a 9.39 status after decompensating for about 2 weeks at the [facility]. Sally is met in the milieu. She is drinking coffee and frequently spilling it onto her papers and wiping it up with Kleenex that she has already used to wipe her mouth. She is disorganized. It is hard to get information out of her. What we can get together is the melange of information about her , who she talks about being away from her for 11 months and then jumps back in time to say that she was together with him again for 2 weeks, but that is not true. She has been apart from him for 11 months. She states that at some point in time she has had an order of protection against him. She states she has her own room at the [facility], which she enjoys. She does rattle off some complaints about people not cleaning her room for her. It is unclear to me what expectation a person can have at the [facility] for having her room cleaned. She states she thinks she has arthritis, a nerve condition, manic depression, some kind of delusional disorder, fibromyalgia, and Raynaud's disease. She states she uses Percocet for pain. The pain is increasing. She states that people are only giving her Tylenol and ibuprofen. She states "I wouldn't have any kidney or liver left... but nothing is set in stone." She stopped taking medication about 2 weeks ago. She says the staff at [facility] recommended that she stop taking it because she did not need it anymore. This is clearly either bad advice or a delusion as she is very disorganized and very delusional already. Her historical delusions about her ovaries and her uterus are intact, stating that her ovaries hurt and she removed her uterus recently. She is experiencing the stressors of having a severe delusional disorder. She likes living by herself at the [facility] because she is surrounded by people, but struggles with the idea that her body is not responding properly ( she has many somatic delusions). She is also stressed out by her , who she apparently does not have contact with, but who is very alive in her memory. She is delusional. She is not appearing to have many manic symptoms. She is distractible, however, and she has flight of ideas. It is unclear whether she is sleeping well. She is talkative, but also shuts down the conversation after perhaps 15 minutes. Part B: Psychiatric treatment was rendered. Sally was admitted to the adult behavioral unit and placed on 15-minute checks for safety. She did advance to 30- minute checks and staff pass privileges. She was safe on all checks. Sally was at-home on the unit. She did not go to groups. She interacted with peers reasonably well, although her bizarre behavior was sometimes off putting to them. Sally spent a lot of time drinking tea and waiting at the nurses' station for people to talk to. We restarted Invega at 9 mg and then later increased it to 12 mg. She tolerated that med change very well. It should be noted that her hemoglobin A1c is 5.7, triglycerides are 99, cholesterol 152, LDL cholesterol 75, HDL cholesterol 57.5. Her TSH is 1.16. On 05/28/19, Sally developed a low fever of 99 and she has a severe cough. In this series of events, she was transferred for 3 days to the medical floor where she was kept in a negative pressure room and tested for COVID-19. She is not positive. The results came back as undetected. She still has a cough, but additionally a chest x-ray was performed, which stated that no active cardiopulmonary disease was noted. We did not meet with her family and did not make significant contact with her outpatient providers. Nevertheless, she is safe to be transferred to the [facility] where we hope she will continue to improve and prepare for a life outside of a psychiatric milieu. TANYA BENJAMIN, ELLE [id number]/[facility] #: [id number] [place]
== END 2019-06-06 10:30 | DRG 750 ==
LOC: ED 12:21 → BSU 15:52 → MERGE 15:52 → BSU 16:49 → MED 05-28 12:18 → BSU 05-31 08:01
PROVIDERS: ADMIT Psychiatry & Neurology Psychiatry; ATTEND Psychiatry & Neurology Psychiatry
DX: F20.9 Schizophrenia, unspecified (principal); F17.210 Nicotine dependence, cigarettes, uncomplicated; J45.30 Mild persistent asthma, uncomplicated; M19.90 Unspecified osteoarthritis, unspecified site; F10.10 Alcohol abuse, uncomplicated; Y90.2 Blood alcohol level of 40-59 mg/100 ml; R10.2 Pelvic and perineal pain; Z59.0 Homelessness; Z91.012 Allergy to eggs; Z91.040 Latex allergy status; Z91.011 Allergy to milk products; Z91.018 Allergy to other foods; Z91.048 Other nonmedicinal substance allergy status; Z79.899 Other long term (current) drug therapy; Z86.11 Personal history of tuberculosis; Z81.8 Family history of other mental and behavioral disorders; Z81.4 Family history of other substance abuse and dependence; R50.9 Fever, unspecified
CPT/HCPCS: 36415; 71045; 80048; 80053; 80061; 80307; 80320; 80329; 81003; 83036; 84443; 84702; 85025; 87635; 93005; 99222; 99231; 99238; 99284; A9270-GY; G0480